=== PATIENT | male | born 1955 | race Caucasian/White ===

== ENCOUNTER → 2018-04-08 13:22 | Outpatient (CLI) | payer SELFPAY ==
[2018-04-08 14:40] LABS: Absolute Lymphocyte Count 2.42 X10^3/ul (0.83-4.51); Absolute Neutrophil Count 6.4 X10^3/uL (2.0-7.7); Basophil# 0.03 X10^3/uL; Basophil% 0.3 % (0-1); Eosinophil# 0.36 X10^3/uL; Eosinophils% 3.4 % (0-5); Hematocrit 30.6 % (40-54); Hemoglobin 9.4 g/dl (13.0-16.5); Lymphocyte # 2.42 X10^3/ul (4.0); Lymphocyte % 23.2 % (19-41); Mean Corp Hgb Conc 30.7 g/gl (32-36); Mean Corpuscular Hgb 24.7 pg (27.0-32.0); Mean Corpuscular Volume 80.3 fL (80-94); Mean Platelet Vol. 9.9 fl (6.2-12.0); Monocyte# 1.25 X10^3/uL; Neutrophil # 6.35 X10^3/uL (2.7-7.7); Neutrophil % 60.8 % (47-70); POSITIVE COUNT NO; POSITIVE DIFFERENTIAL NO; POSITIVE MORPHOLOGY NO; Platelet Count 326 K/mm3 (150-450); RBC Distribution Width CV 16.5 % (11.6-14.6); RBC Distribution Width SD 46.5 fl (35.1-43.9); Red Blood Count 3.81 M/mm3 (4.6-6.2); White Blood Count 10.4 K/mm3 (4.4-11.0)
[2018-04-08 15:03] LABS: ALB/GLOB Ratio 0.6 RATIO (0.9-2.4); AST(SGOT) 34 U/L (15-37); Alanine Aminotransfer ALT/SGPT 29 U/L (16-61); Alkaline Phosphatase 79 U/L (45-117); Anion Gap 8 (5-15); BUN 20 mg/dL (7-18); BUN/Creat Ratio 19.2 RATIO (10-20); Chloride 100 mmol/L (98-107); Creatinine, Serum 1.04 mg/dL (0.70-1.30); EST Glomerular Filtration Rate 77 mL/min (>60); Est Glom Filt Rate - Afr Amer 94 mL/min (>60); Globulin 4.9 g/dL (2.2-4.2); Glucose 134 mg/dL (74-106); Potassium 4.1 mmol/L (3.5-5.1); Protein, Total 7.9 g/dL (6.4-8.2); Sodium Level 138 mmol/L (136-145)
== END ==
PROVIDERS: Family Provider Family Medicine; PCP Family Medicine; Referring Provider Internal Medicine Rheumatology; Visit Provider Internal Medicine Rheumatology
DX: M06.00 Rheumatoid arthritis without rheumatoid factor, unspecified site (principal); M17.0 Bilateral primary osteoarthritis of knee; Z79.899 Other long term (current) drug therapy
CPT/HCPCS: 36415; 80053; 85025

== ENCOUNTER 2018-05-27 10:54 | Day surgery (SDC) | payer SELFPAY ==
[2018-05-27] VITALS (7 sets, daily range): BP systolic 99–132; BP diastolic 48–87; PULSE 60–109; RESP 15–18; TEMP 36.3–36.8; O2SAT 98–100; BMI 29.8
--- NOTE | 2018-05-27 | IMM_PTH ---
PATIENT: CARMEN MENDEZ LOC: EN U#:[id number] AGE/SX: 62/M ROOM: RE05/27/[address]: Dr. Jas Dykes MD : 1955 BED: DIS: 05/27/2018 SPEC #: [id number] RECD: 05/28/18 14:34 STATUS: DIANA REQ #: [id number] BRISEIDA: 05/27/18 00:[address]: Jas Dykes DEPT: IMMUNOHISTOCHEMISTRY RECD BY: Lisette Coley ENTERED: 05/28/18 14:39 SP TYPE: IMMUNO OTHR DR: Dr. Gumaro Menjivar DO Tissues: B - Stomach, NOS E - Transverse colon Procedures: H Pylori (initial) MSH2 (add) MLH-1 (add) MSH6 (add) Anti-PMS2 (add) DILLON-2 (add) P53 (add) KI-67 (initial) PHYSICIAN & INSTITUTION [place] [id number] SPECIMEN INFORMATION: Tissue Source: B - Antral biopsy, E - Distal transverse colon mass biopsy Clinical Info: Weight loss, anemia Specimen Number: [id number] B & E CPT code: 50224 x2, 11538 x6 METHODOLOGY: Deparaffinized sections of prefer/formalin-fixed tissue or PAP/DQ stained slides are incubated with monoclonal/polyclonal antibodies/oligonucleotide probes. Localization is made via biotin free immunoperoxidase method. Appropriate controls are performed and reacted as expected. Results on target cell population are indicated in the following table: RESULTS: ANTIBODY / CLONE RESULT Block B H Pylori (polyclonal) negative Block E Ki-67 (30-9) positive, high P53 (DO-7) positive, focal and weak DILLON-2 (SP21) positive MLH-1 (M1) negative MSH2 (25D12) positive MSH6 (44) positive PMS2 (EQK0629) negative These tests were developed and their performance characteristics determined by [facility]. They may not have been cleared or approved by the U.S. Food and Drug Administration. The FDA has determined that such clearance or approval is not necessary. INTERPRETATION: B. Antral biopsy: Negative for Helicobacter pylori organisms. E. Distal transverse colon mass, biopsy: Invasive adenocarcinoma. Result of Microsatellite Instability Study: Positive (loss of mismatch protein; microsatellite instability detected). Complete loss of MLH1 and PMS2. SJ:sena 05/29/18
[2018-05-27 11:35] LABS: Bedside Glucose 116 mg/dL (70-110)
--- NOTE | 2018-05-27 12:00 | EGD_PTH ---
PATIENT: CARMEN MENDEZ LOC: EN U#:[id number] AGE/SX: 62/M ROOM: RE05/27/[address]: Dr. Jas Dykes MD : 1955 BED: DIS: 05/27/2018 SPEC #: [id number] RECD: 05/27/18 13:53 STATUS: DIANA RERonny #: [id number] BRISEIDA: 05/27/18 12:[address]: Jas Dykes DEPT: SURGICAL PATHOLOGY RECD BY: Jas Rubio ENTERED: 05/27/18 13:59 SP TYPE: EGD BIOPSY OTHR DR: Dr. Gumaro Menjivar DO Tissues: A - Jejunum, NOS B - Gastric mucous membrane C - Gastric mucous membrane D - Esophagus, NOS E - Transverse colon Procedures: Special Stain Group II PAS Stain (control) Surgery Specimen Level IV HEADER OPERATION: [place] [place] DIAGNOSIS: Weight loss, anemia TISSUE SUBMITTED: A - Jejunal biopsy, B - Antral biopsy for pathology, C - GE junction biopsy, D - Mid esophageal biopsy, E - Distal transverse colon mass biopsy MICROSCOPIC DIAGNOSIS A. Jejunum, biopsy: Minimal nonspecific chronic inflammation. See comment. B. Gastric antrum, biopsy: Mild chronic inflammation. See comment. C. Gastroesophageal junction, biopsy: Mild acute and chronic inflammation. See comment. D. Mid esophagus, biopsy: Fragments of benign squamous mucosa. E. 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 See comment. AM:sena 05/28/18 COMMENT A. There is no flattening of the villi. No transmural lymphoid aggregates are seen. Clinical correlation is suggested. B. The results of immunohistochemistry for Helicobacter pylori will be reported separately ([id number]). C. PAS stain with matched control is negative for fungal organisms. E. Microsatellite instability study will be reported separately ([id number]). Case has been reviewed in consultation with Dr. Irene who concurs with the above diagnosis. IDC:SJ MICROSCOPIC DESCRIPTION Slides are reviewed. GROSS DESCRIPTION A - Received in fixative is one container labeled with the patient's name and designated jejunal biopsy. The specimen consists of two irregular fragments of light mix soft tissue that in aggregate measure 0.5 x 0.5 x 0.1 cm. The specimen is totally submitted in one cassette. B - Received in fixative is one container labeled with the patient's name and designated antral biopsy. The specimen consists of one irregular fragment of light mix soft tissue that measures 0.5 x 0.3 x 0.1 cm. The specimen is totally submitted in one cassette. C - Received in fixative is one container labeled with the patient's name and designated GE junction biopsy. The specimen consists of two irregular fragments of light mix soft tissue that in aggregate measure 0.5 x 0.5 x 0.1 cm. The specimen is totally submitted in one cassette. D - Received in fixative is one container labeled with the patient's name and designated mid esophageal biopsy. The specimen consists of one irregular fragment of light mix soft tissue that measures 0.6 x 0.2 x 0.1 cm. The specimen is totally submitted in one cassette. E - Received in fixative is one container labeled with the patient's name and designated distal transverse colon mass biopsy. The specimen consists of multiple irregular fragments of light mix soft tissue that in aggregate measure 1 x 0.5 x 0.1 cm. The specimen is totally submitted in one cassette. / AM:sena 05/27/18 TC:0 CPT: 47636 x5, 72852
--- NOTE | 2018-05-27 12:59 | HP.PCM_ITS ---
History and Physical Date of Admission: 05/27/18 HISTORY AND PHYSICAL ? Mainor Rios 1955 ? REFERRING PHYSICIAN: ??Self ? CHIEF COMPLAINT: ??Consult (Consult Colonoscopy) ? HPI: The patient is a 62 year old male referred for endoscopy. ?The patient is a poor historian. ?He notes that around a year ago he was having a large amount of lower abdominal cramping and discomfort. ?He states that he underwent laboratory workup at that time which was unremarkable, did not have endoscopy and does not think he had any imaging studies at that time. ?States the pain was felt to possibly be related to one of his arthritis medications which has since been discontinued. ?He states the abdominal pain has since resolved. ? ? Patient does note that he has had weight fluctuations and weight loss of around 30 lbs total in the last year. ?He notes a history of constipation and hard stools, takes metamucil regularly. ?He denies any visible blood in stools or dark stools. ?The patient ?notes no history of upper GI complaints. ?He was noted to have decreasing hemoglobin on recent routine laboratory studies and is referred for endoscopic evaluation for possible GI source of blood loss. ? Mainor has not?undergone prior endoscopy. ?He denies a family history of colon cancer. ?Patient states around 20 years ago he had an attempted fistulotomy surgery with seton placement. ?He states he had complications related to that surgery. ?He states he then went to another surgeon for a redo surgery, but that that surgery could not be completed as they had trouble getting the tube down my throat. ?He states that the site healed on its own and he denies any flare- ups of anal abscesses or other issues since that time. ?He notes that he is very apprehensive about having anything done in that area since his issues with the fistulotomy surgery, and states this is why he has put off having a colonoscopy in the past. ? Patient's past medical history is significant for diabetes mellitus, gout, hypertension, hyperlipidemia, rheumatoid arthritis. ? ? PAST MEDICAL HISTORY PAST MEDICAL HISTORY Diagnosis Date ? DM (diabetes mellitus) (HCC) ? ? Gout ? ? HTN (hypertension) ? ? Hypercholesteremia ? ? RA (rheumatoid arthritis) (HCC) ? ? ? PAST SURGICAL HISTORY PAST SURGICAL HISTORY Procedure Laterality Date ? FISTULOTOMY SUBCUT ? 1997 ? ? CURRENT MEDICATIONS ? Current Outpatient Prescriptions: omeprazole/sodium bicarbonate (OMEPPI ORAL) Take by mouth. pravastatin (PRAVACHOL) 40 mg tablet Take 40 mg by mouth once daily. glipiZIDE (GLUCOTROL) 5 mg tablet Take 5 mg by mouth three times daily. metFORMIN (GLUCOPHAGE) 1,000 mg tablet Take 1,000 mg by mouth twice daily with meals. atenolol (TENORMIN) 25 mg tablet Take 25 mg by mouth once daily. ferrous sulfate (IRON) 325 mg (65 mg iron) tablet Take 325 mg by mouth daily with breakfast. aspirin 81 mg chewable tablet Take 81 mg by mouth once daily. adalimumab (HUMIRA PEN SUBCUTANEOUS) Inject subcutaneously every 2 weeks. ALLOPURINOL ORAL Take 300 mg by mouth once daily. ? No current facility-administered medications for this visit. ? ALLERGIES: Patient has no known allergies. ? PERSONAL HISTORY: SOCIAL HISTORY Social History ??Marital status: ?Spouse name: ?Years of education: ?Number of children: ? Social History Main Topics ??Smoking status: Former Smoker ?Packs/day: 0.00 ?Years: 0.00 ?Start date: 05/07/1973 ?Quit date: 05/07/1993 ??Smokeless tobacco: Never Used ?Alcohol use: No ? FAMILY HISTORY: FAMILY HISTORY No family history on file. ? REVIEW OF SYSTEMS GENERAL: No weight loss, malaise or fevers HEENT: Negative for frequent or significant headaches, No changes in hearing or vision, no nose bleeds or other nasal problems NECK: Negative for lumps, goiter, pain and significant neck swelling RESPIRATORY: Negative for cough, hemoptysis, wheezing, COPD, dyspnea or shortness of breath CARDIOVASCULAR: Negative for chest pain, leg swelling, hypertension, CHF or palpitations GI: See HPI MUSCULOSKELETAL: +Rheumatoid arthritis SKIN: Negative for lesions, rash, and itching PSYCH: Negative for sleep disturbance, mood disorder and recent psychosocial stressors HEMATOLOGY/LYMPHOLOGY: See HPI, +anemia ENDOCRINE: Positive for diabetes mellitus on oral agent NEURO: No history of headaches, syncope, paralysis, seizures or tremors ? ? PHYSICAL EXAMINATION: ? General: ?The patient is 62 year old male, well nourished, well hydrated in no acute distress. ?The patient is oriented to time, place, and person. ? VITALS: Blood pressure 142/68, pulse 80, height 180.3 cm (5' 11), weight 99.8 kg (220 lb), SpO2 95 %.?Body mass index is 30.68 kg/m?.? ? HEENT: ?Normal cephalic, ataumatic, pupils are equally round, sclera are anicteric, mucous membranes are moist, oropharynx is clear. ?Neck has no masses, asymmetry or lymphadenopathy. ? ? Respiratory: ?Clear to auscultation and percussion. ?Normal respiratory excursion and pattern. ? Cardiac: ?Examination is regular rate and rhythm. ? Abdominal exam: ?Soft, nontender, ?with no palpable masses. ?No hepatosplenomegaly. ?No palpable hernias. ? Rectal exam: exam deferred ? Extremities: ?no clubbing, cyanosis or edema. ?No adenopathy. ? Other: ? LABORATORY VALUES: As Noted ? RADIOLOGIC STUDIES: ?As Noted ? Assessment ? IMPRESSION: anemia, history of lower abdominal discomfort, recommend upper and lower endoscopy ? PLAN: ?I have reviewed my findings with Dr. Dykes, who also evaluated the patient and participated in development of the following plan. ?We will plan for upper and lower endoscopy under Monitored Anesthetic Care. ?We discussed the risks and benefits of the planned endoscopy. ?I have informed the patient that complications can occur including failure to complete the endoscopy and perforation. ?The patient had the opportunity to ask questions concerning the planned endoscopy. ?My staff has also explained the procedure to the patient in understandable terms and has given the patient printed material concerning the procedure. ?The patient freely consents to surgery. ? I plan to use golytely bowel preparation for endoscopy ? I plan for monitored anesthetic care.? ? Patient has been instructed to contact his PCP regarding his diabetic medications, which may need adjusted during bowel preparation and/or day of procedure. ? Patient verbalized understanding of all above and agreed with the ?plan ? Diagnoses: (D64.9) Anemia, unspecified type ?(primary encounter diagnosis) (R10.9) Abdominal cramping ? My findings have been communicated to Dr. Gumaro Fuentes Otto. ?? Return to Clinic: The patient is instructed to follow-up with me 1 week post operatively. ? Maribel Richards PA-C
--- NOTE | 2018-05-27 13:31 | OP.ENDO_ITS ---
Patient Name: Mainor Rios Procedure Date: 05/27/2018 12:07 PM Date of : 1955 Age: 62 Procedure: Upper GI endoscopy Indications: Iron deficiency anemia Providers: Jas Dykes MD Referring MD: Gumaro Menjivar Medicines: Monitored Anesthesia Care Patient Profile: This is a 62 year old male. Refer to note in patient chart for documentation of history and physical. Complications: No immediate complications. Procedure: Pre-Anesthesia Assessment: - Prior to the procedure, a History and Physical was performed, and patient medications and allergies were reviewed. The patient is competent. The risks and benefits of the procedure and the sedation options and risks were discussed with the patient. All questions were answered and informed consent was obtained. Patient identification and proposed procedure were verified by the physician, the nurse and the relay man in the procedure room. Mental Status Examination: alert and oriented. Airway Examination: normal oropharyngeal airway and neck mobility. Respiratory Examination: clear to auscultation. CV Examination: normal. Prophylactic Antibiotics: The patient does not require prophylactic antibiotics. Prior Anticoagulants: The patient has taken no previous anticoagulant or antiplatelet agents. ASA Grade Assessment: III - A patient with severe systemic disease. After reviewing the risks and benefits, the patient was deemed in satisfactory condition to undergo the procedure. The anesthesia plan was to use moderate sedation / analgesia (conscious sedation). Immediately prior to administration of medications, the patient was re-assessed for adequacy to receive sedatives. The heart rate, respiratory rate, oxygen saturations, blood pressure, adequacy of pulmonary ventilation, and response to care were monitored throughout the procedure. The physical status of the patient was re-assessed after the procedure. After obtaining informed consent, the endoscope was passed under direct vision. Throughout the procedure, the patient's blood pressure, pulse, and oxygen saturations were monitored continuously. The gastroscope was introduced through the mouth, and advanced to the jejunum. The upper GI endoscopy was accomplished without difficulty. The patient tolerated the procedure well. Scope In: 1:05:07 PM Scope Out: 1:10:01 PM Total Procedure Duration Time 0 hours 4 minutes 54 seconds Findings: The examined jejunum was normal. Biopsies for histology were taken with a cold forceps for evaluation of celiac disease. The examined duodenum was normal. Scattered moderate inflammation characterized by adherent blood, erosions, erythema, granularity and linear erosions was found in the entire examined stomach. Biopsies were taken with a cold forceps for Helicobacter pylori testing using PyloriTek test. Biopsies were taken with a cold forceps for histology. Non-severe esophagitis with no bleeding was found. Biopsies were taken with a cold forceps for histology. The middle third of the esophagus was normal. Biopsies were taken with a cold forceps for histology. Impression: - Normal examined jejunum. Biopsied. - Normal examined duodenum. - Gastritis. Biopsied. - Non-severe reflux esophagitis. Biopsied. - Normal middle third of esophagus. Biopsied. Recommendation: - Continue present medications. Procedure Code(s): --- Professional --- 83961, Esophagogastroduodenoscopy, flexible, transoral; with biopsy, single or multiple CPT copyright 2017 [employer]. All rights reserved. The codes documented in this report are preliminary and upon digital advertising analyst review may be revised to meet current compliance requirements. Jas Dykes MD 05/27/2018 1:31:07 PM This report has been signed electronically. Number of Addenda: 0 Note Initiated On: 05/27/2018 12:07 PM
--- NOTE | 2018-05-27 13:34 | OP.ENDO_ITS ---
Patient Name: Mainor Rios Procedure Date: 05/27/2018 1:10 PM Date of : 1955 Age: 62 Procedure: Colonoscopy Indications: Iron deficiency anemia Providers: Jas Dykes MD Referring MD: Gumaro Menjivar Medicines: Monitored Anesthesia Care Patient Profile: This is a 62 year old male. Refer to note in patient chart for documentation of history and physical. Last Colonoscopy: 3 years ago. Complications: No immediate complications. Procedure: Pre-Anesthesia Assessment: - Prior to the procedure, a History and Physical was performed, and patient medications and allergies were reviewed. The patient is competent. The risks and benefits of the procedure and the sedation options and risks were discussed with the patient. All questions were answered and informed consent was obtained. Patient identification and proposed procedure were verified by the physician, the nurse and the communications controller in the procedure room. Mental Status Examination: alert and oriented. Airway Examination: normal oropharyngeal airway and neck mobility. Respiratory Examination: clear to auscultation. CV Examination: normal. Prophylactic Antibiotics: The patient does not require prophylactic antibiotics. Prior Anticoagulants: The patient has taken no previous anticoagulant or antiplatelet agents. ASA Grade Assessment: III - A patient with severe systemic disease. After reviewing the risks and benefits, the patient was deemed in satisfactory condition to undergo the procedure. The anesthesia plan was to use moderate sedation / analgesia (conscious sedation). Immediately prior to administration of medications, the patient was re-assessed for adequacy to receive sedatives. The heart rate, respiratory rate, oxygen saturations, blood pressure, adequacy of pulmonary ventilation, and response to care were monitored throughout the procedure. The physical status of the patient was re-assessed after the procedure. After I obtained informed consent, the scope was passed under direct vision. Throughout the procedure, the patient's blood pressure, pulse, and oxygen saturations were monitored continuously. The pediatric colonoscope was introduced through the anus and advanced to the cecum, identified by the appendiceal orifice, ileocecal valve and palpation. The colonoscopy was performed without difficulty. The patient tolerated the procedure well. The quality of the bowel preparation was good. Scope In: 1:12:41 PM Scope Withdrawal Time 0 hours 6 minutes 59 seconds Scope Out: 1:23:22 PM Total Procedure Duration Time 0 hours 10 minutes 41 seconds Findings: The digital rectal exam findings include prostate nodule. A fungating partially obstructing large mass was found in the distal transverse colon. The mass was circumferential. The mass measured five cm in length. In addition, its diameter measured five mm. Oozing was present. Biopsies were taken with a cold forceps for histology. Area was tattooed with an injection of Rosita ink. For location marking, one hemostatic clip was successfully placed (MR conditional). There was no bleeding at the end of the procedure. A few small-mouthed diverticula were found in the sigmoid colon. The retroflexed view of the distal rectum and anal verge was normal and showed no anal or rectal abnormalities. Impression: - A prostate nodule found on digital rectal exam. - Malignant partially obstructing tumor in the distal transverse colon. Biopsied. Tattooed. Clip (MR conditional) was placed. - Diverticulosis in the sigmoid colon. - The distal rectum and anal verge are normal on retroflexion view. Recommendation: - Discharge patient to home. - Resume previous diet. - Continue present medications. - Return to my office tomorrow. - Repeat colonoscopy in 1 year for surveillance. Procedure Code(s): --- Professional --- 33927, Colonoscopy, flexible; with directed submucosal injection(s), any substance 72505, Colonoscopy, flexible; with biopsy, single or multiple 08556, Unlisted procedure, colon CPT copyright 2017 [employer] [place] [employer]. All rights reserved. The codes documented in this report are preliminary and upon death surveys coder review may be revised to meet current compliance requirements. Jas Dykes MD 05/27/2018 1:34:27 PM This report has been signed electronically. Number of Addenda: 0 Note Initiated On: 05/27/2018 1:10 PM
--- NOTE | 2018-05-27 13:36 | RAD_ITS ---
STUDY: X-RAY - ABDOMEN/PELVIS REASON FOR EXAM: Male, 62 years old. Abdominal distention. Post colonoscopy with clip placement. TECHNIQUE: COMPARISON: None. FINDINGS: There is an unremarkable bowel gas pattern. A metallic clip is seen in the region of the splenic flexure. The visualized liver, spleen and kidneys are grossly normal in size and morphology. Normal soft tissue structures. There are diffuse degenerative changes of the visualized lumbar spine. RAD/Abdomen Single View (Portable) IMPRESSION: A metallic clip is seen in the region of the splenic flexure. Electronically Signed: Tereso Reynoso MD at 14:57 EST Tel [phone], Service support ,
[2018-05-27 14:02] LABS: Absolute Lymphocyte Count 2.04 X10^3/ul (0.83-4.51); Absolute Neutrophil Count 6.5 X10^3/uL (2.0-7.7); Basophil# 0.03 X10^3/uL; Basophil% 0.3 % (0-1); Eosinophil# 0.23 X10^3/uL; Eosinophils% 2.3 % (0-5); Hemoglobin 9.5 g/dl (13.0-16.5); Lymphocyte # 2.04 X10^3/ul (4.0); Lymphocyte % 20.8 % (19-41); Mean Corp Hgb Conc 30.6 g/gl (32-36); Mean Corpuscular Hgb 23.9 pg (27.0-32.0); Mean Corpuscular Volume 77.9 fL (80-94); Mean Platelet Vol. 8.9 fl (6.2-12.0); Monocyte# 1.03 X10^3/uL; Monocyte% 10.5 % (0-10); Neutrophil # 6.46 X10^3/uL (2.7-7.7); Neutrophil % 65.9 % (47-70); Platelet Count 302 K/mm3 (150-450); RBC Distribution Width CV 16.4 % (11.6-14.6); RBC Distribution Width SD 46.9 fl (35.1-43.9); Red Blood Count 3.98 M/mm3 (4.6-6.2); White Blood Count 9.8 K/mm3 (4.4-11.0)
[2018-05-27 14:03] LABS: POSITIVE COUNT NO; POSITIVE DIFFERENTIAL NO; POSITIVE MORPHOLOGY NO
[2018-05-27 14:44] LABS: ALB/GLOB Ratio 0.5 RATIO (0.9-2.4); AST(SGOT) 29 U/L (15-37); Alanine Aminotransfer ALT/SGPT 24 U/L (16-61); Albumin, Serum 2.8 g/dL (3.2-5.0); Alkaline Phosphatase 76 U/L (45-117); Anion Gap 8 (5-15); BUN 12 mg/dL (7-18); BUN/Creat Ratio 12.9 RATIO (10-20); Calcium,Total 8.7 mg/dL (8.5-10.1); Chloride 101 mmol/L (98-107); Creatinine, Serum 0.93 mg/dL (0.70-1.30); EST Glomerular Filtration Rate 88 mL/min (>60); Est Glom Filt Rate - Afr Amer 106 mL/min (>60); Estimated Creatinine Clearance 89.96 ml/min; Globulin 5.3 g/dL (2.2-4.2); Glucose 113 mg/dL (74-106); PSA,Total- Diagnostic 0.39 ng/mL (0.0-4.0); Potassium 4.1 mmol/L (3.5-5.1); Protein, Total 8.1 g/dL (6.4-8.2); Sodium Level 136 mmol/L (136-145)
[2018-05-28 15:16] LABS: Carcinoembryonic Antigen 3.9 ng/mL (0.0-4.7)
--- OUTSIDE RECORDS SUMMARY | 2018-08-28 14:54 | XMS RPT_ITS ---
:1955 Author Organization OHIP Care Team Providers Name Role Phone Jas Montilla Admitting Unavailable Jas Montilla Attending Unavailable Jas Montilla Referring Unavailable Gumaro Sepulveda Primary Care Unavailable Jas Montilla Attending Unavailable Jas Montilla Referring Unavailable Gumaro Sepulveda Primary Care Unavailable Orlando Hurley Attending Unavailable Jas Montilla Referring Unavailable Lisa, Mally Attending Unavailable Lisa, Mally Referring Unavailable Gumaro Sepulveda Primary Care Unavailable Jas Montilla Attending Unavailable Jas Montilla Referring Unavailable Otto Gumaro Primary Care Unavailable AMEENA RICHARDS (PA) Attending Unavailable JAS MONTILLA Attending Unavailable GUMARO SEPULVEDA Referring Unavailable JAS MONTILLA Referring Unavailable AMEENA RICHARDS (PA) Attending Unavailable JAS MONTILLA Referring Unavailable IMCA Referring Unavailable IMCA Primary Care Unavailable IMCA Referring Unavailable IMCA Primary Care Unavailable PROBLEMS PROBLEMS DATE TYPE CONDITION / CODE ATTENDING STATUS SOURCE 06/17/2018 Unknown I10 - Essential Orlando Hurley Active [facility] (primary) Community hypertension / Hospital I10(ICD-10) Repository 05/28/2018 Active Malignant neoplasm NA Active [facility] splenic flexure / Clinic Main C18.5(ICD-10) [place] Repository 04/08/2018 Unknown M06.00 - Rheumatoid Mally Gonzalez Active [facility] arthritis without Community rheumatoid factor, Hospital unspecified site / Repository M06.00(ICD-10) 04/08/2018 Unknown Z79.899 - Other long Mally Gonzalez Active [place] term (current) drug Community therapy / Hospital Z79.899(ICD-10) Repository 04/08/2018 Unknown M17.0 - Bilateral Mally Gonzalez Active [facility] primary Community osteoarthritis of Hospital knee / M17.0(ICD-10) Repository PROCEDURES PROCEDURES No Procedure Records FoundRESULTS RESULTS PROGRESS Observed: 06/19/2018 Status: COMPLETED Source: [place] 2:45 PM [facility] REPOSITORY HNO ID: [id number] Author: Ameena Richards (Pa) Service: (none) Author Type: Physician [employer] Designer Type: Progress Notes Filed: 06/22/2018 6:45 PM Note Text: FOLLOW UP VISIT - POST OP COLON CANCER NAME: Carmen Ramirez [facility] NO.: [id number] DATE OF SERVICE: 06/19/2018 : 1955 REFERRING PHYSICIAN: Gumaro Fuentes Otto Hayward is a patient I am following with Dr. Montilla for a splenic flexure colon cancer. Dr. Montilla performed a laparoscopic assisted segmental colon cancer resection/splenic flexure mobilization with stapled functional end to end anastomosis on 06/10/18. The pathology demonstrated: MICROSCOPIC DIAGNOSIS Left colon, segmental colectomy: Invasive adenocarcinoma. See cancer checklist below. AM:sena 06/12/18 COMMENT COLON CANCER SUMMARY: Specimen ? left colon Procedure ? left hemicolectomy Tumor site ? splenic flexure Tumor size ? 7.5 x 7 x 1.5 cm Macroscopic tumor perforation ? not present Histologic type ? adenocarcinoma with mucinous features. Histologic grade ? high grade Microscopic tumor extension ? tumor invades through muscularis propria into subserosal adipose tissue. Margins: Proximal margin ? uninvolved by invasive carcinoma. Distal margin - uninvolved by invasive carcinoma. Circumferential margin - uninvolved by invasive carcinoma. Treatment effect - unknown Lymph-Vascular invasion ? not identified Perineural invasion - not identified Tumor deposits - not identified Lymph nodes: Number of lymph nodes examined - 36 Number of lymph nodes involved - 0 Ancillary studies: Microsatellite study performed on same tumor ([id number] / [id number]): Positive (loss of mismatch protein; microsatellite instability detected). There is complete loss of MLH1 and PMS2 and no loss of MSH2 and MSH6 markers. PATHOLOGIC STAGE: pT3 N0 Mx Carmen notes no major complaints. Post operative pain has been well controlled. The patient denies nausea. The patient`s appetite has been good. VITALS: Blood pressure 142/64, pulse 70, temperature 36.2 ?C (97.1 ?F), temperature source Temporal Artery, resp. rate 18, weight 95.3 kg (210 lb). On examination, the abdominal skin incisions were clean, dry, and intact. The bowel sounds were normal, the abdomen was soft. Assessment IMPRESSION: Status Post laparoscopic-assisted segmental colon resection for colon cancer. PLAN: Dr. Montilla also evaluated the patient and participated in development of the following plan. The pathology report was discussed with the patient, and the patient had the opportunity to ask questions and have questions answered. Carmen may return to regular activities as tolerated with the exception of no heavy lifting. .he may shower and bathe. The patient may now drive as long as he is no longer taking narcotic pain medication. If he notes any difficulties, he should contact me immediately. I plan to refer him for evaluation by oncology. 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 Patient verbalized understanding of all above KAMALJIT Lemon Observed: 06/19/2018 Status: COMPLETED Source: [place] 2:00 PM [facility] REPOSITORY Office Visit (GENSWS) CARMEN RIOS ([id number]) 1955 M Date Time Provider Department 06/19/18 2:00 PM AMEENA RICHARDS (PA) During your visit today, we recorded the following information about you: Temperature Pulse Respiration Blood pressure 97.1 degrees 70/minute 18/minute 142/64 Weight 95.3 kg Ameena Richards PA-C 06/19/2018 2:53 PM Addendum -Referral to Dr. Iniguez -Follow up in 3 weeks for recheck The following instructions are important for you related to your office visit today with the [facility] General Surgeons. INSTRUCTIONS FOLLOWING YOUR RECENT SURGERY You should be returning to your regular diet, If you have having persistent issues with tolerating your diet, please contact our office It is not unusual to have incisional pain for the first 1- 2 weeks following surgery. If this persists beyond 2 weeks, contact the office You should leave the Steri-Strips in place until they fall off. You may return to your regular activities. You may drive if you are no longer taking narcotic pain medication. You should perform no lifting greater than 20lbs for the next 5 weeks. It is not unusual to have loose stools following surgery. This is usually self limited and related to the antibiotics that were given during your surgical procedure. Fiber supplementation and yogurt with active cultures may help you return to regular bowel activity. If you note loose stools persisting for over 2 weeks, or significant cramping or loose bloody stools, contact the office immediately. Contact the office immediately if any of your incisions become increasingly tender, red or have drainage. Again, if you have any difficulties or concerns, contact our office immediately. If you note any additional difficulties, questions, or concerns, you should contact our office immediately @ [phone] and ask to be transferred to the General Surgery department. Ameena Richards PA-C 06/22/2018 6:45 PM Signed FOLLOW UP VISIT - POST OP COLON CANCER NAME: Carmen Ramirez Rios [facility] NO.: [id number] DATE OF SERVICE: 06/19/2018 : 1955 REFERRING PHYSICIAN: Gumaro Fuentes Otto Carmen is a patient I am following with Dr. Montilla for a splenic flexure colon cancer. Dr. Montilla performed a laparoscopic assisted segmental colon cancer resection/splenic flexure mobilization with stapled functional end to end anastomosis on 06/10/18. The pathology demonstrated: MICROSCOPIC DIAGNOSIS Left colon, segmental colectomy: Invasive adenocarcinoma. See cancer checklist below. AM:sena 06/12/18 COMMENT COLON CANCER SUMMARY: Specimen ? left colon Procedure ? left hemicolectomy Tumor site ? splenic flexure Tumor size ? 7.5 x 7 x 1.5 cm Macroscopic tumor perforation ? not present Histologic type ? adenocarcinoma with mucinous features. Histologic grade ? high grade Microscopic tumor extension ? tumor invades through muscularis propria into subserosal adipose tissue. Margins: Proximal margin ? uninvolved by invasive carcinoma. Distal margin - uninvolved by invasive carcinoma. Circumferential margin - uninvolved by invasive carcinoma. Treatment effect - unknown Lymph-Vascular invasion ? not identified Perineural invasion - not identified Tumor deposits - not identified Lymph nodes: Number of lymph nodes examined - 36 Number of lymph nodes involved - 0 Ancillary studies: Microsatellite study performed on same tumor ([id number] / [id number]): Positive (loss of mismatch protein; microsatellite instability detected). There is complete loss of MLH1 and PMS2 and no loss of MSH2 and MSH6 markers. PATHOLOGIC STAGE: pT3 N0 Mx Carmen notes no major complaints. Post operative pain has been well controlled. The patient denies nausea. The patient`s appetite has been good. VITALS: Blood pressure 142/64, pulse 70, temperature 36.2 ?C (97.1 ?F), temperature source Temporal Artery, resp. rate 18, weight 95.3 kg (210 lb). On examination, the abdominal skin incisions were clean, dry, and intact. The bowel sounds were normal, the abdomen was soft. Assessment IMPRESSION: Status Post laparoscopic-assisted segmental colon resection for colon cancer. PLAN: Dr. Montilla also evaluated the patient and participated in development of the following plan. The pathology report was discussed with the patient, and the patient had the opportunity to ask questions and have questions answered. Carmen may return to regular activities as tolerated with the exception of no heavy lifting. .he may shower and bathe. The patient may now drive as long as he is no longer taking narcotic pain medication. If he notes any difficulties, he should contact me immediately. I plan to refer him for evaluation by oncology. 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 Patient verbalized understanding of all above Ameena Richards PA-C Referring Provider: JAS MONTILLA [[id number]] Allergies As of Date: 06/19/2018 (No Known Allergies) Date Reviewed: 06/19/2018 Reviewed by: Ameena Richards (Pa) - Fully Assessed Reason for Visit: Post Op [174] Primary Visit Diagnosis:Malignant neoplasm of splenic flexure (HCC) [C18.5] Prescriptions as of 06/19/2018 Sig: NEOMYCIN 500 MG TABLET Take 2 tablets by mouth four * METRONIDAZOLE 500 MG TABLET 2 TABLETS AT 6, 8, AND 10 PM OMEPPI ORAL Take by mouth. PRAVASTATIN 40 MG TABLET Take 40 mg by mouth once doyle* GLIPIZIDE 5 MG TABLET Take 5 mg by mouth three time* METFORMIN 1,000 MG TABLET Take 1,000 mg by mouth twice * ATENOLOL 25 MG TABLET Take 25 mg by mouth once doyle* FERROUS SULFATE 325 MG (65 MG* Take 325 mg by mouth daily wi* ASPIRIN 81 MG CHEWABLE TABLET Take 81 mg by mouth once doyle* HUMIRA PEN SUBCUTANEOUS Inject subcutaneously every 2* ALLOPURINOL ORAL Take 300 mg by mouth once tamara* Problem List As Of Date: 06/19/2018 (None) Other instructions from your clinician: -Referral to Dr. Iniguez -Follow up in 3 weeks for recheck The following instructions are important for you related to your office visit today with the [facility] General Surgeons. INSTRUCTIONS FOLLOWING YOUR RECENT SURGERY You should be returning to your regular diet, If you have having persistent issues with tolerating your diet, please contact our office It is not unusual to have incisional pain for the first 1-2 weeks following surgery. If this persists beyond 2 weeks, contact the office You should leave the Steri-Strips in place until they fall off. You may return to your regular activities. You may drive if you are no longer taking narcotic pain medication. You should perform no lifting greater than 20lbs for the next 5 weeks. It is not unusual to have loose stools following surgery. This is usually self limited and related to the antibiotics that were given during your surgical procedure. Fiber supplementation and yogurt with active cultures may help you return to regular bowel activity. If you note loose stools persisting for over 2 weeks, or significant cramping or loose bloody stools, contact the office immediately. Contact the office immediately if any of your incisions become increasingly tender, red or have drainage. Again, if you have any difficulties or concerns, contact our office immediately. If you note any additional difficulties, questions, or concerns, you should contact our office immediately @ [phone] and ask to be transferred to the General Surgery department. Follow-up and Disposition History Recorded Encounter Status:Closed by AMEENA RICHARDS PA-C on 06/22/18 PROGRESS Observed: 06/14/2018 Status: COMPLETED Source: [place] 12:34 PM [facility] REPOSITORY HNO ID: [id number] Author: Jas Montilla Service: (none) Author Type: Physician Type: Progress Notes Filed: 06/14/2018 12:39 PM Note Text: OPERATIVE NOTATION FOR [facility] SURGICAL PROCEDURE. June 10, 2018 Carmen Rios 1955 [id number] male PROCEDURE: Laparoscopic colectomy partial - 45321-718 and Lap Mobilization of the Splenic Flexure - +[phone] SURGEON: Kole Montilla M.D. 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 Jas Montilla MD BEDSIDE GLUCOSE Collected: 06/13/2018 Status: F Source: [place] 11:43 AM [facility] REPOSITORY TYPE CODE TESTS RESULT OUT OF REFERENCE UNITS RANGE LAB L501.080 70-110 mg/dL High BEDSIDE GLU 258 Result Comment: MANAGEMENT OF PATIENT CARE PER NURSING PROTOCOL Performed By: #### L501.080 #### [facility] Point [place] [address] DISCHARGE SUMMARY Observed: 06/13/2018 Status: F Source: [place] 9:15 AM [facility] REPOSITORY [facility] Medical Records Department [address] [place] [address] Discharge Summary 06/13/18913 MR#: [id number] Acct: [id number] Name: CARMEN RIOS Rep #: [id number] : 1955 62 From: Jas Montilla MD PCP: Gumaro Sepulveda MD Status: ADM IN Y Location: [facility] [place] [id number] Discharge Date and Diagnosis Date of Admission: 06/10/18 Date of Discharge: 06/13/18 - Primary Discharge Diagnosis splenic flexure colon cancer Hospital Course and Treatment Operations: colectomy Summary of Care Provided: The patient is a 62 year old M with a near obstructing splenic flexure colon cancer who underwent laparoscopic-assisted segmental colon resection. The patient was doing well was advanced to low residue diet and able to be discharged home on postoperative day 3. - Physical Exam General: Alert, Oriented x3, Cooperative Lungs: Clear to auscultation, Normal air movement Cardiovascular: Regular rate, No murmurs Abdomen: Bowel Sounds Present, Soft, Non Tender Vital Signs Temp Pulse Resp BP Pulse Ox 97.7 F L 85 18 145/90 H 100 06/13/18 09:09 06/13/18 09:09 06/13/18 09:09 06/13/18 09:09 06/13/18 09:09 Oxygen Flow Rate (L/min) 3 Oxygen Delivery Method Room Air Weight: 99.9 kg Body Mass Index (BMI) 31.6 Finger Stick Blood Glucose 182 Intake and Output for Last 24 Hours Intake Total 2309 / 2309 1980 / 1980 620 / 620 Output Total 1325 / 1325 1650 / 1650 1075 / 1075 Balance 984 / 984 331 / 331 -455 / -455 POC Glucose POC Glucose 112 H 150 H 121 H POC Glucose 188 H Discharge Diet: Light diet - advance as tolerated Discharge Activity: Return to Normal Activity, May Drive May shower in (days): 0 - today Call your doctor if your incision/area has: Increased Pain/ Swelling, Increased Redness, Foul Smelling Discharge, Swelling at the incision site Call your doctor if you observe: Fever of 101 or Higher Home Medications: Medications to take at Discharge Adalimumab [Humira] 40 mg SQ Q14D 05/26/18 Allopurinol 300 mg PO DAILY 05/26/18 Aspirin E.C. [Ecotrin] 81 mg PO DAILY@0800 05/26/18 Atenolol [Tenormin (beta refugio)] 25 mg PO QHS 05/26/18 Calcium (Elemental) [Os-Jacob 500] 500 mg PO DAILY@0800 05/26/18 Iron Polysaccharide Complex [Ferrex 150] 150 mg PO DAILYCM 05/26/18 Metformin HCl [Glucophage] 1,000 mg PO BIDCM 05/26/18 Natural Pain Med 1 tab PO DAILY 05/26/18 Pravastatin [Pravachol] 40 mg PO QHS 05/26/18 glipiZIDE [Glucotrol] 5 mg PO TID 05/26/18 Acetaminophen [Tylenol] 1,000 mg PO Q6 tablet 06/13/18 Primary Care Physician: Gumaro Sepulveda DO [Primary Care Provider] - Please Follow Up With: Jas Montilla MD - [phone] When: Friday Medical Necessity - Tobacco Use Smoking Status: Never smoker Meaningful Use Info Meaningful Use Diagnoses (Choose all that apply): None applicable 06/13/18914 <Electronically signed by Jas Montilla MD> Date Jas Montilla MD Cosigner Signature (if applicable): Date CC: Gumaro Sepulveda MD; Jas Montilla MD Signed DISCHARGE INSTRUCTION Observed: 06/13/2018 Status: F Source: [place] 8:47 AM [facility] REPOSITORY [facility] Medical Records Department [address] [place] [address] Instructions for Home/Discharge Instructions 06/13/1846 MR#: [id number] Acct: [id number] Name: RIOSCARMEN D Rep #: [id number] : 1955 62 From: Jas Montilla MD PCP: Gumaro Sepulveda MD Status: ADM IN Discharge Diet: Light diet - advance as tolerated Discharge Activity: Return to Normal Activity, May Drive May shower in (days): 0 - today Call your doctor if your incision/area has: Increased Pain/ Swelling, Increased Redness, Foul Smelling Discharge, Swelling at the incision site Call your doctor if you observe: Fever of 101 or Higher Allergies/Adverse Reactions: Allergies No Known Allergies Allergy (Verified 06/08/18 13:32) Medications to take at Discharge Adalimumab [Humira] 40 mg SQ Q14D 05/26/18 Allopurinol 300 mg PO DAILY 05/26/18 Aspirin E.C. [Ecotrin] 81 mg PO DAILY@0800 05/26/18 Atenolol [Tenormin (beta refugio)] 25 mg PO QHS 05/26/18 Calcium (Elemental) [Os-Jacob 500] 500 mg PO DAILY@0800 05/26/18 Iron Polysaccharide Complex [Ferrex 150] 150 mg PO DAILYCM 05/26/18 Metformin HCl [Glucophage] 1,000 mg PO BIDCM 05/26/18 Natural Pain Med 1 tab PO DAILY 05/26/18 Pravastatin [Pravachol] 40 mg PO QHS 05/26/18 glipiZIDE [Glucotrol] 5 mg PO TID 05/26/18 Acetaminophen [Tylenol] 1,000 mg PO Q6 tablet 06/13/18 Primary Care Physician: Gumaro Sepulveda DO [Primary Care Provider] - Test Results: Test results from this visit will be discussed in further detail at your follow-up appointment, if applicable. Please Follow Up With: Jas Montilla MD - [phone] When: Friday06/13/18 0847 <Electronically signed by Jas Montilla MD> Date Jas Montilla MD CC: Gumaro Sepulveda MD Signed BEDSIDE GLUCOSE Collected: 06/13/2018 Status: F Source: [place] 6:04 AM [facility] REPOSITORY TYPE CODE TESTS RESULT OUT OF REFERENCE UNITS RANGE LAB L501.080 70-110 mg/dL High BEDSIDE GLU 112 Result Comment: MANAGEMENT OF PATIENT CARE PER NURSING PROTOCOL Performed By: #### L501.080 #### [facility] Point of Care [address] [place] [address] BEDSIDE GLUCOSE Collected: 06/12/2018 Status: F Source: [place] 11:29 PM [facility] REPOSITORY TYPE CODE TESTS RESULT OUT OF REFERENCE UNITS RANGE LAB L501.080 70-110 mg/dL High BEDSIDE GLU 150 Result Comment: MANAGEMENT OF PATIENT CARE PER NURSING PROTOCOL Performed By: #### L501.080 #### [facility] Point of Care [address] [place] [address] BEDSIDE GLUCOSE Collected: 06/12/2018 Status: F Source: [place] 5:44 PM [facility] REPOSITORY TYPE CODE TESTS RESULT OUT OF REFERENCE UNITS RANGE LAB L501.080 70-110 mg/dL High BEDSIDE GLU 121 Result Comment: MANAGEMENT OF PATIENT CARE PER NURSING PROTOCOL Performed By: #### L501.080 #### [facility] Point of Care [address] [place] [address] BEDSIDE GLUCOSE Collected: 06/12/2018 Status: F Source: [place] 11:30 AM [facility] REPOSITORY TYPE CODE TESTS RESULT OUT OF REFERENCE UNITS RANGE LAB L501.080 70-110 mg/dL High BEDSIDE GLU 188 Result Comment: MANAGEMENT OF PATIENT CARE PER NURSING PROTOCOL Performed By: #### L501.080 #### [facility] Point of Care [address] [place] [address] BEDSIDE GLUCOSE Collected: 06/12/2018 Status: F Source: [place] 6:06 AM [facility] REPOSITORY TYPE CODE TESTS RESULT OUT OF RANGE REFERENCE UNITS LAB L501.080 70-110 mg/dL Normal BEDSIDE GLU 102 Result Comment: MANAGEMENT OF PATIENT CARE PER NURSING PROTOCOL Performed By: #### L501.080 #### [facility] Point of Care [address] [place] [address] BEDSIDE GLUCOSE Collected: 06/12/2018 Status: F Source: [place] 12:04 AM [facility] REPOSITORY TYPE CODE TESTS RESULT OUT OF REFERENCE UNITS RANGE LAB L501.080 70-110 mg/dL High BEDSIDE GLU 169 Result Comment: MANAGEMENT OF PATIENT CARE PER NURSING PROTOCOL Performed By: #### L501.080 #### [facility] Point of Care [address] [place] [address] BEDSIDE GLUCOSE Collected: 06/11/2018 Status: F Source: [place] 9:42 PM [facility] REPOSITORY TYPE CODE TESTS RESULT OUT OF REFERENCE UNITS RANGE LAB L501.080 70-110 mg/dL High BEDSIDE GLU 149 Result Comment: MANAGEMENT OF PATIENT CARE PER NURSING PROTOCOL Performed By: #### L501.080 #### [facility] Point of Care [address] [place] [address] BEDSIDE GLUCOSE Collected: 06/11/2018 Status: F Source: [place] 6:19 PM [facility] REPOSITORY TYPE CODE TESTS RESULT OUT OF RANGE REFERENCE UNITS LAB L501.080 70-110 mg/dL Normal BEDSIDE GLU 100 Result Comment: MANAGEMENT OF PATIENT CARE PER NURSING PROTOCOL Performed By: #### L501.080 #### [facility] Point of Care [address] [place] [address] BEDSIDE GLUCOSE Collected: 06/11/2018 Status: F Source: [place] 11:51 AM [facility] REPOSITORY TYPE CODE TESTS RESULT OUT OF REFERENCE UNITS RANGE LAB L501.080 70-110 mg/dL High BEDSIDE GLU 182 Result Comment: MANAGEMENT OF PATIENT CARE PER NURSING PROTOCOL Performed By: #### L501.080 #### [facility] Point of Care [address] [place] [address] BEDSIDE GLUCOSE Collected: 06/11/2018 Status: F Source: [place] 6:48 AM [facility] REPOSITORY TYPE CODE TESTS RESULT OUT OF REFERENCE UNITS RANGE LAB L501.080 70-110 mg/dL High BEDSIDE GLU 131 Result Comment: MANAGEMENT OF PATIENT CARE PER NURSING PROTOCOL Performed By: #### L501.080 #### [facility] Point of Care [address] [place] [address] OPERATIVE REPORT Observed: 06/11/2018 Status: F Source: [place] 6:45 AM [facility] REPOSITORY [facility] Medical Records Department [address] [place] [address] Operative Report 06/10/18 1024 MR#: [id number] Acct: [id number] Name: CARMEN RIOS Rep #: [id number] : 1955 62 From: Jas Montilla MD PCP: Gumaro Sepulveda MD Status: ADM IN Y Location: [facility] [place] [id number] Report of Operation Date of Procedure: 06/10/18 Pre-Operative Diagnosis: splenic flexure colon cancer Post-Operative Diagnosis: splenic flexure colon cancer Surgery/Procedure Performed:: laparoscopic assisted segmental colon cancer resection /splenic flexure mobilization with stapled functional end to end anastomosis enrober tender: Omayra Dasilva Type of Anesthesia:: General Anesthesiologist: Suhail Huddleston - ASA2 Specimen's removed: splenic flexure colon Drains: conde - 100cc Estimated Blood Loss (mL): 100 Fluids Replaced: 1600 Description of Procedure: The patient was brought to the operating suite. Sign in was performed verifying patient, site, procedure, position, and DVT prophylaxis with SCDs. Patient 2 g of cefotetan. Preoperative bowel prep of mechanical and antibiotic comprised of GoLYTELY and then neomycin and Flagyl 1 g 3 doses evening before was given Following induction of general anesthetic. The patient s abdomen was prepped and draped in the usual fashion. Timeout was performed verifying patient, site, position. Local anesthetic was injected above the umbilicus. Incision made and dissection carried down to the umbilical root fascia. 2 stay sutures were placed. Incision made in the fascia, the peritoneum entered under direct visualization. A 10 mm Younger trocar was inserted and secured with the stay sutures. Pneumoperitoneum to 15 mmHg was insufflated. Visual inspection revealed a normal-appearing liver and the tattooed colon noted to be right at the splenic flexure . 2 5mm ports were placed in the standard midline position an additional 5 port in the left lateral upper quadrant. Mobilization the avascular plane was undertaken from the descending colon sigmoid junction up to and around the splenic flexure. Division of the lesser sac frombefore the midline to the splenic flexure was undertaken. When this was fully mobilized, the spleen and pancreas were well visualized. Next, the descending colon sigmoid region of the mesentery was brought up and a cleavage point noted in the mesentery. Harmonic Scalpel was used to create a window in the mesentery and division was taken down near the proximal jejunum emanating from the ligament of Treitz. Next the transverse colon was grasped and the vasculature coming from the middle colic vessel was identified. attempts to lift up and created visualized window in this area were challenged due to the size of the tumor and what were felt to be some adhesions. At this point, an upper midline incision was made to continue the procedure Complete division of the mesenteryjust distal to the proximal branch of the middle colic vessel going to the proximal transverse colon with a second branch going directly to the area of the tumor which was noted on preoperative abdominal imaging. This was ligated right near the root of the vessel with right angles and doubly tied with 0 Vicryl ties. With full mobilization of the mesentery to the tumor, the bowel was transected with an intestinal load echelon stapler. A functional stapled end-to-end anastomosis was performed between the proximal transverse colon and the proximal sigmoid colon with an echelon stapler. The staple line was checked for hemostasis and following this the anastomosis closed with a TA stapler creating a wide triangle opening that was easily palpable. A 3-0 silk suture was used to take tension off the apex of the staple line. At this point, the specimen was opened on the back table. There was noted to be tumor in the expected location. Gown and gloves were changed. There was good anatomic positioning of the small bowel. It was good hemostasis along the incisions. The upper midline fascial defect was closed with a running 0 PDS suture. Skin was closed with interrupted and running 4-0 Monocryl subcuticular sutures. Steri-Strips and dressings were applied. The patient was brought to recovery room in stable condition. - Admit VTE Documentation VTE Present on Admission: No VTE Mechan Device Prophylaxis: SCD's VTE Pharm Prophylaxis ordered?: Yes 06/11/18 0645 <Electronically signed by Jas Montilla MD> Date Jas Montilla MD CC: Gumaro Sepulveda MD; Jas Montilla MD Signed CBC-COMPLETE BLOOD CNT Collected: 06/11/2018 Status: F Source: [place] NO DIFF 6:14 AM [facility] REPOSITORY TYPE CODE TESTS RESULT OUT OF RANGE REFERENCE UNITS LAB L100.1000 4.4-11.0 K/mm3 Normal WBC 10.1 LAB L100.1200 4.6-6.2 M/mm3 Low RBC 3.95 LAB L100.1300 13.0-16.5 g/dl Low HGB 9.4 LAB L100.1400 40-54 % Low HCT 31.6 LAB L100.1500 80-94 fL Normal MCV 80.0 LAB L100.1600 27.0-32.0 pg Low MCH 23.8 LAB L100.1700 32-36 g/gl Low MCHC 29.7 LAB L100.1810 11.6-14.6 % High RDW CV 17.1 LAB L100.1820 35.1-43.9 fl High RDW SD 50.0 LAB L100.1900 150-450 K/mm3 Normal PLT 278 LAB L100.2000 6.2-12.0 fl Normal MPV 8.8 Performed By: #### L100.0500, L100.4500 #### [facility] [address] [place], [place], [id number] DIFFERENTIAL COMMENT Collected: 06/11/2018 Status: F Source: [place] 6:14 AM [facility] REPOSITORY TYPE CODE TESTS RESULT OUT OF RANGE REFERENCE UNITS LAB L100.4500 Normal SMEAR COMMENT SCAN Result Comment: WBC OK Performed By: #### L100.0500, L100.4500 #### [facility] [address] [place], [address] BASIC METABOLIC Collected: 06/11/2018 Status: F Source: [place] PROFILE (BMP) 6:14 AM [facility] REPOSITORY TYPE CODE TESTS RESULT OUT OF RANGE REFERENCE UNITS LAB L501.0100 74-106 mg/dL High GLU 128 Result Comment: Fasting Glucose result greater than or equal to 126 mg/dL suggests DIABETES MELLITUS per A.D.A. criteria. Please note revised GLUCOSE reference range effective 2017. LAB L501.1000 7-18 mg/dL Normal BUN 13 LAB L501.1100 0.70-1.30 mg/dL Normal CREAT,SERUM 0.85 Result Comment: The validity of the calculated GFR AND GFRAA in patients over 70 years has not been determined. Clinical correlation is essential. LAB L501.1110 >60 mL/min Normal EST GFR 98 Result Comment: Non- GFR Calc LAB L501.1115 >60 mL/min Normal EST GFR - AA 118 Result Comment: GFR Calc LAB L501.1255 ml/min Normal Estimated CRCL 95.42 LAB L501.1300 10-20 RATIO Normal BUN/CRE 15.3 LAB L501.2200 8.5-10 mg/dL Low .1 CA 7.7 LAB L501.5300 136-14 mmol/L Low 5 NA 129 LAB L501.5600 3.5-5. mmol/L Normal 1 K 4.6 LAB L501.5900 98-107 mmol/L Normal CL 103 LAB L501.6100 21.0-3 mmol/L Low 2.0 CO2 18.0 LAB L501.6200 5-15 Normal GAP 8 Performed By: #### L500.2500 #### [facility] [address] [facility] [facility] [address] BEDSIDE GLUCOSE Collected: 06/11/2018 Status: F Source: [place] 12:06 AM [facility] REPOSITORY TYPE CODE TESTS RESULT OUT OF REFERENCE UNITS RANGE LAB L501.080 70-110 mg/dL High BEDSIDE GLU 146 Result Comment: MANAGEMENT OF PATIENT CARE PER NURSING PROTOCOL Performed By: #### L501.080 #### [facility] Point of Care [address] [address] BEDSIDE GLUCOSE Collected: 06/10/2018 Status: F Source: [place] 4:30 PM [facility] REPOSITORY TYPE CODE TESTS RESULT OUT OF REFERENCE UNITS RANGE LAB L501.080 70-110 mg/dL High BEDSIDE GLU 172 Result Comment: MANAGEMENT OF PATIENT CARE PER NURSING PROTOCOL Performed By: #### L501.080 #### [facility] Point of Care [address] [place] [address] BEDSIDE GLUCOSE Collected: 06/10/2018 Status: F Source: [place] 11:02 AM [facility] REPOSITORY TYPE CODE TESTS RESULT OUT OF REFERENCE UNITS RANGE LAB L501.080 70-110 mg/dL High BEDSIDE GLU 182 Result Comment: MANAGEMENT OF PATIENT CARE PER NURSING PROTOCOL Performed By: #### L501.080 #### [facility] Point of Care [address] [place] [address] BEDSIDE GLUCOSE Collected: 06/10/2018 Status: F Source: [place] 6:54 AM [facility] REPOSITORY TYPE CODE TESTS RESULT OUT OF REFERENCE UNITS RANGE LAB L501.080 70-110 mg/dL High BEDSIDE GLU 197 Result Comment: MANAGEMENT OF PATIENT CARE PER NURSING PROTOCOL Performed By: #### L501.080 #### [facility] Point of Care [address] [place] [address] COLON (NEOPLASM) Observed: 06/10/2018 Status: F Source: [place] 12:00 AM [facility] REPOSITORY Patient: CARMEN RIOS : 1955 (62/M) Acct Num: [id number] Phys: Jas Montilla MD Unit Num: [id number] Loc: MS2 RU750-9 Specimen: [id number] Received: 06/10/181419 Spec Type: COLON TISSUES 1 TISSUES: Colon, NOS COMMENT COLON CANCER SUMMARY: Specimen - left colon Procedure - left hemicolectomy Tumor site - splenic flexure Tumor size - 7.5 x 7 x 1.5 cm Macroscopic tumor perforation - not present Histologic type - adenocarcinoma with mucinous features. Histologic grade - high grade Microscopic tumor extension - tumor invades through muscularis propria into subserosal adipose tissue. Margins: Proximal margin - uninvolved by invasive carcinoma. Distal margin - uninvolved by invasive carcinoma. Circumferential margin - uninvolved by invasive carcinoma. Treatment effect - unknown Lymph-Vascular invasion - not identified Perineural invasion - not identified Tumor deposits - not identified Lymph nodes: Number of lymph nodes examined - 36 Number of lymph nodes involved - 0 Ancillary studies: Microsatellite study performed on same tumor ([id number] / [id number]): Positive (loss of mismatch protein; microsatellite instability detected). There is complete loss of MLH1 and PMS2 and no loss of MSH2 and MSH6 markers. PATHOLOGIC STAGE: pT3 N0 Mx The above summary is in compliance with [employer] [place] [employer] (CAP) Cancer Protocols Checklist and [place] [employer] Committee on Cancer (AJCC), Staging Manual, 8th Ed. Case has been reviewed in consultation with Dr. Irene who concurs with the above diagnosis. IDC:SJ GROSS DESCRIPTION Received in fixative is one container labeled with the patient's name and designated splenic flexure, colon. The specimen consists of a 23 cm segment of bowel with attached fibrofatty tissue. One mucosal margin is open. The other mucosal margin is closed. Located approximately 8 cm from one margin of resection and 8.5 cm from the opposite (stapled) margin of resection is a fungating, ulcerated, mix-pink apple core-like mass measuring 7.5 x 7 x 1.5 cm. Also present is a fragment of omentum measuring 42 x 16 x 2 cm. The pericolic fat in the area of the mass is somewhat indurated. The remainder of the bowel mucosa is pink-mix and thrown into normal folds. The serosal surface in the area of the mass is inked in black ink. The specimen is left for additional overnight fixation. / AM:sena 06/10/18 After fixation, the mass is serially sectioned to reveal possible involvement of underlying muscularis propria and subserosa. Serial sections of the omentum do not reveal mass lesions. Dissection of the attached fibrofatty tissue reveals a number of grossly unremarkable lymph nodes. [employer] sections are submitted in 17 cassettes as follows: 1 - open mucosal margin, 2 - stapled mucosal margin, 37 - tumor, 8 - multiple lymph nodes closest to tumor, 9 - omentum, 10-15 - multiple lymph nodes in each cassette, 16 - multiple lymph nodes in one cassette, 17 - one lymph node, serially sectioned. / AM:sena 06/11/18 TC:0 CPT: 46983 HEADER OPERATION: ERAS - Laparoscopic converted to open partial colectomy PRE-OP DIAGNOSIS: Splenic flexure colon cancer TISSUE SUBMITTED: Splenic flexure, colon MICROSCOPIC DESCRIPTION Slides are reviewed. MICROSCOPIC DIAGNOSIS Left colon, segmental colectomy: Invasive adenocarcinoma. See cancer checklist below. AM:sena 06/12/18 Signed Rodolfo Schilling DO 06/12/18 <signature on file> Performed By: #### PCOL. #### [facility] [address] [place], [address] CNOP Observed: 06/10/2018 Status: COMPLETED Source: [place] 12:00 AM [facility] REPOSITORY Operative Note (Enc) (GENSWS) Progress Notes: Jas Montilla MD 06/14/2018 12:39 PM Signed OPERATIVE NOTATION FOR [facility] SURGICAL PROCEDURE. June 10, 2018 Carmen Rios 1955 [id number] male PROCEDURE: Laparoscopic colectomy partial - 99120-532 and Lap Mobilization of the Splenic Flexure - +24257-118 SURGEON: Kole Montilla M.D. 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 Jas Montilla MD Encounter Status:Closed by JAS MONTILLA MD on 06/14/18 CBC-COMPLETE BLOOD CNT Collected: 06/08/2018 Status: F Source: [place] NO DIFF 2:15 PM [facility] REPOSITORY TYPE CODE TESTS RESULT OUT OF RANGE REFERENCE UNITS LAB L100.1000 4.4-11.0 K/mm3 High WBC 11.7 LAB L100.1200 4.6-6.2 M/mm3 Low RBC 4.02 LAB L100.1300 13.0-16.5 g/dl Low HGB 9.4 LAB L100.1400 40-54 % Low HCT 31.2 LAB L100.1500 80-94 fL Low MCV 77.6 LAB L100.1600 27.0-32.0 pg Low MCH 23.4 LAB L100.1700 32-36 g/gl Low MCHC 30.1 LAB L100.1810 11.6-14.6 % High RDW CV 16.4 LAB L100.1820 35.1-43.9 fl High RDW SD 46.5 LAB L100.1900 150-450 K/mm3 Normal PLT 365 LAB L100.2000 6.2-12.0 fl Normal MPV 9.0 Performed By: #### L100.0500 #### [facility] [address] [place], [address] PROTHROMBIN TIME W/INR Collected: 06/08/2018 Status: F Source: [place] 2:15 PM [facility] REPOSITORY TYPE CODE TESTS RESULT OUT OF RANGE REFERENCE UNITS LAB L300.4150 11.7-14.9 SECONDS Normal PROTIME 13.6 LAB L300.4200 Normal INR 1.0 Performed By: #### L300.3900, L300.4310 #### [facility] [address] [place], [place], [id number] PARTIAL THROMBOPLAST Collected: 06/08/2018 Status: F Source: [place] TIME 2:15 PM [facility] REPOSITORY TYPE CODE TESTS RESULT OUT OF RANGE REFERENCE UNITS LAB L300.4310 24.1-36.2 Seconds Normal PTT 28.7 Performed By: #### L300.3900, L300.4310 #### [facility] [address] [place], [address] HEMOGLOBIN A1C Collected: 06/08/2018 Status: F Source: [place] 2:15 PM [facility] REPOSITORY TYPE CODE TESTS RESULT OUT OF RANGE REFERENCE UNITS LAB L501.9985 4.2-6.3 % High HGB A1C 7.9 Performed By: #### L501.9985 #### [facility] [address] [place], [place], [id number] PROGRESS Observed: 05/31/2018 Status: COMPLETED Source: [place] 7:09 AM [facility] REPOSITORY HNO ID: [id number] Author: Jas Montilla Service: (none) Author Type: Physician Type: Progress Notes Filed: 05/31/2018 7:12 AM Note Text: OPERATIVE NOTATION FOR [facility] SURGICAL PROCEDURE. May 26, 2018 Carmen Rios 1955 [id number] male PROCEDURE: EGD WITH BIOPSY - 97284-918, COLONOSCOPY WITH BIOPSY - 28861-698 and COLONOSCOPY WITH INJECTION/MARKING - 29599-37? SURGEON: Kole Montilla M.D. 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 Jas Montilla MD PROGRESS Observed: 05/28/2018 Status: COMPLETED Source: [place] 6:19 PM [facility] REPOSITORY HNO ID: [id number] Author: Jas Montilla Service: (none) Author Type: Physician Type: Progress Notes Filed: 05/28/2018 6:26 PM Note Text: HISTORY AND PHYSICAL - COLON RESECTION FOR SPLENIC FLEXURE COLON CANCER Carmen Rios 1955 May 28, 2018 REFERRING PHYSICIAN: Gumaro Sepulveda DO CHIEF COMPLAINT: anemia HPI: The patient is a 62 year old male with a complaint of anemia. Patient was initially seen by Ameena Richards who noted: The patient is a 62 year old male referred for endoscopy. The patient is a poor historian. He notes that around a year ago he was having a large amount of lower abdominal cramping and discomfort. He states that he underwent laboratory workup at that time which was unremarkable, did not have endoscopy and does not think he had any imaging studies at that time. States the pain was felt to possibly be related to one of his arthritis medications which has since been discontinued. He states the abdominal pain has since resolved. ? Patient does note that he has had weight fluctuations and weight loss of around 30 lbs total in the last year. He notes a history of constipation and hard stools, takes metamucil regularly. He denies any visible blood in stools or dark stools. The patient notes no history of upper GI complaints. He was noted to have decreasing hemoglobin on recent routine laboratory studies and is referred for endoscopic evaluation for possible GI source of blood loss. ? Carmen has not undergone prior endoscopy. He denies a family history of colon cancer. Patient states around 20 years ago he had an attempted fistulotomy surgery with seton placement. He states he had complications related to that surgery. He states he then went to another surgeon for a redo surgery, but that that surgery could not be completed as they had trouble getting the tube down my throat. He states that the site healed on its own and he denies any flare-ups of anal abscesses or other issues since that time. He notes that he is very apprehensive about having anything done in that area since his issues with the fistulotomy surgery, and states this is why he has put off having a colonoscopy in the past. ? Patient's past medical history is significant for diabetes mellitus, gout, hypertension, hyperlipidemia, rheumatoid arthritis. The patient underwent upper endoscopy and colonoscopy on May 27, 2018 which demonstrated mild to moderate duodenitis, gastritis and distal esophagitis. Digital rectal exam revealed an asymmetric prostate without truly worrisome nodules. The patient was found to have approximately a 4 cm long circumferential tight colon cancer at the splenic flexure. The remainder of the colon was unremarkable. I performed injection with Rosita ink and then placed a clip just distal to the tumor. A KUB was obtained which demonstrated the clip right at the splenic flexure. Laboratory studies were obtained which demonstrated a PSA level of 0.4. A CEA level returned as 3.9. The patient's remaining chemistry panel and CBC were unremarkable save for mild anemia. CT scan of the chest abdomen and pelvis was obtained. This demonstrated no lung or true liver abnormalities. The tumor was seen with questionable peritumoral lymph nodes. No other signs of metastatic disease were noted. The patient does note a history of right lower quadrant discomfort. He asked about those findings on CT scan and I again reiterated that his colonoscopy was unremarkable and the CT scan looked normal at that location. The patient's daughter notes that she and her sister both our caries of factor V Leiden deficiency. Her father has not undergone evaluation for this deficiency. Neither his nor the patient noting the history of bleeding difficulties. PAST MEDICAL HISTORY Diagnosis Date - DM (diabetes mellitus) (HCC) - Gout - HTN (hypertension) - Hypercholesteremia - RA (rheumatoid arthritis) (HCC) PAST SURGICAL HISTORY Procedure Laterality Date - COLONOSCOP W/ OR W/O BRSH SPEC 05/27/2018 Colonoscopy - EGD W/O OR W/BRUSH/WASH 05/27/2018 EGD - FISTULOTOMY SUBCUT 1997 Current Outpatient Prescriptions: adalimumab (HUMIRA PEN SUBCUTANEOUS) Inject subcutaneously every 2 weeks. Disp: Rfl: ALLOPURINOL ORAL Take 300 mg by mouth once daily. Disp: Rfl: aspirin 81 mg chewable tablet Take 81 mg by mouth once daily. Disp: Rfl: atenolol (TENORMIN) 25 mg tablet Take 25 mg by mouth once daily. Disp: Rfl: enteric contrast (will be provided with radiology test) For CT CHESTABD/PEL W IVCON Routine order Administer, As Directed One Time Only, via Oral, Rectal, both Oral and Rectal, Enteric Tube, Stoma or Indwelling Catheter, Enteric Contrast as designated per enteric contrast guidelines Disp: 1 Each Rfl: 0 ferrous sulfate (IRON) 325 mg (65 mg iron) tablet Take 325 mg by mouth daily with breakfast. Disp: Rfl: glipiZIDE (GLUCOTROL) 5 mg tablet Take 5 mg by mouth three times daily. Disp: Rfl: iv contrast (will be provided with radiology test) CT Chest ABD/PEL-Inject, intravenously, once for 1 dose.No IV access, insert saline lock prior to the beginning of sedation, infusion, injection of imaging exam. Discontinue saline lock post exam. If Pt. has a central line or IVAD, may access for administration according to line specific nursing protocol. Once exam is complete flush line and de-access according to line specific nursing protocol in the CT contrast administration guidelines link. Disp: 1 Each Rfl: 0 metFORMIN (GLUCOPHAGE) 1,000 mg tablet Take 1,000 mg by mouth twice daily with meals. Disp: Rfl: metroNIDAZOLE (FLAGYL) 500 mg tablet 2 TABLETS AT 6, 8, AND 10 PM Disp: 6 tablet Rfl: 0 neomycin 500 mg tablet Take 2 tablets by mouth four times daily. 2 TABLETS AT 6, 8 ,AND 10 PM Disp: 6 tablet Rfl: 0 omeprazole/sodium bicarbonate (OMEPPI ORAL) Take by mouth. Disp: Rfl: peg 3350-Electrolytes (GOLYTELY) 236-22.74-6.74 -5.86 gram suspension Take 4,000 mL by mouth one time only for 1 dose. Disp: 1 Bottle Rfl: 0 pravastatin (PRAVACHOL) 40 mg tablet Take 40 mg by mouth once daily. Disp: Rfl: No current facility-administered medications for this visit. ALLERGIES: Patient has no known allergies. PERSONAL HISTORY: Social History Marital status: Spouse name: Years of education: Number of children: Social History Main Topics Smoking status: Former Smoker Packs/day: 0.00 Years: 0.00 Start date: 05/07/1973 Quit date: 05/07/1993 Smokeless tobacco: Never Used Alcohol use: No FAMILY HISTORY: No family history on file. REVIEW OF SYMPTOMS: The review of systems data was entered by the nurse and reviewed by me ? REVIEW OF SYSTEMS GENERAL: No weight loss, malaise or fevers HEENT: Negative for frequent or significant headaches, No changes in hearing or vision, no nose bleeds or other nasal problems NECK: Negative for lumps, goiter, pain and significant neck swelling RESPIRATORY: Negative for cough, hemoptysis, wheezing, COPD, dyspnea or shortness of breath CARDIOVASCULAR: Negative for chest pain, leg swelling, hypertension, CHF or palpitations GI: See HPI MUSCULOSKELETAL: +Rheumatoid arthritis SKIN: Negative for lesions, rash, and itching PSYCH: Negative for sleep disturbance, mood disorder and recent psychosocial stressors HEMATOLOGY/LYMPHOLOGY: See HPI, +anemia ENDOCRINE: Positive for diabetes mellitus on oral agent NEURO: No history of headaches, syncope, paralysis, seizures or tremors ? PHYSICAL EXAMINATION: General: The patient is 62 year old male, well nourished, well hydrated in no acute distress. The patient is oriented to time, place, and person. VITALS: BP 142/68 Pulse 68 Temp 36.3 ?C (97.3 ?F) (Temporal Artery) Resp 18 Ht 180.3 cm (5' 11) Wt 101.2 kg (223 lb) BMI 31.10 kg/m? Body mass index is 31.1 kg/m?. HEENT: Normal cephalic, ataumatic, pupils are equally round, sclera are anicteric, mucous membranes are moist, oropharynx is clear. Neck has no masses, asymmetry or lymphadenopathy. Thyroid is unremarkable. Respiratory: Clear to auscultation and percussion. Normal respiratory excursion and pattern. Cardiac: Examination is regular rate and rhythm. Abdominal exam: Soft, nontender, with no palpable masses. No hepatosplenomegaly. No palpable hernias. Rectal exam: exam deferred Extremities: no clubbing, cyanosis or edema. No adenopathy. LABORATORY VALUES: As Noted RADIOLOGIC STUDIES: As Noted Assessment IMPRESSION: Splenic flexure colon cancer PLAN: We extensively discussed the diagnosis and discussed the surgical options. The patient has elected to undergo colon resection I plan to perform a Laparoscopic colectomy partial - 06527- 611. The planned surgical procedure was discussed extensively with the patient. The risks, benefits, anticipated outcomes and possible complications and alternatives were discussed. My staff has also explained the procedure in understandable terms and the patient was given the option to take printed material concerning the planned procedure. The patient had the opportunity to ask questions concerning the planned procedure. The patient freely consents to the planned procedure. I will plan for outpatient bowel preparation including mechanical and antibiotic preparation including Neomycin and Flagyl 1gm each at 6,8, and 10pm the night before surgery. We'll also obtain a factor V Leiden panel prior to surgery. 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 Gumaro Sepulveda indicating the above finding for this patient. Return to Clinic: The patient is instructed to follow-up with me 1 week post operatively. Jas Montilla MD FACTOR V LEIDEN PCR Collected: 05/28/2018 Status: F Source: [place] 4:03 PM [facility] REPOSITORY TYPE CODE TESTS RESULT OUT OF REFERENCE UNITS RANGE LAB LEIINT FV Leiden (NOTE) Report Result Comment: Performing Pathologist: Onelia Vigil MD Interpretation: Factor V Leiden Mutation Result: NORMAL Interpretation: The patient is negative for the Factor V Leiden, the Arginine 506/Glutamine 506 genetic polymorphism. The Factor V Leiden assay may fail to detect less than 5% of individuals with activated protein C resistance who do not have the Arginine 506/Glutamine 506 point mutation.This may be detected by ordering the functional assay for Activated Protein C Resistance. Other causes of thromboembolic disease are not ruled out by a normal Factor V Leiden result. Method: This assay was performed by polymerase chain reaction and fluorescence monitoring using hybridization probes. Performed By: #### FVLEI #### [facility] [address] [place], [place] [address] CNOV Observed: 05/28/2018 Status: COMPLETED Source: [place] 2:00 PM [facility] REPOSITORY Office Visit (GENSWS) CARMEN RIOS ([id number]) 1955 Date Time Provider Department 05/28/18 2:00 PM JAS MONTILLA During your visit today, we recorded the following information about you: Temperature Pulse Respiration Blood pressure 97.3 degrees 68/minute 18/minute 142/68 Weight Height 101.2 kg 1.803 m Jas Montilla MD 05/28/2018 3:10 PM Signed The following instructions are important for you related to your office visit today with the [facility]. INSTRUCTIONS FOR YOUR SURGICAL PROCEDURE - COLON RESECTION We discussed the risks and benefits of your planned procedure. If you have any additional questions, please contact our office immediately. Preadmission testing is an important part of preparation for your procedure. All laboratory studies, x-rays, and additional testing must be available for the preadmission testing staff to help ready you for surgery. You should not take aspirin or other blood thinners for one week prior to surgery unless instructed differently. You were given handouts with instructions for your bowel preparation. It is important that should follow these instructions closely. If you do not feel you are becoming adequately clean after your bowel preparation, contact our office. Make sure to drink plenty of clear liquids with your bowel cleansing. This well help to better clean your colon and prevent dehydration. Do not eat or drink liquids after midnight. After completing the bowel cleansing, You may be given antibiotic tablets to further prepare your colon. Typically neomycin and flagyl - 1gram orally at: 4pm, 6pm and 10pm are given. The times may be different if surgery is not scheduled for the first case of the day. You should not have anything to eat or drink after midnight the night prior to your surgery. You should wear comfortable clothes for your procedure. Please understand that the operating room schedule is an estimated time for your surgical procedure. Your procedure may be somewhat earlier or somewhat later than the estimated time. You will typically be kept NPO in the hospital until you have return of bowel activity. Once you have return of bowel activity, you will be started on clear liquids and typically will go home the following day. You'll be discharged home with postoperative instructions and typically pain medications. Please be aware that many pain medications may cause nausea. You should typically eat light foods as you take your pain medications. Your dressing will usually be able to be removed two to three days following surgery. You may typically shower three days after surgery. If you have Steri-Strips on your incision (little white tapes) you should leave these in place until they fall off. You will typically have a followup office visit 1 to 2 weeks after surgery. Again, if you have any difficulties or concerns, contact our office immediately. If you note any additional difficulties, questions, or concerns, you should contact our office immediately @ [phone] and ask to be transferred to the General Surgery department. Jas Montilla MD 05/28/2018 6:26 PM Signed HISTORY AND PHYSICAL - COLON RESECTION FOR SPLENIC FLEXURE COLON CANCER Carmen Rios 1955 May 28, 2018 REFERRING PHYSICIAN: Gumaro Sepulveda DO CHIEF COMPLAINT: anemia HPI: The patient is a 62 year old male with a complaint of anemia. Patient was initially seen by Ameena Richards who noted: The patient is a 62 year old male referred for endoscopy. The patient is a poor historian. He notes that around a year ago he was having a large amount of lower abdominal cramping and discomfort. He states that he underwent laboratory workup at that time which was unremarkable, did not have endoscopy and does not think he had any imaging studies at that time. States the pain was felt to possibly be related to one of his arthritis medications which has since been discontinued. He states the abdominal pain has since resolved. ? Patient does note that he has had weight fluctuations and weight loss of around 30 lbs total in the last year. He notes a history of constipation and hard stools, takes metamucil regularly. He denies any visible blood in stools or dark stools. The patient notes no history of upper GI complaints. He was noted to have decreasing hemoglobin on recent routine laboratory studies and is referred for endoscopic evaluation for possible GI source of blood loss. ? Carmen has not undergone prior endoscopy. He denies a family history of colon cancer. Patient states around 20 years ago he had an attempted fistulotomy surgery with seton placement. He states he had complications related to that surgery. He states he then went to another surgeon for a redo surgery, but that that surgery could not be completed as they had trouble getting the tube down my throat. He states that the site healed on its own and he denies any flare-ups of anal abscesses or other issues since that time. He notes that he is very apprehensive about having anything done in that area since his issues with the fistulotomy surgery, and states this is why he has put off having a colonoscopy in the past. ? Patient's past medical history is significant for diabetes mellitus, gout, hypertension, hyperlipidemia, rheumatoid arthritis. The patient underwent upper endoscopy and colonoscopy on May 27, 2018 which demonstrated mild to moderate duodenitis, gastritis and distal esophagitis. Digital rectal exam revealed an asymmetric prostate without truly worrisome nodules. The patient was found to have approximately a 4 cm long circumferential tight colon cancer at the splenic flexure. The remainder of the colon was unremarkable. I performed injection with Rosita ink and then placed a clip just distal to the tumor. A KUB was obtained which demonstrated the clip right at the splenic flexure. Laboratory studies were obtained which demonstrated a PSA level of 0.4. A CEA level returned as 3.9. The patient's remaining chemistry panel and CBC were unremarkable save for mild anemia. CT scan of the chest abdomen and pelvis was obtained. This demonstrated no lung or true liver abnormalities. The tumor was seen with questionable peritumoral lymph nodes. No other signs of metastatic disease were noted. The patient does note a history of right lower quadrant discomfort. He asked about those findings on CT scan and I again reiterated that his colonoscopy was unremarkable and the CT scan looked normal at that location. The patient's daughter notes that she and her sister both our caries of factor V Leiden deficiency. Her father has not undergone evaluation for this deficiency. Neither his nor the patient noting the history of bleeding difficulties. PAST MEDICAL HISTORY Diagnosis Date - DM (diabetes mellitus) (HCC) - Gout - HTN (hypertension) - Hypercholesteremia - RA (rheumatoid arthritis) (HCC) PAST SURGICAL HISTORY Procedure Laterality Date [facility] Colonoscopy - EGD W/O OR W/BRUSH/WASH 05/27/2018 EGD - FISTULOTOMY SUBCUT 1997 Current Outpatient Prescriptions: adalimumab (HUMIRA PEN SUBCUTANEOUS) Inject subcutaneously every 2 weeks. Disp: Rfl: ALLOPURINOL ORAL Take 300 mg by mouth once daily. Disp: Rfl: aspirin 81 mg chewable tablet Take 81 mg by mouth once daily. Disp: Rfl: atenolol (TENORMIN) 25 mg tablet Take 25 mg by mouth once daily. Disp: Rfl: enteric contrast (will be provided with radiology test) For CT CHESTABD/PEL W IVCON Routine order Administer, As Directed One Time Only, via Oral, Rectal, both Oral and Rectal, Enteric Tube, Stoma or Indwelling Catheter, Enteric Contrast as designated per enteric contrast guidelines Disp: 1 Each Rfl: 0 ferrous sulfate (IRON) 325 mg (65 mg iron) tablet Take 325 mg by mouth daily with breakfast. Disp: Rfl: glipiZIDE (GLUCOTROL) 5 mg tablet Take 5 mg by mouth three times daily. Disp: Rfl: iv contrast (will be provided with radiology test) CT Chest ABD/PEL-Inject, intravenously, once for 1 dose.No IV access, insert saline lock prior to the beginning of sedation, infusion, injection of imaging exam. Discontinue saline lock post exam. If Pt. has a central line or IVAD, may access for administration according to line specific nursing protocol. Once exam is complete flush line and de-access according to line specific nursing protocol in the CT contrast administration guidelines link. Disp: 1 Each Rfl: 0 metFORMIN (GLUCOPHAGE) 1,000 mg tablet Take 1,000 mg by mouth twice daily with meals. Disp: Rfl: metroNIDAZOLE (FLAGYL) 500 mg tablet 2 TABLETS AT 6, 8, AND 10 PM Disp: 6 tablet Rfl: 0 neomycin 500 mg tablet Take 2 tablets by mouth four times daily. 2 TABLETS AT 6, 8 ,AND 10 PM Disp: 6 tablet Rfl: 0 omeprazole/sodium bicarbonate (OMEPPI ORAL) Take by mouth. Disp: Rfl: peg 3350-Electrolytes (GOLYTELY) 236-22.74-6.74 -5.86 gram suspension Take 4,000 mL by mouth one time only for 1 dose. Disp: 1 Bottle Rfl: 0 pravastatin (PRAVACHOL) 40 mg tablet Take 40 mg by mouth once daily. Disp: Rfl: No current facility-administered medications for this visit. ALLERGIES: Patient has no known allergies. PERSONAL HISTORY: Social History Marital status: Spouse name: Years of education: Number of children: Social History Main Topics Smoking status: Former Smoker Packs/day: 0.00 Years: 0.00 Start date: 05/07/1973 Quit date: 05/07/1993 Smokeless tobacco: Never Used Alcohol use: No FAMILY HISTORY: No family history on file. REVIEW OF SYMPTOMS: The review of systems data was entered by the nurse and reviewed by me ? REVIEW OF SYSTEMS GENERAL: No weight loss, malaise or fevers HEENT: Negative for frequent or significant headaches, No changes in hearing or vision, no nose bleeds or other nasal problems NECK: Negative for lumps, goiter, pain and significant neck swelling RESPIRATORY: Negative for cough, hemoptysis, wheezing, COPD, dyspnea or shortness of breath CARDIOVASCULAR: Negative for chest pain, leg swelling, hypertension, CHF or palpitations GI: See HPI MUSCULOSKELETAL: +Rheumatoid arthritis SKIN: Negative for lesions, rash, and itching PSYCH: Negative for sleep disturbance, mood disorder and recent psychosocial stressors HEMATOLOGY/LYMPHOLOGY: See HPI, +anemia ENDOCRINE: Positive for diabetes mellitus on oral agent NEURO: No history of headaches, syncope, paralysis, seizures or tremors ? PHYSICAL EXAMINATION: General: The patient is 62 year old male, well nourished, well hydrated in no acute distress. The patient is oriented to time, place, and person. VITALS: BP 142/68 Pulse 68 Temp 36.3 ?C (97.3 ?F) (Temporal Artery) Resp 18 Ht 180.3 cm (5' 11) Wt 101.2 kg (223 lb) BMI 31.10 kg/m? Body mass index is 31.1 kg/m?. HEENT: Normal cephalic, ataumatic, pupils are equally round, sclera are anicteric, mucous membranes are moist, oropharynx is clear. Neck has no masses, asymmetry or lymphadenopathy. Thyroid is unremarkable. Respiratory: Clear to auscultation and percussion. Normal respiratory excursion and pattern. Cardiac: Examination is regular rate and rhythm. Abdominal exam: Soft, nontender, with no palpable masses. No hepatosplenomegaly. No palpable hernias. Rectal exam: exam deferred Extremities: no clubbing, cyanosis or edema. No adenopathy. LABORATORY VALUES: As Noted RADIOLOGIC STUDIES: As Noted Assessment IMPRESSION: Splenic flexure colon cancer PLAN: We extensively discussed the diagnosis and discussed the surgical options. The patient has elected to undergo colon resection I plan to perform a Laparoscopic colectomy partial - [id number]. The planned surgical procedure was discussed extensively with the patient. The risks, benefits, anticipated outcomes and possible complications and alternatives were discussed. My staff has also explained the procedure in understandable terms and the patient was given the option to take printed material concerning the planned procedure. The patient had the opportunity to ask questions concerning the planned procedure. The patient freely consents to the planned procedure. I will plan for outpatient bowel preparation including mechanical and antibiotic preparation including Neomycin and Flagyl 1gm each at 6,8, and 10pm the night before surgery. We'll also obtain a factor V Leiden panel prior to surgery. 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 Gumaro Sepulveda indicating the above finding for this patient. Return to Clinic: The patient is instructed to follow-up with me 1 week post operatively. Jas Montilla MD Referring Provider: GUMARO SEPULVEDA [[id number]] Allergies As of Date: 05/28/2018 (No Known Allergies) Date Reviewed: 05/28/2018 Reviewed by: Laura Aguirre LPN - Fully Assessed Reason for Visit: Post Op [174] Primary Visit Diagnosis:Malignant neoplasm of splenic flexure (HCC) [C18.5] Order(s):neomycin 500 mg tabletTake 2 tablets by mouth four times daily. 2 TABLETS AT 6, 8 ,AND 10 PMDisp: 6 tabletRfl: 0 metroNIDAZOLE (FLAGYL) 500 mg tablet2 TABLETS AT 6, 8, AND 10 PMDisp: 6 tabletRfl: 0 peg 3350-Electrolytes (GOLYTELY) 236-22.74-6.74 - 5.86 gram suspensionTake 4,000 mL by mouth one time only for 1 dose.Disp: 1 BottleRfl: 0 FACTOR V LEIDEN/PCR [SQFVLEID] Order #: [id number] FUTURE Prescriptions as of 05/28/2018 Sig: HUMIRA PEN SUBCUTANEOUS Inject subcutaneously every 2* ALLOPURINOL ORAL Take 300 mg by mouth once tamara* ASPIRIN 81 MG CHEWABLE TABLET Take 81 mg by mouth once doyle* ATENOLOL 25 MG TABLET Take 25 mg by mouth once doyle* ENTERIC CONTRAST (RADIOLOGY P* For CT CHESTABD/PEL W IVCON R* FERROUS SULFATE 325 MG (65 MG* Take 325 mg by mouth daily wi* GLIPIZIDE 5 MG TABLET Take 5 mg by mouth three time* IV CONTRAST (RADIOLOGY PROCED* CT Chest ABD/PEL-Inject, intr* METFORMIN 1,000 MG TABLET Take 1,000 mg by mouth twice * METRONIDAZOLE 500 MG TABLET 2 TABLETS AT 6, 8, AND 10 PM NEOMYCIN 500 MG TABLET Take 2 tablets by mouth four * OMEPPI ORAL Take by mouth. PEG 3350-ELECTROLYTES 236 GRA* Take 4,000 mL by mouth one ti* PRAVASTATIN 40 MG TABLET Take 40 mg by mouth once doyle* Problem List As Of Date: 05/28/2018 (None) Other instructions from your clinician: The following instructions are important for you related to your office visit today with the [facility]. INSTRUCTIONS FOR YOUR SURGICAL PROCEDURE - COLON RESECTION We discussed the risks and benefits of your planned procedure. If you have any additional questions, please contact our office immediately. Preadmission testing is an important part of preparation for your procedure. All laboratory studies, x-rays, and additional testing must be available for the preadmission testing staff to help ready you for surgery. You should not take aspirin or other blood thinners for one week prior to surgery unless instructed differently. You were given handouts with instructions for your bowel preparation. It is important that should follow these instructions closely. If you do not feel you are becoming adequately clean after your bowel preparation, contact our office. Make sure to drink plenty of clear liquids with your bowel cleansing. This well help to better clean your colon and prevent dehydration. Do not eat or drink liquids after midnight. After completing the bowel cleansing, You may be given antibiotic tablets to further prepare your colon. Typically neomycin and flagyl - 1gram orally at: 4pm, 6pm and 10pm are given. The times may be different if surgery is not scheduled for the first case of the day. You should not have anything to eat or drink after midnight the night prior to your surgery. You should wear comfortable clothes for your procedure. Please understand that the operating room schedule is an estimated time for your surgical procedure. Your procedure may be somewhat earlier or somewhat later than the estimated time. You will typically be kept NPO in the hospital until you have return of bowel activity. Once you have return of bowel activity, you will be started on clear liquids and typically will go home the following day. You'll be discharged home with postoperative instructions and typically pain medications. Please be aware that many pain medications may cause nausea. You should typically eat light foods as you take your pain medications. Your dressing will usually be able to be removed two to three days following surgery. You may typically shower three days after surgery. If you have Steri-Strips on your incision (little white tapes) you should leave these in place until they fall off. You will typically have a followup office visit 1 to 2 weeks after surgery. Again, if you have any difficulties or concerns, contact our office immediately. If you note any additional difficulties, questions, or concerns, you should contact our office immediately @ [phone] and ask to be transferred to the General Surgery department. Prescriptions ordered this encounter Disp Refills Start End NEOMYCIN 500 MG TABLET 6 ta* 0 05/28/2018 Route: ORAL Sig: Take 2 tablets by mouth four times daily. 2 TABLETS AT 6, 8 ,AND 10 PM METRONIDAZOLE 500 MG TABLET 6 ta* 0 05/28/2018 Si TABLETS AT 6, 8, AND 10 PM PEG 3350-ELECTROLYTES 236 GRAM-22.74* 1 Miller* 0 05/28/2018 05/28/2018 Route: ORAL Sig: Take 4,000 mL by mouth one time only for 1 dose. Letter Text Letter Text NURSE'S SIGNATURE DOCTOR'S SIGNATURE TIME TIME DATE May 28, 2018 [facility] DATE May 28, 2018 Orders verified by readback: PRE-ADMISSION TESTING PHYSICIAN'S ORDER SHEET PREOPERATIVE ORDERS: X ANTIBIOTIC: _Cefotetan 2gm IVPB power generation technician to OR__ aware of penicillin allergy ok to administer X SCD'S __ PREP LOCATION: ___abdomen - supine_ __ PAINT WITH BETADINE/CHLORAHEXIDINE PREP PRE-ADMISSION TESTING PHYSICIAN'S ORDER SHEET 05302 CR001 REV 08.20.07 ANESTHESIA: __ Surgeon has notified anesthesia. Date/Time Doctor OR __ Anesthesia not yet notified of consult by surgeon. Check area of concern. System of concern: __Cardiac __Pulmonary __Neuro __ Airway __Allergies __Other __ Anesthesia to see patient at PAT appointment. (PAT appt must be between 1-3 pm) LAB ORDERS: X Labs done at [facility] (Copies enclosed for [facility]) __ Duplicate order __ No Labs ordered ___ CBC ___ CBC/Diff ___ Basic Metabolic Profile (BUN, Lytes, Glu, Cre, Calcium) __ Glucose __ Creatinine __ BUN __ Lytes __ Protime- Dx code: __ PTT - Dx code: __ Urinalysis __ Urinalysis (complete) __ Liver Profile __ Lipid Profile __ Alk Phosphatase __ Bilirubin __ Amylase/Lipase __ Magnesium __ Phosphorous __ PSA - Dx code: __ CEA - Dx code: __ Urine __ Serum (Age 11-52 years old unless sterilization or pt refuses) X Screen for MRSA (PCR) if guidelines met Other: BLOOD BANK: __ Type AND Screen __ Type AND Cross (RC) units __ Autologous units __ Fresh Frozen Plasma units __ Platelets units ANCILLARY DEPTS: __EKG-MD to read: __PA/Lat CXR Reason for exam: __ Incentive Spirometer __ CREMATORY OPERATOR Other: Patient has: Pacemaker ICD Stippler name AND phone number: Pacer/ICD rep notified by nurse: X CHG product: [employer] or cloths Dispense CHG product+Instructions if surgical site below neck Additional Orders: PAT Comment: Anesthesia notified on about: TEDS / KNEE HIGH TEDS / THIGH HIGH Faxed to Pharmacy: __ Vancomycin 1000 mg IV X 1 dose preoperatively if history of MRSA or positive MRSA screening (Fax to Rx) Admission Status: SDC Outpatient SDC Overnight (23 hr or less) X Admit Date: PAT Surgery Allergies:. Patient has no known allergies. Patient's Name: Kirill Rios Patient's Birthdate: 1955 Diagnosis: (C18.5) Malignant neoplasm of splenic flexure (HCC) (primary encounter diagnosis) [facility] Surgery / Procedure: Surgeon / Physician: Jas Montilla MD My doctor and I talked about the recommended surgery/procedure, the reasons it is being recommended, and what it generally is expected to do. We talked about major risks or complications that could occur. We talked about options other than the recommended surgery/procedure (including no treatment) and the benefits and risks of each option. I received and understand information describing the surgery or procedure, its potential risks and complications. I know surgery/medicine is not an exact science. No doctor, nurse or anyone from [facility] promised or guaranteed the success or clinical outcome of the surgery/procedure, or that a risk or complication could not occur. I know every surgery/procedure has risks, including the risk of anesthesia, the risk of unplanned injury, the risk of infection and the risk of failure. I know that not every possible risk could be covered in the written materials or in talking with the doctor. Before signing this Consent, I had an opportunity to discuss the recommended surgery/procedure, other options, and risks. I am satisfied with the answers to all of my questions. I understand about risks and knowingly accept them. If you are (or believe you may be ), tell your doctor or nurse before you sign this Consent. Your doctor will discuss with you if there are potential risks to your unborn child. Your consent will be for yourself and for the unborn child. It is the Hospital's policy to require that a responsible adult drive you directly home when you leave the Hospital. By signing, you accept and agree with this policy. By signing, I voluntarily and knowingly give my informed consent: O To have the doctor perform the recommended surgery/procedure. O To have such anesthetics (including moderate sedation) that are necessary and advisable. O To have the doctor perform additional, medically necessary surgery/procedures to treat any unforeseen or newly-discovered condition that occurs during surgery/the procedure, which needs prompt attention. O To examine, record and dispose of any tissue or body parts that are removed. O To allow photographs that will be used strictly for documenting my medical condition and treatment, which will be made a part of my confidential medical record. Check, if applicable: - To give me blood or blood products during surgery/procedure and during my hospital stay, as medically necessary. The risks, benefits, and alternatives to transfusions have been discussed with me and all my questions have been answered. - To not give me blood or blood products. I fully understand that this may adversely affect my medical management and may result in my . Alternatives to blood/blood products have been discussed with me. I read this Form, or had it read to me. I understand what it says. Patient or Responsible Person Relationship to Patient Witness to Signature Only Reason Patient Does Not Sign -- Date and Time signed Physician's signature [id number] Rev 12/13 Informed Consent Page 1 of 2 [facility] Informed Consent Surgery / Procedure: Laparoscopic colectomy partial - [id number] and Lap Mobilization of the Splenic Flexure - [phone] Surgeon / Physician: Jas Montilla MD My doctor and I talked about the recommended surgery / procedure, the reasons it is being recommended, and what it generally is expected to do. We talked about major risks or complications that could occur. We talked about options other than the recommended surgery / procedure (including no treatment) and the benefits and risks of each option. I received and understand information describing the surgery or procedure, its potential risks, and complications. I know surgery / medicine is not an exact science. No doctor, nurse or anyone from [facility] promised or guaranteed the success or clinical outcome of the surgery / procedure, or that a risk or complication could not occur. I know every surgery / procedure has risks, including the risk of anesthesia, the risk of unplanned injury, the risk of infection and the risk of failure. I know that not every possible risk could be covered in the written materials or in talking with the doctor. Before signing this Consent, I had an opportunity to discuss the recommended surgery / procedure, other options, risks, and what may occur if I choose not to have the surgery / procedure. I am satisfied with the answers to all of my questions. I understand about risks and knowingly accept them. If you are (or believe you may be ), tell your doctor or nurse before you sign this Consent. Your doctor will discuss with you if there are potential risks to your unborn child. Your consent will be for yourself and for the unborn child. It is the Hospital?s policy to require that a responsible adult drive you directly home when you leave the Hospital. By signing, you accept and agree with this policy. By signing, I voluntarily and knowingly give my informed consent: To have the doctor perform the recommended surgery / procedure To have such anesthetics (including moderate / deep sedation) that are necessary and advisable. To have the doctor perform additional, medically necessary surgery / procedures to treat any unforeseen or newly-discovered condition that occurs during surgery / the procedure, which needs prompt attention. To examine, record and dispose of any tissue or body parts that are removed. To allow photographs that will be used strictly for documenting my medical condition and treatment, which will be made a part of my confidential medical record. To allow [facility] employees, such as an Registered Nurse Dredge Mate (SPORT PSYCHOLOGIST) to assist with my surgery To allow Healthcare Industry Representatives to be present during my surgery or procedure To allow students to participate in the care, under appropriate situations. Page 1 of 2 [facility] Informed Consent Check One: To give me blood or blood products during surgery / procedure and during my hospital stay, as medically necessary. The risks, benefits, and alternatives to transfusions have been discussed with me and all my questions have been answered. To not give me blood or blood products. I fully understand that this may adversely affect my medical management and may result in my . Alternatives to blood / blood products have been discussed with me. I read this Form, or had it read to me. I understand what it says. Patient Signature Relationship to Patient Date AND Time Signed Reason Patient Does Not Sign Witness to Signature Only Date and Time Signed I certify that I have explained the nature, purpose, anticipated risks and benefits, complications, and alternatives to the proposed procedure to the patient. I have answered all questions fully and I believe the patient fully understands what I have explained. Physician?s Signature Date and Time [facility] [address] [place], [place] [address] GUMARO SEPULVEDA [address] [facility] [address] [place] [address] 05/28/2018 Dear Gumaro Sepulveda : Thank you for allowing me to evaluate your patient, Carmen iRos. I saw Carmen on 05/28/2018. I am planning to perform a asdads. Enclosed is a copy of my office dictation for Carmen which includes my evaluation and recommendations. Again, thank you for the referral of Carmen Rios. If I can be of any assistance to you in the future, please don't hesitate to call. Sincerely yours, Jas Montilla MD, FACS HISTORY AND PHYSICAL - COLON RESECTION FOR SPLENIC FLEXURE COLON CANCER Carmen Rios 1955 May 28, 2018 REFERRING PHYSICIAN: Gumaro Sepulveda DO CHIEF COMPLAINT: anemia HPI: The patient is a 62 year old male with a complaint of anemia. Patient was initially seen by Ameena Richards who noted: The patient is a 62 year old male referred for endoscopy. The patient is a poor historian. He notes that around a year ago he was having a large amount of lower abdominal cramping and discomfort. He states that he underwent laboratory workup at that time which was unremarkable, did not have endoscopy and does not think he had any imaging studies at that time. States the pain was felt to possibly be related to one of his arthritis medications which has since been discontinued. He states the abdominal pain has since resolved. ? Patient does note that he has had weight fluctuations and weight loss of around 30 lbs total in the last year. He notes a history of constipation and hard stools, takes metamucil regularly. He denies any visible blood in stools or dark stools. The patient notes no history of upper GI complaints. He was noted to have decreasing hemoglobin on recent routine laboratory studies and is referred for endoscopic evaluation for possible GI source of blood loss. ? Carmen has not undergone prior endoscopy. He denies a family history of colon cancer. Patient states around 20 years ago he had an attempted fistulotomy surgery with seton placement. He states he had complications related to that surgery. He states he then went to another surgeon for a redo surgery, but that that surgery could not be completed as they had trouble getting the tube down my throat. He states that the site healed on its own and he denies any flare-ups of anal abscesses or other issues since that time. He notes that he is very apprehensive about having anything done in that area since his issues with the fistulotomy surgery, and states this is why he has put off having a colonoscopy in the past. ? Patient's past medical history is significant for diabetes mellitus, gout, hypertension, hyperlipidemia, rheumatoid arthritis. The patient underwent upper endoscopy and colonoscopy on May 27, 2018 which demonstrated mild to moderate duodenitis, gastritis and distal esophagitis. Digital rectal exam revealed an asymmetric prostate without truly worrisome nodules. The patient was found to have approximately a 4 cm long circumferential tight colon cancer at the splenic flexure. The remainder of the colon was unremarkable. I performed injection with Rosita ink and then placed a clip just distal to the tumor. A KUB was obtained which demonstrated the clip right at the splenic flexure. Laboratory studies were obtained which demonstrated a PSA level of 0.4. A CEA level returned as 3.9. The patient's remaining chemistry panel and CBC were unremarkable save for mild anemia. CT scan of the chest abdomen and pelvis was obtained. This demonstrated no lung or true liver abnormalities. The tumor was seen with questionable peritumoral lymph nodes. No other signs of metastatic disease were noted. The patient does note a history of right lower quadrant discomfort. He asked about those findings on CT scan and I again reiterated that his colonoscopy was unremarkable and the CT scan looked normal at that location. The patient's daughter notes that she and her sister both our caries of factor V Leiden deficiency. Her father has not undergone evaluation for this deficiency. Neither his nor the patient noting the history of bleeding difficulties. PAST MEDICAL HISTORY Diagnosis Date - DM (diabetes mellitus) (HCC) - Gout - HTN (hypertension) - Hypercholesteremia - RA (rheumatoid arthritis) (HCC) PAST SURGICAL HISTORY Procedure Laterality Date - COLONOSCOP W/ OR W/O [facility] SPEC 05/27/2018 Colonoscopy - EGD W/O OR W/BRUSH/WASH 05/27/2018 EGD - FISTULOTOMY SUBCUT 1997 Current Outpatient Prescriptions: adalimumab (HUMIRA PEN SUBCUTANEOUS) Inject subcutaneously every 2 weeks. Disp: Rfl: ALLOPURINOL ORAL Take 300 mg by mouth once daily. Disp: Rfl: aspirin 81 mg chewable tablet Take 81 mg by mouth once daily. Disp: Rfl: atenolol (TENORMIN) 25 mg tablet Take 25 mg by mouth once daily. Disp: Rfl: enteric contrast (will be provided with radiology test) For CT CHESTABD/PEL W IVCON Routine order Administer, As Directed One Time Only, via Oral, Rectal, both Oral and Rectal, Enteric Tube, Stoma or Indwelling Catheter, Enteric Contrast as designated per enteric contrast guidelines Disp: 1 Each Rfl: 0 ferrous sulfate (IRON) 325 mg (65 mg iron) tablet Take 325 mg by mouth daily with breakfast. Disp: Rfl: glipiZIDE (GLUCOTROL) 5 mg tablet Take 5 mg by mouth three times daily. Disp: Rfl: iv contrast (will be provided with radiology test) CT Chest ABD/PEL-Inject, intravenously, once for 1 dose.No IV access, insert saline lock prior to the beginning of sedation, infusion, injection of imaging exam. Discontinue saline lock post exam. If Pt. has a central line or IVAD, may access for administration according to line specific nursing protocol. Once exam is complete flush line and de-access according to line specific nursing protocol in the CT contrast administration guidelines link. Disp: 1 Each Rfl: 0 metFORMIN (GLUCOPHAGE) 1,000 mg tablet Take 1,000 mg by mouth twice daily with meals. Disp: Rfl: metroNIDAZOLE (FLAGYL) 500 mg tablet 2 TABLETS AT 6, 8, AND 10 PM Disp: 6 tablet Rfl: 0 neomycin 500 mg tablet Take 2 tablets by mouth four times daily. 2 TABLETS AT 6, 8 ,AND 10 PM Disp: 6 tablet Rfl: 0 omeprazole/sodium bicarbonate (OMEPPI ORAL) Take by mouth. Disp: Rfl: peg 3350-Electrolytes (GOLYTELY) 236-22.74-6.74 -5.86 gram suspension Take 4,000 mL by mouth one time only for 1 dose. Disp: 1 Bottle Rfl: 0 pravastatin (PRAVACHOL) 40 mg tablet Take 40 mg by mouth once daily. Disp: Rfl: No current facility-administered medications for this visit. ALLERGIES: Patient has no known allergies. PERSONAL HISTORY: Social History Marital status: Spouse name: Years of education: Number of children: Social History Main Topics Smoking status: Former Smoker Packs/day: 0.00 Years: 0.00 Start date: 05/07/1973 Quit date: 05/07/1993 Smokeless tobacco: Never Used Alcohol use: No FAMILY HISTORY: No family history on file. REVIEW OF SYMPTOMS: The review of systems data was entered by the nurse and reviewed by me ? REVIEW OF SYSTEMS GENERAL: No weight loss, malaise or fevers HEENT: Negative for frequent or significant headaches, No changes in hearing or vision, no nose bleeds or other nasal problems NECK: Negative for lumps, goiter, pain and significant neck swelling RESPIRATORY: Negative for cough, hemoptysis, wheezing, COPD, dyspnea or shortness of breath CARDIOVASCULAR: Negative for chest pain, leg swelling, hypertension, CHF or palpitations GI: See HPI MUSCULOSKELETAL: +Rheumatoid arthritis SKIN: Negative for lesions, rash, and itching PSYCH: Negative for sleep disturbance, mood disorder and recent psychosocial stressors HEMATOLOGY/LYMPHOLOGY: See HPI, +anemia ENDOCRINE: Positive for diabetes mellitus on oral agent NEURO: No history of headaches, syncope, paralysis, seizures or tremors ? PHYSICAL EXAMINATION: General: The patient is 62 year old male, well nourished, well hydrated in no acute distress. The patient is oriented to time, place, and person. VITALS: BP 142/68 Pulse 68 Temp 36.3 ?C (97.3 ?F) (Temporal Artery) Resp 18 Ht 180.3 cm (5' 11) Wt 101.2 kg (223 lb) BMI 31.10 kg/m? Body mass index is 31.1 kg/m?. HEENT: Normal cephalic, ataumatic, pupils are equally round, sclera are anicteric, mucous membranes are moist, oropharynx is clear. Neck has no masses, asymmetry or lymphadenopathy. Thyroid is unremarkable. Respiratory: Clear to auscultation and percussion. Normal respiratory excursion and pattern. Cardiac: Examination is regular rate and rhythm. Abdominal exam: Soft, nontender, with no palpable masses. No hepatosplenomegaly. No palpable hernias. Rectal exam: exam deferred Extremities: no clubbing, cyanosis or edema. No adenopathy. LABORATORY VALUES: As Noted RADIOLOGIC STUDIES: As Noted Assessment IMPRESSION: Splenic flexure colon cancer PLAN: We extensively discussed the diagnosis and discussed the surgical options. The patient has elected to undergo colon resection I plan to perform a Laparoscopic colectomy partial - 18927- [id number]. The planned surgical procedure was discussed extensively with the patient. The risks, benefits, anticipated outcomes and possible complications and alternatives were discussed. My staff has also explained the procedure in understandable terms and the patient was given the option to take printed material concerning the planned procedure. The patient had the opportunity to ask questions concerning the planned procedure. The patient freely consents to the planned procedure. I will plan for outpatient bowel preparation including mechanical and antibiotic preparation including Neomycin and Flagyl 1gm each at 6,8, and 10pm the night before surgery. We'll also obtain a factor V Leiden panel prior to surgery. 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 Gumaro Sepulveda indicating the above finding for this patient. Return to Clinic: The patient is instructed to follow-up with me 1 week post operatively. Jas Montilla MD 05/28/2018 HISTORY AND PHYSICAL - COLON RESECTION FOR SPLENIC FLEXURE COLON CANCER Carmen Rios 1955 May 28, 2018 REFERRING PHYSICIAN: Gumaro Sepulveda DO CHIEF COMPLAINT: anemia HPI: The patient is a 62 year old male with a complaint of anemia. Patient was initially seen by Ameena Richards who noted: The patient is a 62 year old male referred for endoscopy. The patient is a poor historian. He notes that around a year ago he was having a large amount of lower abdominal cramping and discomfort. He states that he underwent laboratory workup at that time which was unremarkable, did not have endoscopy and does not think he had any imaging studies at that time. States the pain was felt to possibly be related to one of his arthritis medications which has since been discontinued. He states the abdominal pain has since resolved. ? Patient does note that he has had weight fluctuations and weight loss of around 30 lbs total in the last year. He notes a history of constipation and hard stools, takes metamucil regularly. He denies any visible blood in stools or dark stools. The patient notes no history of upper GI complaints. He was noted to have decreasing hemoglobin on recent routine laboratory studies and is referred for endoscopic evaluation for possible GI source of blood loss. ? Carmen has not undergone prior endoscopy. He denies a family history of colon cancer. Patient states around 20 years ago he had an attempted fistulotomy surgery with seton placement. He states he had complications related to that surgery. He states he then went to another surgeon for a redo surgery, but that that surgery could not be completed as they had trouble getting the tube down my throat. He states that the site healed on its own and he denies any flare-ups of anal abscesses or other issues since that time. He notes that he is very apprehensive about having anything done in that area since his issues with the fistulotomy surgery, and states this is why he has put off having a colonoscopy in the past. ? Patient's past medical history is significant for diabetes mellitus, gout, hypertension, hyperlipidemia, rheumatoid arthritis. The patient underwent upper endoscopy and colonoscopy on May 27, 2018 which demonstrated mild to moderate duodenitis, gastritis and distal esophagitis. Digital rectal exam revealed an asymmetric prostate without truly worrisome nodules. The patient was found to have approximately a 4 cm long circumferential tight colon cancer at the splenic flexure. The remainder of the colon was unremarkable. I performed injection with Rosita ink and then placed a clip just distal to the tumor. A KUB was obtained which demonstrated the clip right at the splenic flexure. Laboratory studies were obtained which demonstrated a PSA level of 0.4. A CEA level returned as 3.9. The patient's remaining chemistry panel and CBC were unremarkable save for mild anemia. CT scan of the chest abdomen and pelvis was obtained. This demonstrated no lung or true liver abnormalities. The tumor was seen with questionable peritumoral lymph nodes. No other signs of metastatic disease were noted. The patient does note a history of right lower quadrant discomfort. He asked about those findings on CT scan and I again reiterated that his colonoscopy was unremarkable and the CT scan looked normal at that location. The patient's daughter notes that she and her sister both our caries of factor V Leiden deficiency. Her father has not undergone evaluation for this deficiency. Neither his nor the patient noting the history of bleeding difficulties. PAST MEDICAL HISTORY Diagnosis Date - DM (diabetes mellitus) (HCC) - Gout - HTN (hypertension) - Hypercholesteremia - RA (rheumatoid arthritis) (HCC) PAST SURGICAL HISTORY Procedure Laterality Date - [facility] 05[facility] Colonoscopy - EGD W/O OR W/BRUSH/WASH 05/27/2018 EGD - FISTULOTOMY SUBCUT 1997 Current Outpatient Prescriptions: adalimumab (HUMIRA PEN SUBCUTANEOUS) Inject subcutaneously every 2 weeks. Disp: Rfl: ALLOPURINOL ORAL Take 300 mg by mouth once daily. Disp: Rfl: aspirin 81 mg chewable tablet Take 81 mg by mouth once daily. Disp: Rfl: atenolol (TENORMIN) 25 mg tablet Take 25 mg by mouth once daily. Disp: Rfl: enteric contrast (will be provided with radiology test) For CT CHESTABD/PEL W IVCON Routine order Administer, As Directed One Time Only, via Oral, Rectal, both Oral and Rectal, Enteric Tube, Stoma or Indwelling Catheter, Enteric Contrast as designated per enteric contrast guidelines Disp: 1 Each Rfl: 0 ferrous sulfate (IRON) 325 mg (65 mg iron) tablet Take 325 mg by mouth daily with breakfast. Disp: Rfl: glipiZIDE (GLUCOTROL) 5 mg tablet Take 5 mg by mouth three times daily. Disp: Rfl: iv contrast (will be provided with radiology test) CT Chest ABD/PEL-Inject, intravenously, once for 1 dose.No IV access, insert saline lock prior to the beginning of sedation, infusion, injection of imaging exam. Discontinue saline lock post exam. If Pt. has a central line or IVAD, may access for administration according to line specific nursing protocol. Once exam is complete flush line and de-access according to line specific nursing protocol in the CT contrast administration guidelines link. Disp: 1 Each Rfl: 0 metFORMIN (GLUCOPHAGE) 1,000 mg tablet Take 1,000 mg by mouth twice daily with meals. Disp: Rfl: metroNIDAZOLE (FLAGYL) 500 mg tablet 2 TABLETS AT 6, 8, AND 10 PM Disp: 6 tablet Rfl: 0 neomycin 500 mg tablet Take 2 tablets by mouth four times daily. 2 TABLETS AT 6, 8 ,AND 10 PM Disp: 6 tablet Rfl: 0 omeprazole/sodium bicarbonate (OMEPPI ORAL) Take by mouth. Disp: Rfl: peg 3350-Electrolytes (GOLYTELY) 236-22.74-6.74 -5.86 gram suspension Take 4,000 mL by mouth one time only for 1 dose. Disp: 1 Bottle Rfl: 0 pravastatin (PRAVACHOL) 40 mg tablet Take 40 mg by mouth once daily. Disp: Rfl: No current facility-administered medications for this visit. ALLERGIES: Patient has no known allergies. PERSONAL HISTORY: Social History Marital status: Spouse name: Years of education: Number of children: Social History Main Topics Smoking status: Former Smoker Packs/day: 0.00 Years: 0.00 Start date: 05/07/1973 Quit date: 05/07/1993 Smokeless tobacco: Never Used Alcohol use: No FAMILY HISTORY: No family history on file. REVIEW OF SYMPTOMS: The review of systems data was entered by the nurse and reviewed by me ? REVIEW OF SYSTEMS GENERAL: No weight loss, malaise or fevers HEENT: Negative for frequent or significant headaches, No changes in hearing or vision, no nose bleeds or other nasal problems NECK: Negative for lumps, goiter, pain and significant neck swelling RESPIRATORY: Negative for cough, hemoptysis, wheezing, COPD, dyspnea or shortness of breath CARDIOVASCULAR: Negative for chest pain, leg swelling, hypertension, CHF or palpitations GI: See HPI MUSCULOSKELETAL: +Rheumatoid arthritis SKIN: Negative for lesions, rash, and itching PSYCH: Negative for sleep disturbance, mood disorder and recent psychosocial stressors HEMATOLOGY/LYMPHOLOGY: See HPI, +anemia ENDOCRINE: Positive for diabetes mellitus on oral agent NEURO: No history of headaches, syncope, paralysis, seizures or tremors ? PHYSICAL EXAMINATION: General: The patient is 62 year old male, well nourished, well hydrated in no acute distress. The patient is oriented to time, place, and person. VITALS: BP 142/68 Pulse 68 Temp 36.3 ?C (97.3 ?F) (Temporal Artery) Resp 18 Ht 180.3 cm (5' 11) Wt 101.2 kg (223 lb) BMI 31.10 kg/m? Body mass index is 31.1 kg/m?. HEENT: Normal cephalic, ataumatic, pupils are equally round, sclera are anicteric, mucous membranes are moist, oropharynx is clear. Neck has no masses, asymmetry or lymphadenopathy. Thyroid is unremarkable. Respiratory: Clear to auscultation and percussion. Normal respiratory excursion and pattern. Cardiac: Examination is regular rate and rhythm. Abdominal exam: Soft, nontender, with no palpable masses. No hepatosplenomegaly. No palpable hernias. Rectal exam: exam deferred Extremities: no clubbing, cyanosis or edema. No adenopathy. LABORATORY VALUES: As Noted RADIOLOGIC STUDIES: As Noted Assessment IMPRESSION: Splenic flexure colon cancer PLAN: We extensively discussed the diagnosis and discussed the surgical options. The patient has elected to undergo colon resection I plan to perform a Laparoscopic colectomy partial - 79790- [id number]. The planned surgical procedure was discussed extensively with the patient. The risks, benefits, anticipated outcomes and possible complications and alternatives were discussed. My staff has also explained the procedure in understandable terms and the patient was given the option to take printed material concerning the planned procedure. The patient had the opportunity to ask questions concerning the planned procedure. The patient freely consents to the planned procedure. I will plan for outpatient bowel preparation including mechanical and antibiotic preparation including Neomycin and Flagyl 1gm each at 6,8, and 10pm the night before surgery. We'll also obtain a factor V Leiden panel prior to surgery. 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 Gumaro Sepulveda indicating the above finding for this patient. Return to Clinic: The patient is instructed to follow-up with me 1 week post operatively. Jas Montilla MD I have reviewed the above history and physical exam. There have been no significant changes Jas Montilla MD 05/28/2018 Encounter Status:Closed by JAS MONTILLA MD on 05/28/18 ABDOMEN/PELVIS WITH Observed: 05/28/2018 Status: F Source: [place] CONTRAST 9:17 AM [facility] REPOSITORY [facility] Imaging Services [address] [place] [address] Abdomen/Pelvis WITH Contrast MR#: [id number] Acct: [id number] Name: RIOSCARMEN D Rep #: [id number] : 1955 62 From: Tereso Reynoso MD PCP: Gumaro Sepulveda MD Status: REG CLI Study: Abdomen/Pelvis WITH Contrast Date of Exam: 05/28/18 Exam# [id number] Ordering Dr: Jas Montilla MD STUDY: CT ABDOMEN AND PELVIS WITH CONTRAST REASON FOR EXAM: Male, 62 years old. Recent diagnosis of colon cancer. 30 pound weight loss and anemia. RADIATION DOSAGE (If Supplied By Facility): CTDIvol = ( 18.36 ) mGy, DLP = ( 2111.62 ) mGycm TECHNIQUE: Transaxial images were obtained from the dome of the diaphragm to the symphysis pubis with oral contrast. 100mL ml of Isovue 300 contrast was administered. Sagittal and coronal images were reconstructed. Individualized dose optimization techniques were used for this CT. COMPARISON: None. FINDINGS: Minimal degree of increased markings at the lung bases suggests above mild bibasilar atelectasis. The visualized portions of the heart are within normal limits. Normal liver. Normal gallbladder and extrahepatic biliary system. Normal spleen. Normal pancreas. Normal bilateral adrenal glands. There is a 4.5 cm x 3.4 cm cyst in the upper pole of the right kidney. There is a 3.4 cm x 5.2 cm lobulated cyst in the lower pole of the right kidney as well. Normal left kidney. There is a small hiatal hernia. Normal small intestine. There is diffuse interferential wall thickening of the distal portion of the transverse colon as well as the splenic flexure and proximal portion of the descending colon. A metallic clip is seen at that site from prior colonoscopy. There are increased markings within the surrounding mesenteric fat with small lymph nodes. The largest lymph node measures 1.1 cm and is in the mesenteric side at the level of the splenic flexure. The appendix is visualized and appears normal. There is diffuse atherosclerotic calcification of the abdominal aorta, without a demonstrated aneurysm. Normal inferior vena cava. Normal retroperitoneum. Normal urinary bladder. There are prostatic calcifications. Normal abdominal wall. Normal osseous structures. CT/Abdomen/Pelvis WITH Contrast IMPRESSION: Circumferential wall thickening involving the distal transverse colon, splenic flexure and proximal descending colon with increased markings in the surrounding fat and small lymph nodes. Right renal cysts. Electronically Signed: Tereso Reynoso MD at 12:59 EST Tel [phone], Service support , CC: Gumaro Sepulveda MD; Jas Montilla MD Customer Marketing Manager: Signed CHEST WITH CONTRAST Observed: 05/28/2018 Status: F Source: [place] 9:17 AM [facility] REPOSITORY [facility] Imaging Services [address] [place] [address] Chest WITH Contrast MR#: [id number] Acct: [id number] Name: CARMEN RIOS Rep #: [id number] : 1955 M 62 From: Tereso Reynoso MD PCP: Gumaro Sepulveda MD Status: REG CLI Study: Chest WITH Contrast Date of Exam: 05/28/18 Exam# [id number] Ordering Dr: Jas Montilla MD STUDY: CT CHEST WITH CONTRAST REASON FOR EXAM: Male, 62 years old. New diagnosis of colon cancer. RADIATION DOSAGE (If Supplied By Facility): CTDIvol = ( 18.36 ) mGy, DLP = ( 2111.62 ) mGycm TECHNIQUE: Transaxial imaging was performed following intravenous administration of 100mL ml of Isovue 300 contrast material. Multiplanar coronal and sagittal images were reformatted. Individualized dose optimization techniques were used for this CT. COMPARISON: None. FINDINGS: Mild degree of increased linear markings of the lung bases suggestive of a linear atelectasis and/or scarring. I suspect mild linear scarring along the medial aspect of the right middle lobe. There is no demonstrated pleural abnormality. There are calcifications of the coronary arteries. There are multiple small lymph nodes within the mediastinum, which are normal in size and morphology most compatible with reactive lymph hyperplasia. Normal hilar regions. Normal enhanced pulmonary arteries. There is atherosclerotic calcification of the aortic arch with tortuosity and elongation of the aortic arch and descending thoracic aorta. There are multi-level degenerative changes of the thoracic spine. There is no demonstrated abnormality of the visualized upper abdomen. CT/Chest WITH Contrast IMPRESSION: Findings just mild scarring at the lung bases as well as the right middle lobe. Electronically Signed: Tereso Reynoso MD at 13:01 EST Tel [phone], Service support , CC: Gumaro Sepulveda MD; Jas Montilla MD Customer Marketing Manager: Signed CBC W/DIFF, AUTOMATED Collected: 05/27/2018 Status: F Source: [place] 1:53 PM [facility] REPOSITORY TYPE CODE TESTS RESULT OUT OF RANGE REFERENCE UNITS LAB L100.1000 4.4-11.0 K/mm3 Normal WBC 9.8 LAB L100.1200 4.6-6.2 M/mm3 Low RBC 3.98 LAB L100.1300 13.0-16.5 g/dl Low HGB 9.5 LAB L100.1400 40-54 % Low HCT 31.0 LAB L100.1500 80-94 fL Low MCV 77.9 LAB L100.1600 27.0-32.0 pg Low MCH 23.9 LAB L100.1700 32-36 g/gl Low MCHC 30.6 LAB L100.1810 11.6-14.6 % High RDW CV 16.4 LAB L100.1820 35.1-43.9 fl High RDW SD 46.9 LAB L100.1900 150-450 K/mm3 Normal PLT 302 LAB L100.2000 6.2-12.0 fl Normal MPV 8.9 LAB L100.2100 47-70 % Normal NEUT% 65.9 LAB L100.2200 19-41 % Normal LY% 20.8 LAB L100.2300 0-10 % High MONO% 10.5 LAB L100.2400 0-5 % Normal EO% 2.3 LAB L100.2500 0-1 % Normal BASO% 0.3 LAB L100.2550 0.0-0.9 % Normal IM GRAN % 0.200 Result Comment: IG% - Immature Granulocytes (promyelocytes, myelocytes and metamyelocytes) > 1% indicates that a LEFT SHIFT is Present. LAB L100.2620 2.0-7.7 X10 3/uL Normal Absolute Neut 6.5 LAB L100.2720 0.83-4.51 X10 3/ul Normal Absolute Lymph 2.04 Performed By: #### L100.0100 #### [facility] [address] [place], [address] COMPREHENSIVE METABOLIC Collected: 05/27/2018 Status: F Source: [place] 1:53 PM [facility] REPOSITORY TYPE CODE TESTS RESULT OUT OF RANGE REFERENCE UNITS LAB L501.0100 74-106 mg/dL High GLU 113 Result Comment: Fasting Glucose result from 100 to 125 mg/dL suggests IMPAIRED HOMEOSTASIS per A.D.A. criteria. Please note revised GLUCOSE reference range effective 2017. LAB L501.1000 7-18 mg/dL Normal BUN 12 LAB L501.1100 0.70-1.30 mg/dL Normal CREAT,SERUM 0.93 Result Comment: The validity of the calculated GFR AND GFRAA in patients over 70 years has not been determined. Clinical correlation is essential. LAB L501.1110 >60 mL/min Normal EST GFR 88 Result Comment: Non- GFR Calc LAB L501.1115 >60 mL/min Normal EST GFR - AA 106 Result Comment: GFR Calc LAB L501.1255 ml/min Normal Estimated CRCL 89.96 LAB L501.1300 10-20 RATIO Normal BUN/CRE 12.9 LAB L501.1500 6.4-8. g/dL Normal 2 T PROT 8.1 LAB L501.1800 3.2-5. g/dL Low 0 ALB 2.8 LAB L501.1950 2.2-4. g/dL High 2 GLOB 5.3 LAB L501.2000 0.9-2. RATIO Low 4 A/G 0.5 LAB L501.2200 8.5-10 mg/dL Normal .1 CA 8.7 LAB L501.4100 15-37 U/L Normal AST 29 LAB L501.4305 45-117 U/L Normal ALK P 76 LAB L501.4405 16-61 U/L Normal ALT 24 LAB L501.4600 0.20-1 mg/dL Normal .00 T BILI 0.40 LAB L501.5300 136-14 mmol/L Normal 5 NA 136 LAB L501.5600 3.5-5. mmol/L Normal 1 K 4.1 LAB L501.5900 98-107 mmol/L Normal CL 101 LAB L501.6100 21.0-3 mmol/L Normal 2.0 CO2 27.0 LAB L501.6200 5-15 Normal GAP 8 Performed By: #### L500.4050, L501.9940 #### [facility] [address] [place], [place], [address] PSA,TOTAL- DIAGNOSTIC Collected: 05/27/2018 Status: F Source: [place] 1:53 PM [facility] REPOSITORY TYPE CODE TESTS RESULT OUT OF RANGE REFERENCE UNITS LAB L501.9940 0.0-4.0 ng/mL PSA, Normal DIAGNOSTIC 0.39 Result Comment: This test was performed using the TPSA assay method for the Cypro[employer] chemistry system. Values obtained with different assay methods cannot be used interchangably. When changing PSA assays in the course of monitoring a patient, additional sequential testing should be carried out to confirm baseline values. Performed By: #### L500.4050, L501.9940 #### [facility] [address] [place], [place], [address] CARCINOEMBRYONIC ANTIGEN Collected: 05/27/2018 Status: F Source: [place] 1:53 PM [facility] REPOSITORY TYPE CODE TESTS RESULT OUT OF RANGE REFERENCE UNITS LAB L3100.2300 0.0-4.7 ng/mL Normal CEA 3.9 Result Comment: Marlys ECLIA methodology Nonsmokers <3.9 Smokers <5.6 Performed at: - [facility] [id number] Sales Audit Clerk: Zenon Velazquez PhD, Phone: [phone] Performed By: #### L3100.2300 #### [facility] (refer to report for specific site) refer to report for address and phone number ABDOMEN SINGLE VIEW Observed: 05/27/2018 Status: F Source: [place] (PORTABLE) 1:36 PM [facility] REPOSITORY [facility] Imaging Services [address] [place] [address] Abdomen Single View (Portable) MR#: [id number] Acct: [id number] Name: RIOSCARMEN CALDERON Ashley Rep #: [id number] : 1955 M 62 From: Tereso Reynoso MD PCP: Gumaro Sepulveda MD Status: [facility] Study: Abdomen Single View (Portable) Date of Exam: 05/27/18 Exam# [id number] Ordering Dr: Jas Montilla MD STUDY: X-RAY - ABDOMEN/PELVIS REASON FOR EXAM: Male, 62 years old. Abdominal distention. Post colonoscopy with clip placement. TECHNIQUE: COMPARISON: None. FINDINGS: There is an unremarkable bowel gas pattern. A metallic clip is seen in the region of the splenic flexure. The visualized liver, spleen and kidneys are grossly normal in size and morphology. Normal soft tissue structures. There are diffuse degenerative changes of the visualized lumbar spine. RAD/Abdomen Single View (Portable) IMPRESSION: A metallic clip is seen in the region of the splenic flexure. Electronically Signed: Tereso Reynoso MD at 14:57 EST Tel [phone], Service support , CC: Gumaro Sepulveda MD; Jas Montilla MD Customer Marketing Manager: Signed OPERATIVE REPORT - Observed: 05/27/2018 Status: F Source: [place] [facility] 1:34 PM [facility] REPOSITORY [facility] Medical Records Department [address] [place] [address] Operative Report - Endoscopy MR#: [id number] Acct: [id number] Name: CARMEN RIOS Rep #: [id number] : 1955 62 From: Jas Montilla MD PCP: Gumaro Sepulveda MD Status: REG [facility] Patient Name: Carmen Rios Procedure Date: 05/27/2018 1:10 PM Date of : 1955 Age: 62 Procedure: Colonoscopy Indications: Iron deficiency anemia Providers: Jas Montilla MD Referring MD: Gumaro Sepulveda Medicines: Monitored Anesthesia Care Patient Profile: This is a 62 year old male. Refer to note in patient chart for documentation of history and physical. Last Colonoscopy: 3 years ago. Complications: No immediate complications. Procedure: Pre-Anesthesia Assessment: - Prior to the procedure, a History and Physical was performed, and patient medications and allergies were reviewed. The patient is competent. The risks and benefits of the procedure and the sedation options and risks were discussed with the patient. All questions were answered and informed consent was obtained. Patient identification and proposed procedure were verified by the physician, the nurse and the silicator in the procedure room. Mental Status Examination: alert and oriented. Airway Examination: normal oropharyngeal airway and neck mobility. Respiratory Examination: clear to auscultation. CV Examination: normal. Prophylactic Antibiotics: The patient does not require prophylactic antibiotics. Prior Anticoagulants: The patient has taken no previous anticoagulant or antiplatelet agents. ASA Grade Assessment: III - A patient with severe systemic disease. After reviewing the risks and benefits, the patient was deemed in satisfactory condition to undergo the procedure. The anesthesia plan was to use moderate sedation / analgesia (conscious sedation). Immediately prior to administration of medications, the patient was re-assessed for adequacy to receive sedatives. The heart rate, respiratory rate, oxygen saturations, blood pressure, adequacy of pulmonary ventilation, and response to care were monitored throughout the procedure. The physical status of the patient was re-assessed after the procedure. After I obtained informed consent, the scope was passed under direct vision. Throughout the procedure, the patient's blood pressure, pulse, and oxygen saturations were monitored continuously. The pediatric colonoscope was introduced through the anus and advanced to the cecum, identified by the appendiceal orifice, ileocecal valve and palpation. The colonoscopy was performed without difficulty. The patient tolerated the procedure well. The quality of the bowel preparation was good. Scope In: 1:12:41 PM Scope Withdrawal Time 0 hours 6 minutes 59 seconds Scope Out: 1:23:22 PM Total Procedure Duration Time 0 hours 10 minutes 41 seconds Findings: The digital rectal exam findings include prostate nodule. A fungating partially obstructing large mass was found in the distal transverse colon. The mass was circumferential. The mass measured five cm in length. In addition, its diameter measured five mm. Oozing was present. Biopsies were taken with a cold forceps for histology. Area was tattooed with an injection of Rosita ink. For location marking, one hemostatic clip was successfully placed (MR conditional). There was no bleeding at the end of the procedure. A few small-mouthed diverticula were found in the sigmoid colon. The retroflexed view of the distal rectum and anal verge was normal and showed no anal or rectal abnormalities. Impression: - A prostate nodule found on digital rectal exam. - Malignant partially obstructing tumor in the distal transverse colon. Biopsied. Tattooed. Clip (MR conditional) was placed. - Diverticulosis in the sigmoid colon. - The distal rectum and anal verge are normal on retroflexion view. Recommendation: - Discharge patient to home. - Resume previous diet. - Continue present medications. - Return to my office tomorrow. - Repeat colonoscopy in 1 year for surveillance. Procedure Code(s): --- Professional --- 20036, Colonoscopy, flexible; with directed submucosal injection(s), any substance 77370, Colonoscopy, flexible; with biopsy, single or multiple 64968, Unlisted procedure, colon CPT copyright 2017 [employer]. All rights reserved. The codes documented in this report are preliminary and upon art specialist review may be revised to meet current compliance requirements. Jas Montilla MD 05/27/2018 1:34:27 PM This report has been signed electronically. Number of Addenda: 0 Note Initiated On: 05/27/2018 1:10 PM 05/27/18 1334 Date Jas Montilla MD Cosigner Signature: Date (if indicated) CC: Gumaro Sepulveda MD; Jas Montilla MD Date Dictated: 05/27/18 1310 Date Transcribed: Customer Marketing Manager: SENA Signed OPERATIVE REPORT - Observed: 05/27/2018 Status: F Source: [place] [facility] 1:31 PM [facility] REPOSITORY [facility] Medical Records Department [address] [place] [address] Operative Report - Endoscopy MR#: [id number] Acct: [id number] Name: CARMEN RIOS Rep #: [id number] : 1955 62 From: Jas Montilla MD PCP: Gumaro Sepulveda MD Status: REG [facility] Patient Name: Carmen Rios Procedure Date: 05/27/2018 12:07 PM Date of : 1955 Age: 62 Procedure: Upper GI endoscopy Indications: Iron deficiency anemia Providers: Jas Montilla MD Referring MD: Gumaro Sepulveda Medicines: Monitored Anesthesia Care Patient Profile: This is a 62 year old male. Refer to note in patient chart for documentation of history and physical. Complications: No immediate complications. Procedure: Pre-Anesthesia Assessment: - Prior to the procedure, a History and Physical was performed, and patient medications and allergies were reviewed. The patient is competent. The risks and benefits of the procedure and the sedation options and risks were discussed with the patient. All questions were answered and informed consent was obtained. Patient identification and proposed procedure were verified by the physician, the nurse and the silicator in the procedure room. Mental Status Examination: alert and oriented. Airway Examination: normal oropharyngeal airway and neck mobility. Respiratory Examination: clear to auscultation. CV Examination: normal. Prophylactic Antibiotics: The patient does not require prophylactic antibiotics. Prior Anticoagulants: The patient has taken no previous anticoagulant or antiplatelet agents. ASA Grade Assessment: III - A patient with severe systemic disease. After reviewing the risks and benefits, the patient was deemed in satisfactory condition to undergo the procedure. The anesthesia plan was to use moderate sedation / analgesia (conscious sedation). Immediately prior to administration of medications, the patient was re-assessed for adequacy to receive sedatives. The heart rate, respiratory rate, oxygen saturations, blood pressure, adequacy of pulmonary ventilation, and response to care were monitored throughout the procedure. The physical status of the patient was re-assessed after the procedure. After obtaining informed consent, the endoscope was passed under direct vision. Throughout the procedure, the patient's blood pressure, pulse, and oxygen saturations were monitored continuously. The gastroscope was introduced through the mouth, and advanced to the jejunum. The upper GI endoscopy was accomplished without difficulty. The patient tolerated the procedure well. Scope In: 1:05:07 PM Scope Out: 1:10:01 PM Total Procedure Duration Time 0 hours 4 minutes 54 seconds Findings: The examined jejunum was normal. Biopsies for histology were taken with a cold forceps for evaluation of celiac disease. The examined duodenum was normal. Scattered moderate inflammation characterized by adherent blood, erosions, erythema, granularity and linear erosions was found in the entire examined stomach. Biopsies were taken with a cold forceps for Helicobacter pylori testing using PyloriTek test. Biopsies were taken with a cold forceps for histology. Non-severe esophagitis with no bleeding was found. Biopsies were taken with a cold forceps for histology. The middle third of the esophagus was normal. Biopsies were taken with a cold forceps for histology. Impression: - Normal examined jejunum. Biopsied. - Normal examined duodenum. - Gastritis. Biopsied. - Non-severe reflux esophagitis. Biopsied. - Normal middle third of esophagus. Biopsied. Recommendation: - Continue present medications. Procedure Code(s): --- Professional --- 47177, Esophagogastroduodenoscopy, flexible, transoral; with biopsy, single or multiple CPT copyright 2017 [employer]. All rights reserved. The codes documented in this report are preliminary and upon art specialist review may be revised to meet current compliance requirements. Jas Montilla MD 05/27/2018 1:31:07 PM This report has been signed electronically. Number of Addenda: 0 Note Initiated On: 05/27/2018 12:07 PM 05/27/18 1331 Date Jas Montilla MD Cosigner Signature: Date (if indicated) CC: Gumaro Sepulveda MD; Jas Montilla MD Date Dictated: 05/27/18 1207 Date Transcribed: Customer Marketing Manager: SENA Signed HISTORY AND PHYSICAL Observed: 05/27/2018 Status: F Source: [place] EXAM 12:59 PM [facility] REPOSITORY [facility] Medical Records Department [address] [place] [address] History and Physical 05/27/18 1257 MR#: [id number] Acct: [id number] Name: CARMEN RIOS Rep #: [id number] : 1955 62 From: Jas Montilla MD PCP: Gumaro Sepulveda MD Status: REG [facility] Location: [place] [address] History and Physical Date of Admission: 05/27/18 HISTORY AND PHYSICAL Carmen Rios 1955 REFERRING PHYSICIAN: Self CHIEF COMPLAINT: Consult (Consult Colonoscopy) HPI: The patient is a 62 year old male referred for endoscopy. The patient is a poor historian. He notes that around a year ago he was having a large amount of lower abdominal cramping and discomfort. He states that he underwent laboratory workup at that time which was unremarkable, did not have endoscopy and does not think he had any imaging studies at that time. States the pain was felt to possibly be related to one of his arthritis medications which has since been discontinued. He states the abdominal pain has since resolved. Patient does note that he has had weight fluctuations and weight loss of around 30 lbs total in the last year. He notes a history of constipation and hard stools, takes metamucil regularly. He denies any visible blood in stools or dark stools. The patient notes no history of upper GI complaints. He was noted to have decreasing hemoglobin on recent routine laboratory studies and is referred for endoscopic evaluation for possible GI source of blood loss. Carmen has not undergone prior endoscopy. He denies a family history of colon cancer. Patient states around 20 years ago he had an attempted fistulotomy surgery with seton placement. He states he had complications related to that surgery. He states he then went to another surgeon for a redo surgery, but that that surgery could not be completed as they had trouble getting the tube down my throat. He states that the site healed on its own and he denies any flare-ups of anal abscesses or other issues since that time. He notes that he is very apprehensive about having anything done in that area since his issues with the fistulotomy surgery, and states this is why he has put off having a colonoscopy in the past. Patient's past medical history is significant for diabetes mellitus, gout, hypertension, hyperlipidemia, rheumatoid arthritis. c PAST MEDICAL HISTORY c PAST MEDICAL HISTORY Diagnosis Date DM (diabetes mellitus) (HCC) Gout HTN (hype rtension) Hypercholesteremia RA (rheumatoid arthritis) (HCC) c PAST SURGICAL HISTORY c PAST SURGICAL HISTORY Procedure Laterality Date FISTULOTOMY SUBCUT 1997 c CURRENT MEDICATIONS c Current Outpatient Prescriptions: omeprazole/sodium bicarbonate (OMEPPI ORAL) Take by mouth . pravastatin (PRAVACHOL) 40 mg tablet Take 40 mg by mouth once daily. glipiZIDE (GLUCOTROL) 5 mg tablet Take 5 mg by mouth three times daily. metFORMIN (GLUCOPHAGE) 1,000 mg tablet Take 1,000 mg by mouth twice daily with meals. atenolol (TENORMIN) 25 mg tablet Take 25 mg by mouth once daily. ferrous sulfate (IRON) 325 mg (65 mg iron) tablet Take 325 mg by mouth daily with breakfast. aspirin 81 mg chewable tablet Take 81 mg by mouth once daily. adalimumab (HUMIRA PEN SUBCUTANEOUS) Inject subcutaneously every 2 weeks. ALLOPURINOL ORAL Take 300 mg by mouth once daily. No current facility-administered medications for this visit. ALLERGIES: Patient has no known allergies. PERSONAL HISTORY: c SOCIAL HISTORY c Social History Marital status: Spouse name: Years of education: Number of children: Social History Main Topics Smo ford status: Former Smoker Packs/ day: 0.00 Years: 0.00 Start date: 05/07/1973 Quit date: 05/07/1993 Smokele ss tobacco: Never Used Alcohol use: No FAMILY HISTORY: c FAMILY HISTORY c No family history on file. REVIEW OF SYSTEMS GENERAL: No weight loss, malaise or fevers HEENT: Negative for frequent or significant headaches, No changes in hearing or vision, no nose bleeds or other nasal problems NECK: Negative for lumps, goiter, pain and significant neck swelling RESPIRATORY: Negative for cough, hemoptysis, wheezing, COPD, dyspnea or shortness of breath CARDIOVASCULAR: Negative for chest pain, leg swelling, hypertension, CHF or palpitations GI: See HPI MUSCULOSKELETAL: +Rheumatoid arthritis SKIN: Negative for lesions, rash, and itching PSYCH: Negative for sleep disturbance, mood disorder and recent psychosocial stressors HEMATOLOGY/LYMPHOLOGY: See HPI, +anemia ENDOCRINE: Positive for diabetes mellitus on oral agent NEURO: No history of headaches, syncope, paralysis, seizures or tremors PHYSICAL EXAMINATION: General: The patient is 62 year old male, well nourished, well hydrated in no acute distress. The patient is oriented to time, place, and person. VITALS: Blood pressure 142/68, pulse 80, height 180.3 cm (5' 11), weight 99.8 kg (220 lb), SpO2 95 %. Body mass index is 30.68 kg/m . HEENT: Normal cephalic, ataumatic, pupils are equally round, sclera are anicteric, mucous membranes are moist, oropharynx is clear. Neck has no masses, asymmetry or lymphadenopathy. Respiratory: Clear to auscultation and percussion. Normal respiratory excursion and pattern. Cardiac: Examination is regular rate and rhythm. Abdominal exam: Soft, nontender, with no palpable masses. No hepatosplenomegaly. No palpable hernias. Rectal exam: exam deferred Extremities: no clubbing, cyanosis or edema. No adenopathy. Other: LABORATORY VALUES: As Noted RADIOLOGIC STUDIES: As Noted Assessment IMPRESSION: anemia, history of lower abdominal discomfort, recommend upper and lower endoscopy PLAN: I have reviewed my findings with Dr. Montilla, who also evaluated the patient and participated in development of the following plan. We will plan for upper and lower endoscopy under Monitored Anesthetic Care. We discussed the risks and benefits of the planned endoscopy. I have informed the patient that complications can occur including failure to complete the endoscopy and perforation. The patient had the opportunity to ask questions concerning the planned endoscopy. My staff has also explained the procedure to the patient in understandable terms and has given the patient printed material concerning the procedure. The patient freely consents to surgery. I plan to use golytely bowel preparation for endoscopy I plan for monitored anesthetic care. Patient has been instructed to contact his PCP regarding his diabetic medications, which may need adjusted during bowel preparation and/or day of procedure. Patient verbalized understanding of all above and agreed with the plan Diagnoses: (D64.9) Anemia, unspecified type (primary encounter diagnosis) (R10.9) Abdominal cramping My findings have been communicated to Dr. Gumaro Hughesler. Return to Clinic: The patient is instructed to follow-up with me 1 week post operatively. Ameena Richards PA-C 05/27/18 1102 <Electronically signed by Jas Montilla MD> Date Jas Montilla MD Cosigner Signature: Date (if applicable) CC: Gumaro Sepulveda MD; Jas Montilla MD Signed EGD ([facility]) Observed: 05/27/2018 Status: F Source: [place] 12:00 PM [facility] REPOSITORY Patient: CARMEN RIOS : 1955 (62/M) Acct Num: [id number] Phys: Donis LEWIS,Jas Unit Num: [id number] Loc: EN Specimen: [id number] Received: 05/27/18 - 9102 Spec Type: EGD BIOPSY TISSUES 1 TISSUES: A. Jejunum, NOS B. Gastric mucous membrane C. Gastric mucous membrane D. Esophagus, NOS E. Transverse colon COMMENT A. There is no flattening of the villi. No transmural lymphoid aggregates are seen. Clinical correlation is suggested. B. The results of immunohistochemistry for Helicobacter pylori will be reported separately ([id number]). C. PAS stain with matched control is negative for fungal organisms. E. Microsatellite instability study will be reported separately ([id number]). Case has been reviewed in consultation with Dr. Irene who concurs with the above diagnosis. IDC:SJ GROSS DESCRIPTION A - Received in fixative is one container labeled with the patient's name and designated jejunal biopsy. The specimen consists of two irregular fragments of light mix soft tissue that in aggregate measure 0.5 x 0.5 x 0.1 cm. The specimen is totally submitted in one cassette. B - Received in fixative is one container labeled with the patient's name and designated antral biopsy. The specimen consists of one irregular fragment of light mix soft tissue that measures 0.5 x 0.3 x 0.1 cm. The specimen is totally submitted in one cassette. C - Received in fixative is one container labeled with the patient's name and designated GE junction biopsy. The specimen consists of two irregular fragments of light mix soft tissue that in aggregate measure 0.5 x 0.5 x 0.1 cm. The specimen is totally submitted in one cassette. D - Received in fixative is one container labeled with the patient's name and designated mid esophageal biopsy. The specimen consists of one irregular fragment of light mix soft tissue that measures 0.6 x 0.2 x 0.1 cm. The specimen is totally submitted in one cassette. E - Received in fixative is one container labeled with the patient's name and designated distal transverse colon mass biopsy. The specimen consists of multiple irregular fragments of light mix soft tissue that in aggregate measure 1 x 0.5 x 0.1 cm. The specimen is totally submitted in one cassette. / AM:sena 05/27/18 TC:0 CPT: 62170 x5, 17215 HEADER OPERATION: Colonoscopy, EGD ([facility] – [place] PRE-OP DIAGNOSIS: Weight loss, anemia TISSUE SUBMITTED: A - Jejunal biopsy, B - Antral biopsy for pathology, C - GE junction biopsy, D - Mid esophageal biopsy, E - Distal transverse colon mass biopsy MICROSCOPIC DESCRIPTION Slides are reviewed. MICROSCOPIC DIAGNOSIS A. Jejunum, biopsy: Minimal nonspecific chronic inflammation. See comment. B. Gastric antrum, biopsy: Mild chronic inflammation. See comment. C. Gastroesophageal junction, biopsy: Mild acute and chronic inflammation. See comment. D. Mid esophagus, biopsy: Fragments of benign squamous mucosa. E. 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 See comment. AM: 05/28/18 Signed Corky Irene MD 05/29/18 <signature on file> Performed By: #### PEGD #### [facility] [address] [place], [place], [address] BEDSIDE GLUCOSE Collected: 05/27/2018 Status: F Source: [place] 11:23 AM [facility] REPOSITORY TYPE CODE TESTS RESULT OUT OF REFERENCE UNITS RANGE LAB L501.080 70-110 mg/dL High BEDSIDE GLU 116 Result Comment: MANAGEMENT OF PATIENT CARE PER NURSING PROTOCOL Performed By: #### L501.080 #### [facility] Point of Care [address] [place] [address] IMMUNOHISTOCHEMISTRY Observed: 05/27/2018 Status: F Source: [place] 12:00 AM [facility] REPOSITORY Patient: CARMEN RIOS : 1955 (62/M) Acct Num: [id number] Phys: Jas Montilla MD Unit Num: [id number] Loc: EN Specimen: [id number] Received: 05/28/188 Spec Type: IMMUNO TISSUES 1 TISSUES: B. Stomach, NOS E. Transverse colon SPECIMEN INFORMATION: Tissue Source: B - Antral biopsy, E - Distal transverse colon mass biopsy Clinical Info: Weight loss, anemia Specimen Number: [id number] B AND E CPT code: 00758 x2, 83215 x6 METHODOLOGY: Deparaffinized sections of prefer/formalin-fixed tissue or PAP/DQ stained slides are incubated with monoclonal/polyclonal antibodies/oligonucleotide probes. Localization is made via biotin free immunoperoxidase method. Appropriate controls are performed and reacted as expected. Results on target cell population are indicated in the following table: RESULTS: ANTIBODY / CLONE RESULT Block B H Pylori (polyclonal) negative Block E Ki-67 (30-9) positive, high P53 (DO-7) positive, focal and weak DILLON-2 (SP21) positive MLH-1 (M1) negative MSH2 (25D12) positive MSH6 (44) positive PMS2 (AYO6789) negative These tests were developed and their performance characteristics determined by [facility]. They may not have been cleared or approved by the U.S. Food and Drug Administration. The FDA has determined that such clearance or approval is not necessary. INTERPRETATION: B. Antral biopsy: Negative for Helicobacter pylori organisms. E. Distal transverse colon mass, biopsy: Invasive adenocarcinoma. Result of Microsatellite Instability Study: Positive (loss of mismatch protein; microsatellite instability detected). Complete loss of MLH1 and PMS2. SJ:sena 05/29/18 PHYSICIAN AND INSTITUTION [address] [address] Signed Corky Irene MD 05/29/18 <signature on file> Performed By: #### PIMM #### [facility] [address] [place] [address]. [place], [address] CNOP Observed: 05/27/2018 Status: COMPLETED Source: [place] 12:00 AM [facility] REPOSITORY Operative Note (Enc) (GENSWS) Progress Notes: Jas Montilla MD 05/31/2018 7:12 AM Signed OPERATIVE NOTATION FOR [facility] SURGICAL PROCEDURE. May 26, 2018 Carmen Ramirez Blanca 1955 [id number] male PROCEDURE: EGD WITH BIOPSY - 77080-183, COLONOSCOPY WITH BIOPSY - 99162-709 and COLONOSCOPY WITH INJECTION/MARKING - 01518-83? SURGEON: Kole Montilla M.D. 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 Jas Montilla MD Encounter Status:Closed by JAS MONTILLA MD on 05/31/18 PROGRESS Observed: 05/12/2018 Status: COMPLETED Source: [place] 2:19 PM [facility] REPOSITORY [facility] ID: [id number] Author: Ameena Richards (Pa) Service: (none) Author Type: Physician [employer] Designer Type: Progress Notes Filed: 05/13/2018 5:20 PM Note Text: HISTORY AND PHYSICAL Carmen D Blanca 1955 REFERRING PHYSICIAN: Self CHIEF COMPLAINT: Consult (Consult Colonoscopy) HPI: The patient is a 62 year old male referred for endoscopy. The patient is a poor historian. He notes that around a year ago he was having a large amount of lower abdominal cramping and discomfort. He states that he underwent laboratory workup at that time which was unremarkable, did not have endoscopy and does not think he had any imaging studies at that time. States the pain was felt to possibly be related to one of his arthritis medications which has since been discontinued. He states the abdominal pain has since resolved. Patient does note that he has had weight fluctuations and weight loss of around 30 lbs total in the last year. He notes a history of constipation and hard stools, takes metamucil regularly. He denies any visible blood in stools or dark stools. The patient notes no history of upper GI complaints. He was noted to have decreasing hemoglobin on recent routine laboratory studies and is referred for endoscopic evaluation for possible GI source of blood loss. Carmen has not undergone prior endoscopy. He denies a family history of colon cancer. Patient states around 20 years ago he had an attempted fistulotomy surgery with seton placement. He states he had complications related to that surgery. He states he then went to another surgeon for a redo surgery, but that that surgery could not be completed as they had trouble getting the tube down my throat. He states that the site healed on its own and he denies any flare-ups of anal abscesses or other issues since that time. He notes that he is very apprehensive about having anything done in that area since his issues with the fistulotomy surgery, and states this is why he has put off having a colonoscopy in the past. Patient's past medical history is significant for diabetes mellitus, gout, hypertension, hyperlipidemia, rheumatoid arthritis. PAST MEDICAL HISTORY Diagnosis Date - DM (diabetes mellitus) (HCC) - Gout - HTN (hypertension) - Hypercholesteremia - RA (rheumatoid arthritis) (HCC) PAST SURGICAL HISTORY Procedure Laterality Date [facility] Current Outpatient Prescriptions: omeprazole/sodium bicarbonate (OMEPPI ORAL) Take by mouth. pravastatin (PRAVACHOL) 40 mg tablet Take 40 mg by mouth once daily. glipiZIDE (GLUCOTROL) 5 mg tablet Take 5 mg by mouth three times daily. metFORMIN (GLUCOPHAGE) 1,000 mg tablet Take 1,000 mg by mouth twice daily with meals. atenolol (TENORMIN) 25 mg tablet Take 25 mg by mouth once daily. ferrous sulfate (IRON) 325 mg (65 mg iron) tablet Take 325 mg by mouth daily with breakfast. aspirin 81 mg chewable tablet Take 81 mg by mouth once daily. adalimumab (HUMIRA PEN SUBCUTANEOUS) Inject subcutaneously every 2 weeks. ALLOPURINOL ORAL Take 300 mg by mouth once daily. No current facility-administered medications for this visit. ALLERGIES: Patient has no known allergies. PERSONAL HISTORY: Social History Marital status: Spouse name: Years of education: Number of children: Social History Main Topics Smoking status: Former Smoker Packs/day: 0.00 Years: 0.00 Start date: 05/07/1973 Quit date: 05/07/1993 Smokeless tobacco: Never Used Alcohol use: No FAMILY HISTORY: No family history on file. REVIEW OF SYSTEMS GENERAL: No weight loss, malaise or fevers HEENT: Negative for frequent or significant headaches, No changes in hearing or vision, no nose bleeds or other nasal problems NECK: Negative for lumps, goiter, pain and significant neck swelling RESPIRATORY: Negative for cough, hemoptysis, wheezing, COPD, dyspnea or shortness of breath CARDIOVASCULAR: Negative for chest pain, leg swelling, hypertension, CHF or palpitations GI: See HPI MUSCULOSKELETAL: +Rheumatoid arthritis SKIN: Negative for lesions, rash, and itching PSYCH: Negative for sleep disturbance, mood disorder and recent psychosocial stressors HEMATOLOGY/LYMPHOLOGY: See HPI, +anemia ENDOCRINE: Positive for diabetes mellitus on oral agent NEURO: No history of headaches, syncope, paralysis, seizures or tremors PHYSICAL EXAMINATION: General: The patient is 62 year old male, well nourished, well hydrated in no acute distress. The patient is oriented to time, place, and person. VITALS: Blood pressure 142/68, pulse 80, height 180.3 cm (5' 11), weight 99.8 kg (220 lb), SpO2 95 %. Body mass index is 30.68 kg/m?. HEENT: Normal cephalic, ataumatic, pupils are equally round, sclera are anicteric, mucous membranes are moist, oropharynx is clear. Neck has no masses, asymmetry or lymphadenopathy. Respiratory: Clear to auscultation and percussion. Normal respiratory excursion and pattern. Cardiac: Examination is regular rate and rhythm. Abdominal exam: Soft, nontender, with no palpable masses. No hepatosplenomegaly. No palpable hernias. Rectal exam: exam deferred Extremities: no clubbing, cyanosis or edema. No adenopathy. Other: LABORATORY VALUES: As Noted RADIOLOGIC STUDIES: As Noted Assessment IMPRESSION: anemia, history of lower abdominal discomfort, recommend upper and lower endoscopy PLAN: I have reviewed my findings with Dr. Montilla, who also evaluated the patient and participated in development of the following plan. We will plan for upper and lower endoscopy under Monitored Anesthetic Care. We discussed the risks and benefits of the planned endoscopy. I have informed the patient that complications can occur including failure to complete the endoscopy and perforation. The patient had the opportunity to ask questions concerning the planned endoscopy. My staff has also explained the procedure to the patient in understandable terms and has given the patient printed material concerning the procedure. The patient freely consents to surgery. I plan to use golytely bowel preparation for endoscopy I plan for monitored anesthetic care. Patient has been instructed to contact his PCP regarding his diabetic medications, which may need adjusted during bowel preparation and/or day of procedure. Patient verbalized understanding of all above and agreed with the plan Diagnoses: (D64.9) Anemia, unspecified type (primary encounter diagnosis) (R10.9) Abdominal cramping My findings have been communicated to Dr. Gumaro Fuentes Otto. Return to Clinic: The patient is instructed to follow-up with me 1 week post operatively. Ameena Richards PA-C CNOV Observed: 05/07/2018 Status: COMPLETED Source: [place] 3:30 PM [facility] REPOSITORY Office Visit (GENSWS) CARMEN RIOS ([id number]) 1955 M Date Time Provider Department 05/07/18 3:30 PM AMEENA RICHARDS) JAIME During your visit today, we recorded the following information about you: Pulse Blood pressure Weight Height 80/minute 142/68 99.8 kg 1.803 m Ameena Richards PA-C 05/13/2018 5:20 PM Signed HISTORY AND PHYSICAL Carmen Rios 1955 REFERRING PHYSICIAN: Self CHIEF COMPLAINT: Consult (Consult Colonoscopy) HPI: The patient is a 62 year old male referred for endoscopy. The patient is a poor historian. He notes that around a year ago he was having a large amount of lower abdominal cramping and discomfort. He states that he underwent laboratory workup at that time which was unremarkable, did not have endoscopy and does not think he had any imaging studies at that time. States the pain was felt to possibly be related to one of his arthritis medications which has since been discontinued. He states the abdominal pain has since resolved. Patient does note that he has had weight fluctuations and weight loss of around 30 lbs total in the last year. He notes a history of constipation and hard stools, takes metamucil regularly. He denies any visible blood in stools or dark stools. The patient notes no history of upper GI complaints. He was noted to have decreasing hemoglobin on recent routine laboratory studies and is referred for endoscopic evaluation for possible GI source of blood loss. Carmen has not undergone prior endoscopy. He denies a family history of colon cancer. Patient states around 20 years ago he had an attempted fistulotomy surgery with seton placement. He states he had complications related to that surgery. He states he then went to another surgeon for a redo surgery, but that that surgery could not be completed as they had trouble getting the tube down my throat. He states that the site healed on its own and he denies any flare-ups of anal abscesses or other issues since that time. He notes that he is very apprehensive about having anything done in that area since his issues with the fistulotomy surgery, and states this is why he has put off having a colonoscopy in the past. Patient's past medical history is significant for diabetes mellitus, gout, hypertension, hyperlipidemia, rheumatoid arthritis. PAST MEDICAL HISTORY Diagnosis Date - DM (diabetes mellitus) (HCC) - Gout - HTN (hypertension) - Hypercholesteremia - RA (rheumatoid arthritis) (HCC) PAST SURGICAL HISTORY Procedure Laterality Date - FISTULOTOMY SU[facility] 1997 Current Outpatient Prescriptions: omeprazole/sodium bicarbonate (OMEPPI ORAL) Take by mouth. pravastatin (PRAVACHOL) 40 mg tablet Take 40 mg by mouth once daily. glipiZIDE (GLUCOTROL) 5 mg tablet Take 5 mg by mouth three times daily. metFORMIN (GLUCOPHAGE) 1,000 mg tablet Take 1,000 mg by mouth twice daily with meals. atenolol (TENORMIN) 25 mg tablet Take 25 mg by mouth once daily. ferrous sulfate (IRON) 325 mg (65 mg iron) tablet Take 325 mg by mouth daily with breakfast. aspirin 81 mg chewable tablet Take 81 mg by mouth once daily. adalimumab (HUMIRA PEN SUBCUTANEOUS) Inject subcutaneously every 2 weeks. ALLOPURINOL ORAL Take 300 mg by mouth once daily. No current facility-administered medications for this visit. ALLERGIES: Patient has no known allergies. PERSONAL HISTORY: Social History Marital status: Spouse name: Years of education: Number of children: Social History Main Topics Smoking status: Former Smoker Packs/day: 0.00 Years: 0.00 Start date: 05/07/1973 Quit date: 05/07/1993 Smokeless tobacco: Never Used Alcohol use: No FAMILY HISTORY: No family history on file. REVIEW OF SYSTEMS GENERAL: No weight loss, malaise or fevers HEENT: Negative for frequent or significant headaches, No changes in hearing or vision, no nose bleeds or other nasal problems NECK: Negative for lumps, goiter, pain and significant neck swelling RESPIRATORY: Negative for cough, hemoptysis, wheezing, COPD, dyspnea or shortness of breath CARDIOVASCULAR: Negative for chest pain, leg swelling, hypertension, CHF or palpitations GI: See HPI MUSCULOSKELETAL: +Rheumatoid arthritis SKIN: Negative for lesions, rash, and itching PSYCH: Negative for sleep disturbance, mood disorder and recent psychosocial stressors HEMATOLOGY/LYMPHOLOGY: See HPI, +anemia ENDOCRINE: Positive for diabetes mellitus on oral agent NEURO: No history of headaches, syncope, paralysis, seizures or tremors PHYSICAL EXAMINATION: General: The patient is 62 year old male, well nourished, well hydrated in no acute distress. The patient is oriented to time, place, and person. VITALS: Blood pressure 142/68, pulse 80, height 180.3 cm (5' 11), weight 99.8 kg (220 lb), SpO2 95 %. Body mass index is 30.68 kg/m?. HEENT: Normal cephalic, ataumatic, pupils are equally round, sclera are anicteric, mucous membranes are moist, oropharynx is clear. Neck has no masses, asymmetry or lymphadenopathy. Respiratory: Clear to auscultation and percussion. Normal respiratory excursion and pattern. Cardiac: Examination is regular rate and rhythm. Abdominal exam: Soft, nontender, with no palpable masses. No hepatosplenomegaly. No palpable hernias. Rectal exam: exam deferred Extremities: no clubbing, cyanosis or edema. No adenopathy. Other: LABORATORY VALUES: As Noted RADIOLOGIC STUDIES: As Noted Assessment IMPRESSION: anemia, history of lower abdominal discomfort, recommend upper and lower endoscopy PLAN: I have reviewed my findings with Dr. Montilla, who also evaluated the patient and participated in development of the following plan. We will plan for upper and lower endoscopy under Monitored Anesthetic Care. We discussed the risks and benefits of the planned endoscopy. I have informed the patient that complications can occur including failure to complete the endoscopy and perforation. The patient had the opportunity to ask questions concerning the planned endoscopy. My staff has also explained the procedure to the patient in understandable terms and has given the patient printed material concerning the procedure. The patient freely consents to surgery. I plan to use golytely bowel preparation for endoscopy I plan for monitored anesthetic care. Patient has been instructed to contact his PCP regarding his diabetic medications, which may need adjusted during bowel preparation and/or day of procedure. Patient verbalized understanding of all above and agreed with the plan Diagnoses: (D64.9) Anemia, unspecified type (primary encounter diagnosis) (R10.9) Abdominal cramping My findings have been communicated to Dr. Gumaro Sepulveda. Return to Clinic: The patient is instructed to follow-up with me 1 week post operatively. Ameena Richards PA-C Referring Provider: SELF [200] Allergies As of Date: 05/07/2018 (No Known Allergies) Date Reviewed: 05/07/2018 Reviewed by: Ameena Richards (Pa) - Fully Assessed Reason for Visit: Consult [173] Cmt: Consult Colonoscopy Primary Visit Diagnosis:Anemia, unspecified type [D64.9] Other Visit Diagnosis:Abdominal cramping [R10.9] Order(s):[] peg 3350-Electrolytes (GOLYTELY) 236-22.74-6.74 -5.86 gram suspensionTake 4,000 mL by mouth one time only for 1 dose.Disp: 1 BottleRfl: 0 EGD [[id number]] Order #: [id number] FUTURE COLONOSCOPY - DIAGNOSTIC [[id number]] Order #: [id number] FUTURE Prescriptions as of 05/07/2018 Sig: OMEPPI ORAL Take by mouth. PRAVASTATIN 40 MG TABLET Take 40 mg by mouth once doyle* GLIPIZIDE 5 MG TABLET Take 5 mg by mouth three time* METFORMIN 1,000 MG TABLET Take 1,000 mg by mouth twice * ATENOLOL 25 MG TABLET Take 25 mg by mouth once doyle* FERROUS SULFATE 325 MG (65 MG* Take 325 mg by mouth daily wi* ASPIRIN 81 MG CHEWABLE TABLET Take 81 mg by mouth once doyle* HUMIRA PEN SUBCUTANEOUS Inject subcutaneously every 2* ALLOPURINOL ORAL Take 300 mg by mouth once tamara* PEG 3350-ELECTROLYTES 236 GRA* Take 4,000 mL by mouth one ti* Problem List As Of Date: 05/07/2018 (None) Prescriptions ordered this encounter Disp Refills Start End PEG 3350-ELECTROLYTES 236 GRAM-22.74* 1 Miller* 0 05/07/2018 05/07/2018 Route: ORAL Sig: Take 4,000 mL by mouth one time only for 1 dose. Encounter Status:Closed by AMEENA RICHARDS PA-C on 05/13/18 CBC W/DIFF, AUTOMATED Collected: 04/08/2018 Status: F Source: [place] 1:34 PM [facility] REPOSITORY TYPE CODE TESTS RESULT OUT OF RANGE REFERENCE UNITS LAB L100.1000 4.4-11.0 K/mm3 Normal WBC 10.4 LAB L100.1200 4.6-6.2 M/mm3 Low RBC 3.81 LAB L100.1300 13.0-16.5 g/dl Low HGB 9.4 LAB L100.1400 40-54 % Low HCT 30.6 LAB L100.1500 80-94 fL Normal MCV 80.3 LAB L100.1600 27.0-32.0 pg Low MCH 24.7 LAB L100.1700 32-36 g/gl Low MCHC 30.7 LAB L100.1810 11.6-14.6 % High RDW CV 16.5 LAB L100.1820 35.1-43.9 fl High RDW SD 46.5 LAB L100.1900 150-450 K/mm3 Normal PLT 326 LAB L100.2000 6.2-12.0 fl Normal MPV 9.9 LAB L100.2100 47-70 % Normal NEUT% 60.8 LAB L100.2200 19-41 % Normal LY% 23.2 LAB L100.2300 0-10 % High MONO% 12.0 LAB L100.2400 0-5 % Normal EO% 3.4 LAB L100.2500 0-1 % Normal BASO% 0.3 LAB L100.2550 0.0-0.9 % Normal IM GRAN % 0.300 Result Comment: IG% - Immature Granulocytes (promyelocytes, myelocytes and metamyelocytes) > 1% indicates that a LEFT SHIFT is Present. LAB L100.2620 2.0-7.7 X10 3/uL Normal Absolute Neut 6.4 LAB L100.2720 0.83-4.51 X10 3/ul Normal Absolute Lymph 2.42 Performed By: #### L100.0100 #### [facility] [address] [place], [address] COMPREHENSIVE METABOLIC Collected: 04/08/2018 Status: F Source: [facility] 1:34 PM [facility] REPOSITORY TYPE CODE TESTS RESULT OUT OF RANGE REFERENCE UNITS LAB L501.0100 74-106 mg/dL High GLU 134 Result Comment: Fasting Glucose result greater than or equal to 126 mg/dL suggests DIABETES MELLITUS per A.D.A. criteria. Please note revised GLUCOSE reference range effective 2017. LAB L501.1000 7-18 mg/dL High BUN 20 LAB L501.1100 0.70-1.30 mg/dL Normal CREAT,SERUM 1.04 Result Comment: The validity of the calculated GFR AND GFRAA in patients over 70 years has not been determined. Clinical correlation is essential. LAB L501.1110 >60 mL/min Normal EST GFR 77 Result Comment: Non- GFR Calc LAB L501.1115 >60 mL/min Normal EST GFR - AA 94 Result Comment: GFR Calc LAB L501.1300 10-20 RATIO Normal BUN/CRE 19.2 LAB L501.1500 6.4-8.2 g/dL T Normal PROT 7.9 LAB L501.1800 3.2-5.0 g/dL Low ALB 3.0 LAB L501.1950 2.2-4.2 g/dL High GLOB 4.9 LAB L501.2000 0.9-2.4 RATIO Low A/G 0.6 LAB L501.2200 8.5-10.1 mg/dL CA Normal 9.0 LAB L501.4100 15-37 U/L Normal AST 34 LAB L501.4305 45-117 U/L Normal ALK P 79 LAB L501.4405 16-61 U/L Normal ALT 29 LAB L501.4600 0.20-1.00 mg/dL T Normal BILI 0.30 LAB L501.5300 136-145 mmol/L NA Normal 138 LAB L501.5600 3.5-5.1 mmol/L K Normal 4.1 LAB L501.5900 98-107 mmol/L CL Normal 100 LAB L501.6100 21.0-32.0 mmol/L Normal CO2 30.0 LAB L501.6200 5-15 Normal GAP 8 Performed By: #### L500.4050 #### [facility] [address] [place], [address] ALLERGIES ALLERGIES DATE TYPE / CODE NAME / CODE REACTION SEVERITY SOURCE 06/08/2018 Drug No Known Unknown [facility] Allergy/416 Allergies/G30436 [facility] [id number](SNOM 0388(RXNORM) Repository ED CT) Drug NO KNOWN [facility] Class/43412 ALLERGIES [address] [place] [address]3(SNOMED Repository CT) NG/[id number] NO KNOWN [facility] 6(SNOMED ALLERGIES [facility] CT) Repository ENCOUNTERS ENCOUNTERS ADMIT/DISCHARGE ACCOUNT NUMBER ADMITTING ENCOUNTER LOCATION SOURCE CLASS 06/19/2018/06/23/19 [id number] Ambulatory [address] Repository 06/10/2018/06/13/19 [id number] [place], Inpatient [address] ding:[id number] Repository : [id number]: 1 06/08/2018 [id number] Ambulatory BMSBuilding: [facility] Repository 05/28/2018/05/28/20 [id number] Ambulatory [address] Repository 05/28/2018/05/29/20 [id number] Ambulatory [address] Repository 05/28/2018 [id number] Ambulatory [facility] ding:CT Repository 05/28/2018 [id number] Ambulatory [facility] MEDICAL Repository CENTERBuildi ng:AKCTS 05/28/2018 [id number] Ambulatory [facility] MEDICAL Repository CENTERBuildi ng:AKCTS 05/27/2018/05/27/20 [id number] Ambulatory [place] ding:ENRoom: Repository AC11 05/07/2018/05/14/20 [id number] Ambulatory [address] Repository 04/08/2018 [id number] [facility] Rep[facility] PAYERS PAYERS ENCOUNTER GUARANTOR PAYER SUBSCRIBER SOURCE 06/10/2018 CARMEN D Primary NOT GIVENUNK [place] [id number] [place] Insurance:SELF PAY [facility] [id number]: [phone]) Number: Effective Repository [phone] () Date:2018-05-27 06/08/2018 CARMEN D Primary NOT GIVENUNK [place] [id number] [place] Insurance:SELF PAY [facility] [id number]: [phone] Number: Effective Repository [phone] (HP) Date:2018-06-08 05/28/2018 CARMEN D Primary Insurance:[facility] CARMEN D [place] [id number] [place] PACKAGE PLANPoly YODERDOB: [place], [place] Number: [id number] [id number]: [phone] Repository [phone] (HP) Date:2018-05-28 05/28/2018 Secondary NOT GIVENUNK [place] Insurance:SELF PAY [facility] Number: Effective Repository Date:2018-05-28 05/27/2018 CARMEN D Primary NOT GIVENUNK [place] [id number] [place] Insurance:SELF PAY [facility] 715[address]Tpr: [phone] Number: Effective Repository [phone] (HP) Date:2018-05-08 04/08/2018 Carmen D Primary NOT GIVENUNK [place] [id number] [place] Insurance:SELF PAY [facility] [id number]: [phone] Number: Effective Repository [phone] (HP) Date:2018-04-08
== END 2018-05-27 14:34 | disposition home or self-care (01) ==
LOC: EN 10:57 → AC 10:58
PROVIDERS: Family Provider Family Medicine; PCP Family Medicine; Referring Provider Surgery; Visit Provider Surgery
PROC: 0DJD8ZZ Inspection of Lower Intestinal Tract, Via Natural or Artificial Opening Endoscopic (ICD-10-PCS; CPT 45378; principal; 2018-05-27 11:55)
DX: C18.4 Malignant neoplasm of transverse colon (principal); D50.9 Iron deficiency anemia, unspecified; K57.30 Diverticulosis of large intestine without perforation or abscess without bleeding; N40.2 Nodular prostate without lower urinary tract symptoms; K29.50 Unspecified chronic gastritis without bleeding; K21.0 Gastro-esophageal reflux disease with esophagitis; E11.9 Type 2 diabetes mellitus without complications; M10.9 Gout, unspecified; I10 Essential (primary) hypertension; E78.00 Pure hypercholesterolemia, unspecified; M06.9 Rheumatoid arthritis, unspecified; K59.00 Constipation, unspecified; Z79.84 Long term (current) use of oral hypoglycemic drugs; Z79.82 Long term (current) use of aspirin; Z79.899 Other long term (current) drug therapy; Z87.891 Personal history of nicotine dependence
CPT/HCPCS: 45380; 45381; 43239; 74018; 80053; 82378; 82962; 84153; 85025; 88305; 88313; 88341; 88342; J7120; A4648

== ENCOUNTER → 2018-05-28 09:01 | Outpatient (CLI) | payer SELFPAY ==
[2018-05-27 11:14] VITALS: BMI 29.8
--- NOTE | 2018-05-28 09:17 | CT_ITS ---
STUDY: CT CHEST WITH CONTRAST REASON FOR EXAM: Male, 62 years old. New diagnosis of colon cancer. RADIATION DOSAGE (If Supplied By Facility): CTDIvol = ( 18.36 ) mGy, DLP = ( 2111.62 ) mGycm TECHNIQUE: Transaxial imaging was performed following intravenous administration of 100mL ml of Isovue 300 contrast material. Multiplanar coronal and sagittal images were reformatted. Individualized dose optimization techniques were used for this CT. COMPARISON: None. FINDINGS: Mild degree of increased linear markings of the lung bases suggestive of a linear atelectasis and/or scarring. I suspect mild linear scarring along the medial aspect of the right middle lobe. There is no demonstrated pleural abnormality. There are calcifications of the coronary arteries. There are multiple small lymph nodes within the mediastinum, which are normal in size and morphology most compatible with reactive lymph hyperplasia. Normal hilar regions. Normal enhanced pulmonary arteries. There is atherosclerotic calcification of the aortic arch with tortuosity and elongation of the aortic arch and descending thoracic aorta. There are multi-level degenerative changes of the thoracic spine. There is no demonstrated abnormality of the visualized upper abdomen. CT/Chest WITH Contrast IMPRESSION: Findings just mild scarring at the lung bases as well as the right middle lobe. Electronically Signed: Tereso Reynoso MD at 13:01 EST Tel [phone], Service support ,
--- NOTE | 2018-05-28 09:17 | CT_ITS ---
STUDY: CT ABDOMEN AND PELVIS WITH CONTRAST REASON FOR EXAM: Male, 62 years old. Recent diagnosis of colon cancer. 30 pound weight loss and anemia. RADIATION DOSAGE (If Supplied By Facility): CTDIvol = ( 18.36 ) mGy, DLP = ( 2111.62 ) mGycm TECHNIQUE: Transaxial images were obtained from the dome of the diaphragm to the symphysis pubis with oral contrast. 100mL ml of Isovue 300 contrast was administered. Sagittal and coronal images were reconstructed. Individualized dose optimization techniques were used for this CT. COMPARISON: None. FINDINGS: Minimal degree of increased markings at the lung bases suggests above mild bibasilar atelectasis. The visualized portions of the heart are within normal limits. Normal liver. Normal gallbladder and extrahepatic biliary system. Normal spleen. Normal pancreas. Normal bilateral adrenal glands. There is a 4.5 cm x 3.4 cm cyst in the upper pole of the right kidney. There is a 3.4 cm x 5.2 cm lobulated cyst in the lower pole of the right kidney as well. Normal left kidney. There is a small hiatal hernia. Normal small intestine. There is diffuse interferential wall thickening of the distal portion of the transverse colon as well as the splenic flexure and proximal portion of the descending colon. A metallic clip is seen at that site from prior colonoscopy. There are increased markings within the surrounding mesenteric fat with small lymph nodes. The largest lymph node measures 1.1 cm and is in the mesenteric side at the level of the splenic flexure. The appendix is visualized and appears normal. There is diffuse atherosclerotic calcification of the abdominal aorta, without a demonstrated aneurysm. Normal inferior vena cava. Normal retroperitoneum. Normal urinary bladder. There are prostatic calcifications. Normal abdominal wall. Normal osseous structures. CT/Abdomen/Pelvis WITH Contrast IMPRESSION: Circumferential wall thickening involving the distal transverse colon, splenic flexure and proximal descending colon with increased markings in the surrounding fat and small lymph nodes. Right renal cysts. Electronically Signed: Tereso Reynoso MD at 12:59 EST Tel [phone], Service support ,
== END ==
PROVIDERS: Family Provider Family Medicine; PCP Family Medicine; Referring Provider Surgery; Visit Provider Surgery
DX: C18.9 Malignant neoplasm of colon, unspecified (principal)
CPT/HCPCS: 71260; 74177; Q9967

== ENCOUNTER 2018-06-10 06:00 | Inpatient (IN) | payer SELFPAY ==
[2018-05-27 11:14] VITALS: BMI 29.8
[2018-06-08 13:49] VITALS: BP 137/62; PULSE 72; RESP 16; TEMP 37.1; O2SAT 97; BMI 31.6
[2018-06-08 14:38] LABS: Hematocrit 31.2 % (40-54); Hemoglobin 9.4 g/dl (13.0-16.5); Mean Corp Hgb Conc 30.1 g/gl (32-36); Mean Corpuscular Hgb 23.4 pg (27.0-32.0); Mean Corpuscular Volume 77.6 fL (80-94); Platelet Count 365 K/mm3 (150-450); RBC Distribution Width CV 16.4 % (11.6-14.6); RBC Distribution Width SD 46.5 fl (35.1-43.9); Red Blood Count 4.02 M/mm3 (4.6-6.2); White Blood Count 11.7 K/mm3 (4.4-11.0)
[2018-06-08 14:40] LABS: Scan Indicated on CBC? Y/N NO
[2018-06-08 14:43] LABS: Prothrombin Time (Protime)PT. 13.6 SECONDS (11.7-14.9)
[2018-06-08 14:44] LABS: Partial Thromboplast Time 28.7 Seconds (24.1-36.2)
[2018-06-08 15:01] LABS: Hemoglobin A1c 7.9 % (4.2-6.3)
[2018-06-10] VITALS (11 sets, daily range): BP systolic 114–132; BP diastolic 58–73; PULSE 60–72; RESP 14–20; TEMP 36.3–37.1; O2SAT 98–100; BMI 31.6
--- NOTE | 2018-06-10 | COL._PTH ---
PATIENT: CARMEN MENDEZ LOC: MS2 U#:[id number] AGE/SX: 62/M ROOM: MS218 RE06/10/[address]: Dr. Jas Dykes MD : 1955 BED: 1 DIS: 06/13/2018 SPEC #: [id number] RECD: 06/10/18 14:20 STATUS: DIANA RERonny #: [id number] BRISEIDA: 06/10/18 00:[address]: Jas Dykes DEPT: SURGICAL PATHOLOGY RECD BY: Duc Busch ENTERED: 06/10/18 14:20 SP TYPE: COLON OTHR DR: Dr. Gumaro Menjivar DO Tissues: Colon, NOS Procedures: Surgery Specimen Level HEADER OPERATION: ERAS - Laparoscopic converted to open partial colectomy PRE-OP DIAGNOSIS: Splenic flexure colon cancer TISSUE SUBMITTED: Splenic flexure, colon MICROSCOPIC DIAGNOSIS Left colon, segmental colectomy: Invasive adenocarcinoma. See cancer checklist below. AM:sena 06/12/18 COMMENT COLON CANCER SUMMARY: Specimen - left colon Procedure - left hemicolectomy Tumor site - splenic flexure Tumor size - 7.5 x 7 x 1.5 cm Macroscopic tumor perforation - not present Histologic type - adenocarcinoma with mucinous features. Histologic grade - high grade Microscopic tumor extension - tumor invades through muscularis propria into subserosal adipose tissue. Margins: Proximal margin - uninvolved by invasive carcinoma. Distal margin - uninvolved by invasive carcinoma. Circumferential margin - uninvolved by invasive carcinoma. Treatment effect - unknown Lymph-Vascular invasion - not identified Perineural invasion - not identified Tumor deposits - not identified Lymph nodes: Number of lymph nodes examined - 36 Number of lymph nodes involved - 0 Ancillary studies: Microsatellite study performed on same tumor ([id number] / [id number]): Positive (loss of mismatch protein; microsatellite instability detected). There is complete loss of MLH1 and PMS2 and no loss of MSH2 and MSH6 markers. PATHOLOGIC STAGE: pT3 N0 Mx The above summary is in compliance with [employer] ([employer]) Cancer Protocols Checklist and [place] [employer] on Cancer (AJCC), Staging Manual, 8th Ed. Case has been reviewed in consultation with Dr. Irene who concurs with the above diagnosis. IDC:[id number] MICROSCOPIC DESCRIPTION Slides are reviewed. GROSS DESCRIPTION Received in fixative is one container labeled with the patient's name and designated splenic flexure, colon. The specimen consists of a 23 cm segment of bowel with attached fibrofatty tissue. One mucosal margin is open. The other mucosal margin is closed. Located approximately 8 cm from one margin of resection and 8.5 cm from the opposite (stapled) margin of resection is a fungating, ulcerated, mix-pink apple core-like mass measuring 7.5 x 7 x 1.5 cm. Also present is a fragment of omentum measuring 42 x 16 x 2 cm. The pericolic fat in the area of the mass is somewhat indurated. The remainder of the bowel mucosa is pink-mix and thrown into normal folds. The serosal surface in the area of the mass is inked in black ink. The specimen is left for additional overnight fixation. / AM:sena 06/10/18 After fixation, the mass is serially sectioned to reveal possible involvement of underlying muscularis propria and subserosa. Serial sections of the omentum do not reveal mass lesions. Dissection of the attached fibrofatty tissue reveals a number of grossly unremarkable lymph nodes. Pattern Clerk sections are submitted in 17 cassettes as follows: 1 - open mucosal margin, 2 - stapled mucosal margin, 37 - tumor, 8 - multiple lymph nodes closest to tumor, 9 - omentum, 10-15 - multiple lymph nodes in each cassette, 16 - multiple lymph nodes in one cassette, 17 - one lymph node, serially sectioned. / AM:sena 06/11/18 TC:0 CPT: 28635 ADDENDUM ADDENDUM ADDENDUM ADDENDUM ADDENDUM ADDENDUM ADDENDUM ADDENDUM 07/28/2018 10:18 ADDENDUM 07/28/2018 10:18 ADDENDUM 07/28/2018 10:18 ADDENDUM 07/28/2018 10:18 ADDENDUM 07/28/2018 10:18 BRAF GENE MUTATION ANALYSIS REPORT FROM [facility] RESULTS: Negative No BRAF V600 mutation was detected in the provided specimen. Please see complete report in e-chart or EMR for further details
[2018-06-10] MEDS: Acetaminophen 500 MG Tablet 1000 MG PO ×2 (06:45→12:30)
[2018-06-10] MEDS: Gabapentin 600 MG Tablet PO (06:45)
[2018-06-10] MEDS: Magnesium Sulfate 4gm/100mL 4 GM/100 ML IV.SOLN. IV (07:15)
[2018-06-10] MEDS: Lactated Ringers 1,000 ML 40 ML IV ×2 (07:15→12:30)
[2018-06-10] MEDS: Insulin Lispro 100 UNIT/ML INSULN.PEN SC ×2 (07:28→11:05)
[2018-06-10 07:36] LABS: Bedside Glucose 197 mg/dL (70-110)
[2018-06-10] MEDS: Bupivacaine 0.5% PF 10 ML VIAL (10:00)
--- NOTE | 2018-06-10 10:24 | PCM.OPRPT ---
Report of Operation Date of Procedure: 06/10/18 Pre-Operative Diagnosis: splenic flexure colon cancer Post-Operative Diagnosis: splenic flexure colon cancer Surgery/Procedure Performed:: laparoscopic assisted segmental colon cancer resection /splenic flexure mobilization with stapled functional end to end anastomosis forklift driver: Omayra Dasilva Type of Anesthesia:: General Anesthesiologist: Suhail Huddleston - ASA2 Specimen's removed: splenic flexure colon Drains: conde - 100cc Estimated Blood Loss (mL): 100 Fluids Replaced: 1600 Description of Procedure: The patient was brought to the operating suite. Sign in was performed verifying patient, site, procedure, position, and DVT prophylaxis with SCDs. Patient 2 g of cefotetan. Preoperative bowel prep of mechanical and antibiotic comprised of GoLYTELY and then neomycin and Flagyl 1 g 3 doses evening before was given Following induction of general anesthetic. The patient?s abdomen was prepped and draped in the usual fashion. Timeout was performed verifying patient, site, position. Local anesthetic was injected above the umbilicus. Incision made and dissection carried down to the umbilical root fascia. 2 stay sutures were placed. Incision made in the fascia, the peritoneum entered under direct visualization. A 10 mm Younger trocar was inserted and secured with the stay sutures. Pneumoperitoneum to 15 mmHg was insufflated. Visual inspection revealed a normal-appearing liver and the tattooed colon noted to be right at the splenic flexure . 2 5mm ports were placed in the standard midline position an additional 5 port in the left lateral upper quadrant. Mobilization the avascular plane was undertaken from the descending colon sigmoid junction up to and around the splenic flexure. Division of the lesser sac frombefore the midline to the splenic flexure was undertaken. When this was fully mobilized, the spleen and pancreas were well visualized. Next, the descending colon sigmoid region of the mesentery was brought up and a cleavage point noted in the mesentery. Harmonic Scalpel was used to create a window in the mesentery and division was taken down near the proximal jejunum emanating from the ligament of Treitz. Next the transverse colon was grasped and the vasculature coming from the middle colic vessel was identified. attempts to lift up and created visualized window in this area were challenged due to the size of the tumor and what were felt to be some adhesions. At this point, an upper midline incision was made to continue the procedure Complete division of the mesenteryjust distal to the proximal branch of the middle colic vessel going to the proximal transverse colon with a second branch going directly to the area of the tumor which was noted on preoperative abdominal imaging. This was ligated right near the root of the vessel with right angles and doubly tied with 0 Vicryl ties. With full mobilization of the mesentery to the tumor, the bowel was transected with an intestinal load echelon stapler. A functional stapled end-to-end anastomosis was performed between the proximal transverse colon and the proximal sigmoid colon with an echelon stapler. The staple line was checked for hemostasis and following this the anastomosis closed with a TA stapler creating a wide triangle opening that was easily palpable. A 3-0 silk suture was used to take tension off the apex of the staple line. At this point, the specimen was opened on the back table. There was noted to be tumor in the expected location. Gown and gloves were changed. There was good anatomic positioning of the small bowel. It was good hemostasis along the incisions. The upper midline fascial defect was closed with a running 0 PDS suture. Skin was closed with interrupted and running 4-0 Monocryl subcuticular sutures. Steri-Strips and dressings were applied. The patient was brought to recovery room in stable condition. - Admit VTE Documentation VTE Present on Admission: No VTE Mechan Device Prophylaxis: SCD's VTE Pharm Prophylaxis ordered?: Yes
[2018-06-10 11:06] LABS: Bedside Glucose 182 mg/dL (70-110)
[2018-06-10] MEDS: Ketorolac 15 MG/ML Vial IV ×2 (12:30→17:43)
[2018-06-10] MEDS: Ondansetron ODT 4 MG Tablet PO (12:41)
--- NOTE | 2018-06-10 13:39 | CPS ---
started by nursing
--- NOTE | 2018-06-10 16:22 | NURSING ---
OFFERED TO GET PT UP TO CHAIR, MD DECLINED @ THIS TIME
[2018-06-10 16:35] LABS: Bedside Glucose 172 mg/dL (70-110)
--- NOTE | 2018-06-10 17:34 | NURSING ---
DR MONTILLA PAGED TO SEE IF HE WANTS TO ORDER ACCUCHECKS/SS WHILE PT HERE
[2018-06-10] MEDS: 0.9% NaCl Peripheral Flush Adult/Peds IV (17:44)
--- NOTE | 2018-06-10 18:31 | NURSING ---
RECEIVED RETURN CALL FROM DR MONTILLA. MADE AWARE OF ACCUCHECK RESULTS & THAT U.O.P. LAST 6 HRS ONLY 150ML. ALSO MADE MD AWARE OF PTS NAUSEA WITH BROTH @ [facility]. NEW ORDERS RECEIVED.
[2018-06-10] MEDS: Lactated Ringers 1,000 ML 999 ML IV (18:50)
[2018-06-10] MEDS: oxyCODONE 5 MG Tablet PO (21:41)
[2018-06-11] MEDS: Ketorolac 15 MG/ML Vial IV ×4 (00:10→18:17)
[2018-06-11] MEDS: Acetaminophen 500 MG Tablet 1000 MG PO ×4 (00:10→19:11)
[2018-06-11 00:26] LABS: Bedside Glucose 146 mg/dL (70-110)
[2018-06-11 03:07] VITALS: BP 122/71; PULSE 58; RESP 16; TEMP 36.3; O2SAT 98
[2018-06-11 06:45] LABS: Hematocrit 31.6 % (40-54); Hemoglobin 9.4 g/dl (13.0-16.5); Mean Corp Hgb Conc 29.7 g/gl (32-36); Mean Corpuscular Hgb 23.8 pg (27.0-32.0); Mean Platelet Vol. 8.8 fl (6.2-12.0); Platelet Count 278 K/mm3 (150-450); RBC Distribution Width CV 17.1 % (11.6-14.6); Red Blood Count 3.95 M/mm3 (4.6-6.2); White Blood Count 10.1 K/mm3 (4.4-11.0)
[2018-06-11 07:00] LABS: Scan Indicated on CBC? Y/N YES- FLAGS NOTED
[2018-06-11 07:11] LABS: Bedside Glucose 131 mg/dL (70-110)
[2018-06-11 07:14] LABS: Anion Gap 8 (5-15); BUN 13 mg/dL (7-18); BUN/Creat Ratio 15.3 RATIO (10-20); Calcium,Total 7.7 mg/dL (8.5-10.1); Chloride 103 mmol/L (98-107); Creatinine, Serum 0.85 mg/dL (0.70-1.30); EST Glomerular Filtration Rate 98 mL/min (>60); Est Glom Filt Rate - Afr Amer 118 mL/min (>60); Estimated Creatinine Clearance 95.42 ml/min; Glucose 128 mg/dL (74-106); Potassium 4.6 mmol/L (3.5-5.1); Sodium Level 129 mmol/L (136-145)
[2018-06-11 07:21] VITALS: O2SAT 97
[2018-06-11 07:31] LABS: Differential Comment SCAN
[2018-06-11 08:30] VITALS: BP 120/67; PULSE 66; RESP 18; TEMP 36.6; O2SAT 96
[2018-06-11] MEDS: Enoxaparin 40 MG/0.4 ML Syringe SC (09:50)
[2018-06-11] MEDS: Insulin Lispro 100 UNIT/ML INSULN.PEN SC (11:54)
--- NOTE | 2018-06-11 11:58 | CASEMGMT ---
JOANNA CM Assessment Presentation: presented for elective Lap sigmoid colectomy PCP: Dr. Menjivar Preferred Pharmacy: [facility] Insurance: Prescription Benefit: no LNOK: Living Arrangements/Transportation: lives at home independently with his . No needs identified. drives and is able to assist with any care needs at home. DME/HHC: none DC PLAN: Home w/family support
[2018-06-11 12:05] LABS: Bedside Glucose 182 mg/dL (70-110)
--- NOTE | 2018-06-11 13:16 | PCM.PN.SRG ---
Subjective: minimal incisional pain, no flatus - Physical Exam General: Alert, Oriented x3, Cooperative Lungs: Clear to auscultation, Normal air movement Cardiovascular: Regular rate, No murmurs Abdomen: Soft, Non Tender, Hypoactive Bowel Sounds - mildly tender at incision with dressings in place Vital Signs Temp Pulse Resp BP Pulse Ox 97.8 F 66 18 120/67 96 06/11/18 08:30 06/11/18 08:30 06/11/18 08:30 06/11/18 08:30 06/11/18 08:30 Oxygen Flow Rate (L/min) 3 Oxygen Delivery Method Room Air Weight: 99.9 kg Body Mass Index (BMI) 31.6 Finger Stick Blood Glucose 182 Intake and Output for Last 24 Hours 06/09/18 06/10/18 06/11/18 23:59 23:59 23:59 Intake Total 2333 / 2333 1951 / 1951 Output Total 400 / 400 900 / 900 Balance 1932 / 1932 1052 / 1052 Laboratory Tests Past 24 Hrs 06/11/18 06/11/18 06:14 06:14 WBC 10.1 RBC 3.95 L Hgb 9.4 L Hct 31.6 L MCV 80.0 MCH 23.8 L MCHC 29.7 L RDW 17.1 H RDW Differential 50.0 H Plt Count 278 MPV 8.8 Differential Comment SCAN Sodium 129 L Potassium 4.6 Chloride 103 Carbon Dioxide 18.0 L Anion Gap 8 BUN 13 Creatinine 0.85 Estim Creat Clear Calc 95.42 Est GFR (MDRD) Af Amer 118 Est GFR (MDRD) Non-Af 98 BUN/Creatinine Ratio 15.3 Glucose 128 H Calcium 7.7 L POC Glucose 06/11/18 06/11/18 06/11/18 11:51 06:48 00:06 POC Glucose 182 H 131 H 146 H 06/10/18 16:30 POC Glucose 172 H Medical Necessity - Tobacco Use Smoking Status: Never smoker Assessment/Plan POD # 1 status post lap-assisted segmental colon resection for large bulky splenic flexure tumor. Patient currently on EUS protocol with some modification due to having to make a larger incision to remove the bulky tumor and given the patient's somewhat decreased bowel sounds. We'll still encourage sugary liquids but not push as heavily is normally. Coombs catheter will be DC'd. We'll follow urine output. Encourage ambulation and incentive spirometry. Patient with a history of diabetes. We'll follow Accu-Cheks. Low moderate insulin sliding scale.
[2018-06-11 14:30] VITALS: BP 120/53; PULSE 69; RESP 16; TEMP 36.5; O2SAT 98
[2018-06-11 18:26] LABS: Bedside Glucose 100 mg/dL (70-110)
[2018-06-11 20:30] VITALS: BP 148/72; PULSE 75; RESP 16; TEMP 36.8; O2SAT 96
[2018-06-11] MEDS: oxyCODONE 5 MG Tablet PO (21:42)
[2018-06-11 22:06] LABS: Bedside Glucose 149 mg/dL (70-110)
[2018-06-12] MEDS: Insulin Lispro 100 UNIT/ML INSULN.PEN SC ×3 (00:06→23:32)
[2018-06-12] MEDS: 0.9% NaCl Peripheral Flush Adult/Peds IV ×3 (00:14→23:36)
[2018-06-12] MEDS: Acetaminophen 500 MG Tablet 1000 MG PO ×4 (00:14→19:28)
[2018-06-12] MEDS: oxyCODONE 5 MG Tablet PO (00:21)
[2018-06-12 02:31] VITALS: BP 114/70; PULSE 62; RESP 16; TEMP 37.1; O2SAT 97
[2018-06-12 06:20] LABS: Bedside Glucose 102 mg/dL (70-110)
[2018-06-12 06:46] LABS: Bedside Glucose 169 mg/dL (70-110)
[2018-06-12] MEDS: DiphenhydrAMINE 50 MG/ML Syringe IV ×2 (06:59→23:36)
[2018-06-12 08:02] VITALS: O2SAT 93
[2018-06-12] MEDS: Enoxaparin 40 MG/0.4 ML Syringe SC (09:08)
[2018-06-12 09:14] VITALS: BP 157/80; PULSE 76; RESP 16; RESP 18; TEMP 36.6; O2SAT 97
[2018-06-12 11:41] LABS: Bedside Glucose 188 mg/dL (70-110)
[2018-06-12 15:12] VITALS: BP 148/81; PULSE 74; RESP 18; TEMP 36.3; O2SAT 98
[2018-06-12 17:51] LABS: Bedside Glucose 121 mg/dL (70-110)
--- NOTE | 2018-06-12 18:09 | PCM.PN.SRG ---
Subjective: incisional pain, + flatus - Physical Exam General: Alert, Oriented x3, Cooperative Lungs: Clear to auscultation, Normal air movement Cardiovascular: Regular rate, No murmurs Abdomen: Bowel Sounds Present, Soft, Tender - at incision Vital Signs Temp Pulse Resp BP Pulse Ox 97.3 F L 74 18 148/81 H 98 06/12/18 15:12 06/12/18 15:12 06/12/18 15:12 06/12/18 15:12 06/12/18 15:12 Oxygen Flow Rate (L/min) 3 Oxygen Delivery Method Room Air Weight: 99.9 kg Body Mass Index (BMI) 31.6 Finger Stick Blood Glucose 182 Intake and Output for Last 24 Hours 06/10/18 06/11/18 06/12/18 23:59 23:59 23:59 Intake Total 2333 / 2333 2309 / 2309 1980 Output Total 400 / 400 1325 / 1325 1650 / 1650 Balance 1933 / 1933 984 / 984 331 / 331 POC Glucose 06/12/18 06/12/18 06/12/18 17:44 11:30 06:06 POC Glucose 121 H 188 H 102 06/12/18 06/11/18 06/11/18 00:04 21:42 18:19 POC Glucose 169 H 149 H 100 Medical Necessity - Tobacco Use Smoking Status: Never smoker Assessment/Plan POD # 2 status post lap-assisted segmental colon resection for large bulky splenic flexure tumor. Patient currently on EUS protocol with some modification due to having to make a larger incision to remove the bulky tumor and given the patient's somewhat decreased bowel sounds. Patient passing flataus, but felt some distention. We'll still encourage sugary liquids but not push as heavily is normally. Coombs catheter will be DC'd. We'll follow urine output. Encourage ambulation and incentive spirometry. Patient with a history of diabetes. We'll follow Accu-Cheks. Low moderate insulin sliding scale.
[2018-06-12 21:20] VITALS: BP 149/68; PULSE 80; RESP 18; TEMP 37; O2SAT 96
[2018-06-12 21:34] VITALS: PULSE 80; RESP 18; O2SAT 96
[2018-06-12 23:46] LABS: Bedside Glucose 150 mg/dL (70-110)
[2018-06-13] MEDS: Acetaminophen 500 MG Tablet 1000 MG PO ×3 (00:20→12:49)
[2018-06-13] MEDS: LORazepam 2 MG/ML Syringe 1 MG IV (00:27)
[2018-06-13] MEDS: 0.9% NaCl Peripheral Flush Adult/Peds IV (00:27)
[2018-06-13 06:01] VITALS: BP 163/75; PULSE 66; RESP 18; TEMP 36.6; O2SAT 99
[2018-06-13 06:12] VITALS: PULSE 66
[2018-06-13 06:16] LABS: Bedside Glucose 112 mg/dL (70-110)
[2018-06-13 08:10] VITALS: O2SAT 94
--- NOTE | 2018-06-13 08:47 | DCINST_ITS ---
Discharge Diet: Light diet - advance as tolerated Discharge Activity: Return to Normal Activity, May Drive May shower in (days): 0 - today Call your doctor if your incision/area has: Increased Pain/ Swelling, Increased Redness, Foul Smelling Discharge, Swelling at the incision site Call your doctor if you observe: Fever of 101 or Higher Allergies/Adverse Reactions: Allergies No Known Allergies Allergy (Verified 06/08/18 13:32) Medications to take at Discharge Adalimumab [Humira] 40 mg SQ Q14D 05/26/18 Allopurinol 300 mg PO DAILY 05/26/18 Aspirin E.C. [Ecotrin] 81 mg PO DAILY@0800 05/26/18 Atenolol [Tenormin (beta refugio)] 25 mg PO QHS 05/26/18 Calcium (Elemental) [Os-Jacob 500] 500 mg PO DAILY@0800 05/26/18 Iron Polysaccharide Complex [Ferrex 150] 150 mg PO DAILYCM 05/26/18 Metformin HCl [Glucophage] 1,000 mg PO BIDCM 05/26/18 Natural Pain Med 1 tab PO DAILY 05/26/18 Pravastatin [Pravachol] 40 mg PO QHS 05/26/18 glipiZIDE [Glucotrol] 5 mg PO TID 05/26/18 Acetaminophen [Tylenol] 1,000 mg PO Q6 tablet 06/13/18 Primary Care Physician: Gumaro Menjivar DO [Primary Care Provider] - Test Results: Test results from this visit will be discussed in further detail at your follow- up appointment, if applicable. Please Follow Up With: Jas Dykes MD - [phone] When: Friday
[2018-06-13 09:09] VITALS: BP 145/90; PULSE 85; RESP 18; TEMP 36.5; O2SAT 100
[2018-06-13] MEDS: Enoxaparin 40 MG/0.4 ML Syringe SC (09:14)
--- NOTE | 2018-06-13 09:14 | PCM.DC.SUM ---
Discharge Date and Diagnosis Date of Admission: 06/10/18 Date of Discharge: 06/13/18 - Primary Discharge Diagnosis splenic flexure colon cancer Hospital Course and Treatment Operations: colectomy Summary of Care Provided: The patient is a 62 year old M with a near obstructing splenic flexure colon cancer who underwent laparoscopic-assisted segmental colon resection. The patient was doing well was advanced to low residue diet and able to be discharged home on postoperative day 3. - Physical Exam General: Alert, Oriented x3, Cooperative Lungs: Clear to auscultation, Normal air movement Cardiovascular: Regular rate, No murmurs Abdomen: Bowel Sounds Present, Soft, Non Tender Vital Signs Temp Pulse Resp BP Pulse Ox 97.7 F L 85 18 145/90 H 100 06/13/18 09:09 06/13/18 09:09 06/13/18 09:09 06/13/18 09:09 06/13/18 09:09 Oxygen Flow Rate (L/min) 3 Oxygen Delivery Method Room Air Weight: 99.9 kg Body Mass Index (BMI) 31.6 Finger Stick Blood Glucose 182 Intake and Output for Last 24 Hours 06/11/18 06/12/18 06/13/18 23:59 23:59 23:59 Intake Total 2309 / 2309 1980 / 1980 620 / 620 Output Total 1325 / 1325 1650 / 1650 1075 / 1075 Balance 984 / 984 331 / 331 -455 / -455 POC Glucose 06/13/18 06/12/18 06/12/18 06:04 23:29 17:44 POC Glucose 112 H 150 H 121 H 06/12/18 11:30 POC Glucose 188 H Discharge Diet: Light diet - advance as tolerated Discharge Activity: Return to Normal Activity, May Drive May shower in (days): 0 - today Call your doctor if your incision/area has: Increased Pain/ Swelling, Increased Redness, Foul Smelling Discharge, Swelling at the incision site Call your doctor if you observe: Fever of 101 or Higher Home Medications: Medications to take at Discharge Adalimumab [Humira] 40 mg SQ Q14D 05/26/18 Allopurinol 300 mg PO DAILY 05/26/18 Aspirin E.C. [Ecotrin] 81 mg PO DAILY@0800 05/26/18 Atenolol [Tenormin (beta refugio)] 25 mg PO QHS 05/26/18 Calcium (Elemental) [Os-Jacob 500] 500 mg PO DAILY@0800 05/26/18 Iron Polysaccharide Complex [Ferrex 150] 150 mg PO DAILYCM 05/26/18 Metformin HCl [Glucophage] 1,000 mg PO BIDCM 05/26/18 Natural Pain Med 1 tab PO DAILY 05/26/18 Pravastatin [Pravachol] 40 mg PO QHS 05/26/18 glipiZIDE [Glucotrol] 5 mg PO TID 05/26/18 Acetaminophen [Tylenol] 1,000 mg PO Q6 tablet 06/13/18 Primary Care Physician: Gumaro Menjivar DO [Primary Care Provider] - Please Follow Up With: Jas Dykes MD - [phone] When: Friday Medical Necessity - Tobacco Use Smoking Status: Never smoker Meaningful Use Info Meaningful Use Diagnoses (Choose all that apply): None applicable
[2018-06-13] MEDS: Insulin Lispro 100 UNIT/ML INSULN.PEN SC (11:45)
[2018-06-13 11:55] LABS: Bedside Glucose 258 mg/dL (70-110)
== END 2018-06-13 13:10 | disposition home or self-care (01) | DRG 331 ==
LOC: ACINP 06:01 → MS2 09:26
PROVIDERS: Anesthesiology; Admitting Provider Surgery; Family Provider Family Medicine; PCP Family Medicine; Referring Provider Surgery; Visit Provider Surgery
PROC: 0DTN0ZZ Resection of Sigmoid Colon, Open Approach (ICD-10-PCS; CPT 44204; principal; 2018-06-10 07:05)
DX: C18.5 Malignant neoplasm of splenic flexure (principal); I10 Essential (primary) hypertension; E11.9 Type 2 diabetes mellitus without complications; Z79.899 Other long term (current) drug therapy; Z79.4 Long term (current) use of insulin
CPT/HCPCS: 36415; 80048; 82962; 83036; 85027; 85610; 85730; 88309; 93005; J7050; J7120; A4216; J2405

== ENCOUNTER → 2019-01-27 | Outpatient (CLI) | payer SELFPAY ==
[2018-06-10 12:07] VITALS: BMI 31.6
--- NOTE | 2019-01-27 06:10 | CT_ITS ---
STUDY: CT CHEST WITH CONTRAST REASON FOR EXAM: Male, 63 years old. Colon cancer RADIATION DOSAGE (If Supplied By Facility): CTDIvol = ( 22.07 ) mGy, DLP = ( 2251.29 ) mGycm TECHNIQUE: Transaxial imaging was performed following intravenous administration of 100 IV Isovue 300. Individualized dose optimization techniques were used for this CT. COMPARISON: 05/28/2018 FINDINGS: Mild pulmonary emphysema. There is no demonstrated pleural abnormality. Normal heart and pericardium. Normal mediastinum. Normal hilar regions. Normal enhanced pulmonary arteries. Normal aorta arch and descending thoracic aorta. There are multi-level degenerative changes of the thoracic spine. There is question of periosteal reaction involving the left humerus versus scanner artifact. Consider left humerus radiographs. Fatty liver. CT/Chest WITH Contrast IMPRESSION: There is question of periosteal reaction involving the left humerus versus scanner artifact. Consider left humerus radiographs. Otherwise, no CT evidence of metastatic disease involving the chest. Electronically Signed: Jose Luis Rick MD at 17:05 EDT Tel , Service support ,
--- NOTE | 2019-01-27 06:11 | CT_ITS ---
STUDY: CT ABDOMEN AND PELVIS WITH CONTRAST REASON FOR EXAM: Male, 63 years old. Colon cancer and elevated liver enzymes RADIATION DOSAGE (If Supplied By Facility): CTDIvol = ( 22.07 ) mGy, DLP = ( 2251.29 ) mGycm TECHNIQUE: Transaxial images were obtained from the dome of the diaphragm to the symphysis pubis with oral contrast. 100 IV/Oral Isovue 300 was administered. Sagittal and coronal images were reconstructed. Individualized dose optimization techniques were used for this CT. COMPARISON: 05/28/2018 FINDINGS: The visualized lung bases are unremarkable. The visualized portions of the heart are within normal limits. There is decreased attenuation of the liver consistent with steatosis. Normal gallbladder and extrahepatic biliary system. Normal spleen. Normal pancreas. Normal bilateral adrenal glands. Multiple right renal cysts measuring up to 6 cm. Normal left kidney. Normal visualized stomach. Normal small intestine. There are multiple colonic diverticula consistent with diverticulosis. Postoperative changes in the transverse colon. The appendix is visualized and appears normal. There is diffuse atherosclerotic calcification of the abdominal aorta, without a demonstrated aneurysm. Normal inferior vena cava. Normal retroperitoneum. Normal urinary bladder. There are prostatic calcifications. Postoperative changes of the anterior abdominal wall. There are diffuse degenerative changes of the visualized lumbar spine. CT/Abdomen/Pelvis WITH Contrast IMPRESSION: No evidence of metastatic disease. Fatty liver. Electronically Signed: Jose Luis Rick MD at 17:15 EDT Tel , Service support ,
== END | disposition home or self-care (01) ==
PROVIDERS: Family Provider Family Medicine; PCP Family Medicine; Referring Provider Nurse Practitioner; Visit Provider Nurse Practitioner
DX: C18.5 Malignant neoplasm of splenic flexure (principal); R97.0 Elevated carcinoembryonic antigen [CEA]; R74.8 Abnormal levels of other serum enzymes
CPT/HCPCS: 71260; 74177; Q9967

== ENCOUNTER → 2019-05-18 17:41 | Outpatient (CLI) | payer SELFPAY ==
[2018-06-10 12:07] VITALS: BMI 31.6
--- NOTE | 2019-05-18 17:49 | CT_ITS ---
STUDY: CT ABDOMEN AND PELVIS WITH CONTRAST REASON FOR EXAM: Male, 63 years old. Carcinoma of the colon RADIATION DOSAGE (If Supplied By Facility): CTDIvol = ( 18.27 ) mGy, DLP = ( 1970.71 ) mGycm TECHNIQUE: Transaxial images were obtained from the dome of the diaphragm to the symphysis pubis without oral contrast. Oral and amp;amp;amp; IV Readi-CAT and amp;amp;amp; 100mL Isovue-370 was administered. Sagittal and coronal images were reconstructed. Individualized dose optimization techniques were used for this CT. COMPARISON: None. FINDINGS: There is minor atelectasis within the dependent portion of the lungs.. Heart is normal size although there is mild coronary artery calcification Liver is fatty infiltrated without mass or bile duct dilatation. Normal gallbladder and extrahepatic biliary system. Normal spleen. Normal pancreas. Normal bilateral adrenal glands. No evidence for renal obstruction or ureteral calculus. There are 3 simple cysts in the right kidney. Normal visualized stomach. Normal small intestine. Postsurgical changes are seen at the splenic flexure. Minor diverticular changes of the descending and sigmoid colon without evidence for acute diverticulitis. The appendix is visualized and appears normal. Atherosclerotic changes of the aorta without evidence for aneurysm Normal inferior vena cava. Normal retroperitoneum. Normal urinary bladder. Normal abdominal wall. Lumbar spine demonstrates moderate spondylosis. CT/Abdomen/Pelvis WITH Contrast IMPRESSION: Postop changes status post resection of splenic flexure of the colon. Mild fatty infiltration of the liver. No evidence for hepatic metastasis or retroperitoneal adenopathy. 3 simple renal cysts Electronically Signed: Addy Gifford MD at 18:25 EST , Service support ,
--- NOTE | 2019-05-18 17:58 | CT_ITS ---
STUDY: CT CHEST WITH CONTRAST REASON FOR EXAM: Male, 63 years old. Neoplasm of the splenic flexure of the colon RADIATION DOSAGE (If Supplied By Facility): CTDIvol = ( 18.27 ) mGy, DLP = ( 1970.71 ) mGycm TECHNIQUE: Transaxial imaging was performed following intravenous administration of Oral and amp;amp; IV Readi-CAT and amp;amp; 100mL Isovue-370. Individualized dose optimization techniques were used for this CT. COMPARISON: None. FINDINGS: There is minor atelectasis within the dependent portion of the lungs. There is no focal infiltration or pulmonary nodule. There is no demonstrated pleural abnormality. The heart is normal size. There is coronary artery calcification.. Normal mediastinum. Normal hilar regions. Normal enhanced pulmonary arteries. Mild atherosclerotic changes of the aorta without evidence for aneurysm Subareolar soft tissue densities within the breasts bilaterally likely representing gynecomastia. Dorsal spine demonstrates mild spondylosis. Liver demonstrates mild fatty infiltration. CT/Chest WITH Contrast IMPRESSION: Minor atelectasis within the dependent portion of the lungs and ASHD. No evidence for pulmonary metastasis hilar or mediastinal adenopathy Electronically Signed: Addy Gifford MD at 18:22 EST , Service support ,
[2019-05-18 18:00] LABS: CREATININE FINGERSTICK 1.2 mg/dL (0.70-1.30); EGFR FINGERSTICK > 60.0000 mL/min (>60)
== END ==
PROVIDERS: Family Provider Family Medicine; PCP Family Medicine; Referring Provider Nurse Practitioner; Visit Provider Nurse Practitioner
DX: C18.5 Malignant neoplasm of splenic flexure (principal)
CPT/HCPCS: 71260; 74177; Q9967

== ENCOUNTER → 2019-08-13 16:11 | Outpatient (CLI) | payer SELFPAY ==
[2018-06-10 12:07] VITALS: BMI 31.6
--- NOTE | 2019-08-13 16:20 | CT_ITS ---
STUDY: CT CHEST WITH CONTRAST REASON FOR EXAM: Male, 63 years old. MALIGNANT NEOPLASM SPLENIC FLEXURE REMOVED 2018. No chemo or radiation. this is f/u. HTN and diabetes-both rx controlled. RADIATION DOSAGE (If Supplied By Facility): CTDIvol = ( 17.76 ) mGy, DLP = ( 1848.95 ) mGycm TECHNIQUE: Transaxial imaging was performed following intravenous administration of 100mL Isovue-300. Multiplanar coronal and sagittal images were reformatted. Individualized dose optimization techniques were used for this CT. COMPARISON: 18 May 2019 FINDINGS: The lungs are normal. There is no demonstrated pleural abnormality. Normal heart and pericardium. There are calcifications of the coronary arteries. Normal mediastinum. Normal hilar regions. Normal enhanced pulmonary arteries. Normal aorta arch and descending thoracic aorta. There are multi-level degenerative changes of the thoracic spine. Upper abdomen described on abdomen/pelvis CT, reported separately. CT/Chest WITH Contrast IMPRESSION: 1. No pulmonary nodule or intrathoracic metastasis. Stable exam. Electronically Signed: Jordan Smith MD (Brooks) at 18:04 EST , Service support ,
--- NOTE | 2019-08-13 16:21 | CT_ITS ---
STUDY: CT ABDOMEN AND PELVIS WITH CONTRAST REASON FOR EXAM: Male, 63 years old. MALIGNANT NEOPLASM SPLENIC FLEXURE REMOVED 2018. No chemo or radiation. this is f/u. HTN and diabetes-both rx controlled. RADIATION DOSAGE (If Supplied By Facility): CTDIvol = ( 17.76 ) mGy, DLP = ( 1848.95 ) mGycm TECHNIQUE: Transaxial images were obtained from the dome of the diaphragm to the symphysis pubis without oral contrast. 100 mL Isovue-300 was administered. Sagittal and coronal images were reconstructed. Individualized dose optimization techniques were used for this CT. COMPARISON: 05/18/2019 FINDINGS: Patient chest described on chest CT report. Normal liver. Normal gallbladder and extrahepatic biliary system. Normal spleen. Normal pancreas. Normal bilateral adrenal glands. Simple right renal cyst are stable. No solid renal masses or hydronephrosis. Normal visualized stomach. Normal small intestine. There is a surgical anastomosis in the region of the splenic flexure, stable. No colon wall thickening or pericolonic stranding/mass. Diverticular changes are noted. The appendix is visualized and appears normal. There is diffuse atherosclerotic calcification of the abdominal aorta, without a demonstrated aneurysm. Normal inferior vena cava. Normal retroperitoneum. Normal urinary bladder. Normal abdominal wall. Normal osseous structures. CT/Abdomen/Pelvis WITH Contrast IMPRESSION: Since 05/18/2019, stable exam. No intra-abdominal/pelvic mass or metastasis. Electronically Signed: Jordan Smith MD (Brooks) at 18:07 EST , Service support ,
== END ==
PROVIDERS: PCP Family Medicine; Referring Provider Nurse Practitioner; Visit Provider Nurse Practitioner
DX: C18.5 Malignant neoplasm of splenic flexure (principal); C19 Malignant neoplasm of rectosigmoid junction
CPT/HCPCS: 71260; 74177; Q9967

== ENCOUNTER → 2019-10-28 10:44 | Outpatient (CLI) | payer SELFPAY ==
[2018-06-10 12:07] VITALS: BMI 31.6
[2019-10-28 12:30] LABS: Absolute Lymphocyte Count 3.67 X10^3/uL (0.83-4.51); Absolute Neutrophil Count 3.7 X10^3/uL (2.0-7.7); Basophil# 0.05 X10^3/uL; Basophil% 0.6 % (0-1); Eosinophil# 0.42 X10^3/uL; Eosinophils% 4.9 % (0-5); Hematocrit 41.3 % (40-54); Hemoglobin 13.7 g/dL (13.0-16.5); Lymphocyte # 3.67 X10^3/ul (4.0); Lymphocyte % 42.7 % (19-41); Mean Corp Hgb Conc 33.2 g/dL (32-36); Mean Corpuscular Volume 93.4 fL (80-94); Monocyte# 0.74 X10^3/uL; Monocyte% 8.6 % (0-10); NRBC Flagged by Analyzer 0 % (0-5); Neutrophil # 3.69 X10^3/uL (2.7-7.7); Neutrophil % 42.9 % (47-70); Platelet Count 200 K/mm3 (150-450); RBC Distribution Width CV 13.2 % (11.6-14.6); RBC Distribution Width SD 44.7 fl (35.1-43.9); Red Blood Count 4.42 M/mm3 (4.6-6.2); White Blood Count 8.6 K/mm3 (4.4-11.0)
[2019-10-28 12:39] LABS: ALB/GLOB Ratio 0.8 RATIO (0.9-2.4); AST(SGOT) 43 U/L (15-37); Alanine Aminotransfer ALT/SGPT 56 U/L (16-61); Albumin, Serum 3.5 g/dL (3.2-5.0); Alkaline Phosphatase 68 U/L (45-117); Anion Gap 6 (5-15); BUN 27 mg/dL (7-18); BUN/Creat Ratio 23.3 RATIO (10-20); Calcium,Total 9.5 mg/dL (8.5-10.1); Chloride 101 mmol/L (98-107); Creatinine, Serum 1.16 mg/dL (0.70-1.30); EST Glomerular Filtration Rate 68 mL/min (>60); Est Glom Filt Rate - Afr Amer 82 mL/min (>60); Globulin 4.3 g/dL (2.2-4.2); Glucose 215 mg/dL (74-106); Potassium 4.6 mmol/L (3.5-5.1); Protein, Total 7.8 g/dL (6.4-8.2); Sodium Level 135 mmol/L (136-145)
== END ==
PROVIDERS: PCP Family Medicine; Referring Provider Internal Medicine Rheumatology; Visit Provider Internal Medicine Rheumatology
DX: M06.00 Rheumatoid arthritis without rheumatoid factor, unspecified site (principal); Z79.899 Other long term (current) drug therapy; M17.0 Bilateral primary osteoarthritis of knee; M21.40 Flat foot [pes planus] (acquired), unspecified foot; K76.0 Fatty (change of) liver, not elsewhere classified; I10 Essential (primary) hypertension; E11.9 Type 2 diabetes mellitus without complications; E78.5 Hyperlipidemia, unspecified; Z85.038 Personal history of other malignant neoplasm of large intestine
CPT/HCPCS: 36415; 80053; 85025

== ENCOUNTER → 2020-01-05 12:12 | Outpatient (CLI) | payer SELFPAY ==
[2018-06-10 12:07] VITALS: BMI 31.6
--- NOTE | 2020-01-05 12:19 | CT_ITS ---
STUDY: CT CHEST WITH CONTRAST REASON FOR EXAM: Male, 64 years old. Colorectal cancer. Abnormal labs. RADIATION DOSAGE (If Supplied By Facility): CTDIvol = ( 20.65 ) mGy, DLP = ( 2174.65 ) mGycm TECHNIQUE: Transaxial imaging was performed following intravenous administration of 100 ml of ISOVUE-370 contrast material. Coronal and sagittal reformatted images were created. Individualized dose optimization techniques were used for this CT. COMPARISON: CT chest dated 08/13/19 FINDINGS: There are no pulmonary infiltrates or pleural effusions. There are no pulmonary nodules or masses. There is no pneumothorax. The heart and pericardium are within normal limits. There is no thoracic lymphadenopathy. There is no evidence of thoracic aortic aneurysm. Please see report for the CT of the abdomen and pelvis which is dictated separately. There are no destructive osseous lesions. CT/Chest WITH Contrast IMPRESSION: Unremarkable contrast-enhanced CT of the chest. No evidence of metastatic disease in the thorax. Electronically Signed: Asael Brannon, at 17:08 EDT Tel , Service support ,
[2020-01-05 12:55] LABS: Creatinine, Serum 1.84 mg/dL (0.70-1.30); EST Glomerular Filtration Rate 40 mL/min (>60); Est Glom Filt Rate - Afr Amer 48 mL/min (>60)
--- NOTE | 2020-01-05 13:22 | CT_ITS ---
STUDY: CT ABDOMEN AND PELVIS WITH CONTRAST REASON FOR EXAM: Male, 64 years old. RETROSIGMOID CANCER- REMOVAL ONLY WITH INCREASING CANCER LABS RADIATION DOSAGE (If Supplied By Facility): CTDIvol = ( 20.65 ) mGy, DLP = ( 2174.65 ) mGycm TECHNIQUE: Transaxial images were obtained from the dome of the diaphragm to the symphysis pubis with oral contrast. Oral and amp; IV Gastrografin and amp; 100mL Isovue-370 was administered. Sagittal and coronal images were reconstructed. Individualized dose optimization techniques were used for this CT. COMPARISON: Comparison is made with prior examination of 08/13/2019. FINDINGS: The visualized lung bases are unremarkable. The visualized portions of the heart are within normal limits. There is decreased attenuation of the liver consistent with steatosis. Normal gallbladder and extrahepatic biliary system. Normal spleen. Normal pancreas. Normal bilateral adrenal glands. There is a 4.5 cm cyst in the posterior upper pole of the right kidney. There is also evidence of a 4.1 cm cyst in the anterior inferior aspect of the right kidney with evidence of a focal scar. A 2 cm cyst is also seen along the medial inferior pole of the right kidney. Small cysts are seen in the left kidney. There is a small hiatal hernia. Normal small intestine. Once again, a surgical anastomosis seen in the region of the splenic flexure. Moderate amount of fecal material is seen in the colon. There are multiple colonic diverticula consistent with diverticulosis. The appendix is visualized and appears normal. There is diffuse atherosclerotic calcification of the abdominal aorta, without a demonstrated aneurysm. Normal inferior vena cava. Normal retroperitoneum. Normal urinary bladder. There are prostatic calcifications. Normal abdominal wall. There are degenerative changes of the visualized lumbar spine. CT/Abdomen/Pelvis WITH Contrast IMPRESSION: Diffuse fatty infiltration of the liver. Surgical anastomosis seen at the level of the splenic flexure. Stable bilateral renal cysts. Electronically Signed: Tereso Reynoso, at 15:01 EDT , Service support ,
== END ==
PROVIDERS: PCP Family Medicine; Referring Provider Nurse Practitioner; Visit Provider Nurse Practitioner
DX: C18.5 Malignant neoplasm of splenic flexure (principal); C19 Malignant neoplasm of rectosigmoid junction
CPT/HCPCS: 36415; 71260; 74177; 82565; Q9967

== ENCOUNTER → 2020-05-03 13:34 | Outpatient (CLI) | payer SELFPAY ==
[2018-06-10 12:07] VITALS: BMI 31.6
[2020-05-03 15:17] LABS: Absolute Lymphocyte Count 3.51 X10^3/uL (0.83-4.51); Absolute Neutrophil Count 6.8 X10^3/uL (2.0-7.7); Basophil# 0.04 X10^3/uL; Basophil% 0.4 % (0-1); Eosinophil# 0.19 X10^3/uL; Eosinophils% 1.7 % (0-5); Hematocrit 39.1 % (40-54); Hemoglobin 12.4 g/dL (13.0-16.5); Lymphocyte # 3.51 X10^3/ul (4.0); Lymphocyte % 31.1 % (19-41); Mean Corp Hgb Conc 31.7 g/dL (32-36); Mean Corpuscular Hgb 29.6 pg (27.0-32.0); Mean Corpuscular Volume 93.3 fL (80-94); Monocyte% 6.2 % (0-10); NRBC Flagged by Analyzer 0 % (0-5); Neutrophil % 60.2 % (47-70); Platelet Count 287 K/mm3 (150-450); RBC Distribution Width CV 13.6 % (11.6-14.6); RBC Distribution Width SD 46.2 fl (35.1-43.9); Red Blood Count 4.19 M/mm3 (4.6-6.2); White Blood Count 11.3 K/mm3 (4.4-11.0)
[2020-05-03 15:24] LABS: ALB/GLOB Ratio 0.7 RATIO (0.9-2.4); AST(SGOT) 57 U/L (15-37); Alanine Aminotransfer ALT/SGPT 74 U/L (16-61); Albumin, Serum 3.4 g/dL (3.2-5.0); Alkaline Phosphatase 71 U/L (45-117); Anion Gap 4 (5-15); BUN 30 mg/dL (7-18); BUN/Creat Ratio 22.4 RATIO (10-20); Calcium,Total 9.6 mg/dL (8.5-10.1); Chloride 103 mmol/L (98-107); Creatinine, Serum 1.34 mg/dL (0.70-1.30); EST Glomerular Filtration Rate 57 mL/min (>60); Est Glom Filt Rate - Afr Amer 69 mL/min (>60); Globulin 4.7 g/dL (2.2-4.2); Glucose 242 mg/dL (74-106); Potassium 4.3 mmol/L (3.5-5.1); Protein, Total 8.1 g/dL (6.4-8.2); Sodium Level 137 mmol/L (136-145)
== END ==
PROVIDERS: PCP Family Medicine; Referring Provider Internal Medicine Rheumatology; Visit Provider Internal Medicine Rheumatology
DX: M06.00 Rheumatoid arthritis without rheumatoid factor, unspecified site (principal); Z79.899 Other long term (current) drug therapy; M17.0 Bilateral primary osteoarthritis of knee; M21.40 Flat foot [pes planus] (acquired), unspecified foot; K76.0 Fatty (change of) liver, not elsewhere classified; I10 Essential (primary) hypertension; E11.9 Type 2 diabetes mellitus without complications; E78.5 Hyperlipidemia, unspecified; Z85.038 Personal history of other malignant neoplasm of large intestine
CPT/HCPCS: 36415; 80053; 85025

== ENCOUNTER → 2020-07-10 16:07 | Outpatient (CLI) | payer SELFPAY ==
[2018-06-10 12:07] VITALS: BMI 31.6
--- NOTE | 2020-07-10 16:13 | CT_ITS ---
STUDY: CT CHEST WITH CONTRAST REASON FOR EXAM: Male, 64 years old. Hypertension, diabetes, history of colon carcinoma RADIATION DOSAGE (If Supplied By Facility): CTDIvol = ( 22.54 ) mGy, DLP = ( 3477.12 ) mGycm TECHNIQUE: Transaxial imaging was performed following intravenous administration of 100 mL ISOVUE 300 contrast. Multiplanar coronal and sagittal images were reformatted. Individualized dose optimization techniques were used for this CT. COMPARISON: 01/05/2020 FINDINGS: The lung windows show the lungs to be normally expanded. There is no organized infiltrate, suspicious noncalcified mass or nodule. No pleural or pericardial effusion Soft tissue windows show a normal-appearing thyroid gland. Scattered subcentimeter axillary and mediastinal lymph nodes. There are calcified coronary vessels without pericardial effusions. There is mild thickening of the esophagus suggesting reflux esophagitis. Normal hilar regions. Normal enhanced pulmonary arteries. Normal aorta arch and descending thoracic aorta. There are multi-level degenerative changes of the thoracic spine. Limited custody upper abdomen show a stable 4.5 cm cyst in the upper pole of the right kidney and fatty infiltration of the liver CT/Chest WITH Contrast IMPRESSION: No acute pulmonary process Stable subcentimeter axillary and mediastinal lymph nodes Calcified coronary vessels Degenerative bony changes Fatty liver Stable right renal cyst, no specific follow-up needed Electronically Signed: Mario Gardiner MD at 19:20 EST , Service support ,
--- NOTE | 2020-07-10 16:13 | CT_ITS ---
STUDY: CT ABDOMEN AND PELVIS WITH CONTRAST REASON FOR EXAM: Male, 64 years old. F/u colon ca of splenic flexure. Hx of colon resection 06/10/2018. No chemo or radiation. Diabetes and HTN-both rx controlled. RADIATION DOSAGE (If Supplied By Facility): CTDIvol = ( 22.54 ) mGy, DLP = ( 3374.12 ) mGycm TECHNIQUE: Transaxial images were obtained from the dome of the diaphragm to the symphysis pubis with oral contrast. Oral and amp; IV Gastrografin and amp; 100mL Isovue-300 was administered. Sagittal and coronal images were reconstructed. Individualized dose optimization techniques were used for this CT. COMPARISON: Comparison is made with prior study dated 01/05/2020. FINDINGS: The visualized lung bases are unremarkable. The visualized portions of the heart are within normal limits. There is decreased attenuation of the liver consistent with steatosis. Normal gallbladder and extrahepatic biliary system. Normal spleen. Normal pancreas. Normal bilateral adrenal glands. There is a 4.9 cm cyst in the upper pole of the right kidney. Small cysts are seen in the left kidney. Normal visualized stomach. Normal small intestine. Surgical anastomosis is seen in the region of the splenic flexure. A large amount of fecal material is seen in the colon. This is more prominent in the right hemicolon. There are multiple colonic diverticula consistent with diverticulosis. The appendix is visualized and appears normal. There is diffuse atherosclerotic calcification of the abdominal aorta, without a demonstrated aneurysm. There is a 4.1 cm lobulated cyst in the inferior aspect of the right kidney with evidence of overlying cortical scarring. Normal inferior vena cava. Normal retroperitoneum. The urinary bladder is almost empty with evidence of diffuse bladder wall thickening. There are prostatic calcifications. Normal abdominal wall. There are diffuse degenerative changes of the visualized lumbar spine. CT/Abdomen/Pelvis WITH Contrast IMPRESSION: Stable examination. Electronically Signed: Tereso Reynoso MD at 9:04 EST , Service support ,
[2020-07-10 16:26] LABS: CREATININE FINGERSTICK 1.3 mg/dL (0.70-1.30)
== END ==
PROVIDERS: PCP Family Medicine; Referring Provider Nurse Practitioner; Visit Provider Nurse Practitioner
DX: C18.5 Malignant neoplasm of splenic flexure (principal)
CPT/HCPCS: 71260; 74177; Q9967

== ENCOUNTER 2020-08-24 08:36 | Outpatient (RCR) | payer MEDICARE, SELFPAY ==
[2018-06-10 12:07] VITALS: BMI 31.6
[2020-08-24] MEDS: COVID-19 VACC, MRNA(PFIZER)/PF 30 MCG/0.3 ML SYRINGE IM (16:26)
[2020-09-14] MEDS: COVID-19 VACC, MRNA(PFIZER)/PF 30 MCG/0.3 ML SYRINGE IM (16:12)
== END 2020-08-24 23:59 ==
LOC: IMMUN 08:36
PROVIDERS: PCP Family Medicine; Visit Provider Family Medicine
DX: Z23 Encounter for immunization (principal)
CPT/HCPCS: 0001A; 0002A; 91300

== ENCOUNTER → 2021-01-08 15:44 | Outpatient (CLI) | payer SELFPAY ==
[2018-06-10 12:07] VITALS: BMI 31.6
--- NOTE | 2021-01-08 15:49 | CT_ITS ---
EXAM DESCRIPTION: CT scan of the chest abdomen and pelvis CLINICAL HISTORY: 65 years Male, ELEVATED CARINOEMBRYONIC COMPARISON: Previous CT scan of the chest abdomen and pelvis obtained on 07/10/2020 TECHNIQUE: A CT scan of the chest abdomen and pelvis was performed with IV contrast contrast administration. Oral contrast was also administered. Coronal and sagittal reconstruction images were reviewed. This exam was performed according to our departmental dose-optimization program, which includes automated exposure control, adjustment of the mA and/or kV according to patient size and/or use of iterative reconstruction technique. FINDINGS: This CT scan of the chest shows the lung parenchyma to be normal. The heart and mediastinum appear to be normal. Bone scanning windows through the thoracic spine and ribs were reviewed in the AP and sagittal projection and appear to be normal. No extrathoracic mass or lesion is seen. The liver is normal.The spleen is normal.The adrenal glands are normal.The head, body, and tail of the pancreas are normal. The right kidney contains 3 simple cyst and left was examined and otherwise appear to be normal. Both ureters appear to be normal, and no obstructive uropathy is identified. The abdominal aortal is normal along its course and distribution. No paraortic lymphadenopathy is seen.No abdominal masses or lesions are seen. The patient''s had a partial colectomy involving the splenic flexure of colon, with colon reanastomosis and no evidence of recurrent tumor abnormality. The CT scan of the pelvis was then reviewed. The common iliac vessels, external iliac vessels, and common femoral vessels are normal along their course and distribution No pelvis masses or lesions are seen. The appendix is normal. No pericecal inflammatory reaction is seen. Bone scanning windows of the lumbar spine and pelvis were reviewed in the coronal and sagittal planes and appear to be normal. CT/CT Chest, Abd, Pel w/Contrast IMPRESSION: 1. Normal CT scan of the chest. 2. Status post partial colectomy involving the splenic flexure of the colon with reanastomosis. No evidence of recurrent tumor is identified in this otherwise normal CT scan of the abdomen and pelvis. Electronically Signed: Benitez Hernández DO at 10:52 EDT Tel , Service support ,
[2021-01-08 18:00] LABS: CREATININE FINGERSTICK 0.9 mg/dL (0.70-1.30); EGFR FINGERSTICK > 60.0000 mL/min (>60)
== END ==
PROVIDERS: PCP Family Medicine; Referring Provider Nurse Practitioner; Visit Provider Nurse Practitioner
DX: C18.5 Malignant neoplasm of splenic flexure (principal); R97.0 Elevated carcinoembryonic antigen [CEA]
CPT/HCPCS: 71260; 74177; Q9967

== ENCOUNTER 2021-07-30 16:02 | Outpatient (CLI) | payer SELFPAY ==
--- NOTE | 2021-07-30 16:09 | CT_ITS ---
EXAM: CT CHEST, ABDOMEN AND PELVIS WITH INTRAVENOUS CONTRAST CLINICAL INDICATION: ELEVATED CARCIONOEM TECHNIQUE: Helically acquired images were obtained of the chest, abdomen and pelvis with intravenous contrast. This CT exam was performed using one or more of the following dose reduction techniques: automated exposure control, adjustment of the mA and/or kV according to patient size, and/or use of iterative reconstruction technique. This report was created using [facility] report generation technology. CONTRAST: Oral and amp; IV Gastrografin and amp; 100mL Isovue-370 COMPARISON: 8.2.21 FINDINGS: CHEST: LUNGS AND PLEURAL SPACES: Unremarkable. No mass. No consolidation or edema. No pleural effusion or thickening. No pneumothorax. HEART: There are calcifications of the coronary arteries. Heart size is normal. No pericardial effusion. MEDIASTINUM: Unremarkable. No mediastinal or hilar adenopathy. Esophagus is unremarkable. No hiatal hernia. THYROID: Unremarkable. No thyroid lesions. ABDOMEN: LIVER: Unremarkable. Homogeneous. No focal mass. GALLBLADDER AND BILE DUCTS: Unremarkable. No calcified gallstones. No gallbladder distention or wall edema. No intra- or extrahepatic biliary ductal dilation. PANCREAS: Unremarkable. No focal cystic or solid mass. SPLEEN: Unremarkable. Normal size without focal cystic or solid mass. ADRENALS: Unremarkable. No nodules. KIDNEYS AND URETERS: There are hypodensities in both kidneys. These are consistent for cysts. No follow up required. Normal renal size and position. No hydronephrosis. STOMACH AND BOWEL: There is an umbilical hernia containing fat. There is no bowel involvement. There is no incarceration. There is no findings suggesting that this is causing a bowel obstruction. There are multiple diverticuli of the colon. There is diverticulosis but no radiographic signs for diverticulitis. Postsurgical changes of the colon near the splenic flexure. PELVIS: APPENDIX: No evidence of acute appendicitis. BLADDER: Unremarkable. REPRODUCTIVE: Stable prostate calcifications. CHEST, ABDOMEN and PELVIS: INTRAPERITONEAL SPACE: Unremarkable. No ascites or other fluid collection. No free air. BONES/JOINTS: There are degenerative findings of the thoracic spine. There are degenerative findings of the lumbar spine. No suspicious lytic or blastic abnormality. SOFT TISSUES: See above. VASCULATURE: There is atherosclerotic calcification of the aortic arch with tortuosity and elongation of the aortic arch and descending thoracic aorta. Aorta is non-dilated. No aortic dissection. No obvious central pulmonary embolism although this study was not performed with the pulmonary embolism protocol. LYMPH NODES: Unremarkable. No enlarged lymph nodes. CT/CT Chest, Abd, Pel w/Contrast IMPRESSION: No acute findings in the chest, abdomen or pelvis. Electronically Signed: Wilbur Yin MD at 21:22 EST Reading Location ID and State: [facility] / [place] , Service support ,
[2021-07-30 18:11] LABS: CREATININE FINGERSTICK 0.7 mg/dL (0.70-1.30); EGFR FINGERSTICK > 60.0000 mL/min (>60)
== END 2021-07-30 23:59 | disposition home or self-care (01) ==
LOC: CT 16:07
PROVIDERS: PCP Family Medicine; Visit Provider Nurse Practitioner
DX: R97.0 Elevated carcinoembryonic antigen [CEA] (principal)
CPT/HCPCS: 71260; 74177; Q9967

== ENCOUNTER → 2022-03-19 | Outpatient (CLI) | payer SELFPAY ==
--- NOTE | 2022-03-19 11:18 | EKG12_ITS ---
Test Reason : PRE OP Blood Pressure : / mmHG Vent. Rate : 078 BPM Atrial Rate : 078 BPM P-R Int : 162 ms QRS Dur : 090 ms QT Int : 362 ms P-R-T Axes : 076 069 074 degrees QTc Int : 412 ms Normal sinus rhythm Normal ECG Confirmed by DINESH LEWIS, YUDI ([id number]), editor in chief newspaper AMEENA WHITE ([id number]) on 03/21/2022 2:09:12 P M Referred By: Porter Trejo Confirmed By:KEMAL MONTIEL MD
[2022-03-19 12:01] LABS: Hematocrit 37.7 % (40-54); Hemoglobin 12.8 g/dL (13.0-16.5); Mean Corpuscular Volume 94.3 fL (80-94); Mean Platelet Vol. 10.3 fl (6.2-12.0); Platelet Count 182 K/mm3 (150-450); RBC Distribution Width CV 13.8 % (11.6-14.6); RBC Distribution Width SD 47.8 fl (35.1-43.9); White Blood Count 9.7 K/mm3 (4.4-11.0)
[2022-03-19 12:37] LABS: Anion Gap 8 (5-15); BUN 33 mg/dL (7-18); BUN/Creat Ratio 24.6 RATIO (10-20); Calcium,Total 9.9 mg/dL (8.5-10.1); Chloride 103 mmol/L (98-107); Creatinine, Serum 1.34 mg/dL (0.70-1.30); EST Glomerular Filtration Rate 57 mL/min (>60); Est Glom Filt Rate - Afr Amer 69 mL/min (>60); Glucose 244 mg/dL (74-106); Potassium 4.9 mmol/L (3.5-5.1); Sodium Level 137 mmol/L (136-145)
== END | disposition home or self-care (01) ==
PROVIDERS: PCP Family Medicine; Referring Provider Urology; Visit Provider Urology
DX: Z01.810 Encounter for preprocedural cardiovascular examination (principal)
CPT/HCPCS: 36415; 80048; 85027; 93005

== ENCOUNTER → 2022-07-17 | Outpatient (CLI) | payer SELFPAY ==
--- NOTE | 2022-07-17 15:25 | CT_ITS ---
STUDY: CT CHEST, ABDOMEN T PELVIS WITH CONTRAST REASON FOR EXAM: Male, 66 years old. COLON CANCER REOVED FROM SPLENIC FLEXURE 4 YEARS AGO RADIATION DOSAGE (If Supplied By Facility): CTDIvol = ( 20.90 ) mGy, DLP = ( 2213.46 ) mGycm TECHNIQUE: Transaxial imaging was performed following intravenous administration of Oral and amp; IV Gastrografin and amp; 100mL Isovue-370. Oral contrast administered. Individualized dose optimization techniques were used for this CT. COMPARISON: July 30, 2021. FINDINGS: CHEST Unremarkable thyroid. Mild dependent atelectasis. No consolidation, mass, effusion, or pneumothorax. Minimal bilateral peribronchial thickening. Normal heart and pericardium. Mild coronary atherosclerosis. Few precarinal subcentimeter lymph nodes nonpathologic by size criteria, not significantly changed from prior exam. No mediastinal or hilar adenopathy by size criteria.. No suspicious pulmonary filling defects to suggest embolus.. Aortic atherosclerosis without dissection or ectasia. ABDOMEN PELVIS Normal liver. Normal gallbladder and extrahepatic biliary system. Normal spleen. Normal pancreas. Normal bilateral adrenal glands. Right renal cysts up to 5.3 cm in size, slightly increased in size from prior exam, no imaging follow-up required. Left renal subcentimeter hypodensity, too small to further characterize but compatible cysts, stable from prior exam. No hydronephrosis. Visualized stomach. No small bowel distention or focal wall thickening. Normal appendix. Colonic anastomosis of the splenic flexure without evidence of stricture. Moderate to large proximal to mid colonic stool burden.. Distal colonic diverticulosis without evidence of diverticulitis. No colonic masslike wall thickening. Unremarkable bladder. Normal abdominal aorta. MUSCULOSKELETAL: Normal abdominal wall. No acute osseous finding. CT/CT Chest, Abd, Pel w/Contrast IMPRESSION: 1. No suspicious finding for malignancy. 2. Distal colonic diverticulosis without evidence of diverticulitis. 3. Moderate to large colonic stool burden. 4. Mild bilateral peribronchial thickening as can be seen with bronchitis/bronchiolitis. Electronically Signed: Blayne Sanchez MD at 6:24 EST ,
[2022-07-17 17:50] LABS: CREATININE FINGERSTICK 1.3 mg/dL (0.70-1.30); EGFR FINGERSTICK > 60.0000 mL/min (>60)
== END | disposition home or self-care (01) ==
PROVIDERS: PCP Family Medicine; Referring Provider Nurse Practitioner; Visit Provider Nurse Practitioner
DX: C18.5 Malignant neoplasm of splenic flexure (principal)
CPT/HCPCS: 71260; 74177; Q9967

== ENCOUNTER → 2023-02-19 | Outpatient (CLI) | payer SELFPAY ==
--- NOTE | 2023-02-19 19:00 | CT_ITS ---
INDICATION: Follow-up history of colon cancer at splenic flexure. Patient has had issues with emesis, history of hypertension and diabetes. EXAMINATION: CT CHEST, ABDOMEN AND PELVIS WITH CONTRAST TECHNIQUE: Helically acquired images were obtained of the chest, abdomen, and pelvis following IV contrast. 2-D reconstructions reviewed. A radiation dose optimization technique was used for this scan. IV Contrast dosage and agent: 100 cc Isovue-370 Oral contrast: Yes COMPARISON: Contrast-enhanced CT chest, abdomen and pelvis from 07/17/2022 FINDINGS: ----Chest: LUNGS, PLEURA AND LARGE AIRWAYS: Minimal centrilobular emphysematous changes within lung apices. No pulmonary edema, mass, consolidation or suspicious opacity. No significant pleural effusion or thickening. No pneumothorax. THYROID: Unremarkable as visualized. HEART AND PERICARDIUM: Heart size within normal limits. No significant pericardial effusion. VESSELS: Atherosclerosis with no thoracic aortic aneurysm or dissection. Great vessels are patent. No obvious central pulmonary embolism although this study was not performed with the pulmonary embolism protocol. MEDIASTINUM AND REE: No pathologically enlarged mediastinal or hilar lymph nodes. Esophagus is unremarkable. BONES: Intact with no suspicious osseous lesion. Stable mild skeletal degenerative changes. Healed upper sternal fracture. ----Abdomen/Pelvis: LIVER: Homogeneous. No concerning lesion. GALLBLADDER AND BILIARY TREE: No calcified gallstones. No significant biliary ductal dilation. PANCREAS: Mild fatty infiltration with no discrete mass or peripancreatic edema. SPLEEN: Normal size without focal cystic or solid mass. ADRENAL GLANDS: Unremarkable. KIDNEYS AND URETERS: Normal renal size and position. No hydronephrosis. Several bilateral renal cysts again noted, simple appearing with no additional follow-up recommended at this time. Largest cyst located at right upper pole measuring 5.4 cm diameter. PERITONEUM: No peritoneal free air or significant free fluid. No other fluid collection. BOWEL: No evidence of acute appendicitis. Previous partial colectomy with anastomosis at level of splenic flexure. No bowel obstruction or significant bowel thickening. Scattered colonic diverticula. No focal inflammatory change. LYMPH NODES: No enlarged mesenteric or retroperitoneal lymph nodes. VESSELS: Moderate atherosclerosis with no abdominal aortic aneurysm. URINARY BLADDER: Underdistended urinary bladder. REPRODUCTIVE ORGANS: Punctate dystrophic calcifications within prostate gland. ABDOMINAL WALL: No acute findings. BONES: Stable skeletal degenerative changes with no suspicious osseous lesion. CT/CT Chest, Abd, Pel w/Contrast IMPRESSION: 1. No acute findings. No evidence of metastatic disease or malignancy. 2. Colonic diverticulosis with no evidence of diverticulitis. 3. Atherosclerotic disease and minimal pulmonary emphysema. 4. Other nonurgent findings within body of report. Electronically Signed: Librado Clark MD at 8:06 EDT ,
[2023-02-19 19:10] LABS: CREATININE FINGERSTICK 1.5 mg/dL (0.70-1.30)
== END | disposition home or self-care (01) ==
LOC: CT 17:02
PROVIDERS: PCP Family Medicine; Referring Provider Nurse Practitioner; Visit Provider Nurse Practitioner
DX: C18.5 Malignant neoplasm of splenic flexure (principal)
CPT/HCPCS: 71260; 74177; Q9967

== ENCOUNTER → 2023-08-25 | Outpatient (CLI) | payer SELFPAY ==
--- NOTE | 2023-08-25 17:27 | CT_ITS ---
STUDY: CT CHEST, ABDOMEN T PELVIS WITH CONTRAST REASON FOR EXAM: Male, 67 years old. MALIGNANT NEOPLASM OF SPLENIC FLEXURE, ELEVATED CEA RADIATION DOSAGE (If Supplied By Facility): CTDIvol = ( 19.20 ) mGy, DLP = ( 2015.44 ) mGycm TECHNIQUE: Transaxial imaging was performed following intravenous administration of Oral and amp; IV Gastrografin and amp; 100mL Isovue-370. Multiplanar coronal and sagittal images were reformatted. Individualized dose optimization techniques were used for this CT. COMPARISON: Comparison is made with prior study to February 19, 2023. FINDINGS: CHEST Stable mild centrilobular emphysematous changes seen in the lung apices bilaterally. There is no demonstrated pleural abnormality. Normal heart and pericardium. There are small lymph nodes within the mediastinum, which are normal in size and morphology most compatible with reactive lymph hyperplasia. Normal hilar regions. Normal unenhanced pulmonary arteries. There is atherosclerotic calcification of the aortic arch. There are mild degenerative changes of the thoracic spine. There is no demonstrated abnormality of the visualized upper abdomen. ABDOMEN There is decreased attenuation of the liver consistent with steatosis. Normal gallbladder and extrahepatic biliary system. Normal spleen. Normal pancreas. Normal bilateral adrenal glands. Stable bilateral renal cysts. The largest cyst is in the right upper pole measuring 5.4 cm. Normal left kidney. Normal visualized stomach. Normal small intestine. There are multiple colonic diverticula consistent with diverticulosis. Prior colectomy with anastomosis in the region of the splenic flexure. The appendix is visualized and appears normal. There is scattered atherosclerotic calcification of the abdominal aorta, without a demonstrated aneurysm. Normal inferior vena cava. Normal retroperitoneum. PELVIS Normal urinary bladder. Prostatic calcification. Normal visualized small intestine. Normal visualized colon. There is no pelvic fluid. There is no pelvic lymphadenopathy or mass lesion. There is diffuse atherosclerotic calcification of the pelvic arteries. Normal abdominal wall. There are mild degenerative changes of the visualized lumbar spine. CT/CT Chest, Abd, Pel w/Contrast IMPRESSION: Stable examination. Electronically Signed: Tereso eRynoso MD at 13:23 EDT ,
[2023-08-25 19:38] LABS: EGFR FINGERSTICK > 60.0000 mL/min (>60)
== END | disposition home or self-care (01) ==
LOC: CT 17:26
PROVIDERS: PCP Family Medicine; Visit Provider Nurse Practitioner
DX: C18.5 Malignant neoplasm of splenic flexure (principal); R97.0 Elevated carcinoembryonic antigen [CEA]
CPT/HCPCS: 71260; 74177; Q9967

== ENCOUNTER → 2024-07-01 | Outpatient (CLI) | payer SELFPAY ==
--- NOTE | 2024-07-01 10:27 | RAD_ITS ---
STUDY: X-RAY - UNILATERAL RIBS ( LEFT ) REASON FOR EXAM: Male, 68 years old. Rib injury TECHNIQUE: 4 view(s) of the ribs. COMPARISON: None. FINDINGS: Normal visualized ribs without a demonstrated fracture. The visualized lung is clear and expanded. RAD/Ribs Unil 2V No CXR IMPRESSION: Normal x-ray examination of the ribs. Electronically Signed: Tereso Reynoso MD at 11:13 EST ,
== END | disposition home or self-care (01) ==
PROVIDERS: PCP Family Medicine; Referring Provider Physician Assistant Surgical; Visit Provider Physician Assistant Surgical
DX: S29.9XXA Unspecified injury of thorax, initial encounter (principal)
CPT/HCPCS: 71100

== ENCOUNTER 2024-12-02 13:51 | Inpatient (IN) | payer OTHER, SELFPAY ==
[2024-12-02] VITALS (19 sets, daily range): BP systolic 126–159; BP diastolic 49–72; PULSE 59–97; RESP 12–36; TEMP 35.9–36.8; O2SAT 97–100; BMI 32.2; BMI 32.7
[2024-12-02] MEDS: 0.9% Normal Saline (1000mL) 1,000 ML 999 ML IV (14:59)
--- NOTE | 2024-12-02 15:03 | RAD_ITS ---
PROCEDURE: CHEST PA AND LATERAL 12/02/2024 REASON FOR EXAM: CHEST PAIN TECHNIQUE: CHEST PA AND LATERAL COMPARISON: None FINDINGS: Hardware: EKG electrodes are seen. Heart: The heart is not enlarged. Mediastinum: The mediastinal contour is unremarkable. Lungs: Hyperinflation. Scattered calcified granulomas. No acute infiltrate is seen. Bones: Degenerative changes are identified within the thoracic spine. RAD/Chest PA and Lateral IMPRESSION: No acute abnormality is seen. Reading Location: [id number]
[2024-12-02 15:06] LABS: Absolute Lymphocyte Count 3.53 X10^3/uL (0.83-4.51); Absolute Neutrophil Count 7.4 X10^3/uL (2.0-7.7); Basophil# 0.07 X10^3/uL; Basophil% 0.5 % (0-1); Eosinophil# 0.93 X10^3/uL; Eosinophils% 7.1 % (0-5); Hematocrit 34.3 % (40-54); Hemoglobin 11.7 g/dL (13.0-16.5); Lymphocyte # 3.53 X10^3/ul (0.83-4.51); Lymphocyte % 26.9 % (19-41); Mean Corp Hgb Conc 34.1 g/dL (32-36); Mean Corpuscular Hgb 31.5 pg (27.0-32.0); Mean Corpuscular Volume 92.2 fL (80-94); Mean Platelet Vol. 10.9 fl (6.2-12.0); Monocyte# 1.12 X10^3/uL; Monocyte% 8.5 % (0-10); NRBC Flagged by Analyzer 0 % (0-5); Neutrophil # 7.38 X10^3/uL (2.7-7.7); Neutrophil % 56.3 % (47-70); Platelet Count 215 K/mm3 (150-450); RBC Distribution Width CV 14.2 % (11.6-14.6); RBC Distribution Width SD 48.1 fl (35.1-43.9); Red Blood Count 3.72 M/mm3 (4.6-6.2); White Blood Count 13.1 K/mm3 (4.4-11.0)
--- NOTE | 2024-12-02 15:39 | EX.ED.DYSGE1 ---
HPI History of Present Illness Chief Complaint: Abn Labs Narrative Narrative: Patient is a 69-year-old male with past medical history of hypertension, diabetes, hypercholesteremia, GERD, colon cancer who presented to the emergency department with concern of elevated potassium. Patient states that he was not feeling well yesterday his family doctor had blood work obtained and noted that potassium was 6.5 advised him to come to the emergency department to be evaluated. He states that he felt like on Friday he had acid reflux type symptoms as well. Patient states that this will happen periodically with his GERD. Patient denies any sick contacts. He just feels overall weak and fatigued. [facility] Medical History GERD (gastroesophageal reflux disease) Rheumatoid arthritis High cholesterol Hearing loss, left Hearing loss, right Former smoker Diabetes Hypertension Colon cancer Home Medications ?Medication ?Instructions ?Recorded ?Last Taken ?Type adalimumab 40 mg/0.8 mL 40 mg SQ Q14D RA 05/26/18 Unknown History subcutaneous syringe kit (Humira) allopurinol 300 mg tablet 300 mg PO DAILY GOUT 05/26/18 Unknown History aspirin 81 mg tablet,delayed 81 mg PO DAILY@0800 HEART [facility] 05/26/18 06/03/18 History release glipizide 5 mg tablet 5 mg PO TID DIABETES 05/26/18 Unknown History metformin 1,000 mg tablet 1,000 mg PO BIDCM DIABETES 05/26/18 Unknown History atorvastatin 80 mg tablet (Lipitor) 80 mg PO QHS 12/02/24 Unknown History carvedilol 12.5 mg tablet 12.5 mg PO BID 12/02/24 Unknown History naproxen sodium 220 mg capsule 220 mg PO BID PRN pain 12/02/24 Unknown History (Aleve) omega-3 fatty acids 1,000 mg 1,000 mg PO DAILY 12/02/24 Unknown History capsule pioglitazone 30 mg tablet (Actos) 30 mg PO QHS 12/02/24 Unknown History prednisone 10 mg tablet 10 mg PO QDAY 12/02/24 Unknown History sitagliptin phosphate 100 mg 100 mg PO DAILY 12/02/24 Unknown History tablet (Januvia) telmisartan 40 mg tablet (Micardis) 40 mg PO DAILY 12/02/24 Unknown History tramadol 50 mg tablet 50 mg PO TID PRN pain 12/02/24 Unknown History Allergy/AdvReac Type Severity Reaction Status Date / Time No Known Allergies Allergy Verified 12/02/24 17:16 Social History Smoking Status: Former smoker ROS ROS ED ROS Narrative Constitutional: Denies headaches, lightness, dizziness, fevers, chills Eyes: Denies change in vision double vision blurry vision Cardiovascular: Denies chest pain Respiratory: Denies shortness of breath Abdomen: Denies abdominal pain nausea vomit diarrhea : Denies any urinary symptoms Neurological: Denies numbness, wheeze, tingling Musculoskeletal: Denies back pain Skin: Denies any rashes or lesions EXAM Physical Exam Narrative Exam Narrative: General: Patient was lying in bed resting comfortably did not appear to be acute distress Head: Atraumatic, normocephalic Eyes: PERRL bilaterally, EOMI blood, no conjunctival injection noted Neck: Soft, supple, trachea midline Cardiovascular: Regular rate and rhythm no murmurs gallops rubs noted Respiratory: Clear to auscultation bilaterally Abdomen: Soft, nondistended, nontender to palpation Extremities: +5/5 strength noted in the bilateral upper and lower extremities, radial pulses +2/4 in the bilateral extremities, no pedal edema on exam Neurological: Patient following commands knew that he was at [facility] year is 2024 Skin: Warm, dry, tact no rashes or lesions noted Const Vital Signs: 12/02/24 13:52 12/02/24 14:51 12/02/24 14:52 Temperature 96.7 F L Temperature Source Temporal Pulse Rate 69 68 Respiratory Rate 16 18 Respiratory Effort Normal Respiratory Pattern Normal Blood Pressure 126/49 H 143/56 H Blood Pressure Mean 74 85 Pulse Ox 98 98 Oxygen Delivery Method Room Air Room Air 12/02/24 14:59 12/02/24 15:00 12/02/24 16:22 Temperature Temperature Source Pulse Rate 59 L 70 Respiratory Rate 12 Respiratory Effort Respiratory Pattern Blood Pressure 137/59 H 159/72 H Blood Pressure Mean 85 101 Pulse Ox 98 Oxygen Delivery Method Room Air Room Air 12/02/24 17:00 Temperature 97.9 F Temperature Source Pulse Rate 74 Respiratory Rate 16 Respiratory Effort Respiratory Pattern Blood Pressure 154/57 H Blood Pressure Mean 89 Pulse Ox 100 Oxygen Delivery Method MDM MDM MDM Narrative Medical decision making narrative: Patient is a 69-year-old male who presents to the emergency department with concern of hyperkalemia. On the differential diagnosis includes but not limited to acute kidney injury, chronic kidney disease, hyperkalemia, hemolyzed specimen, ACS. Once workup is obtained reviewed he will be reevaluated. Patient's CBC was reviewed showed a leukocytosis of 13,000, hemoglobin 11.7, plate count of 215. Patient odium was low at 127 indicating hyponatremia, potassium was elevated to 6.6 which is consistent with the outpatient blood draw. Patient's CO2 was low at 18.5 anion gap of 16. Patient BUN elevated 105 with a creatinine of 4.61. Patient's troponin was 25 EKG reviewed and showed sinus rhythm rate of 74 bpm with a QTc of 397 patient does have evidence of peaked T waves on his EKG. Patient's chest x-ray reviewed by myself by radiology showed no acute abnormalities. Patient denies any dark black stools denies any blood in stool Will add on a renal ultrasound. Ordered the hyperkalemia treatment with insulin dextrose IV fluids calcium gluconate. Patient bladder scanned for 300 cc Will discuss case with hospitalist for admission. Discussed case with hospitalist Dr. Ridley who accept the patient for admission. Patient is agreeable to plan all question concerns answered bedside. She was requesting we reach out to nephrology which we page and we have been unable to get a hold of them at this point time. Lab Data Labs: Laboratory Results - last 24 hr 12/02/24 12/02/24 12/02/24 14:50 16:13 16:48 WBC 13.1 H RBC 3.72 L Hgb 11.7 L Hct 34.3 L MCV 92.2 MCH 31.5 MCHC 34.1 RDW Std Deviation 48.1 H RDW Coeff of Deep 14.2 Plt Count 215 MPV 10.9 Immature Gran % (Auto) 0.700 Neut % (Auto) 56.3 Lymph % (Auto) 26.9 Mills % (Auto) 8.5 Eos % (Auto) 7.1 H Baso % (Auto) 0.5 Absolute Neuts (auto) 7.4 Absolute Lymphs (auto) 3.53 Nucleated RBC % 0 Sodium 127 L Potassium 6.6 H* Chloride 92 L Carbon Dioxide 18.5 L Anion Gap 16 H BUN 105 H* Creatinine 4.61 H Estim Creat Clear Calc 19.29 L Est GFR (MDRD) Non-Af 13 L BUN/Creatinine Ratio 22.8 H Glucose 154 H Calcium 9.0 Troponin T High Sens 25 H Troponin T Hi Sens 2 Hr 22 POC Glucose 100 Radiography Diagnostic Testing: Clinical Impression(s) from Imaging Studies Chest X-Ray 12/02/24 15:03 IMPRESSION: No acute abnormality is seen. Reading Location: [id number] Discharge Plan Triage Chief Complaint: Abn Labs ED Provider: Will Galarza Dx/Rx/DC Orders Clinical Impression: Hyperkalemia, Acute renal failure, Hyponatremia Prescriptions: No Action Humira 40 MG/0.8 ML syringe kit 40 mg SQ Q14D aspirin 81 MG tablet 81 mg PO DAILY@0800 metformin 1,000 MG tablet 1,000 mg PO BIDCM allopurinol 300 MG tablet 300 mg PO DAILY glipizide 5 MG tablet 5 mg PO BID carvedilol 12.5 mg tablet 12.5 mg PO BID Rx Instructions: must administer with a meal/food telmisartan [Micardis] 40 mg tablet 40 mg PO DAILY pioglitazone [Actos] 30 mg tablet 30 mg PO QHS Januvia 100 mg tablet 100 mg PO DAILY omega-3 fatty acids 1,000 mg capsule 1,000 mg PO DAILY atorvastatin [Lipitor] 80 mg tablet 80 mg PO QHS prednisone 10 mg tablet 10 mg PO QDAY tramadol 50 mg tablet 50 mg PO TID PRN naproxen sodium [Aleve] 220 mg capsule 220 mg PO BID PRN (Reason: pain) Primary Care Provider: Gumaro Menjivar Referrals: Gumaro Menjivar DO [Primary Care Provider] - Print Language: Lithuanian Disposition Disposition: Acute Care Hospital [facility]
[2024-12-02 15:43] LABS: Troponin T High Sensitivity 25 ng/L (<=22)
[2024-12-02 15:54] LABS: Anion Gap 16 (5-15); BUN 105 mg/dL (4-19); BUN/Creat Ratio 22.8 RATIO (10-20); Carbon Dioxide 18.5 mmol/L (21.0-32.0); Chloride 92 mmol/L (98-108); Creatinine, Serum 4.61 mg/dL (0.70-1.20); EST Glomerular Filtration Rate 13 (>60); Estimated Creatinine Clearance 19.29 ml/min (50-250); Glucose 154 mg/dL (70-99); Potassium 6.6 mmol/L (3.3-5.1); Sodium Level 127 mmol/L (133-145)
--- NOTE | 2024-12-02 15:57 | US_ITS ---
PROCEDURE: KIDNEY AND BLADDER, 12/02/2024 REASON FOR EXAM: ACUTE RENAL FAILURE TECHNIQUE: Grayscale and color doppler ultrasound of the kidneys and bladder was performed. COMPARISON: 08/25/2023 tiny hypodensities FINDINGS: Right kidney: 13.4 cm in length. Cysts up to 3.4 x 4.1 x 5.1 cm superiorly. No visualized calculus or hydronephrosis. Left kidney: 10.8 cm in length. Tiny hypodensities seen on CT are not visualized. No visualized mass, calculus, or hydronephrosis. Bladder: Underdistended and suboptimally evaluated; grossly unremarkable. Estimated volume 172 mL. Other: None. US/Kidney and Bladder IMPRESSION: 1. No hydronephrosis. 2. Additional description as above. Reading Location: [id number]
[2024-12-02] MEDS: Dextrose 10%-Water 250 ML 999 ML IV (16:15)
[2024-12-02 16:40] LABS: Bedside Glucose 100 mg/dL (74-106)
[2024-12-02] MEDS: Calcium Gluconate IV 3 GM in Syringe 1 EACH IV (16:46)
[2024-12-02] MEDS: Insulin Lispro 10 UNIT in Syringe 0 ML 6 UNIT IV (16:46)
[2024-12-02 17:32] LABS: Troponin T High Sens 2 HR 22 ng/L (<=22)
[2024-12-02 17:43] LABS: Bacteria 0 SEEN /hpf (None Seen); Mucous, Urine 0 SEEN /hpf (<or=2+)
[2024-12-02 18:00] LABS: Color, Urine Straw (Yellow); Glucose, Dipstick Normal (Normal); Ketone-Dipstick Negative (Negative); Leukocyte Esterase-Dipstick Negative /ul (Negative); Nitrite-Dipstick Negative (Negative); Occult Blood-Urine Negative /ul (Negative); Protein-Dipstick 30 mg/dl (Negative); Specific Gravity, Urine 1.015 (1.002-1.030); Urine Bilirubin Dipstick Negative (Negative); Urine Clarity Clear (Clear); Urine Urobilinogen Normal (Normal)
[2024-12-02 18:04] LABS: Urea Nitrogen, Urine 481 mg/dL (NO RANGE EST.); Urine Chloride 29 mmol/L (Not Establ.); Urine Potassium 37.4 mmol/L (Not Establ.); Urine Sodium 40 mmol/L (Not Establ.)
--- NOTE | 2024-12-02 18:26 | PCM.HP.STD ---
HPI - General General Date of Admission: 12/02/24 Date of Service: 12/02/24 Chief Complaint: Weakness and fatigue HPI Narrative CARMEN MENDEZ, is a 69y/o M hx HTN, DM, GERD, colon cancer who presented to [facility] ED 12/02/24 for elevated potassium. Pt patient had not been feeling well yesterday and family doctor ordered blood work and noticed potassium was 6.5 and advised him to come to the emergency department to be evaluated. On Friday felt like he had reflux symptoms which happens periodically with his GERD but other than that overall just feels weak and fatigued. In the ED patient afebrile, heart rate 69 with a blood pressure 126/49, respiratory rate 16 pulse ox 98% on room air. BMP revealed a sodium of 127, potassium 6.6, BUN of 105 with a creatinine of 4.61 with last creatinine value in our system in 2021 of 1.34. Additionally patient with bicarb of 18.6 and a gap of 16. White blood cell count 13.1 with hemoglobin 11.7. Troponin of 25. Renal ultrasound ordered and pending, hospitalist contacted for admission for hyperkalemia and suspected new onset kidney failure. Patient evaluated at bedside with family members present. Patient reports that it has been very hot he has been working outside, he has been little bit weak and fatigued and feels little bit achy today but does not feel sick enough to have to be in the hospital. He denies any recent medication changes, denies any fever or abdominal pain, denies any diarrhea or constipation, reports his urination has been normal. Denies any chest pain or shortness of breath. Other than feeling weak and fatigued over the past couple of days he has no other complaints [facility] Medical History GERD (gastroesophageal reflux disease) Rheumatoid arthritis High cholesterol Hearing loss, left Hearing loss, right Former smoker Diabetes Hypertension Colon cancer Home Medications ?Medication ?Instructions ?Recorded ?Last Taken ?Type adalimumab 40 mg/0.8 mL 40 mg SQ Q14D RA 05/26/18 11/21/24 History subcutaneous syringe kit (Humira) allopurinol 300 mg tablet 300 mg PO .COMPLEX GOUT 05/26/18 Unknown History aspirin 81 mg tablet,delayed 81 mg PO .COMPLEX HEART HEALTH 05/26/18 06/03/18 History release glipizide 5 mg tablet 5 mg PO .COMPLEX DIABETES 05/26/18 Unknown History metformin 1,000 mg tablet 1,000 mg PO .COMPLEX DIABETES 05/26/18 Unknown History atorvastatin 80 mg tablet (Lipitor) 80 mg PO .COMPLEX 12/02/24 Unknown History carvedilol 12.5 mg tablet 12.5 mg PO .COMPLEX 12/02/24 Unknown History naproxen sodium 220 mg capsule 220 mg PO .COMPLEX pain 12/02/24 Unknown History (Aleve) omega-3 fatty acids 1,000 mg 1,000 mg PO .COMPLEX 12/02/24 Unknown History capsule pioglitazone 30 mg tablet (Actos) 30 mg PO .COMPLEX 12/02/24 Unknown History prednisone 10 mg tablet 10 mg PO .COMPLEX 12/02/24 Unknown History sitagliptin phosphate 100 mg 100 mg PO .COMPLEX 12/02/24 Unknown History tablet (Januvia) telmisartan 40 mg tablet (Micardis) 40 mg PO .COMPLEX 12/02/24 Unknown History tramadol 50 mg tablet 50 mg PO .COMPLEX pain 12/02/24 Unknown History Allergy/AdvReac Type Severity Reaction Status Date / Time No Known Allergies Allergy Verified 12/02/24 17:16 Social History Smoking Status: Former smoker ROS ROS Narrative General: Denies fever/chills HENT: Denies headache, denies stuffy nose, denies sore throat EYES: Denies changes in vision Resp: Denies cough, denies shortness of breath Cardiac: Denies chest pain GI: Denies abdominal pain, denies changes in bowel, denies nausea/vomiting : Denies changes in urination Extremity: Denies swelling MSK: Some generalized weakness and fatigue Neuro: Denies any numbness/tingling Heme: Denies any bleeding or bruising Skin: Denies rashes Psychiatric: No complaints voiced Vital Signs Vital Signs Vital Signs: 12/02/24 13:52 12/02/24 14:51 12/02/24 14:52 Temperature 96.7 F L Temperature Source Temporal Pulse Rate 69 68 Respiratory Rate 16 18 Respiratory Effort Normal Respiratory Pattern Normal Blood Pressure 126/49 H 143/56 H Blood Pressure Mean 74 85 Pulse Ox 98 98 Oxygen Delivery Method Room Air Room Air 12/02/24 14:59 12/02/24 15:00 12/02/24 15:20 Temperature Temperature Source Pulse Rate 59 L 64 Respiratory Rate 12 12 Respiratory Effort Respiratory Pattern Blood Pressure 137/59 H Blood Pressure Mean 85 Pulse Ox 98 98 Oxygen Delivery Method Room Air Room Air 12/02/24 15:30 12/02/24 15:45 12/02/24 16:00 Temperature Temperature Source Pulse Rate 63 63 Respiratory Rate 14 17 Respiratory Effort Respiratory Pattern Blood Pressure 140/56 H 145/59 H 149/64 H Blood Pressure Mean 81 83 87 Pulse Ox 100 100 Oxygen Delivery Method 12/02/24 16:15 12/02/24 16:22 12/02/24 16:30 Temperature Temperature Source Pulse Rate 70 67 Respiratory Rate 15 Respiratory Effort Respiratory Pattern Blood Pressure 159/72 H 159/72 H Blood Pressure Mean 97 101 Pulse Ox 100 Oxygen Delivery Method 12/02/24 16:45 12/02/24 16:53 12/02/24 17:00 Temperature 97.9 F Temperature Source Pulse Rate 90 82 74 Respiratory Rate 36 H 22 H 16 Respiratory Effort Respiratory Pattern Blood Pressure 156/58 H 154/57 H Blood Pressure Mean 88 89 Pulse Ox 100 100 Oxygen Delivery Method 12/02/24 17:00 12/02/24 17:15 12/02/24 17:30 Temperature Temperature Source Pulse Rate 72 67 Respiratory Rate 20 H 16 Respiratory Effort Respiratory Pattern Blood Pressure 154/57 H 145/59 H 132/60 H Blood Pressure Mean 87 85 83 Pulse Ox 100 100 Oxygen Delivery Method Room Air Room Air 12/02/24 17:30 12/02/24 17:46 12/02/24 18:00 Temperature Temperature Source Pulse Rate 64 71 71 Respiratory Rate 13 18 19 H Respiratory Effort Respiratory Pattern Blood Pressure 132/60 H Blood Pressure Mean 83 Pulse Ox 100 Oxygen Delivery Method Room Air Weight Weight: 106.3 kg Body Mass Index (BMI) 32.2 Physical Exam Narrative General: Alert, oriented, no apparent distress HEENT: Atraumatic, normocephalic Eyes: Anicteric, normal conjunctiva, extraocular movements grossly intact Neck: Supple Respiratory: Clear to auscultation bilaterally, normal respiratory effort Cardiovascular: Regular rate and rhythm GI: Soft, nontender, nondistended Extremities: No edema Musculoskeletal: Moving all extremities Neuro: No overt focal neurological deficits Skin: No rashes appreciated Psych: Cooperative Results Lab / Micro Data 12/02/24 14:50 12/02/24 14:50 Labs: Laboratory Results - last 24 hr 12/02/24 14:50: WBC 13.1 H, RBC 3.72 L, Hgb 11.7 L, Hct 34.3 L, MCV 92.2, MCH 31.5, MCHC 34.1, RDW Std Deviation 48.1 H, RDW Coeff of Deep 14.2, Plt Count 215, MPV 10.9, Immature Gran % (Auto) 0.700, Neut % (Auto) 56.3, Lymph % (Auto) 26.9, Me[place] % (Auto) 8.5, Eos % (Auto) 7.1 H, Baso % (Auto) 0.5, Absolute Neuts (auto) 7.4, Absolute Lymphs (auto) 3.53, Nucleated RBC % 0, Sodium 127 L, Potassium 6.6 H*, Chloride 92 L, Carbon Dioxide 18.5 L, Anion Gap 16 H, BUN 105 H*, Creatinine 4.61 H, Estim Creat Clear Calc 19.29 L, Est GFR (MDRD) Non-Af 13 L, BUN/Creatinine Ratio 22.8 H, Glucose 154 H, Calcium 9.0, Troponin T High Sens 25 H 12/02/24 16:13: POC Glucose 100 12/02/24 16:48: Troponin T Hi Sens 2 Hr 22 12/02/24 17:32: Urine Color Straw, Urine Clarity Clear, Urine pH 5.0, Ur Specific [place] 1.015, Urine Protein 30 H, Urine Glucose (UA) Normal, Urine Ketones Negative, Urine Occult Blood Negative, Urine Nitrite Negative, Urine Bilirubin Negative, Urine Urobilinogen Normal, Ur Leukocyte Esterase Negative, Ur Random Sodium 40, Urine Creatinine 68.90, Urine Potassium 37.4, Urine Chloride 29, Urine Urea Nitrogen 481 Imaging Radiology Impression Chest X-Ray 12/02/24 15:03 IMPRESSION: No acute abnormality is seen. Reading Location: [id number] Renal Ultrasound 12/02/24 15:57 IMPRESSION: 1. No hydronephrosis. 2. Additional description as above. Reading Location: [facility] Assessment & Plan Assessment/Plan (1) Acute renal failure: (2) Hyperkalemia: PLAN: Plan #Hyperkalemia - Potassium 6.6 in the ED, received K lowering cocktail -EKG normal sinus rhythm with a QTc of 397, does seem to have slightly high T waves - Repeat BMP and trend every 4 -Will give Kayexalate -Monitor on telemetry -Renal diet - Nephrology consulted - Kidney and bladder ultrasound pending - Will check CK given patient has been working out in the heat - Hold patient's telmisartan, also appears patient's on naproxen at home, will hold #Acute kidney failure - Unclear etiology, most recent creatinine in our system was in 2021 was 1.34 -Kidney ultrasound ordered -Placed on bicarb drip per nephrology recommendations -Renal diet -Nephrology consult -Monitor I's and O's and daily weights -Urine studies ordered, FeNa is 2.1 which would indicate intrinsic - Hold telmisartan #Hx RA -On injections outpt - Patient listed as being on prednisone orally at home, suspect this may be related to the RA, continue at this time #Gout -Continue home allopurinol #Type 2 diabetes mellitus -Glucose checks and sliding scale insulin -Hold home oral hypoglycemics #DVT ppx: SCDs Reanna Ridley MD Charges/Coding Visit Charges Inpatient E&M: 02443 Init Hosp L2
[2024-12-02 19:10] LABS: Troponin T High Sens 4 HR 22 ng/L (<=22)
[2024-12-02 19:22] LABS: Red Blood Cells-Urine 0-5 SEEN /hpf (0-5); Squamous Epithelial Cells - UA 0-5 SEEN /hpf (0-5); White Blood Cells 0-5 SEEN /hpf (0-5)
[2024-12-02 19:29] LABS: Anion Gap 16 (5-15); BUN 99 mg/dL (4-19); BUN/Creat Ratio 24.2 RATIO (10-20); Calcium,Total 9.8 mg/dL (7.6-11.0); Carbon Dioxide 20.4 mmol/L (21.0-32.0); Chloride 95 mmol/L (98-108); Creatinine, Serum 4.09 mg/dL (0.70-1.20); EST Glomerular Filtration Rate 15 (>60); Estimated Creatinine Clearance 21.75 ml/min (50-250); Glucose 75 mg/dL (70-99); Potassium 5.7 mmol/L (3.3-5.1); Sodium Level 131 mmol/L (133-145)
[2024-12-02] MEDS: Sodium Bicarbonate 50 MEQ in Dextrose 5%-Water (1000mL Bag) 1,000 ML 100 MEQ IV (19:54)
[2024-12-02] MEDS: Sodium Polystyrene Sulfonate 15 GM/60 ML UDC 30 GM PO (19:54)
[2024-12-02 20:48] LABS: CPK Total, Creatine Kinase 185 U/L (24-195)
--- OUTSIDE RECORDS SUMMARY | 2024-12-02 22:04 | XMS RPT_ITS | CCD ---
Author Organization [facility]ini[facility] Care Team Providers Care Roads Supervisor Name Role Phone IMCA Unavailable Unavailable IMCA Unavailable Unavailable IMCA Unavailable Unavailable [facility] Unavailable Unavailable Gumaro Sepulveda DO Primary Care Provider Gumaro Sepulveda DO Primary Care Provider [phone] Gumaro Sepulveda DO Primary Care Provider Gumaro Sepulveda DO Primary Care Provider Gumaro Sepulveda DO Primary Care Provider PERKINS, MIRIAM Referring Unavailable GUMARO SEPULVEDA Primary Care Unavailable PERKINS, MIRIAM Referring Unavailable PERKINS, MIRIAM Attending Unavailable GUMARO SEPULVEDA Primary Care Unavailable PERKINS, MIRIAM Referring Unavailable GUMARO SEPULVEDA Primary Care Unavailable PERKINS, MIRIAM Referring Unavailable PERKINS, MIRIAM Attending Unavailable GUMAOR SEPULVEDA WINJULI Primary Care Unavailable PERKINS, MIRIAM Referring Unavailable GUMARO SEPULVEDA Primary Care Unavailable NORMAN LEWIS, ALYSSA Perla Primary Care Physician [phone] VENKAT LUIS MD Attending UnavailALYSSA Howell MD Primary Care Unavailable VENKAT LUIS MD Attending UnavailALYSSA Howell MD Primary Care Unavailable Darwin Montemayor Attending Unavailable Gumaro Sepulveda Primary Care Unavailable Gumaro Sepulveda Referring Unavailable Miriam Perkins Attending Unavailable Gumaro Sepulveda Primary Care Unavailable Darwin Montemayor Attending Unavailable Darwin Montemayor Referring Unavailable Gumaro Sepulveda Primary Care Unavailable Dr. Gumaro Sepulveda DO Primary Care Provider Dr. Will Galarza DO Emergency Provider [phone] Khai LEWIS, Dr. Forte Admit Provider Khai LEWIS, Dr. Forte Attending Provider Medications Current Medications Medication Drug Class(es) Dates Sig (Normalized) Sig (Original) 0.8 ml adalimumab 50 mg/ml prefilled syringe (20 sources) Tumor Necrosis Factor Franco Start: 05-26-2018 inject 40 mg by subcutaneous injection every other week Adalimumab (Humira) 40 MG/0.8 ML syringe kit Active 40 mg SQ Q14D May 26, 2018 1:00am Comment on above: Inject 40 mg subcuta neously every 2 weeks. allopurinol 300 mg oral tablet (20 sources) Xanthine Oxidase Inhibitor Start: 05-26-2018 Allopurinol 300 MG tablet Active 300 mg PO .COMPLEX May 26, 2018 1:00am 300 mg orally; Comment on above: Take 300 mg by mouth once daily. aspirin 81 mg delayed release oral tablet (20 sources) Platelet Aggregation Inhibitor, Nonsteroidal Anti-inflammatory Drug Start: 05-26-2018 Aspirin 81 MG tablet Active 81 mg PO .COMPLEX May 26, 2018 1:00am 81 mg orally; take 1 tablet by mouth once doyle y aspirin 81 mg chewable tablet Indications: Anemia, unspecified type , Abdominal cramping Take 81 mg by mouth once daily. 0 Active Comment on above: Take 81 mg by mouth once daily. atorvastatin 80 mg oral tablet (1 source) HMG-CoA Reductase Inhibitor Start: 5 Atorvastatin (Lipitor) 80 mg tablet Active 80 mg PO .COMPLEX December 02, 2024 12:00am 80 mg orally; carvedilol 12.5 mg oral tablet (1 source) alpha-Adrenergic Franco, beta-Adrenergic Franco Start: 5 take 1 tablet by mouth at mealtime Carvedilol 12.5 mg tablet Active 12.5 mg PO .COMPLEX December 02, 2024 12:00am 12.5 mg orally; must administer with a meal/food enteric contrast (will be provided with radiology test) (3 sources) Start: 3 End: 3 enteric contrast (will be provided with radiology test) Indications: Malignant neoplasm of splenic flexure (HCC) , Elevated CEA For CT CHESTABD/PEL W IVCON Routine order Administer, As Directed One Time Only, via Oral, Rectal, both Oral and Rectal, Enteric Tube, Stoma or Indwelling Catheter, Enteric Contrast as designated per enteric contrast guidelines 1 Each 0 02/26/2023 02/27/2023 Active Start: 02-05-2023 End: 02-06-2023 enteric contrast (will be pr ovided with radiology test) Indications: Malignant neoplasm of splenic flexure (HCC) For CT CHESTABD/PEL W IVCON Routine order Administer, As Directed One Time Only, via Oral, Rectal, both Oral and Rectal, Enteric Tube, Stoma or Indwelling Catheter, Enteric Contrast as designated per enteric contrast guidelines 1 Each 0 02/05/2023 02/06/2023 Start: 05-21-2022 End: 05-22-2022 enteric contrast (will be pr ovided with radiology test) Indications: Malignant neoplasm of splenic flexure (HCC) For CT CHESTABD/PEL W IVCON Routine order Administer, As Directed One Time Only, via Oral, Rectal, both Oral and Rectal, Enteric Tube, Stoma or Indwelling Catheter, Enteric Contrast as designated per enteric contrast guidelines 1 Each 0 05/21/2022 05/22/2022 Comment on above: For CT CHESTABD/PEL W IVCON Routine order Administer, As Directed One Time Only, via Oral, Rectal, both Oral and Rectal, Enteric Tube, Stoma or Indwelling Catheter, Enteric Contrast as designated per enteric contrast guidelines glipiZIDE 5 mg oral tablet (20 sources) Sulfonylurea Start: 05-26-2018 Glipizide 5 MG tablet Active 5 mg PO .COMPLEX May 26, 2018 1:00am 5 mg orally; Comment on above: Take 5 mg by mouth t hree times daily. iv contrast (will be provided with radiology test) (3 sources) Start: 02-26-2023 End: 02-27-2023 iv contrast (will be provided with radiology test) Indications: Malignant neoplasm of splenic flexure (HCC) , Elevated CEA CT Chest ABD/PEL-Inject, intravenously, once for 1 [...] in the CT contrast administration guidelines link. 1 Each 0 02/26/2023 02/27/2023 Active Start: 02-05-2023 End: 02-06-2023 iv contrast (will be provide d with radiology test) Indications: Malignant neoplasm of splenic flexure (HCC) CT Chest ABD/PEL-Inject, intravenously, once for 1 [...] in the CT contrast administration guidelines link. 1 Each 0 02/05/2023 02/06/2023 Start: 05-21-2022 End: 05-22-2022 iv contrast (will be provide d with radiology test) Indications: Malignant neoplasm of splenic flexure (HCC) CT Chest ABD/PEL-Inject, intravenously, once for 1 [...] in the CT contrast administration guidelines link. 1 Each 0 05/21/2022 05/22/2022 Comment on above: CT Chest ABD/PEL-Inj ect, intravenously, once for 1 dose.No IV access, [...] in the CT contrast administration guidelines link. metFORMIN hydrochloride 1000 mg oral tablet (20 sources) Biguanide Start: 05-26-2018 Metformin 1,000 MG tablet Active 1000 mg PO .COMPLEX May 26, 2018 1:00am 1,000 mg orally; Comment on above: Take 1,000 mg by eusebia th twice daily with meals. naproxen sodium 220 mg oral capsule (1 source) Nonsteroidal Anti-inflammatory Drug Start: 12-02-2024 Naproxen Sodium (Aleve) 220 mg capsule Active 220 mg PO .COMPLEX December 02, 2024 12:00am 220 mg orally; [place]-3 Fatty Acids 1,000 mg capsule (1 source) Start: 12-02-2024 [place]-3 Fatty Acids 1,000 mg capsule Active 1000 mg PO .COMPLEX December 02, 2024 12:00am 1,000 mg orally; pioglitazone 30 mg oral tablet (1 source) Peroxisome Proliferator Receptor alpha Agonist, Peroxisome Proliferator Receptor gamma Agonist, Thiazolidinedione Start: 12-02-2024 Pioglitazone (Actos) 30 mg tablet Active 30 mg PO .COMPLEX December 02, 2024 12:00am 30 mg orally; predniSONE 10 mg oral tablet (1 source) Start: 12-02-2024 Prednisone 10 mg tablet Active 10 mg PO .COMPLEX December 02, 2024 12:00am 10 mg orally; SITagliptin 100 mg oral tablet (17 sources) Dipeptidyl Peptidase 4 Inhibitor Start: 12-02-2024 Sitagliptin Phosphate (Januvia) 100 mg tablet Active 100 mg PO .COMPLEX December 02, 2024 12:00am 100 mg orally; take 100 mg by mouth once daily sitagliptin phosphate (JANUVIA ORAL) Take 100 mg by mouth once daily. 0 Active Comment on above: Take 100 mg by mouth once daily. telmisartan 40 mg oral tablet (17 sources) Angiotensin 2 Receptor Franco Start: 12-02-2024 Telmisartan (Micardis) 40 mg tablet Active 40 mg PO .COMPLEX December 02, 2024 12:00am 40 mg orally; take 1 tablet by mouth once doyle y telmisartan (MICARDIS) 40 mg tablet Take 40 mg by mouth once daily. 0 Active Comment on above: Take 40 mg by mouth once daily. traMADol hydrochloride 50 mg oral tablet (1 source) Opioid Agonist Start: 12-02-2024 Tramadol 50 mg tablet Active 50 mg PO .COMPLEX December 02, 2024 12:00am 50 mg orally; Completed/Discontinued Medications Medication Drug Class(es) Dates Sig (Normalized) Sig (Original) acetaminophen 500 mg oral tablet (5 sources) Start: 06-13-2018 End: 12-02-2024 take 2 tablets by mouth every six hours Acetaminophen 500 MG tablet Discontinued 1000 mg PO EVERY 6 HOURS June 13, 2018 1:00am December 02, 2024 4:59pm Start: 06-13-2018 take 1000 mg by mout h every six hours Acetaminophen Active 1000 MG PO EVERY 6 HOURS June 13, 2018 1:00am atenolol 50 mg oral tablet (5 sources) beta-Adrenergic Franco Start: 05-26-2018 End: 12-02-2024 Atenolol 50 MG tablet Discontinued 25 mg PO AT BEDTIME May 26, 2018 1:00am December 02, 2024 5:00pm Start: 05-26-2018 take 25 mg by mouth at bedtime Atenolol Active 25 MG PO AT BEDTIME May 26, 2018 1:00am calcium carbonate 1250 mg or al tablet (5 sources) Start: 05-26-2018 End: 12-02-2024 Calcium Carbonate (Oyster Sh ell Calcium 500) 500 MG tablet Discontinued 500 mg PO DAILY@0800 May 26, 2018 1:00am December 02, 2024 5:00pm Natural Pain Med (5 sources) Start: 05-26-2018 End: 12-02-2024 Natural Pain Med Discontinue d 1 {tbl} PO DAILY May 26, 2018 1:00am December 02, 2024 5:00pm Start: 05-26-2018 take 1 tablet by mouth once da jordy Natural Pain Med Active 1 TABLET PO DAILY May 26, 2018 12:00am Start: 05-26-2018 take 1 tablet by mouth once da jordy Natural Pain Med Active 1 TABLET PO DAILY May 26, 2018 1:00am omeprazole 20 mg delayed release oral tablet (4 sources) Proton Pump Inhibitor End: 03-06-2022 take 1 tablet by mouth once daily Omeprazole Magnesium (PRILOSEC OTC) 20 mg tablet Take 20 mg by mouth once daily. 0 03/06/2022 Discontinued Comment on above: Take 20 mg by mouth once daily. polysaccharide iron complex 150 mg oral capsule (5 sources) Start: 05-26-2018 End: 12-02-2024 Polysaccharide Iron Complex (Ferrex 150) 150 MG capsule Discontinued 150 mg PO DAILY WITH MEALS May 26, 2018 1:00am December 02, 2024 5:00pm pravastatin sodium 40 mg oral tablet (20 sources) HMG-CoA Reductase Inhibitor Start: 05-26-2018 End: 12-02-2024 take 1 tablet by mouth at bedtime Pravastatin 40 MG tablet Discontinued 40 mg PO AT BEDTIME May 26, 2018 1:00am December 02, 2024 5:00pm Comment on above: Take 40 mg by mouth once daily. Problems Problem Classification Problem Date Documented Date Episodic/Chronic Acute and unspecified renal failure (2 sources) Acute renal failure syndrome; Translations: [Acute kidney failure, unspecified] 12-02-2024 Episodic Cancer of colon (20 sources) Malignant tumor of splenic flexure; Translations: [Malignant neoplasm of splenic flexure] Onset: 07-14-2018 07-14-2018 Chronic Cancer of colon (1 source) History of malignant neoplasm of colon; Translations: [Personal history of other malignant neoplasm of large intestine] Episodic Diabetes mellitus without complication (16 sources) Type 2 diabetes mellitus without complication; Translations: [Type 2 diabetes mellitus without complications] Onset: 07-01-2017 07-14-2018 Chronic Disorders of lipid metabolism (16 sources) Hyperlipidemia; Translations: [Hyperlipidemia, unspecified] Onset: 07-01-2017 07-14-2018 Chronic Essential hypertension (16 sources) Essential hypertension; Translations: [Essential (primary) hypertension] Onset: 06-17-2018 07-14-2018 Chronic Fluid and electrolyte disorders (4 sources) Hyponatremia; Translations: [Hypo-osmolality and hyponatremia] 12-02-2024 Episodic Osteoarthritis (16 sources) Primary gonarthrosis, bilateral; Translations: [Bilateral primary osteoarthritis of knee] Onset: 04-08-2018 07-14-2018 Chronic Other ear and sense organ disorders (5 sources) Impacted cerumen; Translations: [Impacted cerumen, bilateral] 06-12-2021 Episodic Other injuries and conditions due to external causes (1 source) Unspecified injury of thorax, initial encounter; Translations: [Unspecified injury of thorax, initial encounter] Onset: 07-23-2024 Episodic Other liver diseases (16 sources) Steatosis of liver; Translations: [Fatty (change of) liver, not elsewhere classified] Onset: 07-01-2017 07-14-2018 Chronic Other screening for suspected conditions (not mental disorders or infectious disease) (2 sources) High carcinoembryonic antigen level; Translations: [Elevated carcinoembryonic antigen [CEA]] Onset: 09-04-2023 02-26-2023 Episodic Rheumatoid arthritis and related disease (16 sources) Seronegative rheumatoid arthritis; Translations: [Rheumatoid arthritis without rheumatoid factor, unspecified site] Onset: 04-08-2018 07-14-2018 Chronic Superficial injury; contusion (1 source) Contusion of left front wall of thorax, initial encounter; Translations: [Contusion of rib on left side] 07-01-2024 Episodic Results Test Name Value Interpretation Reference Range Facility Absolute lymphocyte countOrd ered By: Will Galarza on 12-02-2024 Lymphocytes Auto (Unsp spec) [#/Vol] 3.53 10*3/uL 0.83-4.51 [facility] Absolute neutrophil countOrd ered By: Will Galarza on 12-02-2024 Neutrophils (Bld) [#/Vol] 7.4 10*3/uL 2.0-7.7 [facility] Anion gap in Serum or Plasma Ordered By: Will Galarza on 12-02-2024 Anion gap [Moles/Vol] 16 mmol/L High 5-15 [facility] Automated lymphocyte count a s percentage of total leukocytesOrdered By: Will Galarza on 12-02-2024 Lymphocytes/100 WBC Auto (Unsp spec) 26.9 % 19-41 [facility] BUN/creatinine ratioOrdered By: Will Galarza on 12-02-2024 Urea nitrogen/Creatinine [Mass ratio] 22.8 mg/mg High 10-20 [facility] Basophil percentageOrdered B y: Will Galarza on 12-02-2024 Basophils/100 WBC (Bld) 0.5 % 0-1 [facility] Bilirubin Test strip Ql (U)O rdered By: Reanna Ridley on 12-02-2024 Bilirubin Ql (U) Negative Negative [facility] Carbon dioxide, total [Moles /volume] in Central venous bloodOrdered By: Will Galarza on 12-02-2024 CO2 [Moles/Vol] 18.5 mmol/L Low 21.0-32.0 [facility] Chloride assayOrdered By: Hermilo Galarza on 12-02-2024 Chloride [Moles/Vol] 92 mmol/L Low 98-108 [facility] Eosinophil percentageOrdered By: Will Galarza on 12-02-2024 Eosinophils/100 WBC (Bld) 7.1 % High 0-5 [facility] Erythrocyte distribution wid th ratioOrdered By: Will Galarza on 12-02-2024 Erythrocyte distribution width (RBC) [Ratio] 14.2 % 11.6-14.6 [facility] Erythrocyte distribution wid th standard deviationOrdered By: Will Galarza on 12-02-2024 Erythrocyte distribution width (RBC) [Ratio] 48.1 fl High 35.1-43.9 [facility] Glomerular filtration rate ( GFR) estimation/1.73 sq m using serum, plasma, or whole bOrdered By: Will Galarza on 12-02-2024 GFR/1.73 sq M.predicted among non-blacks MDRD (S/P/Bld) [Vol rate/Area] 13 mL/min/{1.73_m2} Low >60 [facility] Comment on above: mL/min/1.73m2 CKD-EP I Creatinine Equation (2020) [facility] deOrdered By: Will Galarza on 12-02-2024 Glucose [Mass/Vol] 100 mg/dL 74-106 [facility] Comment on above: MANAGEMENT OF PATIEN T CARE PER NURSING PROTOCOL Hematocrit Auto (Bld) [Volum e fraction]Ordered By: Will Galarza on 12-02-2024 Hematocrit (Bld) [Volume fraction] 34.3 % Low 40-54 [facility] Hemoglobin measurementOrdere d By: Will Galarza on 12-02-2024 Hemoglobin (Bld) [Mass/Vol] 11.7 g/dL Low 13.0-16.5 [facility] Immature granulocytes/100 WB C Auto (Bld)Ordered By: Will Galarza on 12-02-2024 Immature granulocytes/100 WBC (Bld) 0.700 % 0.0-0.9 [facility] Comment on above: IG% - Immature Granu locytes (promyelocytes, myelocytes and metamyelocytes) > 1% indicates that a LEFT SHIFT is Present. Ketones Test strip Ql (U)Ord ered By: Reanna Ridley on 12-02-2024 Ketones Ql (U) Negative Negative [facility] MCV (mean corpuscular volume ) determinationOrdered By: Will Galarza on 12-02-2024 MCV (RBC) [Entitic vol] 92.2 fL 80-94 [facility] Mean corpuscular hemoglobin (MCH) determinationOrdered By: Will Galarza on 12-02-2024 MCH (RBC) [Entitic mass] 31.5 pg 27.0-32.0 [facility] Mean corpuscular hemoglobin concentration (MCHC) determinationOrdered By: Will Galarza on 12-02-2024 MCHC (RBC) [Mass/Vol] 34.1 g/dL 32-36 [facility] Mean platelet volume determi nationOrdered By: Will Galarza on 12-02-2024 Platelet mean volume (Bld) [Entitic vol] 10.9 fL 6.2-12.0 [facility] Monocyte percentageOrdered B y: Will Galarza on 12-02-2024 Monocytes/100 WBC (Bld) 8.5 % 0-10 [facility] Neutrophil percentageOrdered By: Will Galarza on 12-02-2024 Neutrophils/100 WBC (Bld) 56.3 % 47-70 [facility] Nitrite Test strip Ql (U)Ord ered By: Reanna Ridley on 12-02-2024 Nitrite Ql (U) Negative Negative [facility] Nucleated red blood cell per centageOrdered By: Will Galarza on 12-02-2024 Nucleated RBC/100 WBC (Bld) [Ratio] 0 % 0-5 [facility] Platelet countOrdered By: Hermilo Galarza on 12-02-2024 Platelets (Bld) [#/Vol] 215 10*3/uL 150-450 [facility] Potassium measurement (mass/ volume)Ordered By: Will Galarza on 12-02-2024 Potassium (Unsp spec) [Mass/Vol] 6.6 mmol/L High 3.3-5.1 [facility] Comment on above: Critical Result(s) C alled DTENNANT at: 1554 by: HINA Results read back by same. Protein Test strip Ql (U)Ord ered By: Reanna Ridley on 12-02-2024 Protein Ql (U) 30 mg/dl High Negative [facility] RBC Auto (Bld) [#/Vol]Ordere d By: Will Galarza on 12-02-2024 RBC (Bld) [#/Vol] 3.72 10*6/uL Low 4.6-6.2 [facility] Random urine creatinine anika urement (mass/volume)Ordered By: Reanna Ridley on 12-02-2024 Creatinine Unsp time (U) [Mass/Vol] 68.90 mg/dL 39.00-259. 00 [facility] Serum creatinine measurement (mass/volume)Ordered By: Will Galarza on 12-02-2024 Creatinine [Mass/Vol] 4.61 mg/dL High 0.70-1.20 [facility] Serum glucose measurement (m ass/volume)Ordered By: Will Galarza on 12-02-2024 Glucose [Mass/Vol] 154 mg/dL High 70-99 [facility] Serum or plasma calcium anika urement (mass/volume)Ordered By: Will Galarza on 12-02-2024 Calcium [Mass/Vol] 9.0 mg/dL 7.6-11.0 [facility] Serum or plasma urea nitroge n measurement (mass/volume)Ordered By: Will Galarza on 12-02-2024 Urea nitrogen [Mass/Vol] 105 mg/dL High 4-19 [facility] Comment on above: Critical Result(s) C alled DTENNANT at: 1554 by: HINA Results read back by same. Sodium levelOrdered By: Sally Galarza on 12-02-2024 Sodium [Moles/Vol] 127 mmol/L Low 133-145 [facility] Troponin T.cardiac [Mass/vol ume] in Serum or Plasma by High sensitivity methodOrdered By: Will Galarza on 12-02-2024 Troponin T.cardiac High sensitivity method [Mass/Vol] 22 ng/L <22 [facility] Troponin T.cardiac High sensitivity method [Mass/Vol] 25 ng/L High <22 [facility] Urine clarityOrdered By: Sonu Ridley on 12-02-2024 Clarity (U) Clear Clear [facility] Urine color determinationOrd ered By: Reanna Ridley on 12-02-2024 Color (U) Straw Yellow [facility] Urine glucose detectionOrder ed By: Reanna Ridley on 12-02-2024 Glucose Ql (U) Normal mg/dl Normal [facility] Urine leukocyte esterase det ection by dipstickOrdered By: Reanna Ridley on 12-02-2024 Leukocyte esterase Test strip Ql (U) Negative Negative [facility] Urine pHOrdered By: Reanna perez on 12-02-2024 pH (U) 5.0 [pH] 5.0 - 8.0 [facility] Urine potassium measurement (moles/volume)Ordered By: Reanna Ridley on 12-02-2024 Potassium (U) [Moles/Vol] 37.4 mmol/L Not Establ. [facility] Urine sodium measurement (mo les/volume)Ordered By: Reanna Ridley on 12-02-2024 Sodium (U) [Moles/Vol] 40 mmol/L Not Establ. [facility] Urine specific gravity measu rementOrdered By: Reanna Ridley on 12-02-2024 Specific gravity (U) [Rel density] 1.015 1.002-1.03 0 [facility] Urine urobilinogen measureme ntOrdered By: Reanna Ridley on 12-02-2024 Urobilinogen Ql (U) Normal mg/dl Normal [facility] White blood cell (WBC) count Ordered By: Will Galarza on 12-02-2024 WBC (Bld) [#/Vol] 13.1 10*3/uL High 4.4-11.0 [facility] Ribs Unil 2V No CXRon 2024 Ribs Unil 2V No CXR [facility] [address] [place], [place] [address] Ribs Unil 2V No CXR MR#: [id number] Acct: [id number] Name: MAINOR MENDEZ Rep #: [id number] : 1955 M 68 From: Tereso luo MD PCP: Dr. Gumaro Sepulveda, DO Status: REG CLI Study: Ribs Unil 2V No CXR Date of Exam: 07/01/24 Exam# [id number] Ordering Dr: Darwin Lockwood [id number] STUDY: X-RAY - UNILATERAL RIBS ( LEFT ) REASON FOR EXAM: Male, 68 years old. Rib injury TECHNIQUE: 4 view(s) of the ribs. COMPARISON: None. FINDINGS: Normal visualized ribs without a demonstrated fracture. The visualized lung is clear and expanded. RAD/Ribs Unil 2V No CXR IMPRESSION: Normal x-ray examination of the ribs. Electronically Signed: Tereso Reynoso MD at 11:13 EST Reading Location ID and State: [facility] / [place] , Service support , CC: GAETANO Alford; Dr. Gumaro Sepulveda DO Dog Daycare Provider: Signed Normal [facility] Urgent Care Visit Reporton 0 07-01-2024 Urgent Care Visit Report [facility] [address], [address] [place] [address] OFFICE VISIT Date of Service: 07/01/24 MR#: [id number] Acct: [id number] Name: MAINOR MENDEZ Rep #: [id number] : 1955 Provider: GAETANO Alford Age/Sex: 68/M Location: [facility] Status: Signed Intake Vital Signs 06/12/21 08:37 07/01/24 09:19 Height 5 ft 11.5 in 5 ft 11.5 in Weight: 240 lb BMI 33.0 BP 154/60 H Blood Pressure Location Rt brachial Position Sitting Respiration 15 Pulse 59 L Pulse Source NIBP Temp 97.6 F L Temp Source Oral Pulse Oximetry (%) 96 Oxygen Delivery Method room air Intake Visit Reasons: L SIDE RIB PAIN FROM FALL Chief Complaint: left rib pain Appointment Clerk Required: No Is patient in pain?: Yes Allergies No Known Allergies Allergy (Verified 07/01/24 10:44) Have you fallen in the past year?: Yes Nurse's Note: fall 4 days ago on ice, landed on his back. has had left rib pain ever since, significantly worse since last noc. denies SOB, CP. pt has been working and lifting very heavy items frequently since fall. [facility] Social History Smoking Status: Never smoker HPI HPI Chief Complaint: left rib pain Details: MAINOR MENDEZ, is a 68 M who presents to the office today for complaint of left rib pain. Patient states he fell 4 days ago and has had worsening pain particularly last night. Patient denies shortness of breath, difficulty breathing or other chest pain. No other associated symptoms or alleviating/aggravating factors. ROS Const Constitutional: No other (6 system ROS completed with pertinent findings in the HPI otherwise normal.) Exam Const General: cooperative and well developed Chest Other: Reproducible pain left anterior chest with no crepitus. Resp Effort Inspection: normal respiratory effort and no audible wheezes Auscultation: Bilateral: Clear to Auscultation Cardio Rate: regular rate Rhythm: regular rhythm Neuro General: patient alert Psych Appearance: grossly normal Mental Status: mental status grossly normal Coding Level of Care Code Off vis,est,level 4 Diagnoses Contusion of rib on left side S20.212A Assessment and Plan Assessment and Plan (1) Contusion of rib on left side: Status: Acute Orders: Orders Ribs Unil 2V No CXR Today S29.9XXA - Unspecified injury of thorax, initial encounter Plan 2 view x-ray of the ribs read and interpreted by myself find no acute osseous abnormalities, awaiting radiology interpretation at time of patient discharge. Patient advised to use rest, ice morning with heat to the area. Advised to use ibuprofen or Tylenol as needed for pain unless contraindicated. Patient verbalized understanding and agreement with all the above. Clinical Quality Measures Falls Risk Screening/Assistive Devices Have you fallen in the past year?: Yes 07/01/24 4789 Date Darwin Tidwell Signature: Date (if applicable) CC: Normal [facility] .Auto Diffon 01-12-2024 Basophil, Absolute 0.1 10 3/mcL Normal 0.0-0.2 [facility] ([place]) Comment on above: Performed By: #### I BC, GFR, CBC, ADIFF, ANEU, FERR, FE, RFP #### [address] [address] #### PTH #### [address] [address] Basophils/100 WBC (Bld) 0.7 % Normal 0.0-2.5 [facility] ([place]) Comment on above: Performed By: #### I BC, GFR, CBC, ADIFF, ANEU, FERR, FE, RFP #### [address] [address] #### PTH #### [address] [address] Eosinophil, Absolute 0.4 10 3/mcL Normal 0.0-0.4 [facility] ([place]) Comment on above: Performed By: #### I BC, GFR, CBC, ADIFF, ANEU, FERR, FE, RFP #### [address] [address] #### PTH #### [address] [address] Eosinophils/100 WBC (Bld) 3.2 % Normal 0.0-7.0 [facility] ([place]) Comment on above: Performed By: #### I BC, GFR, CBC, ADIFF, ANEU, FERR, FE, RFP #### [address] [address] #### PTH #### [address] [address] Lymphocyte, Absolute 3.7 10 3/mcL Normal 0.8-3.9 [facility] ([place]) Comment on above: Performed By: #### I BC, GFR, CBC, ADIFF, ANEU, FERR, FE, RFP #### [address] [address] #### PTH #### [address] [address] Lymphocytes/100 WBC (Bld) 32.7 % Normal 10.0-50.0 [facility] ([place]) Comment on above: Performed By: #### I BC, GFR, CBC, ADIFF, ANEU, FERR, FE, RFP #### [address] [address] #### PTH #### [address] [address] Monocyte, Absolute 1.0 10 3/mcL Normal 0.2-1.0 [facility] ([place]) Comment on above: Performed By: #### I BC, GFR, CBC, ADIFF, ANEU, FERR, FE, RFP #### [address] [address] #### PTH #### [address] [address] Monocytes/100 WBC (Bld) 8.8 % Normal 1.7-13.0 [facility] ([place]) Comment on above: Performed By: #### I BC, GFR, CBC, ADIFF, ANEU, FERR, FE, RFP #### [address] [address] #### PTH #### [address] [address] Neutrophils/100 WBC (Bld) 54.6 % Normal 37.0-80.0 [facility] ([place]) Comment on above: Performed By: #### I BC, GFR, CBC, ADIFF, ANEU, FERR, FE, RFP #### [address] [address] #### PTH #### [address] [address] .GFRon 01-12-2024 GFR 43 ml/min/1.73sqm Normal [facility] ([place]) Comment on above: Result Comment: GFR Population mean for , Non- Americans Ages 20-29 = 116 mL/min/1.73 sq.m. Ages 30-39 = 107 mL/min/1.73 sq.m. Ages 40-49 = 99 mL/min/1.73 sq.m. Ages 50-59 = 93 mL/min/1.73 sq.m. Ages 60-69 = 85 mL/min/1.73 sq.m. Ages 70+ = 75 mL/min/1.73 sq.m. Chronic Kidney Disease: Less than 60 mL/min/1.73 square meters End Stage Renal Disease: Less than 15 mL/min/1.73 square meters Performed By: #### I BC, GFR, CBC, ADIFF, ANEU, FERR, FE, RFP #### [place] [address] #### PTH #### [address] [address] GFR Non- 36 ml/min/1.73sqm Normal [facility] ([place]) Comment on above: Result Comment: GFR Population mean for , Non- Americans Ages 20-29 = 116 mL/min/1.73 sq.m. Ages 30-39 = 107 mL/min/1.73 sq.m. Ages 40-49 = 99 mL/min/1.73 sq.m. Ages 50-59 = 93 mL/min/1.73 sq.m. Ages 60-69 = 85 mL/min/1.73 sq.m. Ages 70+ = 75 mL/min/1.73 sq.m. Chronic Kidney Disease: Less than 60 mL/min/1.73 square meters End Stage Renal Disease: Less than 15 mL/min/1.73 square meters Performed By: #### I BC, GFR, CBC, ADIFF, ANEU, FERR, FE, RFP #### [place] [address] #### PTH #### [address] [address] .NEUABSon 01-12-2024 Neutrophil, Absolute 6.2 10 3/mcL Normal 2.9-6.2 [facility] ([place]) Comment on above: Performed By: #### I BC, GFR, CBC, ADIFF, ANEU, FERR, FE, RFP #### [place] [address] #### PTH #### [address] [address] .Urinalysis Microscopic (AO) on 01-12-2024 UA RBC 0-5 Abnormal None Seen [facility] ([place]) Comment on above: Performed By: #### I BC, GFR, CBC, ADIFF, ANEU, FERR, FE, RFP #### [place] [address] #### PTH #### [place] [address] UA Squam Epithelial None Seen Normal None Seen [facility] ([place]) Comment on above: Performed By: #### I BC, GFR, CBC, ADIFF, ANEU, FERR, FE, RFP #### [place] [address] #### PTH #### [place] [address] UA WBC 0-5 Abnormal None Seen [facility] ([place]) Comment on above: Performed By: #### I BC, GFR, CBC, ADIFF, ANEU, FERR, FE, RFP #### [place] [address] #### PTH #### [place] [address] CBCon 01-12-2024 Erythrocyte distribution width (RBC) [Ratio] 14.9 % High 11.5-14.5 [facility] ([place]) Comment on above: Performed By: #### I BC, GFR, CBC, ADIFF, ANEU, FERR, FE, RFP #### [place] [address] #### PTH #### [place] [address] Hematocrit (Bld) [Volume fraction] 34.0 % Low 42.0-52.0 [facility] ([place]) Comment on above: Performed By: #### I BC, GFR, CBC, ADIFF, ANEU, FERR, FE, RFP #### [place] [address] #### PTH #### [place] [address] Hgb 11.2 G/dL Low 14.0-18.0 [facility] ([place]) Comment on above: Performed By: #### I BC, GFR, CBC, ADIFF, ANEU, FERR, FE, RFP #### [place] [address] #### PTH #### [address] [address] MCH (RBC) [Entitic mass] 31.2 pg Normal 27.0-31.2 [facility] ([place]) Comment on above: Performed By: #### I BC, GFR, CBC, ADIFF, ANEU, FERR, FE, RFP #### [place] [address] #### PTH #### [place] [address] MCHC 33.1 G/dL Normal 31.8-35.4 [facility] ([place]) Comment on above: Performed By: #### I BC, GFR, CBC, ADIFF, ANEU, FERR, FE, RFP #### [place] [address] #### PTH #### [place] [address] MCV (RBC) [Entitic vol] 94.2 fL High 80.0-94.0 [facility] ([place]) Comment on above: Performed By: #### I BC, GFR, CBC, ADIFF, ANEU, FERR, FE, RFP #### [place] [address] #### PTH #### [place] [address] Platelet 268 10 3/mcL Normal 130-400 [facility] ([place]) Comment on above: Performed By: #### I BC, GFR, CBC, ADIFF, ANEU, FERR, FE, RFP #### [place] [address] #### PTH #### [place] [address] Platelet mean volume (Bld) [Entitic vol] 8.1 fL Normal 7.4-10.4 [facility] ([place]) Comment on above: Performed By: #### I BC, GFR, CBC, ADIFF, ANEU, FERR, FE, RFP #### [place] [address] #### PTH #### [place] [address] RBC 3.61 10 6/mcL Low 4.04-6.13 [facility] ([place]) Comment on above: Performed By: #### I BC, GFR, CBC, ADIFF, ANEU, FERR, FE, RFP #### [place] [address] #### PTH #### [place] [address] WBC 11.4 10 3/mcL High 4.6-10.8 [facility] ([place]) Comment on above: Performed By: #### I BC, GFR, CBC, ADIFF, ANEU, FERR, FE, RFP #### [place] [address] #### PTH #### [place] [address] FEon 01-12-2024 Iron [Mass/Vol] 60 ug/dL Low 65-175 [facility] ([place]) Comment on above: Performed By: #### I BC, GFR, CBC, ADIFF, ANEU, FERR, FE, RFP #### [place] [address] #### PTH #### [place] [address] Mazin 01-12-2024 Ferritin [Mass/Vol] 331.0 ng/mL Normal 26.0-388.0 [facility] ([place]) Comment on above: Performed By: #### I BC, GFR, CBC, ADIFF, ANEU, FERR, FE, RFP #### [place] [address] #### PTH #### [place] [address] IBCon 01-12-2024 TIBC 325 mcg/dL Normal 250-450 [facility] ([place]) Comment on above: Performed By: #### I BC, GFR, CBC, ADIFF, ANEU, FERR, FE, RFP #### Raffy [address] [place], [place] [address] #### PTH #### [address] [address] LABORATORYOrdered By: Librado parikh on 01-12-2024 Appearance (U) Clear (01/12/24 10:31 AM) Normal Clear AO Auto Urine SS Bilirubin Ql (U) Negative (01/12/24 10:31 AM) Normal Negative AO Auto Urine SS Color (U) Yellow (01/12/24 10:31 AM) Normal AO Auto Urine SS Glucose Test strip (U) [Mass/Vol] Negative Normal Negative AO Auto Urine SS Hemoglobin Auto test strip (U) [Mass/Vol] Negative (01/12/24 10:31 AM) Normal Negative AO Auto Urine SS Ketones Ql (U) Negative Normal Negative AO Auto Urine SS UA Leuk Est Negative (01/12/24 10:31 AM) Normal Negative AO Auto Urine SS UA Nitrite Negative (01/12/24 10:31 AM) Normal Negative AO Auto Urine SS UA pH 7.0 (01/12/24 10:31 AM) Normal 5.0 - 8.0 AO Auto Urine SS UA Protein 100 mg/dL Invalid Interpretation Code Negative AO Auto Urine SS UA RBC 0-5 /HPF Invalid Interpretation Code None Seen AO Auto Urine SS UA Spec Grav 1.020 (01/12/24 10:31 AM) Normal 1.015-1.02 5 AO Auto Urine SS UA Specimen Type Clean Catch (01/12/24 10:31 AM) Normal AO Auto Urine SS UA Squam Epithelial None Seen /HPF Normal None Seen A O Auto Urine SS UA Urobilinogen 0.2 E.U./dL Normal 0.2-1.0 AO Auto Urine SS WBC LM.HPF (Urine sed) [#/Area] 0-5 /HPF Invalid Interpretation Code None Seen AO Auto Urine SS LABORATORYOrdered By: Radha Liu on 01-12-2024 Creatinine (U) [Mass/Vol] 71.2 mg/dL Normal 39.0 - 259.0 mg/dL AO ADM SS Protein (U) [Mass/Vol] 88 mg/dL High 0 - 1 1 mg/dL AO ADM SS U Ratio Prot/Creat 1.2 ratio Invalid Interpretation Code AO ADM SS LABORATORYOrdered By: SYSTEM SYSTEM on 01-12-2024 Albumin BCP dye [Mass/Vol] 3.2 G/dL Low 3.4 - 4.8 G/dL AO ADM SS Basophil, Absolute 0.1 103/mcL Normal 0.0 - 0.2 10^3/mcL AO Workflow SS Basophils/100 WBC (Bld) 0.7 % Normal 0.0 - 2.5 % AO Workflow SS Calcium [Mass/Vol] 9.3 mg/dL Normal 8.4 - 10. 2 mg/dL AO ADM SS Chloride [Moles/Vol] 100 mmol/L Normal 98 - 10 7 mmol/L AO ADM SS CO2 [Moles/Vol] 24 mmol/L Normal 23 - 31 mmol/L AO ADM SS Creatinine [Mass/Vol] 1.89 mg/dL High 0.70 - 1.30 mg/dL AO ADM SS Electrolyte Balance 11.0 mEq/L Normal 4.0 - 15 .0 mEq/L AO ADM SS Eosinophil, Absolute 0.4 103/mcL Normal 0.0 - 0 .4 10^3/mcL AO Workflow SS Eosinophils/100 WBC (Bld) 3.2 % Normal 0.0 - 7.0 % AO Workflow SS Erythrocyte distribution width (RBC) [Ratio] 14.9 % High 11.5 - 14.5 % AO Workflow SS Ferritin [Mass/Vol] 331.0 ng/mL Normal 26.0 - 388.0 ng/mL AO ADM SS GFR/1.73 sq M.predicted among blacks MDRD (S/P/Bld) [Vol rate/Area] 43 ml/min/1.73sqm Invalid Interpretation Code AO Chemistry S Comment on above: Interpretive Data: GFR Population mean for , Non- Americans Ages 20-29 = 116 mL/min/1.73 sq.m. Ages 30-39 = 107 mL/min/1.73 sq.m. Ages 40-49 = 99 mL/min/1.73 sq.m. Ages 50-59 = 93 mL/min/1.73 sq.m. Ages 60-69 = 85 mL/min/1.73 sq.m. Ages 70+ = 75 mL/min/1.73 sq.m. Chronic Kidney Disease: Less than 60 mL/min/1.73 square meters End Stage Renal Disease: Less than 15 mL/min/1.73 square meters GFR/1.73 sq M.predicted among non-blacks MDRD (S/P/Bld) [Vol rate/Area] 36 ml/min/1.73sqm Invalid Interpretation Code AO Chemistry S Comment on above: Interpretive Data: GFR Population mean for , Non- Americans Ages 20-29 = 116 mL/min/1.73 sq.m. Ages 30-39 = 107 mL/min/1.73 sq.m. Ages 40-49 = 99 mL/min/1.73 sq.m. Ages 50-59 = 93 mL/min/1.73 sq.m. Ages 60-69 = 85 mL/min/1.73 sq.m. Ages 70+ = 75 mL/min/1.73 sq.m. Chronic Kidney Disease: Less than 60 mL/min/1.73 square meters End Stage Renal Disease: Less than 15 mL/min/1.73 square meters Glucose [Mass/Vol] 199 mg/dL High 80 - 115 mg/dL AO ADM SS Hematocrit (Bld) [Volume fraction] 34.0 % Low 42.0 - 52.0 % AO Workflow SS Hemoglobin (Bld) [Mass/Vol] 11.2 G/dL Low 14.0 - 18.0 G/dL AO Workflow SS Iron [Mass/Vol] 60 ug/dL Low 65 - 175 mcg/dL AO ADM SS Iron binding capacity [Mass/Vol] 325 mcg/dL Normal 250 - 450 mcg/dL AO ADM SS Lymphocyte, Absolute 3.7 103/mcL Normal 0.8 - 3 .9 10^3/mcL AO Workflow SS Lymphocytes/100 WBC (Bld) 32.7 % Normal 10.0 - 50.0 % AO Workflow SS MCH (RBC) [Entitic mass] 31.2 pg Normal 27.0 - 31.2 pg AO Workflow SS MCHC 33.1 G/dL Normal 31.8 - 35.4 G/dL AO Workflow SS MCV (RBC) [Entitic vol] 94.2 fL High 80.0 - 94.0 fL AO Workflow SS Monocyte, Absolute 1.0 103/mcL Normal 0.2 - 1.0 10^3/mcL AO Workflow SS Monocytes/100 WBC (Bld) 8.8 % Normal 1.7 - 13.0 % AO Workflow SS Neutrophil, Absolute 6.2 103/mcL Normal 2.9 - 6 .2 10^3/mcL AO Workflow SS Neutrophils/100 WBC (Bld) 54.6 % Normal 37.0 - 80.0 % AO Workflow SS Parathyrin.intact [Mass/Vol] 60.7 pg/mL Normal 18.5 - 88.0 pg/mL AH ADM SS Phosphate [Mass/Vol] 2.9 mg/dL Normal 2.3 - 4 .1 mg/dL AO ADM SS Platelet mean volume (Bld) [Entitic vol] 8.1 fL Normal 7.4 - 10.4 fL AO Workflow SS Platelets (Bld) [#/Vol] 268 103/mcL Normal 130 - 400 10^3/mcL AO Workflow SS Potassium [Moles/Vol] 5.9 mmol/L High 3.5 - 5.1 mmol/L AO ADM SS RBC (Bld) [#/Vol] 3.61 106/mcL Low 4.04 - 6.13 10^6/mcL AO Workflow SS Sodium [Moles/Vol] 135 mmol/L Low 136 - 145 mmol/L AO ADM SS Urea nitrogen [Mass/Vol] 46 mg/dL High 7 - 18 mg/dL AO ADM SS Urea nitrogen/Creatinine [Mass ratio] 24 ratio Normal 7 - 27 ratio AO ADM SS WBC (Bld) [#/Vol] 11.4 103/mcL High 4.6 - 10.8 10^3/mcL AO Workflow SS PTHon 01-12-2024 PTH, Intact 60.7 pg/mL Normal 18.5-88.0 [facility] ([place]) Comment on above: Performed By: #### I BC, GFR, CBC, ADIFF, ANEU, FERR, FE, RFP #### [address] [address] #### PTH #### [address] [address] RFPon 01-12-2024 Albumin Level 3.2 G/dL Low 3.4-4.8 [facility] ([place]) Comment on above: Performed By: #### I BC, GFR, CBC, ADIFF, ANEU, FERR, FE, RFP #### [address] [address] #### PTH #### [address] [address] BUN/Creatinine Ratio 24 ratio Normal 7-27 [facility] ([place]) Comment on above: Performed By: #### I BC, GFR, CBC, ADIFF, ANEU, FERR, FE, RFP #### [address] [address] #### PTH #### [address] [address] Calcium [Mass/Vol] 9.3 mg/dL Normal 8.4-10.2 [facility] ([place]) Comment on above: Performed By: #### I BC, GFR, CBC, ADIFF, ANEU, FERR, FE, RFP #### [place] [address] #### PTH #### [place] [address] Chloride [Moles/Vol] 100 mmol/L Normal 98-107 [facility] ([place]) Comment on above: Performed By: #### I BC, GFR, CBC, ADIFF, ANEU, FERR, FE, RFP #### [address] [address] #### PTH #### [address] [address] CO2 [Moles/Vol] 24 mmol/L Normal 23-31 [facility] ([place]) Comment on above: Performed By: #### I BC, GFR, CBC, ADIFF, ANEU, FERR, FE, RFP #### [address] [address] #### PTH #### [address] [address] Creatinine [Mass/Vol] 1.89 mg/dL High 0.70-1.30 [facility] ([place]) Comment on above: Performed By: #### I BC, GFR, CBC, ADIFF, ANEU, FERR, FE, RFP #### [address] [address] #### PTH #### [address] [address] Electrolyte Balance 11.0 mEq/L Normal 4.0-15.0 [facility] ([place]) Comment on above: Performed By: #### I BC, GFR, CBC, ADIFF, ANEU, FERR, FE, RFP #### [place] [address] #### PTH #### [address] [address] Glucose [Mass/Vol] 199 mg/dL High 80-115 [facility] ([place]) Comment on above: Performed By: #### I BC, GFR, CBC, ADIFF, ANEU, FERR, FE, RFP #### [place] [address] #### PTH #### [address] [address] Phosphate [Mass/Vol] 2.9 mg/dL Normal 2.3-4.1 [facility] ([place]) Comment on above: Performed By: #### I BC, GFR, CBC, ADIFF, ANEU, FERR, FE, RFP #### [place] [address] #### PTH #### [address] [address] Potassium [Moles/Vol] 5.9 mmol/L High 3.5-5.1 [facility] ([place]) Comment on above: Performed By: #### I BC, GFR, CBC, ADIFF, ANEU, FERR, FE, RFP #### [place] [address] #### PTH #### [address] [address] Sodium [Moles/Vol] 135 mmol/L Low 136-145 [facility] ([place]) Comment on above: Performed By: #### I BC, GFR, CBC, ADIFF, ANEU, FERR, FE, RFP #### [address] [address] #### PTH #### [address] [address] Urea nitrogen [Mass/Vol] 46 mg/dL High 7-18 [facility] ([place]) Comment on above: Performed By: #### I BC, GFR, CBC, ADIFF, ANEU, FERR, FE, RFP #### [address] [address] #### PTH #### [address] [address] RPCURon 01-12-2024 U Creatinine 71.2 mg/dL Normal 39.0-259.0 [facility] ([place]) Comment on above: Performed By: #### R PCUR, UA, UAMICAO #### [address] [address] U Protein 88 mg/dL High 0-11 [facility] ([place]) Comment on above: Performed By: #### R PCUR, UA, UAMICAO #### [address] [address] U Ratio Prot/Creat 1.2 ratio Normal [facility] ([place]) Comment on above: Result Comment: resu lt calculated by rule GL_UR_PROT_NOTCALC_OLD (U Protein/U Creatinine) Performed By: #### R PCUR, UA, UAMICAO #### [address] [address] UAon 01-12-2024 Color (U) Yellow Normal [facility] ([place]) Comment on above: Performed By: #### I BC, GFR, CBC, ADIFF, ANEU, FERR, FE, RFP #### [address] [address] #### PTH #### [address] [address] Glucose (U) [Mass/Vol] Negative Normal Negative [facility] ([place]) Comment on above: Performed By: #### I BC, GFR, CBC, ADIFF, ANEU, FERR, FE, RFP #### [address] [address] #### PTH #### [address] [address] Ketones Ql (U) Negative Normal Negative [facility] ([place]) Comment on above: Performed By: #### I BC, GFR, CBC, ADIFF, ANEU, FERR, FE, RFP #### [address] [address] #### PTH #### [place] [address] UA Appear Clear Normal Clear [facility] ([place]) Comment on above: Performed By: #### I BC, GFR, CBC, ADIFF, ANEU, FERR, FE, RFP #### [address] [address] #### PTH #### [place] [address] UA Blood Negative Normal Negative [facility] ([place]) Comment on above: Performed By: #### I BC, GFR, CBC, ADIFF, ANEU, FERR, FE, RFP #### [address] [address] #### PTH #### [place] [address] UA Leuk Est Negative Normal Negative [facility] ([place]) Comment on above: Performed By: #### I BC, GFR, CBC, ADIFF, ANEU, FERR, FE, RFP #### [address] [address] #### PTH #### [place] [address] UA Nitrite Negative Normal Negative [facility] ([place]) Comment on above: Performed By: #### I BC, GFR, CBC, ADIFF, ANEU, FERR, FE, RFP #### [place] [address] #### PTH #### [place] [address] UA pH 7.0 Normal 5.0 - 8.0 [facility] ([place]) Comment on above: Performed By: #### I BC, GFR, CBC, ADIFF, ANEU, FERR, FE, RFP #### [place] [address] #### PTH #### [place] [address] UA Protein 100 mg/dL Abnormal Negative [facility] ([place]) Comment on above: Performed By: #### I BC, GFR, CBC, ADIFF, ANEU, FERR, FE, RFP #### [place] [address] #### PTH #### [place] [address] UA Spec Grav 1.020 Normal 1.015-1.02 5 [facility] ([place]) Comment on above: Performed By: #### I BC, GFR, CBC, ADIFF, ANEU, FERR, FE, RFP #### [place] [address] #### PTH #### [place] [address] UA Specimen Type Clean Catch Normal [facility] ([place]) Comment on above: Performed By: #### I BC, GFR, CBC, ADIFF, ANEU, FERR, FE, RFP #### [place] [address] #### PTH #### [place] [address] UA Urobilinogen 0.2 E.U./dL Normal 0.2-1.0 [facility] ([place]) Comment on above: Performed By: #### I BC, GFR, CBC, ADIFF, ANEU, FERR, FE, RFP #### [place] [address] #### PTH #### [place] [address] Urobilinogen (U) [Mass/Vol] Negative Normal Negative [facility] ([place]) Comment on above: Performed By: #### I BC, GFR, CBC, ADIFF, ANEU, FERR, FE, RFP #### [facility] [address] [place], [place] [address] #### PTH #### [place] [id number] [address] [place] [address] US RENALon 01-12-2024 US RENAL ORIGINAL EXAMINATION: LIMITED RETROPERITONEAL ULTRASOUND01/12/2024 12:05 pm Ultrasound retroperitoneum Complete: Attention Urinary tract COMPARISON: None TECHNIQUE: This report is based on interpretation of permanently recorded ultrasound images. HISTORY: ORDERING SYSTEM PROVIDED HISTORY: Reason for Exam: CKD3B, FINDINGS: Right kidney: 12.4 x 4.9 x 6.1 cm. Left kidney: 11.5 x 5.2 x 5.2 cm There is normal cortical thickness and echogenicity with no pelvocaliectasis, stone or shadowing mass on either side. Both kidneys have simple appearing cysts. The right kidney has at least 3 cysts. Largest upper pole cyst is 4.9 cm, lower pole cortical cyst is 1.9 cm and a mid to lower parapelvic cyst is 3.3 x 1.5 x 2.6 cm. There may be some cortical scarring adjacent to the parapelvic cyst in the right kidney. The left kidney has only 1 small 1.3 cm simple cyst in its lower pole. There is no free fluid seen in the abdomen. Urinary bladder is moderately distended with volume of 124 cc. No sonographic abnormality is seen. There is 25 cc of postvoid residual.. The prostate is not adequately visualized. IMPRESSION: No obstruction in either kidney. Bilateral simple appearing renal cysts. Interpreted by: Reynaldo Steward MD Preliminary Report By: Reynaldo Steward MD Electronically signed By Reynaldo Steward MD Dictated Date: 01/12/2024 12:18:39 PM Prelim Date: 01/12/2024 12:21:52 PM Sign Date: 01/12/2024 12:21:52 PM Ordering Provider: VENKAT Fisher [facility] ([place]) Anusha 09-05-2023 LEÓN Telephone (GLENN) MAINOR MENDEZ ([id number]) 1955 M Date Time Provider Department 09/05/23 MIRIAM PERKINS During your visit today, we recorded the following information about you: Miriam Perkins APRN.ANGELICA 09/05/2023 1:55 PM Signed Please inform pt. that his CEA looks good. Follow up here as needed. Follow up with Dr. Dykes when due for colonoscopy. Thank you. Miriam Perkins APRN.Sagrario Andrew LPN 09/05/2023 2:09 PM Signed Detailed message left on patient's identified VM. Patient to contact office for any questions. Sagrario Wayne LPN Allergies As of Date: 09/05/2023 (No Known Allergies) Date Reviewed: 09/04/2023 Reviewed by: Miriam Perkins APRN.SUBSTATION OPERATOR TRANSFORMING - Fully Assessed Prescriptions as of 09/05/2023 - pioglitazone (ACTOS) 30 mg tablet Take 30 mg by mouth once daily. - sitagliptin phosphate (JANUVIA ORAL) Take 100 mg by mouth once daily. - telmisartan (MICARDIS) 40 mg tablet Take 40 mg by mouth once daily. - adalimumab (HUMIRA) 40 mg/0.8 mL injection Inject 40 mg subcutaneously every 2 weeks. - pravastatin (PRAVACHOL) 40 mg tablet Take 40 mg by mouth once daily. - glipiZIDE (GLUCOTROL) 5 mg tablet Take 5 mg by mouth three times daily. - metFORMIN (GLUCOPHAGE) 1,000 mg tablet Take 1,000 mg by mouth twice daily with meals. - aspirin 81 mg chewable tablet Take 81 mg by mouth once daily. - ALLOPURINOL ORAL Take 300 mg by mouth once daily. Problem List As Of Date 09/05/2023 Noted Resolved Malignant neoplasm of splenic flexure (HCC) [C1*07/14/2018 Type 2 diabetes mellitus without complications *07/01/2017 Hyperlipidemia [E78.5] 07/01/2017 Essential (primary) hypertension [I10] 06/17/2018 Rheumatoid arthritis with negative rheumatoid f*04/08/2018 Fatty (change of) liver, not elsewhere classifi*07/01/2017 Primary osteoarthritis of both knees [M17.0] 04/08/2018 Encounter Status:Closed by SAGRARIO WAYNE on 09/05/23 Normal [facility] CEA SerPl-mCncon 09-04-2023 Carcinoembryonic Ag [Mass/Vol] 3.3 ng/mL High <=2.9 [facility] Comment on above: Order Comment: Speci men Type: BLOOD SPECIMEN Ordering Facility: [facility] Address: [address] [place] [address] Result Comment: Carc inoembryonic antigen test is used as an aid in monitoring response to treatment or recurrence in patients with established colorectal, breast, lung, prostatic, pancreatic, and ovarian carcinomas. Clinical correlation is required. The Carcinoembryonic antigen test was performed using the Saphoel DXI paramagnetic particle chemiluminescent immunoassay method. Results obtained with different assay methods or kits cannot be used interchangeably. Performed By: #### 2 [id number] #### [facility] CLIA [id number] [address] [place] [address] [place] CNOVSPon 09-04-2023 CNOVSP Visit (SP) Office (H EMAWS) MENDEZMAINOR CALDERON ([id number]) 1955 M Date Time Provider Department 09/04/23 8:00 AM MIRIAM PERKINS During your visit today, we recorded the following information about you: Temperature Pulse Blood pressure Weight 97.7 degrees 74/minute 164/64 109.3 kg Miriam Perkins APRN.SUBSTATION OPERATOR TRANSFORMING 09/04/2023 11:57 AM Signed Chief Complaint Patient presents with: Established Patient HPI: Mainorhilary Mendez is a 67 year old male who presents here today for follow up colon cancer. Per Dr. Iniguez's previous note: H/o hypercholesterolemia, hypertension, type 2 diabetes, rheumatoid arthritis and gout. For approximately the last 2 years, patient had symptoms of diarrhea after dinner. Then for about 2-3 months prior to evaluation was getting lower abdominal cramping. Recently found to have anemia and underwent work up: Patient underwent EGD/colonoscopy on 05/27/2018. Pathology: A. Jejunum, biopsy: Minimal nonspecific chronic inflammation. See comment. B. Gastric antrum, biopsy: Mild chronic inflammation. See comment. C. Gastroesophageal junction, biopsy: Mild acute and chronic inflammation. See comment. D. Mid esophagus, biopsy: Fragments of benign squamous mucosa. E. 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 See comment. CT A/P 05/28/2018: FINDINGS: Minimal degree of increased markings at [...] calcifications. Normal abdominal wall. Normal osseous structures. IMPRESSION: Circumferential wall thickening involving the distal transverse colon, splenic flexure and proximal descending colon with increased markings in the surrounding fat and small lymph nodes. Right renal cysts. CT chest 05/28/2018: FINDINGS: Mild degree of increased linear markings [...] demonstrated abnormality of the visualized upper abdomen. IMPRESSION: Findings just mild scarring at the lung bases as well as the right middle lobe. Underwent laparoscopic-assisted segmental colon cancer resection/splenic flexure mobilization was stapled functional end-to-end anastomosis on 06/10/2018. Pathology: MICROSCOPIC DIAGNOSIS Left colon, segmental colectomy: Invasive adenocarcinoma. See cancer checklist below. COMMENT COLON CANCER SUMMARY: Specimen - left [...] not identified Tumor deposits - not identified Ly (more content not included)... Normal [facility] CNPNon 08-27-2023 CNPN Telephone (GLENN) MAINOR MENDEZ ([id number]) 1955 M Date Time Provider Department 08/27/23 MIRIAM PERKINS During your visit today, we recorded the following information about you: Pauline Thompson 08/27/2023 3:58 PM Signed Patient is calling for CT results test was completed 08/24 at [facility] appears it was upload to [employer] yesterday. Please advise patient with results Miriam Perkins APRN.CNP 08/28/2023 12:03 PM Signed Please inform pt. that his CT's look good. Needs OV with CEA. Thank you. Miriam Perkins APRN.SUBSTATION OPERATOR TRANSFORMING Yareli Riana 08/28/2023 12:09 PM Signed Patient is zoroastrianism self-pay and needs authorized prior to scheduling OV. Spoke with patient, advising below. Patient is aware we will be calling to schedule lab AND OV once financially cleared. Riana Palma 09/01/2023 11:44 AM Signed Spoke with patient and scheduled. Riana Arredondo Allergies As of Date: 08/27/2023 (No Known Allergies) Date Reviewed: 02/26/2023 Reviewed by: Miriam Perkins APRN.SUBSTATION OPERATOR TRANSFORMING - Fully Assessed Reason for Visit: Results [95] Prescriptions as of 09/01/2023 - sitagliptin phosphate (JANUVIA ORAL) Take 100 mg by mouth once daily. - telmisartan (MICARDIS) 40 mg tablet Take 40 mg by mouth once daily. - adalimumab (HUMIRA) 40 mg/0.8 mL injection Inject 40 mg subcutaneously every 2 weeks. - pravastatin (PRAVACHOL) 40 mg tablet Take 40 mg by mouth once daily. - glipiZIDE (GLUCOTROL) 5 mg tablet Take 5 mg by mouth three times daily. - metFORMIN (GLUCOPHAGE) 1,000 mg tablet Take 1,000 mg by mouth twice daily with meals. - aspirin 81 mg chewable tablet Take 81 mg by mouth once daily. - ALLOPURINOL ORAL Take 300 mg by mouth once daily. Problem List As Of Date 08/27/2023 Noted Resolved Malignant neoplasm of splenic flexure (HCC) [C1*07/14/2018 Type 2 diabetes mellitus without complications *07/01/2017 Hyperlipidemia [E78.5] 07/01/2017 Essential (primary) hypertension [I10] 06/17/2018 Rheumatoid arthritis with negative rheumatoid f*04/08/2018 Fatty (change of) liver, not elsewhere classifi*07/01/2017 Primary osteoarthritis of both knees [M17.0] 04/08/2018 Encounter Status:Closed by RIANA ARREDONDO on 09/01/23 [facility] Basophil percentageOrdered B y: CITY SANITARIAN- Miriam Perkins on 08-25-2023 Creatinine [Mass/Vol] 1.0 mg/dL 0.70-1.30 [facility] CREATININE FINGERSTICKon Creatinine [Mass/Vol] 1.0 mg/dL Normal 0.70-1.30 [facility] Comment on above: Performed By: #### L 9100.0200 #### [facility] [address] [place], [address] EGFR WB > 60.0000 Normal >60 [facility] Comment on above: Performed By: #### L 9100.0200 #### [facility] [address] [place], [address] CT Chest, Abd, Pel w/Contras ton 08-25-2023 CT Chest, Abd, Pel w/Contrast [facility] [address] [place] [address] CT Chest, Abd, Pel w/Contrast MR#: [id number] Acct: [id number] Name: MAINOR MENDEZ VINOD Rep #: [id number] : 1955 M 67 From: Tereso luo MD PCP: Dr. Gumaro Sepulveda, DO Status: REG CL Study: CT Chest, Abd, Pel w/Contrast Date of Exam: Exam# [id number] Ordering Dr: Miriam Perkins CITY SANITARIAN N P-C [id number] STUDY: CT CHEST, ABDOMEN T PELVIS WITH CONTRAST REASON FOR EXAM: Male, 67 years old. MALIGNANT NEOPLASM OF SPLENIC FLEXURE, ELEVATED CEA RADIATION DOSAGE (If Supplied By Facility): CTDIvol = ( 19.20 ) mGy, DLP = ( 2015.44 ) mGycm TECHNIQUE: Transaxial imaging was performed following intravenous administration of Oral and amp; IV Gastrografin and amp; 100mL Isovue-370. Multiplanar coronal and sagittal images were reformatted. Individualized dose optimization techniques were used for this CT. COMPARISON: Comparison is made with prior study to February 19, 2023. FINDINGS: CHEST Stable mild centrilobular emphysematous changes seen in the lung apices bilaterally. There is no demonstrated pleural abnormality. Normal heart and pericardium. There are small lymph nodes within the mediastinum, which are normal in size and morphology most compatible with reactive lymph hyperplasia. Normal hilar regions. Normal unenhanced pulmonary arteries. There is atherosclerotic calcification of the aortic arch. There are mild degenerative changes of the thoracic spine. There is no demonstrated abnormality of the visualized upper abdomen. ABDOMEN There is decreased attenuation of the liver consistent with steatosis. Normal gallbladder and extrahepatic biliary system. Normal spleen. Normal pancreas. Normal bilateral adrenal glands. Stable bilateral renal cysts. The largest cyst is in the right upper pole measuring 5.4 cm. Normal left kidney. Normal visualized stomach. Normal small intestine. There are multiple colonic diverticula consistent with diverticulosis. Prior colectomy with anastomosis in the region of the splenic flexure. The appendix is visualized and appears normal. There is scattered atherosclerotic calcification of the abdominal aorta, without a demonstrated aneurysm. Normal inferior vena cava. Normal retroperitoneum. PELVIS Normal urinary bladder. Prostatic calcification. Normal visualized small intestine. Normal visualized colon. There is no pelvic fluid. There is no pelvic lymphadenopathy or mass lesion. There is diffuse atherosclerotic calcification of the pelvic arteries. Normal abdominal wall. There are mild degenerative changes of the visualized lumbar spine. CT/CT Chest, Abd, Pel w/Contrast IMPRESSION: Stable examination. Electronically Signed: Tereso Reynoso MD at 13:23 EDT , CC: SHAHEED Perkins; Dr. Gumaro Sepulveda DO Dog Daycare Provider: Signed Normal [facility] No Panel InformationOrdered By: SHAHEED Perkins on 08-25-2023 Bedside Estimated GFR (eGFR) > 60.0000 mL/min >60 [facility] CNOVSPon 02-26-2023 CNOVSP Visit (SP) Office (H EMAWS) MAINOR MENDEZ ([id number]) 1955 M Date Time Provider Department 02/26/23 8:00 AM MIRIAM PERKINS During your visit today, we recorded the following information about you: Temperature Pulse Blood pressure Weight 98.5 degrees 76/minute 147/74 102.1 kg Height 1.79 m Miriam Perkins APRN.SUBSTATION OPERATOR TRANSFORMING 02/26/2023 1:53 PM Signed Chief Complaint Patient presents with: Established Patient HPI: Mainor Mendez is a 67 year old male who presents here today for follow up colon cancer. Per Dr. Iniguez's previous note: H/o hypercholesterolemia, hypertension, type 2 diabetes, rheumatoid arthritis and gout. For approximately the last 2 years, patient had symptoms of diarrhea after dinner. Then for about 2-3 months prior to evaluation was getting lower abdominal cramping. Recently found to have anemia and underwent work up: Patient underwent EGD/colonoscopy on 05/27/2018. Pathology: A. Jejunum, biopsy: Minimal nonspecific chronic inflammation. See comment. B. Gastric antrum, biopsy: Mild chronic inflammation. See comment. C. Gastroesophageal junction, biopsy: Mild acute and chronic inflammation. See comment. D. Mid esophagus, biopsy: Fragments of benign squamous mucosa. E. 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 See comment. CT A/P 05/28/2018: FINDINGS: Minimal degree of increased markings at [...] calcifications. Normal abdominal wall. Normal osseous structures. IMPRESSION: Circumferential wall thickening involving the distal transverse colon, splenic flexure and proximal descending colon with increased markings in the surrounding fat and small lymph nodes. Right renal cysts. CT chest 05/28/2018: FINDINGS: Mild degree of increased linear markings [...] demonstrated abnormality of the visualized upper abdomen. IMPRESSION: Findings just mild scarring at the lung bases as well as the right middle lobe. Underwent laparoscopic-assisted segmental colon cancer resection/splenic flexure mobilization was stapled functional end-to-end anastomosis on 06/10/2018. Pathology: MICROSCOPIC DIAGNOSIS Left colon, segmental colectomy: Invasive adenocarcinoma. See cancer checklist below. COMMENT COLON CANCER SUMMARY: Specimen - left [...] invasion - not identified Tumor deposits - no (more content not included)... Normal [facility] CREATININE BLDon 02-26-2023 Creatinine [Mass/Vol] 1.38 mg/dL High 0.73-1.22 [facility] Comment on above: Order Comment: Carmelina quiñonez Type: BLOOD SPECIMEN [facility]ing Facility: [facility] Address: [address] [place] [address] Performed By: #### 2 039-6 #### [facility] CLIA [id number] [address] [place] [address] [place] Creatinine and Glomerular filtration rate.predicted panel (S/P/Bld) 57 mL/min/1.73m??? Low >=60 [facility] Comment on above: Order Comment: Carmelina quiñonez Type: BLOOD SPECIMEN [facility]ing Facility: [facility] Address: [address] [place] [address] Result Comment: Merlyn mated Glomerular Filtration Rate (eGFR) is calculated using the 2020 CKD-EPI creatinine equation. This equation utilizes serum creatinine, sex, and age as parameters. The creatinine assay has traceable calibration to isotope dilution-mass spectrometry. Refer to KDIGO guidelines for clinical interpretation. In patients with unstable renal function, e.g. those with acute kidney injury, the eGFR may not accurately reflect actual GFR. Performed By: #### 2 039-6 #### [facility] CLIA [id number] [address] [place] [address] [place] CREATININE BLDOrdered By: Florin Sparrow on 02-26-2023 Creatinine [Mass/Vol] 1.38 mg/dL High 0.73 - 1.22 mg/dL [facility] GFR/1.73 sq M.predicted among non-blacks MDRD (S/P/Bld) [Vol rate/Area] 57 mL/min/{1.73_m2} Low - PINF [facility] Comment on above: Estimated Glomerular Filtration Rate (eGFR) is calculated using the 2020 CKD-EPI creatinine equation. This equation utilizes serum creatinine, sex, and age as parameters. The creatinine assay has traceable calibration to isotope dilution-mass spectrometry. Refer to KDIGO guidelines for clinical interpretation. In patients with unstable renal function, e.g. those with acute kidney injury, the eGFR may not accurately reflect actual GFR. Interpretation and review of laboratory results [facility] LE[facility]N Telephone (GLENN) MAINOR MENDEZ ([id number]) 1955 M Date Time Provider Department 02/21/23 MIRIAM PERKINS During your visit today, we recorded the following information about you: Reanna Tarango 02/21/2023 2:14 PM Signed Patient requesting CT results from 02/[facility] Miriam Perkins APRN.ANGELICA 02/21/2023 2:48 PM Signed Please inform pt. that CT's show no acute findings and no sign of cancer. Follow up as scheduled next week. Thank you. Miriam Perkins APRN.Berta Power LPN 02/21/2023 2:53 PM Signed Pt. Notified of CT results, will keep appt. Next week as scheduled. Berta Hays LPN Allergies As of Date: 02/21/2023 (No Known Allergies) Date Reviewed: 09/02/2022 Reviewed by: Miriam Perkins APRN.ANGELICA - Fully Assessed Reason for Visit: Results [95] Prescriptions as of 02/21/2023 - sitagliptin phosphate (JANUVIA ORAL) Take 100 mg by mouth once daily. - telmisartan (MICARDIS) 40 mg tablet Take 40 mg by mouth once daily. - adalimumab (HUMIRA) 40 mg/0.8 mL injection Inject 40 mg subcutaneously every 2 weeks. - pravastatin (PRAVACHOL) 40 mg tablet Take 40 mg by mouth once daily. - glipiZIDE (GLUCOTROL) 5 mg tablet Take 5 mg by mouth three times daily. - metFORMIN (GLUCOPHAGE) 1,000 mg tablet Take 1,000 mg by mouth twice daily with meals. - aspirin 81 mg chewable tablet Take 81 mg by mouth once daily. - ALLOPURINOL ORAL Take 300 mg by mouth once daily. Problem List As Of Date 02/21/2023 Noted Resolved Malignant neoplasm of splenic flexure (HCC) [C1*07/14/2018 Type 2 diabetes mellitus without complications *07/01/2017 Hyperlipidemia [E78.5] 07/01/2017 Essential (primary) hypertension [I10] 06/17/2018 Rheumatoid arthritis with negative rheumatoid f*04/08/2018 Fatty (change of) liver, not elsewhere classifi*07/01/2017 Primary osteoarthritis of both knees [M17.0] 04/08/2018 Encounter Status:Closed by BERTA HAYS on 02/21/23 Normal [facility] Basophil percentageOrdered B y: PATTI- Miriam Perkins on 02-19-2023 Creatinine [Mass/Vol] 1.5 mg/dL 0.70-1.30 [facility] - Chemistry and C hemistry - challengeOrdered By: SHAHEED Perkins on 02-19-2023 GFR/1.73 sq M.predicted among non-blacks MDRD (S/P/Bld) [Vol rate/Area] 49.0000 mL/min/{1.73_m2} >60 [facility] CNPNon 02-07-2023 CNPN Telephone (GLENN) MAINOR MENDEZ ([id number]) 1955 M Date Time Provider Department 02/07/23 MIRIAM PERKINS During your visit today, we recorded the following information about you: Riana Arredondo 02/07/2023 10:51 AM Signed Patient called to reschedule 02/17 appointment as he is gettinga CT on 02/19/23 at [facility]. Referral for appointment was closed. New referral submitted. Once approved, please scheduled CEA/6 MO OV/CT @ [facility] 02/19* with Miriam on 02/26/23 at 8:00 AM (held appt time). Riana Navarro02/17/2023 10:08 AM Signed Pt scheduled as directed Allergies As of Date: 02/07/2023 (No Known Allergies) Date Reviewed: 09/02/2022 Reviewed by: Miriam Perkins APRN.SUBSTATION OPERATOR TRANSFORMING - Fully Assessed Reason for Visit: Future Appointment [256] Prescriptions as of 02/17/2023 - sitagliptin phosphate (JANUVIA ORAL) Take 100 mg by mouth once daily. - telmisartan (MICARDIS) 40 mg tablet Take 40 mg by mouth once daily. - adalimumab (HUMIRA) 40 mg/0.8 mL injection Inject 40 mg subcutaneously every 2 weeks. - pravastatin (PRAVACHOL) 40 mg tablet Take 40 mg by mouth once daily. - glipiZIDE (GLUCOTROL) 5 mg tablet Take 5 mg by mouth three times daily. - metFORMIN (GLUCOPHAGE) 1,000 mg tablet Take 1,000 mg by mouth twice daily with meals. - aspirin 81 mg chewable tablet Take 81 mg by mouth once daily. - ALLOPURINOL ORAL Take 300 mg by mouth once daily. Problem List As Of Date 02/07/2023 Noted Resolved Malignant neoplasm of splenic flexure (HCC) [C1*07/14/2018 Type 2 diabetes mellitus without complications *07/01/2017 Hyperlipidemia [E78.5] 07/01/2017 Essential (primary) hypertension [I10] 06/17/2018 Rheumatoid arthritis with negative rheumatoid f*04/08/2018 Fatty (change of) liver, not elsewhere classifi*07/01/2017 Primary osteoarthritis of both knees [M17.0] 04/08/2018 Encounter Status:Closed by TASH NVAARRO on 02/17/23 Normal [facility] Anusha 02-05-2023 LEÓN Telephone (HEMJORGE) VANESSAMAINOR Ashley ([id number]) 1955 M Date Time Provider Department 02/05/23 MIRIAM PERKINS During your visit today, we recorded the following information about you: Miriam Perkins APRN.CNP 02/05/2023 10:57 AM Signed Please inform pt. that his CEA is elevated-this is not uncommon for him but since he is having symptoms he should have CT's. Orders in. Pt. normally likes to have these done at [facility]. Please call pt and assist with scheduling. Thank you. Miriam Perkins APRN.Sagrario Andrew LPN 02/05/2023 11:01 AM Signed Patient is aware of all information. PSS- please contact patient to assist in scheduling CT's at [facility]. Sagrario Wayne LPN 02/05/2023 4:43 PM Signed Called pt. Stated he was ok with us faxing the orders to [facility] and having them contact him to [facility]. Pt stated that he will call our office and let us know when he is scheduled . Updated pt's referrals and Faxed orders 02/11/2023 9:54 AM Signed 1st attempt: LM When pt returns call please ask if pt has gotten scheduled and document the date and time in this encounter. As well as schedule externally the CT orders on pt's apt desk Reanna Tarango 02/11/2023 10:05 AM Signed Patient returned call. New TE was entered on 02/07 and documented. Allergies As of Date: 02/05/2023 (No Known Allergies) Date Reviewed: 09/02/2022 Reviewed by: Miriam Perkins APRN.CNP - Fully Assessed Reason for Visit: Results [95] Primary Visit Diagnosis:Malignant neoplasm of splenic flexure (HCC) [C18.5] Order(s):CT ABD/PEL W IVCON [[id number]] Order #: [id number] FUTURE CT CHEST W IVCON [[id number]] Order #: [id number] FUTURE [] iv contrast (will be provided with radiology test)CT Chest ABD/PEL-Inject, intravenously, once for 1 dose.No [...] protocol in the CT contrast administration guidelines link.Disp: 1 EachRfl: 0 [] enteric contrast (will be provided with radiology test)For CT CHESTABD/PEL W IVCON Routine order Administer, As Directed One Time Only, via Oral, Rectal, both Oral and Rectal, Enteric Tube, Stoma or Indwelling Catheter, Enteric Contrast as designated per enteric contrast guidelinesDisp: 1 EachRfl: 0 [] CREATININE BLD [SQCRET] Order #: [id number] FUTURE Prescriptions as of 10/15/2023 - pioglitazone (ACTOS) 30 mg tablet Take 30 mg by mouth once daily. - sitagliptin phosphate (JANUVIA ORAL) Take 100 mg by mouth once daily. - telmisartan (MICARDIS) 40 mg tablet Take 40 mg by mouth once daily. - adalimumab (HUMIRA) 40 mg/0.8 mL injection Inject 40 mg subcutaneously every 2 weeks. - pravastatin (PRAVACHOL) 40 mg tablet Take 40 mg by mouth once daily. - glipiZIDE (GLUCOTROL) 5 mg tablet Take 5 mg by mouth three times daily. - metFORMIN (GLUCOPHAGE) 1,000 mg tablet Take 1,000 mg by mouth twice daily with meals. - aspirin 81 mg chewable tablet Take 81 mg by mouth once daily. - ALLOPURINOL ORAL Take 300 mg by mouth once daily. Problem List As Of Date 02/05/2023 Noted Resolved Malignant neoplasm of splenic flexure (HCC) [C1*07/14/2018 Type 2 diabetes mellitus without complications *07/01/2017 Hyperlipidemia [E78.5] 07/01/2017 Essential (primary) hypertension [I10] 06/17/2018 Rheumatoid arthritis with negative rheumatoid f*04/08/2018 Fatty (change of) liver, not elsewhere classifi*07/01/2017 Primary osteoarthritis of both knees [M17.0] 04/08/2018 Prescriptions ordered this encounter Disp Refills Start End IV CONTRAST (RADIOLOGY PROCEDURE) 1 Ea* 0 02/05/2023 02/06/2023 Class: In Office Sig: CT Chest ABD/PEL-Inject, intravenously, once for 1 [...] in the CT contrast administration guidelines link. ENTERIC CONTRAST (RADIOLOGY PROCEDUR* 1 Ea* 0 02/05/2023 02/06/2023 Class: In Office Sig: For CT CHESTABD/PEL W IVCON Routine order Administer, As Directed One Time Only, via Oral, Rectal, both Oral and Rectal, Enteric Tube, Stoma or Indwelling Catheter, Enteric Contrast as designated per enteric contrast guidelines Encounter Status:Closed by TAMMY JUNIOR on 10/15/23 Normal [facility] CEA SerPl-mCncon 02-04-2023 Carcinoembryonic Ag [Mass/Vol] 4.7 ng/mL High <=2.9 [facility] Comment on above: Order Comment: Speci men Type: BLOOD SPECIMEN [facility]ing Facility: [facility] Address: [address] [place], [place] [address] Result Comment: Carc inoembryonic antigen test is used as an aid in monitoring response to treatment or recurrence in patients with established colorectal, breast, lung, prostatic, pancreatic, and ovarian carcinomas. Clinical correlation is required. The Carcinoembryonic antigen test was performed using the Quirino Scivantage Unicel DXI paramagnetic particle chemiluminescent immunoassay method. Results obtained with different assay methods or kits cannot be used interchangeably. Performed By: #### 2 039-6 #### [facility] CLIA [id number] [address] [place] [address] [place] Anusha 02-04-2023 CNPN Telephone (HEMAWS) MAINOR MENDEZ ([id number]) 1955 M Date Time Provider Department 02/04/23 ORLANDO INIGUEZ During your visit today, we recorded the following information about you: Reanna Tarango 02/04/2023 9:39 AM Signed Patient called asking for lab work. stating he isn't feeling well. vomiting this morning and nervous. Please advise. Sagrario Wayne LPN 02/04/2023 9:[address] C/A/P 07/17/2022 Last CEA and OV 09/02/2022. Next OV/CEA 02/17/2023. Patient states, I don't feel that sick. States he had one episode of emesis 2 months ago and another this morning. States both times this came on quickly. C/O still having sore area in RUQ. BM's have been regular. Denies abdominal bloating, diarrhea, heartburn, nausea, fever, sore throat or congestion. Also states he hasn't eaten anything abnormal. Patient asking for lab work today to make sure he's okay. Miriam Goff LPN, APRN.ANGELICA 02/04/2023 10:30 AM Addendum I will order the CEA since he has an OV in a week and a half but he should be evaluated at UC or ED if symptoms worsen. Thank you. Miriam Perkins APRN.Sagrario Andrew LPN 02/04/2023 10:35 AM Signed Patient is aware and will have labs drawn today. Is aware to go to UC or ED if symptoms worsen. Sagrario Wayne LPN Allergies As of Date: 02/04/2023 (No Known Allergies) Date Reviewed: 09/02/2022 Reviewed by: Miriam Perkins APRN.SUBSTATION OPERATOR TRANSFORMING - Fully Assessed Reason for Visit: Vomiting [120] Primary Visit Diagnosis:Malignant neoplasm of splenic flexure (HCC) [C18.5] Order(s):CEA BLD [SQCEA] Order #: [id number] FUTURE Prescriptions as of 02/04/2023 - sitagliptin phosphate (JANUVIA ORAL) Take 100 mg by mouth once daily. - telmisartan (MICARDIS) 40 mg tablet Take 40 mg by mouth once daily. - adalimumab (HUMIRA) 40 mg/0.8 mL injection Inject 40 mg subcutaneously every 2 weeks. - pravastatin (PRAVACHOL) 40 mg tablet Take 40 mg by mouth once daily. - glipiZIDE (GLUCOTROL) 5 mg tablet Take 5 mg by mouth three times daily. - metFORMIN (GLUCOPHAGE) 1,000 mg tablet Take 1,000 mg by mouth twice daily with meals. - aspirin 81 mg chewable tablet Take 81 mg by mouth once daily. - ALLOPURINOL ORAL Take 300 mg by mouth once daily. Problem List As Of Date 02/04/2023 Noted Resolved Malignant neoplasm of splenic flexure (HCC) [C1*07/14/2018 Type 2 diabetes mellitus without complications *07/01/2017 Hyperlipidemia [E78.5] 07/01/2017 Essential (primary) hypertension [I10] 06/17/2018 Rheumatoid arthritis with negative rheumatoid f*04/08/2018 Fatty (change of) liver, not elsewhere classifi*07/01/2017 Primary osteoarthritis of both knees [M17.0] 04/08/2018 Encounter Status:Closed by SAGRARIO WAYNE LPN on 02/04/23 [facility] Basophil percentageOrdered B y: SHAHEED Perkins on 07-17-2022 Creatinine [Mass/Vol] 1.3 mg/dL 0.70-1.30 [facility] No Panel InformationOrdered By: SHAHEED Perkins on 07-17-2022 Bedside Estimated GFR (eGFR) > 60.0000 mL/min >60 [facility] Basophil percentageon 2021 Chloride [Moles/Vol] 103 mmol/L 98-107 [facility] Work Phone: Glucose [Mass/Vol] 244 mg/dL 74-106 [facility] Work Phone: Comment on above: Glucose result great er than or equal to 200 mg/dLsuggests DIABETES MELLITUS per A.D.A. criteria. Potassium [Moles/Vol] 4.9 mmol/L 3.5-5.1 [facility] Work Phone: Sodium [Moles/Vol] 137 mmol/L 136-145 [facility] Work Phone: WBC (Bld) [#/Vol] 9.7 10*3/uL 4.4-11.0 [facility] Work Phone: Blood erythrocytes count (nu mber/volume)on 03-19-2022 RBC (Bld) [#/Vol] 4.00 10*6/uL 4.6-6.2 [facility] Work Phone: Blood hemoglobin measurement (mass/volume)on 03-19-2022 Hemoglobin (Bld) [Mass/Vol] 12.8 g/dL 13.0-16.5 [facility] Work Phone: Blood platelet mean volumeon 03-19-2022 Platelet mean volume (Bld) [Entitic vol] 10.3 fL 6.2-12.0 [facility] Work Phone: Determination of erythrocyte mean corpuscular volume (MCV)on 03-19-2022 MCV (RBC) [Entitic vol] 94.3 fL 80-94 [facility] Work Phone: Hematocrit Auto (Bld) [Volum e fraction]on 03-19-2022 Hematocrit (Bld) [Volume fraction] 37.7 % 40-54 [facility] Work Phone: Laboratory - Chemistry and C hemistry - challengeon 03-19-2022 CO2 [Moles/Vol] 26.0 mmol/L 21.0-32.0 [facility] Work Phone: Urea nitrogen/Creatinine [Mass ratio] 24.6 mg/mg 10-20 [facility] Work Phone: Laboratory - Hematology and Cell countson 03-19-2022 Erythrocyte distribution width (RBC) [Entitic vol] 47.8 fL 35.1-43.9 [facility] Work Phone: Erythrocyte distribution width (RBC) [Ratio] 13.8 % 11.6-14.6 [facility] Work Phone: MCH (RBC) [Entitic mass] 32.0 pg 27.0-32.0 [facility] Work Phone: MCHC Auto (RBC) [Mass/Vol]on 03-19-2022 MCHC (RBC) [Mass/Vol] 34.0 g/dL 32-36 [facility] Work Phone: No Panel Informationon 03-19 Estimated GFR (MDRD) Amer 69 mL/min >60 [facility] Work Phone: Comment on above: GFR Calc Estimated GFR (MDRD) Non-Af Amer 57 mL/min >60 [facility] Work Phone: Comment on above: Non- GFR Calc Platelets bldon 03-19-2022 Platelets (Bld) [#/Vol] 182 10*3/uL 150-450 [facility] Work Phone: Serum or plasma calcium anika urement (mass/volume)on 03-19-2022 Calcium [Mass/Vol] 9.9 mg/dL 8.5-10.1 [facility] Work Phone: Serum or plasma creatinine m easurement (mass/volume)on 03-19-2022 Creatinine [Mass/Vol] 1.34 mg/dL 0.70-1.30 [facility] Work Phone: Comment on above: The validity of the calculated GFR & GFRAA in patients over 70 years has not been determined. Clinical correlation is essential. Serum or plasma urea nitroge n measurement (mass/volume)on 03-19-2022 Urea nitrogen [Mass/Vol] 33 mg/dL 7-18 [facility] Work Phone: Thin prep Papanicolaou smear with manual screeningon 03-19-2022 Thin prep Papanicolaou smear with manual screening 8 5-15 [facility] Work Phone: ANES POSTPROC EVALon 022 ANES POSTPROC EVAL HNO ID: [id number] Author: Carla Quintana MD Service: Anesthesiology Author Type: Anesthesiologist Type: Anesthesia Postprocedure Evaluation Filed: 10/29/2021 1:18 PM Note Text: POST ANESTHESIA EVALUATION NOTE : 1955 Procedure Summary Date: 10/29/21 Room / Location: [facility] Anesthesia Start: 1032 Anesthesia Stop: 1056 Procedure: COLONOSCOPY SCREENING Diagnosis: Personal history of colon cancer (High risk colon cancer surveillance: Personal history of colon cancer) Scheduled Providers: Jas Dykes MD; Diamond Peralta APRN.WEB SYSTEMS DEVELOPER; Carla Quintana MD Responsible Provider: Carla Quintana MD Anesthesia Type: MAC ASA Status: 3 Anesthesia Type: MAC Last Vitals Vitals Value Taken Time BP 131/91 10/29/21 1130 Temp 36.2 ?C (97.2 ?F) 10/29/21 1130 HR SpO2 54 10/29/21 1130 Resp 16 10/29/21 1130 SpO2 100 % 10/29/21 1130 Post Anesthesia Patient Status Patient Evaluation: PACU. PACU/ICU Patient Condition: stable. Anticipated Disposition: phase 2 then home. Neurological Status: aware and responsive. Pulmonary Status: breathing comfortably on room air Airway Control: returned to baseline unsupported. Cardiovascular Status: stable. Pain Management: clinically adequate - multimodal analgesia pain management approach Postoperative Hydration: acceptable. Intraoperative Events: no significant anesthesia events Post Operative Nausea/Vomiting Status: no significant post operative nausea or vomiting Anesthetic Observations: Recommendation: continue current plan of care. Anesthesia Observations No Documentation SIGNATURE: Carla Quintana MD PATIENT NAME: Mainor Mendez DATE: October 29, 2021 TIME: 1:18 PM CSN: [id number] Normal [facility] ANES PRE-OPon 10-29-2021 ANES PRE-OP HNO ID: [id number] Author: Carla Quintana MD Service: Anesthesiology Author Type: Anesthesiologist Type: Anesthesia Preprocedure Evaluation Filed: 10/29/2021 9:52 AM Note Text: ANESTHESIOLOGY DAY OF SURGERY NOTE : 1955 Procedure Information Date/Time: 10/29/21 1100 Scheduled providers: Jas Dykes MD; Diamond Peralta APRN.WEB SYSTEMS DEVELOPER; Carla Quintana MD Procedure: COLONOSCOPY SCREENING Location: [facility] Endoscopy Estimated body mass index is 32.64 kg/m? as calculated from the following: Height as of this encounter: 180.3 cm (5' 11). Weight as of this encounter: 106.1 kg (234 lb). Most recent hematocrit and potassium results: Hematocrit 38.7 07/18/2020 Potassium 4.2 07/18/2020 Relevant Problems CARDIO (+) Essential (primary) hypertension ENDO (+) Type 2 diabetes mellitus without complications (HCC) -RENAL (+) Fatty (change of) liver, not elsewhere classified Other (+) Rheumatoid arthritis with negative rheumatoid factor (HCC) I - PHYSICAL EVALUATION AIRWAY Patient intubated: No. Tracheostomy tube not present Mallampati: II. TM distance: >3 FB. Neck ROM: full ROM without neurological symptoms. Mouth opening: adequate. Short neck: no. Thick neck: no DENTAL Dentures, upper: complete. Dentures, lower: complete. Additional exam findings: yes. CARDIOVASCULAR Rhythm: regular PULMONARY Breath sounds clear to auscultation. II - ANESTHESIA PLAN ASA Score: 3 Anesthetic Plan: MAC The patient is not a current smoker. Monitoring plan: standard ASA. Postoperative analgesic plan: multimodal analgesia. Patient / Surrogate agrees to blood products: blood products not planned DNR status not reviewed with patient and/or family prior to surgery. Significant changes in the patient condition since the History and Physical, not otherwise documented in primary service progress note: no. Potential Anesthesia issues that may suggest increased risk of complications or contraindication to planned procedure: none. No vitals data found for the desired time range. Outpatient Medications as of 10/29/2021 Medication Sig - telmisartan (MICARDIS) 40 mg tablet Take 40 mg by mouth once daily. - glipiZIDE (GLUCOTROL) 5 mg tablet Take 5 mg by mouth three times daily. - Omeprazole Magnesium (PRILOSEC OTC) 20 mg tablet Take 20 mg by mouth once daily. (Patient not taking: Reported on 08/07/2021 ) - sitagliptin phosphate (JANUVIA ORAL) Take 100 mg by mouth once daily. - adalimumab (HUMIRA) 40 mg/0.8 mL injection Inject 40 mg subcutaneously every 2 weeks. - pravastatin (PRAVACHOL) 40 mg tablet Take 40 mg by mouth once daily. - metFORMIN (GLUCOPHAGE) 1,000 mg tablet Take 1,000 mg by mouth twice daily with meals. - aspirin 81 mg chewable tablet Take 81 mg by mouth once daily. - ALLOPURINOL ORAL Take 300 mg by mouth once daily. Facility-Administered Medications as of 10/29/2021 Medication Dose Route Frequency - lactated ringers iv infusion 30 mL/hr INTRAVENOUS CONTINUOUS I have interviewed and examined the patient. I have reviewed the medical record and/or the pre-anesthesia evaluation, pertinent labs, and test results. This contains updated information obtained within 48 hours of Surgery/Procedure. SIGNATURE: Carla Quintana MD PATIENT NAME: Mainor Mendez DATE: October 29, 2021 TIME: 9:51 AM CSN: [id number] Normal [facility] COLONOSCOPY SCREENINGon 10-08 [facility] GLUCOSE, BLOOD (POC)on 10-29 Glucose [Mass/Vol] 192 mg/dL Abnormal 74 - 99 mg/dL [facility] Glucose [Mass/Vol] 197 mg/dL Abnormal 74 - 99 mg/dL [facility] HISTORY PHYSICALon HISTORY PHYSICAL HNO ID: [id number] Author: Jas Dykes MD Service: General Surgery Author Type: Physician Type: HANDP Filed: 10/29/2021 10:20 AM Note Text: HISTORY AND PHYSICAL ? Mainor Mendez 1955 ? REFERRING PHYSICIAN: Miriam Perkins APRN.* ? CHIEF COMPLAINT: Consult (colonoscopy) ? HPI: The patient is a 65 year old male referred for endoscopy. Mainor notes a personal history of colon cancer and is due for surveillance colonoscopy. Patient denies any change in bowel habits, weight changes, blood in stools, black tarry stools or abdominal pain. ? In addition to colon cancer as noted above, patient's past medical history is significant for diabetes mellitus, hypertension, gout, hypercholesterolemia, rheumatoid arthritis. Patient follows with Dr. Sepulveda in primary care for his chronic medical conditions and with Miriam Perkins CNP in hematology/oncology. ? Patient has followed with myself and Dr. Dykes in the past for his colon cancer and surveillance colonoscopies. Dr. Dykes has advised previously that the patient is to be scheduled with [facility] for endoscopy procedures due to airway concerns. ? ? ? PAST MEDICAL HISTORY PAST MEDICAL HISTORY Diagnosis Date - Colon cancer (HCC) ? - DM (diabetes mellitus) (HCC) ? - Gout ? - HTN (hypertension) ? - Hypercholesteremia ? - RA (rheumatoid arthritis) (HCC) ? ? ? PAST SURGICAL HISTORY PAST SURGICAL HISTORY Procedure Laterality Date - COLONOSCOPY FLX DX W/COLLJ SPEC WHEN PFRMD ? 05/27/2018 ? Colonoscopy - COLONOSCOPY FLX DX W/COLLJ SPEC WHEN PFRMD ? 08/09/2019 ? Colonoscopy - ESOPHAGOGASTRODUODENOSCOPY TRANSORAL DIAGNOSTIC ? 05/27/2018 ? EGD - FISTULOTOMY SUBCUT ? 1997 - PAST SURGICAL HISTORY OF ? 06/10/2018 ? laparoscopic assisted segmental colon cancer resection/splenic flexure mobilization w/stapled funtional end to end anastomosis ? ? ? CURRENT MEDICATIONS Current Outpatient Medications Medication Sig - sitagliptin phosphate (JANUVIA ORAL) Take 100 mg by mouth once daily. ? - telmisartan (MICARDIS) 40 mg tablet Take 40 mg by mouth once daily. - adalimumab (HUMIRA) 40 mg/0.8 mL injection Inject 40 mg subcutaneously every 2 weeks. - pravastatin (PRAVACHOL) 40 mg tablet Take 40 mg by mouth once daily. - glipiZIDE (GLUCOTROL) 5 mg tablet Take 5 mg by mouth three times daily. - metFORMIN (GLUCOPHAGE) 1,000 mg tablet Take 1,000 mg by mouth twice daily with meals. - aspirin 81 mg chewable tablet Take 81 mg by mouth once daily. - ALLOPURINOL ORAL Take 300 mg by mouth once daily. ? - Omeprazole Magnesium (PRILOSEC OTC) 20 mg tablet Take 20 mg by mouth once daily. (Patient not taking: Reported on 08/07/2021 ) ? No current facility-administered medications for this visit. ? ? ALLERGIES: Patient has no known allergies. ? PERSONAL HISTORY: SOCIAL HISTORY Social History ? Tobacco Use - Smoking status: Former Smoker ? ? Packs/day: 1.50 ? ? Years: 20.00 ? ? Pack years: 30.00 ? ? Types: Cigarettes ? ? Start date: 05/07/1973 ? ? Quit date: 05/07/1993 ? ? Years since quittin.2 - Smokeless tobacco: Never Used Vaping Use - Vaping Use: Never used Substance Use Topics - Alcohol use: No - Drug use: No ? FAMILY HISTORY: FAMILY HISTORY FAMILY HISTORY Problem Relation Age of Onset - Kidney Disease Mother ? ? s/p removal 2000 - other (cirrhosis) Maternal Grandmother ? - other (pancreatic tumor) Paternal Grandmother ? ? ? REVIEW OF SYMPTOMS: The review of systems data was entered by the nurse and reviewed by me ? Nursing Notes: Rosy BlakeONEAL 08/07/2021 3:27 PM Signed REVIEW OF SYSTEMS: General: The patient denies fatigue, denies weight loss, denies weight gain, denies feeling hot, and denies feelings of cold. Eyes: The patient denies glaucoma, denies eye injury/surgery, does not wear glasses or contacts. Ear/Nose/Throat: The patient denies allergies, denies hayfever, denies ear infections, and denies bloody noses. Cardiovascular: The patient denies chest pain, denies heart disease, notes high blood pressure,denies cardiac stent, denies prior heart attack, denies irregular heart beat, notes high cholesterol, denies poor circulation, denies heart failure, other cardiac issues, denies claudication, denies cold feet, denies peripheral arterial stent. Respiratory: The patient denies tuberculosis, denies pneumonia, denies frequent cough, denies pulmonary embolism, denies shortness of breath, and denies coughing up blood. Gastrointestinal: The patient denies difficulty swallowing, denies acid reflux, denies ulcers, denies vomiting, denies jaundice/hepatitis, denies gallbladder problems, denies black or tarry stools, denies hemorrhoids, denies bleeding from rectum, denies diverticulitis, denies constipation, denies diarrhea, denies loss of stool control, and denies hernias. Kidney/Bladder: The patient (more content not included)... Normal [facility] Vital Signs Date Time Vital Sign Value Performing Clinician Facility 12-02-2024 18:00-0400 Heart rate 71 /min Dr. Gumaro Sepulveda DO Work Phone: [facility] 12-02-2024 18:00-0400 Respiratory rate 19 /min Dr. Gumaro Sepulveda DO Work Phone: [facility] 12-02-2024 17:30-0400 Diastolic blood pressure 60 mm[Hg] Dr. Gumaro Sepulveda DO Work Phone: [facility] 12-02-2024 17:30-0400 SaO2% (BldA) [Mass fraction] 100 % Dr. Gumaro Sepulveda DO Work Phone: [facility] 12-02-2024 17:30-0400 Systolic blood pressure 132 mm[Hg] Dr. Gumaro Sepulveda DO Work Phone: [facility] 12-02-2024 17:00-0400 Body temperature 97.9 [degF] Dr. Gumaro Sepulveda DO Work Phone: [facility] 12-02-2024 14:44-0400 Body mass index (BMI) [Ratio] 32.2 kg/m2 Dr. Gumaro Sepulveda DO Work Phone: [facility] 12-02-2024 14:44-0400 Body weight 106.[address] Gumaro Sepulveda DO Work Phone: [facility] 12-02-2024 13:52-0400 Body height 181.[address] Gumaro Sepulveda DO Work Phone: [facility] 02-26-2023 08:03-0400 Body height 179 cm Miriam Perkins ADDICTIONS RECOVERY SPECIALIST.SUBSTATION OPERATOR TRANSFORMING Work Phone: [facility] 02-26-2023 08:03-0400 Body temperature 98.49 [degF] Miriam Perkins ADDICTIONS RECOVERY SPECIALIST.SUBSTATION OPERATOR TRANSFORMING Work Phone: [facility] 02-26-2023 08:03-0400 Body weight 102.06 kg Miriam Perkins ADDICTIONS RECOVERY SPECIALIST.SUBSTATION OPERATOR TRANSFORMING Work Phone: [facility] 02-26-2023 08:03-0400 Diastolic blood pressure 74 mm[Hg] Miriam Perkins ADDICTIONS RECOVERY SPECIALIST.SUBSTATION OPERATOR TRANSFORMING Work Phone: [facility] 02-26-2023 08:03-0400 Heart rate 76 /min Miriam Perkins ADDICTIONS RECOVERY SPECIALIST.SUBSTATION OPERATOR TRANSFORMING Work Phone: [facility] 02-26-2023 08:03-0400 SaO2% (BldA) [Mass fraction] 96 % Miriam Perkins ADDICTIONS RECOVERY SPECIALIST.SUBSTATION OPERATOR TRANSFORMING Work Phone: [facility] 02-26-2023 08:03-0400 Systolic blood pressure 147 mm[Hg] Miriam Perkins ADDICTIONS RECOVERY SPECIALIST.SUBSTATION OPERATOR TRANSFORMING Work Phone: [facility] 09-02-2022 08:34-0400 Body height 180.3 cm Means Perkins ADDICTIONS RECOVERY SPECIALIST.SUBSTATION OPERATOR TRANSFORMING Work Phone: [facility] 09-02-2022 08:34-0400 Body temperature 98.01 [degF] Means Perkins ADDICTIONS RECOVERY SPECIALIST.SUBSTATION OPERATOR TRANSFORMING Work Phone: [facility] 09-02-2022 08:34-0400 Body weight 103.87 kg Miriam Perkins ADDICTIONS RECOVERY SPECIALIST.SUBSTATION OPERATOR TRANSFORMING Work Phone: [facility] 09-02-2022 08:34-0400 Diastolic blood pressure 75 mm[Hg] Miriam Perkins ADDICTIONS RECOVERY SPECIALIST.SUBSTATION OPERATOR TRANSFORMING Work Phone: [facility] 09-02-2022 08:34-0400 Heart rate 80 /min Means Perkins ADDICTIONS RECOVERY SPECIALIST.SUBSTATION OPERATOR TRANSFORMING Work Phone: [facility] 09-02-2022 08:34-0400 Systolic blood pressure 143 mm[Hg] Means Perkins ADDICTIONS RECOVERY SPECIALIST.SUBSTATION OPERATOR TRANSFORMING Work Phone: [facility] 03-06-2022 08:34-0400 Body height 180.3 cm Means Perkins ADDICTIONS RECOVERY SPECIALIST.SUBSTATION OPERATOR TRANSFORMING Work Phone: [facility] 03-06-2022 08:34-0400 Body temperature 97.59 [degF] Miriam Perkins ADDICTIONS RECOVERY SPECIALIST.SUBSTATION OPERATOR TRANSFORMING Work Phone: [facility] 03-06-2022 08:34-0400 Body weight 103.19 kg Miriam Perkins ADDICTIONS RECOVERY SPECIALIST.SUBSTATION OPERATOR TRANSFORMING Work Phone: [facility] 03-06-2022 08:34-0400 Diastolic blood pressure 70 mm[Hg] Miriam Perkins ADDICTIONS RECOVERY SPECIALIST.SUBSTATION OPERATOR TRANSFORMING Work Phone: [facility] 03-06-2022 08:34-0400 Heart rate 87 /min Miriam Perkins ADDICTIONS RECOVERY SPECIALIST.SUBSTATION OPERATOR TRANSFORMING Work Phone: [facility] 03-06-2022 08:34-0400 Systolic blood pressure 135 mm[Hg] Means Perkins ADDICTIONS RECOVERY SPECIALIST.SUBSTATION OPERATOR TRANSFORMING Work Phone: [facility] 10-29-2021 11:30-0400 Body temperature 97.2 [degF] Jas Dykes MD Work Phone: [facility] 10-29-2021 11:30-0400 Diastolic blood pressure 91 mm[Hg] Jas Dykes MD Work Phone: [facility] 10-29-2021 11:30-0400 Heart rate 54 /min Jas Dykes MD Work Phone: [facility] 10-29-2021 11:30-0400 Respiratory rate 16 /min Jas Dykes MD Work Phone: [facility] 10-29-2021 11:30-0400 SaO2% (BldA) [Mass fraction] 100 % Jas Dykes MD Work Phone: [facility] 10-29-2021 11:30-0400 Systolic blood pressure 131 mm[Hg] Jas Dykes MD Work Phone: [facility] 10-29-2021 09:49-0400 Body height 180.3 cm Jas Dykes MD Work Phone: [facility] 10-29-2021 09:49-0400 Body weight 106.14 kg Jas Dykes MD Work Phone: [facility] Encounters Encounter Date Encounter Type Care Provider Facility Start: 12-02-2024 Evaluation and management of inpatient Dr. Reanna Ridley MD -Progressive Care Unit Work Phone: Start: 07-01-2024 End: 07-01-2024 ambulatory Darwin SALTER Facility:[facility] Start: 07-01-2024 End: 07-01-2024 ambulatory Darwin SALTER Facility:[facility] Start: 01-12-2024 End: 01-12-2024 ambulatory VENKAT LUIS MD Facility:[facility] Start: 01-12-2024 End: 01-12-2024 Patient encounter procedure VENKAT LUIS MD [facility] Start: 01-12-2024 End: 01-12-2024 ambulatory VENKAT LUIS MD Facility:[facility] Start: 01-12-2024 End: 01-12-2024 Patient encounter procedure VENKAT LUIS MD [facility] Start: 09-04-2023 End: 09-05-2023 ambulatory MIRIAM PERKINS Facility:[facility] Start: 08-27-2023 Telephone encounter Miriam Carp enter ADDICTIONS RECOVERY SPECIALIST.SUBSTATION OPERATOR TRANSFORMING Work Phone: Hematology/Oncology Comment on above: Results Start: 08-25-2023 End: 08-25-2023 ambulatory [facility] Work Phone: Start: 08-25-2023 End: 08-25-2023 Patient encounter procedure [facility]-Cat Scan, [facility] Work Phone: Start: 08-25-2023 End: 08-25-2023 ambulatory [facility] Facility:[facility] Start: 02-26-2023 End: 02-27-2023 ambulatory Miriam Perkins ADDICTIONS RECOVERY SPECIALIST.SUBSTATION OPERATOR TRANSFORMING Work Phone: Hematology/Oncology Comment on above: 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); Elevated CEA Start: 02-26-2023 End: 02-26-2023 Patient encounter procedure Miriam Calabreseenter ADDICTIONS RECOVERY SPECIALIST.SUBSTATION OPERATOR TRANSFORMING Work Phone: [facility] Start: 02-21-2023 Telephone encounter Miriam Carp enter ADDICTIONS RECOVERY SPECIALIST.SUBSTATION OPERATOR TRANSFORMING Work Phone: Hematology/Oncology Comment on above: Results Start: 02-19-2023 End: 02-19-2023 ambulatory [facility] Work Phone: Start: 02-19-2023 End: 02-19-2023 Patient encounter procedure [facility]-Cat Scan, [facility] Work Phone: Start: 02-07-2023 Telephone encounter Means Carp enter ADDICTIONS RECOVERY SPECIALIST.SUBSTATION OPERATOR TRANSFORMING Work Phone: Hematology/Oncology Comment on above: Future Appointment Start: 02-05-2023 Telephone encounter Miriam Carp enter ADDICTIONS RECOVERY SPECIALIST.SUBSTATION OPERATOR TRANSFORMING Work Phone: Hematology/Oncology Comment on above: Results Start: 02-04-2023 Telephone encounter Orlando Dorantes sandra DO Work Phone: Hematology/Oncology Comment on above: Vomiting Start: 02-04-2023 End: 02-05-2023 ambulatory MIRIAM CALABRESEENTER Facility:[facility] Start: 09-03-2022 Telephone encounter Miriam Calabrese enter ADDICTIONS RECOVERY SPECIALIST.SUBSTATION OPERATOR TRANSFORMING Work Phone: Hematology/Oncology Comment on above: Results Start: 09-02-2022 Telephone encounter Orlando flores DO Work Phone: Hematology/Oncology Comment on above: AV[facility] 09/02/22 Start: 09-02-2022 End: 09-02-2022 ambulatory Meanssandip CalabresePerkins ADDICTIONS RECOVERY SPECIALIST.SUBSTATION OPERATOR TRANSFORMING Work Phone: Hematology/Oncology Comment on above: 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) Start: 09-02-2022 End: 09-02-2022 Patient encounter procedure Miriam Perkins ADDICTIONS RECOVERY SPECIALIST.SUBSTATION OPERATOR TRANSFORMING Work Phone: [facility] Start: 07-24-2022 Telephone encounter Miriam Calabrese enter ADDICTIONS RECOVERY SPECIALIST.SUBSTATION OPERATOR TRANSFORMING Work Phone: Hematology/Oncology Comment on above: Results Start: 07-17-2022 End: 07-17-2022 ambulatory [facility] Work Phone: Start: 07-17-2022 End: 07-17-2022 Patient encounter procedure [facility]-Cat Scan, [facility] Start: 05-21-2022 Telephone encounter Miriam Calabrese enter ADDICTIONS RECOVERY SPECIALIST.SUBSTATION OPERATOR TRANSFORMING Work Phone: Hematology/Oncology Comment on above: Appointment Start: 03-19-2022 End: 03-19-2022 ambulatory [facility] Work Phone: Start: 03-19-2022 End: 03-19-2022 Patient encounter procedure [facility]-Pulmonary Services/Neurology Start: 03-08-2022 Telephone encounter Miriam Calabrese enter ADDICTIONS RECOVERY SPECIALIST.SUBSTATION OPERATOR TRANSFORMING Work Phone: Hematology/Oncology Comment on above: Results Start: 03-06-2022 End: 03-06-2022 ambulatory Miriam Perkins ADDICTIONS RECOVERY SPECIALIST.SUBSTATION OPERATOR TRANSFORMING Work Phone: Hematology/Oncology Comment on above: 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 Endoscopy Comment on above: Personal history of colon cancer [Z85.038] Start: 09-10-2021 Telephone encounter Jas Dykes MD Work Phone: General Surgery Comment on above: Question Start: 05-28-2018 Patient encounter procedure IMCA Facility:[facility] Procedures Date Procedure Procedure Detail Performing Clinician Start: 12-02-2024 Chloride measurement , urine Dr. Gumaro Sepulveda DO Work Phone: Start: 12-02-2024 Urea nitrogen measur ement, urine Dr. Gumaro Sepulveda DO Work Phone: Start: 12-02-2024 Urnls dip stick/tabl et reagent auto microscopy Dr. Gumaro Sepulveda DO Work Phone: Start: 12-02-2024 Complete ultrasound of kidneys and bladder Dr. Gumaro Sepulveda DO Work Phone: Start: 12-02-2024 X-ray of chest, PA a nd lateral views Dr. Gumaro Sepulveda DO Work Phone: Start: 12-02-[address] Gumaro Sepulveda DO Work Phone: Start: 08-25-2023 CT of chest and abdomen Start: 02-19-2023 CT of chest and abdomen Start: 07-17-2022 CT of chest and abdomen Start: 10-29-2021 Gluc bld gluc mntr d ev cleared fda spec home use Carla Quintana MD Work Phone: Start: 10-29-2021 Colon ca scrn not hi rsk ind Maribel Richards PA-C Work Phone: Start: 10-29-2021 Gluc bld gluc mntr d ev cleared fda spec home use Carla Quintana MD Work Phone: Start: 10-29-2021 Colonoscopy Jas del valle MD Work Phone: Start: 08-09-2019 Colonoscopy Jas del valle MD Work Phone: Start: 01-15-2019 Adult depression scr eening assessment Jas Dykes MD Work Phone: Plan of Treatment Date Care Activity Detail Author Start: 10-29-2026 Colonoscopy COLONOSCOPY [facility] Start: 10-29-2026 COLORECTAL CANCER SCREENING COLORECTAL CANCER SCREENING [facility] Start: 10-29-2026 Screening for malign ant neoplasm of colon [facility] Start: 12-02-2024 Admission procedure [facility] Start: 12-02-2024 Electrolytes measure ment, urine [facility] Start: 12-02-2024 Urea nitrogen measur ement, urine [facility] Start: 12-02-2024 [facility] Start: 12-02-2024 Hospital admission, emergency, from emergency room, medical nature [facility] Start: 12-02-2024 End: 12-02-2024 [facility] Start: 12-02-2024 [facility] Start: 12-02-2024 Bacteria identified in Urine by Culture Urine Culture [facility] Start: 10-29-2024 Colonoscopy COLONOSCOPY [facility] Start: 10-29-2024 COLORECTAL CANCER SCREENING COLORECTAL CANCER SCREENING [facility] Start: 02-08-2024 Influenza vaccination Influenz a Vaccine (Season Ended) [facility] Start: 08-27-2023 End: 10-27-2023 CREATININE BLD CREATININE BLD Lab STAT Malignant neoplasm of splenic flexure (HCC) Elevated CEA Expected: 08/27/2023 (Approximate), Expires: 10/27/2023 [facility] Work Phone: Comment on above: Expected: 08/27/2023 (Approximate), Expires: 10/27/2023 Start: 06-09-2023 Advance Directive Discussion Advance Directive Discussion [facility] Start: 06-09-2023 Behavioral Health Screening Behavioral Health Screening [facility] Start: 06-09-2023 [facility] Start: 02-07-2023 Influenza vaccination [facility] Start: 02-04-2023 End: 04-06-2023 Carcinoembryonic Ag [Mass/volume] in Serum or Plasma [facility] Work Phone: Comment on above: Expected: 02/04/2023 , Expires: 04/06/2023 Start: 2022 ADVANCE DIRECTIVE DISCUSSION ADVANCE DIRECTIVE DISCUSSION [facility] Start: 08-08-2022 Colonoscopy COLONOSCOPY [facility] Start: 08-08-2022 COLORECTAL CANCER SCREENING COLORECTAL CANCER SCREENING [facility] Start: 07-19-2022 End: 09-18-2022 CREATININE BLD CREATININE BLD Lab STAT Malignant neoplasm of splenic flexure (HCC) Expected: 07/19/2022, Expires: 09/18/2022 [facility] Work Phone: Comment on above: Expected: 07/19/2022 , Expires: 09/18/2022 Start: 06-09-2022 DEPRESSION ASSESSMENT DEPRESSION ASS ESSMENT [facility] Start: 02-07-2022 Influenza vaccination [facility] Start: 06-09-2021 [facility] Start: 10-12-2020 COVID-19 VACCINE (3 - Pfizer risk 4-dose series) COVID-19 VACCINE (3 - Pfizer risk 4-dose series) [facility] Start: 10-12-2020 COVID-19 VACCINE (3 - Pfizer risk series) COVID-19 VACCINE (3 - Pfizer risk series) [facility] Start: 06-21-2020 Hemoglobin A1c measurement HbA1C [facility] Start: 06-21-2020 Hemoglobin A1c/Hemoglobin.total in Blood HBA1C [facility] Start: 01-16-2020 Adult depression scr eening assessment DEPRESSION SCREENING [facility] Start: 2017 Hepatitis B Vaccine (1 of 3 - Risk 3-dose series) Hepatitis B Vaccine (1 of 3 - Risk 3-dose series) [facility] Start: 2017 RSV Vaccine (1 - 1-d ose 60+ series) RSV Vaccine (1 - 1-dose 60+ series) [facility] Start: 2012 PROSTATE CANCER SCRE ENING DISCUSSION PROSTATE CANCER SCREENING DISCUSSION [facility] Start: 2012 Prostate specific an tigen measurement Prostate Cancer Screening Discussion [facility] Start: 10-07-2007 SHINGRIX VACCINE (1 of 2) LOVE GRIX VACCINE (1 of 2) [facility] Start: 2002 COLOGUARD (FIT-DNA) COLOGUARD (FIT-D NA) [facility] Start: [address] COLONOGRAPHY [facility] Start: 2002 FECAL OCCULT BLOOD FECAL OCCULT BLOO D [facility] Start: 2002 Screening for malign ant neoplasm of colon [facility] Start: 2002 SIGMOIDOSCOPY SIGMOIDOSCOPY [facility] Start: 1976 SHINGRIX VACCINE (1 of 2) LOVE GRIX VACCINE (1 of 2) [facility] Start: 1976 Urine microalbumin profile [facility] Start: 10-07-1975 ANNUAL PCP TEAM [employer]SIDE [employer]INE[employer] WENDY DISEASE VISIT ANNUAL PCP TEAM CHRONIC DISEASE VISIT [facility] Start: 10-07-1975 BP CONTROLLED (<130/80) BP CONTROLLE D (<130/80) [facility] Start: 10-07-1975 Hepatitis B surface antibody level LDL CHOLESTEROL [facility] Start: 10-07-1975 HEPATITIS C SCREENING HEPATITIS C [facility] Start: 10-07-1975 Hepatitis C screening Hepatitis C [facility] Start: 10-07-1975 HIV SCREENING HIV SCREENING [facility] Start: 10-07-1975 HIV screening HIV Screening [facility] Start: 1973 ONE PNEUMOVAX PRIOR TO AGE 65 ONE PNEUMOVAX PRIOR TO AGE 65 [facility] Start: 10-07-1967 3 comp foot exam completed DIABETIC FOOT EXAM [facility] Start: 10-07-1967 Diabetic foot examination Diabetic F oot Exam [facility] Start: 10-07-1967 Glaucoma screening Dilated Retinal E xam [facility] Start: 10-07-1967 Hepatitis B screening URINE ALBUMIN:CREATININE RATIO [facility] Start: 10-07-1967 Hepatitis C antibody , confirmatory test DILATED RETINAL EXAM [facility] Start: 10-07-1963 PNEUMOCOCCAL (1 - PCV) PNEUMOCOCCAL (1 - PCV) [facility] Start: 10-07-1963 Pneumococcal Vaccine : 65+ (1 - PCV) Pneumococcal Vaccine: 65+ (1 - PCV) [facility] Start: 10-07-1963 Pneumococcal Vaccine : 65+ (1 of 2 - PCV) Pneumococcal Vaccine: 65+ (1 of 2 - PCV) [facility] Start: 10-07-1963 PNEUMOCOCCAL: 65+ (1 - PCV) PNEUMOCOCCAL: 65+ (1 - PCV) [facility] Start: 1957 ABDOMINAL AORTIC ANE URYSM SCREENING ABDOMINAL AORTIC ANEURYSM SCREENING [facility] Start: 1957 Abdominal aortic ane urysm screening Abdominal Aortic Aneurysm Screening [facility] Anion gap in Serum o r Plasma [facility] BUN/Creatinine ratio [facility] Calcium [Mass/volume ] in Serum or Plasma [facility] Carbon dioxide, tota l [Moles/volume] in Central venous blood [facility] Creatinine [Mass/vol ume] in Serum or Plasma [facility] End: 06-20-2023 Ct abdomen & pelvis w/contrast material CT ABD/PEL W IVCON Radiology Routine Malignant neoplasm of splenic flexure (HCC) 1 Occurrences starting 05/21/2022 until 06/20/2023 [facility] Work Phone: Comment on above: 1 Occurrences starti ng 05/21/2022 until 06/20/2023 End: 03-27-2024 Ct abdomen & pelvis w/contrast material CT ABD/PEL W IVCON Radiology Routine Malignant neoplasm of splenic flexure (HCC) Elevated CEA 1 Occurrences starting 02/26/2023 until 03/27/2024 [facility] Work Phone: Comment on above: 1 Occurrences starti ng 02/26/2023 until 03/27/2024 End: 03-06-2024 CT Abdomen and Pelvis W contrast IV CT ABD/PEL W IVCON Radiology Routine Malignant neoplasm of splenic flexure (HCC) 1 Occurrences starting 02/05/2023 until 03/06/2024 [facility] Work Phone: Comment on above: 1 Occurrences starti ng 02/05/2023 until 03/06/2024 End: 03-06-2024 CT Chest W contrast IV CT CHEST W IVCON Radiology Routine Malignant neoplasm of splenic flexure (HCC) 1 Occurrences starting 02/05/2023 until 03/06/2024 [facility] Comment on above: 1 Occurrences starti ng 02/05/2023 until 03/06/2024 End: 06-20-2023 CT CHEST W IVCON CT CHEST W IVCON Radiology Routine Malignant neoplasm of splenic flexure (HCC) 1 Occurrences starting 05/21/2022 until 06/20/2023 [facility] Work Phone: Comment on above: 1 Occurrences starti ng 05/21/2022 until 06/20/2023 End: 03-27-2024 CT CHEST W IVCON CT CHEST W IVCON Radiology Routine Malignant neoplasm of splenic flexure (HCC) Elevated CEA 1 Occurrences starting 02/26/2023 until 03/27/2024 [facility] Work Phone: Comment on above: 1 Occurrences starti ng 02/26/2023 until 03/27/2024 Glucose [Mass/volume ] in Serum or Plasma [facility] Measurement of renal function [facility] Microscopic urinalysis [facility] Organism count, microscopic method [facility] Osmolality of Urine [facility] Patient referral [facility] Work Phone: Potassium measurement [facility] Serum chloride measurement [facility] Sodium measurement [facility] Troponin T.cardiac [Mass/volume] in Serum or Plasma by High sensitivity method [facility] Urea nitrogen [Mass/volume] in Serum or Plasma [facility] Urine culture [facility] Urine microscopy: epithelial cells [facility] Urine microscopy: re d cells [facility] White blood cell count [facility] Immunizations Immunization Date Immunization Notes Care Provider Fa erickty 09-14-2020 Covid (Pfizer) [facility] 08-24-2020 Covid (Pfizer) [facility] Payers Date Payer Category Payer Self-pay [id number] 2023 Unknown [id number] 2020 Unknown [id number] 2020 Unknown [id number] 2020 Unknown [id number] 1955 Unknown [id number] 1955 Unknown [id number] Unknown [id number] Unknown [id number] Unknown [id number] [id number] [id number] Unknown [id number] [id number] [id number] Unknown COMMERCIAL OTHER [id number] Social History Date Type Detail Facility Start: 05-07-2018 End: 12-02-2024 Tobacco smoking status NHIS Ex-smoker [facility] Start: 05-07-1973 End: 05-07-1993 History of tobacco use Current smoker [facility] Start: 05-07-1973 End: 05-07-1993 History of tobacco use Cigarette Smoker [facility] Start: 05-07-2018 End: 07-01-2022 Cigarettes smoked current (pack per day) - Reported 1.5 [facility] Start: 05-07-2018 End: 10-15-2018 Tobacco use and exposure Smokeless tobacco non-user [facility] Start: 08-07-2021 End: 09-02-2022 Alcohol intake Current non-drinker of alcohol (finding) [facility] Start: 1955 Sex Assigned At Not on file [facility] Start: 10-19-2021 End: 03-06-2022 Exposure to SARS-CoV-2 (event) Not sure [facility] Start: 06-14-2021 End: 06-14-2021 Tobacco smoking status NHIS Unknown if ever smoked [facility] Start: 05-26-2018 Non-smoker [facility] Start: 1955 Sex Assigned At Male W [facility] Start: 07-01-2022 End: 09-02-2022 Tobacco use panel [facility] Adult Depression Screening Assessment 0 [facility] Tobacco smoking status No Smokin g Status Entered [facility] Medical Equipment Procedure Code Equipment Code Equipment Original Text Equipment Identifier Dates Laparoscopic-assisted sigmoidectomy RELOAD,BLUE 60 FDA Start: 06-10-2018 Laparoscopic-assisted sigmoidectomy RELOAD,BLUE 60 FDA Start: 06-10-2018 Laparoscopic-assisted sigmoidectomy RELOAD,BLUE 60 FDA Start: 06-10-2018 Laparoscopic-assisted sigmoidectomy STAPLER,TX60B FDA Start: 06-10-2018 Laparoscopic-assisted sigmoidectomy RELOAD,BLUE 60 FDA Start: 06-10-2018 Laparoscopic-assisted sigmoidectomy RELOAD,BLUE 60 FDA Start: 06-10-2018 Laparoscopic-assisted sigmoidectomy RELOAD,BLUE 60 FDA Start: 06-10-2018 Laparoscopic-assisted sigmoidectomy STAPLER,TX60B FDA Start: 06-10-2018 Laparoscopic-assisted sigmoidectomy RELOAD,BLUE 60 FDA Start: 06-10-2018 Laparoscopic-assisted sigmoidectomy RELOAD,BLUE 60 FDA Start: 06-10-2018 Laparoscopic-assisted sigmoidectomy RELOAD,BLUE 60 FDA Start: 06-10-2018 Laparoscopic-assisted sigmoidectomy STAPLER,TX60B FDA Start: 06-10-2018 Laparoscopic-assisted sigmoidectomy RELOAD,BLUE 60 FDA Start: 06-10-2018 Laparoscopic-assisted sigmoidectomy RELOAD,BLUE 60 FDA Start: 06-10-2018 Laparoscopic-assisted sigmoidectomy RELOAD,BLUE 60 FDA Start: 06-10-2018 Laparoscopic-assisted sigmoidectomy STAPLER,TX60B FDA Start: 06-10-2018 Laparoscopic-assisted sigmoidectomy RELOAD,BLUE 60 FDA Start: 06-10-2018 Laparoscopic-assisted sigmoidectomy RELOAD,BLUE 60 FDA Start: 06-10-2018 Laparoscopic-assisted sigmoidectomy RELLYNSEY HOPKINS 60 FDA Start: 06-10-2018 Laparoscopic-assisted sigmoidectomy [id number] FDA Start: 06-10-2018 Mental Status Date Assessment Result Facility 12-02-2024 Cognitive function Level Of Cons ciousness Awake;Alert;Appropriate;Follow s Commands [facility] Work Phone: Clinical Notes 09-11-2021 to 12-02-2024 Note Date & Type Note Facility 12-02-2024 Radiology Diagnostic study note [facility] Imaging Services [address] [place] [address] Kidney and Bladder MR#: [id number] Acct: [id number] Name: MAINOR MENDEZ Rep #: [id number] : 1955 M 69 From: Leah Somers MD PCP: Dr. Gumaro Sepulveda DO Status: REG ER Study:Kidney and Bladder Date of Exam: 0 12/02/24 Exam# [id number] Ordering Dr: Everardo Galarza DO PROCEDURE: KIDNEY AND BLADDER, 12/02/2024 REASON FOR EXAM: ACUTE RENAL FAILURE TECHNIQUE: Grayscale and color doppler ultrasound of the kidneys and bladder was performed. COMPARISON: 08/25/2023 tiny hypodensities FINDINGS: Right kidney: 13.4 cm in length. Cysts up to 3.4 x 4.1 x 5.1 cm superiorly. Novisualized calculus or hydronephrosis. Left kidney: 10.8 cm in length. Tiny hypodensities seen on CT are not visualized. No visualized mass, calculus, or hydronephrosis. Bladder: Underdistended and suboptimally evaluated; grossly unremarkable. Estimated volume 172 mL. Other: None. US/Kidney and Bladder IMPRESSION: 1. No hydronephrosis. 2. Additional description as above. Reading Location: [id number] CC: Dr. Gumaro Sepulveda DO; Dr. Will Galarza DO ~ Dog Daycare Provider: Signed [facility] 12-02-2024 Discharge summary [facility] 12-02-2024 Radiology Diagnostic study note [facility] Imaging Services [address] [place] [address] Chest PA and Lateral MR#: [id number] Acct: [id number] Name: MAINOR MENDEZ Rep #: [id number] : 1955 M 69 From: Mansoor Reynoso MD PCP: Dr. Gumaro Sepulveda DO Status: REG ER Study:Chest PA and Lateral Date of Exam: 12/02/24 Exam# [id number] Ordering Dr: Everardo Galarza DO PROCEDURE: CHEST PA AND LATERAL 12/02/2024 REASON FOR EXAM: CHEST PAIN TECHNIQUE: CHEST PA AND LATERAL COMPARISON: None FINDINGS: Hardware: EKG electrodes are seen. Heart: The heart is not enlarged. Mediastinum: The mediastinal contour is unremarkable. Lungs: Hyperinflation. Scattered calcified granulomas. No acute infiltrate is seen. Bones: Degenerative changes are identified within the thoracic spine. RAD/Chest PA and Lateral IMPRESSION: No acute abnormality is seen. Reading Location: [id number] CC: Dr. Gumaro Sepulveda DO; Dr. Will Galarza DO ~ Dog Daycare Provider: Signed [facility] 12-02-2024 Discharge summary Note Date/Time December 02, 2024 5:40pm [facility] Medical Records Department [address] [place] [address] Emergency Department Summary 12/02/24 MR#: [id number] Acct: [id number] Name: MAINOR MENDEZ Rep #:[id number] : 1955 69 From: Will Galarza DO PCP: Dr. Gumaro Sepulveda DO Status:REG ER Location: ED HPI History of Present Illness Chief Complaint: Abn Labs Narrative Narrative: Patient is a 69-year-old male with past medical history of hypertension, diabetes, hypercholesteremia, GERD, colon cancer who presented to the emergency department with concern of elevated potassium. Patient states that he was not feeling well yesterday his family doctor had blood work obtained and noted that potassium was 6.5 advised him to come to the emergency department to be evaluated. He states that he felt like on Friday he had acid reflux type symptoms as well. Patient states that this will happen periodically with his GERD. Patient denies any sick contacts. He just feels overall weak and fatigued. [facility] Medical History GERD (gastroesophageal reflux disease) Rheumatoid arthritis High cholesterol Hearing loss, left Hearing loss, right Former smoker Diabetes Hypertension Colon cancer Home Medications ?Medication ?Instructions ?Recorded ?Last Taken ?Type adalimumab 40 mg/0.8 mL 40 mg SQ Q14D RA 05/26/18 Un known History subcutaneous syringe kit (Humira) allopurinol 300 mg tablet 300 mg PO DAILY GOUT 8 Unknown History aspirin 81 mg tablet,delayed 81 mg PO DAILY@0800 [facility] 05/26/18 06/03/18 History release glipizide 5 mg tablet 5 mg PO TID DIABETES 8 Unknown History metformin 1,000 mg tablet 1,000 mg PO BIDCM DIABETES 1 07/27/17 Unknown History atorvastatin 80 mg tablet (Lipitor) 80 mg PO QHS 12/02 Unknown History carvedilol 12.5 mg tablet 12.5 mg PO BID 12/02/24 Unkn own History naproxen sodium 220 mg capsule 220 mg PO BID PRN pain 12/02/24 Unknown History (Aleve) omega-3 fatty acids 1,000 mg 1,000 mg PO DAILY 5 Unknown History capsule pioglitazone 30 mg tablet (Actos) 30 mg PO QHS 5 Unknown History prednisone 10 mg tablet 10 mg PO QDAY 12/02/24 Unkno wn History sitagliptin phosphate 100 mg 100 mg PO DAILY 12/02/24 Unknown History tablet (Januvia) telmisartan 40 mg tablet (Micardis) 40 mg PO DAILY Unknown History tramadol 50 mg tablet 50 mg PO TID PRN pain Unknown History Allergy/AdvReac Type Severity Reaction Status Date / Time No Known Allergies Allergy Verified 12/02/24 17:16 Social History Smoking Status: Former smoker ROS ROS ED ROS Narrative Constitutional: Denies headaches, lightness, dizziness, fevers, chills Eyes: Denies change in vision double vision blurry vision Cardiovascular: Denies chest pain Respiratory: Denies shortness of breath Abdomen: Denies abdominal pain nausea vomit diarrhea : Denies any urinary symptoms Neurological: Denies numbness, wheeze, tingling Musculoskeletal: Denies back pain Skin: Denies any rashes or lesions EXAM Physical Exam Narrative Exam Narrative: General: Patient was lying in bed resting comfortably did not appear to be acutedistress Head: Atraumatic, normocephalic Eyes: PERRL bilaterally, EOMI blood, no conjunctival injection noted Neck: Soft, supple, trachea midline Cardiovascular: Regular rate and rhythm no murmurs gallops rubs noted Respiratory: Clear to auscultation bilaterally Abdomen: Soft, nondistended, nontender to palpation Extremities: +5/5 strength noted in the bilateral upper and lower extremities, radial pulses +2/4 in the bilateral extremities, no pedal edema on exam Neurological: Patient following commands knew that he was at [facility] year is 2024 Skin: Warm, dry, tact no rashes or lesions noted Const Vital Signs: 12/02/24 13:52 12/02/24 14:51 12/02/24 14:52 Temperature 96.7 F L Temperature Source Temporal Pulse Rate 69 68 Respiratory Rate 16 18 Respiratory Effort Normal Respiratory Pattern Normal Blood Pressure 126/49 H 143/56 H Blood Pressure Mean 74 85 Pulse Ox 98 98 Oxygen Delivery Method Room Air Room Air 12/02/24 14:59 12/02/24 15:00 12/02/24 16:22 Temperature Temperature Source Pulse Rate 59 L 70 Respiratory Rate 12 Respiratory Effort Respiratory Pattern Blood Pressure 137/59 H 159/72 H Blood Pressure Mean 85 101 Pulse Ox 98 Oxygen Delivery Method Room Air Room Air 12/02/24 17:00 Temperature 97.9 F Temperature Source Pulse Rate 74 Respiratory Rate 16 Respiratory Effort Respiratory Pattern Blood Pressure 154/57 H Blood Pressure Mean 89 Pulse Ox 100 Oxygen Delivery Method MDM MDM MDM Narrative Medical decision making narrative: Patient is a 69-year-old male who presents to the emergency department with concern of hyperkalemia. On the differential diagnosis includes but not limitedto acute kidney injury, chronic kidney disease, hyperkalemia, hemolyzed specimen, ACS. Once workup is obtained reviewed he will be reevaluated. Patient's CBC was reviewed showed a leukocytosis of 13,000, hemoglobin 11.7, plate count of 215. Patient odium was low at 127 indicating hyponatremia, potassium was elevated to 6.6 which is consistent with the outpatient blood draw. Patient's CO2 was low at 18.5 anion gap of 16. Patient BUN elevated 105 with a creatinine of 4.61. Patient's troponin was 25 EKG reviewed and showed sinus rhythm rate of 74 bpm with a QTc of 397 patient does have evidence of peaked T waves on his EKG. Patient's chest x-ray reviewed by myself by radiology showed no acute abnormalities. Patient denies any dark black stools denies any blood in stool Will add on a renal ultrasound. Ordered the hyperkalemia treatment with insulin dextrose IV fluids calcium gluconate. Patient bladder scanned for 300 cc Will discuss case with hospitalist for admission. Discussed case with hospitalist Dr. Ridley who accept the patient for admission. Patient is agreeable to plan all question concerns answered bedside. She was requesting we reach out to nephrology which we page and we have been unable to get a hold of them at this point time. Lab Data Labs: Laboratory Results - last 24 hr 12/02/24 12/02/24 12/02/24 14:50 16:13 16:48 WBC 13.1 H RBC 3.72 L Hgb 11.7 L Hct 34.3 L MCV 92.2 MCH 31.5 MCHC 34.1 RDW Std Deviation 48.1 H RDW Coeff of Deep 14.2 Plt Count 215 MPV 10.9 Immature Gran % (Auto) 0.700 Neut % (Auto) 56.3 Lymph % (Auto) 26.9 [place] % (Auto) 8.5 Eos % (Auto) 7.1 H Baso % (Auto) 0.5 Absolute Neuts (auto) 7.4 Absolute Lymphs (auto) 3.53 Nucleated RBC % 0 Sodium 127 L Potassium 6.6 H* Chloride 92 L Carbon Dioxide 18.5 L Anion Gap 16 H BUN 105 H* Creatinine 4.61 H Estim Creat Clear Calc 19.29 L Est GFR (MDRD) Non-Af 13 L BUN/Creatinine Ratio 22.8 H Glucose 154 H Calcium 9.0 Troponin T High Sens 25 H Troponin T Hi Sens 2 Hr 22 POC Glucose 100 Radiography Diagnostic Testing: Clinical Impression(s) from Imaging Studies Chest X-Ray 12/02/24 15:03 IMPRESSION: No acute abnormality is seen. Reading Location: [id number] Discharge Plan Triage Chief Complaint: Abn Labs ED Provider: Will Galarza Dx/Rx/DC Orders Clinical Impression: Hyperkalemia, Acute renal failure, Hyponatremia Prescriptions: No Action Humira 40 MG/0.8 ML syringe kit 40 mg SQ Q14D aspirin 81 MG tablet 81 mg PO DAILY@0800 metformin 1,000 MG tablet 1,000 mg PO BIDCM allopurinol 300 MG tablet 300 mg PO DAILY glipizide 5 MG tablet 5 mg PO BID carvedilol 12.5 mg tablet 12.5 mg PO BID Rx Instructions: must administer with a meal/food telmisartan [Micardis] 40 mg tablet 40 mg PO DAILY pioglitazone [Actos] 30 mg tablet 30 mg PO QHS Januvia 100 mg tablet 100 mg PO DAILY omega-3 fatty acids 1,000 mg capsule 1,000 mg PO DAILY atorvastatin [Lipitor] 80 mg tablet 80 mg PO QHS prednisone 10 mg tablet 10 mg PO QDAY tramadol 50 mg tablet 50 mg PO TID PRN naproxen sodium [Aleve] 220 mg capsule 220 mg PO BID PRN (Reason: pain) Primary Care Provider: Gumaro Sepulveda Referrals: Gumaro Sepulveda DO [Primary Care Provider] - Print Language: New Zealander Disposition Disposition: Acute Care Hospital [facility] What to do if you have Problems For any increased pain, shortness of breath, bleeding, nausea or vomiting, chestpain, or any unexpected problems, contact your Primary Care Provider. Call [facility] ([phone]) or report to the closest Emergency Room. Call 911 if necessary. 12/02/24 1740 <Electronically signed by Will Galarza DO> Cosigner Signature (if applicable): CC: Dr. Gumaro Sepulveda DO ~ Signed [facility] Work Phone: 1(164) 519-135908-05-2024 Note ORIGINAL EXAMINATION: LIMITED RETROPERITONEAL ULTRASOUND01/12/2024 12:05 pm Ultrasound retroperitoneum Complete: Attention Urinary tract COMPARISON: None TECHNIQUE: This report is based on interpretation of permanently recorded ultrasound images. HISTORY: ORDERING SYSTEM PROVIDED HISTORY: Reason for Exam: CKD3B, FINDINGS: Right kidney: 12.4 x 4.9 x 6.1 cm. Left kidney: 11.5 x 5.2 x 5.2 cm There is normal cortical thickness and echogenicity with no pelvocaliectasis, stone or shadowing mass on either side. Both kidneys have simple appearing cysts. The right kidney has at least 3 cysts. Largest upper pole cyst is 4.9 cm, lower pole cortical cyst is 1.9 cm and a mid to lower parapelvic cyst is 3.3 x 1.5 x 2.6 cm. There may be some cortical scarring adjacent to the parapelvic cyst in the right kidney. The left kidney has only 1 small 1.3 cm simple cyst in its lower pole. There is no free fluid seen in the abdomen. Urinary bladder is moderately distended with volume of 124 cc. No sonographic abnormality is seen. There is 25 cc of postvoid residual.. The prostate is not adequately visualized. IMPRESSION: No obstruction in either kidney. Bilateral simple appearing renal cysts. Interpreted by: Reynaldo Steward MD Preliminary Report By: Reynaldo Steward MD Electronically signed By Reynaldo Steward MD Dictated Date: 01/12/2024 12:18:39 PM Prelim Date: 01/12/2024 12:21:52 PM Sign Date: 01/12/2024 12:21:52 PM Ordering Provider: [facility]03-28-2024 NoteHNO ID: [id number] Author: MIRIAM PERKINS APRN.SUBSTATION OPERATOR TRANSFORMING Service: ? Author Type: Nurse Practitioner Type: Progress Notes Filed: 09/04/2023 11:57 Note Text: Chief Complaint Patient presents with: Established Patient HPI: Mainor Mendez is a 67 year old male who presents here today for follow up colon cancer. Per Dr. Iniguez's previous note: H/o hypercholesterolemia, hypertension, type 2 diabetes, rheumatoid arthritis and gout. For approximately the last 2 years, patient had symptoms of diarrhea after dinner. Then for about 2-3 months prior to evaluation was getting lower abdominal cramping. Recently found to have anemia and underwent work up: Patient underwent EGD/colonoscopy on 05/27/2018. Pathology: A. Jejunum, biopsy: Minimal nonspecific chronic inflammation. See comment. B. Gastric antrum, biopsy: Mild chronic inflammation. See comment. C. Gastroesophageal junction, biopsy: Mild acute and chronic inflammation. See comment. D. Mid esophagus, biopsy: Fragments of benign squamous mucosa. E. 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 See comment. CT A/P 05/28/2018: FINDINGS: Minimal degree of increased markings at [...] calcifications. Normal abdominal wall. Normal osseous structures. IMPRESSION: Circumferential wall thickening involving the distal transverse colon, splenic flexure and proximal descending colon with increased markings in the surrounding fat and small lymph nodes. Right renal cysts. CT chest 05/28/2018: FINDINGS: Mild degree of increased linear markings [...] demonstrated abnormality of the visualized upper abdomen. IMPRESSION: Findings just mild scarring at the lung bases as well as the right middle lobe. Underwent laparoscopic-assisted segmental colon cancer resection/splenic flexure mobilization was stapled functional end-to-end anastomosis on 06/10/2018. Pathology: MICROSCOPIC DIAGNOSIS Left colon, segmental colectomy: Invasive adenocarcinoma. See cancer checklist below. COMMENT COLON CANCER SUMMARY: Specimen - left [...] studies: Microsatellite study performed on same tumor ([id number] / [id number]): Positive (loss of mismatch protein; microsatellite instability detected). There is complet (more content not included)...[facility] 09-01-2023 Miscellaneous Notes* Telephone Encounter - Riana Arredondo - 09/01/2023 11:44 AM EDT Spoke with patient and scheduled. Riana Arredondo * Telephone Encounter - Riana Arredondo - 08/28/2023 12:06 PM EDT Patient is zoroastrianism self-pay and needs authorized prior to scheduling OV. Spoke with patient, advising below. Patient is aware we will be calling to schedule lab & OV once financially cleared. Riana Arredondo * Telephone Encounter - Miriam Perkins APRN.CNP - 08/28/2023 12:02 PM EDT Please inform pt. that his CT's look good. Needs OV with CEA. Thank you. Miriam Perkins APRN.SUBSTATION OPERATOR TRANSFORMING * Telephone Encounter - Pauline Thompson - 08/27/2023 3:57 PM EDT Patient is calling for CT results test was completed 08/24 at [facility] appears it was upload to [employer] yesterday. Please advise patient with results documented in this encounterHol[facility] NoteHNO ID: [id number] Author: Miriam Perkins APRN.CNP Service: ? Author Type: Nurse Practitioner Type: Progress Notes Filed: 02/26/2023 1:53 PM Note Text: Chief Complaint Patient presents with: Established Patient HPI: Mainor Mendez is a 67 year old male who presents here today for follow up colon cancer. Per Dr. Iniguez's previous note: H/o hypercholesterolemia, hypertension, type 2 diabetes, rheumatoid arthritis and gout. For approximately the last 2 years, patient had symptoms of diarrhea after dinner. Then for about 2-3 months prior to evaluation was getting lower abdominal cramping. Recently found to have anemia and underwent work up: Patient underwent EGD/colonoscopy on 05/27/2018. Pathology: A. Jejunum, biopsy: Minimal nonspecific chronic inflammation. See comment. B. Gastric antrum, biopsy: Mild chronic inflammation. See comment. C. Gastroesophageal junction, biopsy: Mild acute and chronic inflammation. See comment. D. Mid esophagus, biopsy: Fragments of benign squamous mucosa. E. 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 See comment. CT A/P 05/28/2018: FINDINGS: Minimal degree of increased markings at [...] calcifications. Normal abdominal wall. Normal osseous structures. IMPRESSION: Circumferential wall thickening involving the distal transverse colon, splenic flexure and proximal descending colon with increased markings in the surrounding fat and small lymph nodes. Right renal cysts. CT chest 05/28/2018: FINDINGS: Mild degree of increased linear markings [...] demonstrated abnormality of the visualized upper abdomen. IMPRESSION: Findings just mild scarring at the lung bases as well as the right middle lobe. Underwent laparoscopic-assisted segmental colon cancer resection/splenic flexure mobilization was stapled functional end-to-end anastomosis on 06/10/2018. Pathology: MICROSCOPIC DIAGNOSIS Left colon, segmental colectomy: Invasive adenocarcinoma. See cancer checklist below. COMMENT COLON CANCER SUMMARY: Specimen - left [...] studies: Microsatellite study performed on same tumor ([id number] / [id number]): Positive (loss of mismatch protein; microsatellite instability detected). There i (more content not included)...[facility]09-20-20[facility] History of Present illness Narrative* Miriam Perkins APRN.SUBSTATION OPERATOR TRANSFORMING - 02/26/2023 8:18 AM EDT Chief Complaint Patient presents with: Established Patient HPI: Mainor Mendez is a 67 year old male who presents here today for follow up colon cancer. Per Dr. Iniguez's previous note: H/o hypercholesterolemia, hypertension, type 2 diabetes, rheumatoid arthritis and gout. For approximately the last 2 years, patient had symptoms of diarrhea after dinner. Then for about 2-3 months prior to evaluation was getting lower abdominal cramping. Recently found to have anemia and underwent work up: Patient underwent EGD/colonoscopy on 05/27/2018. Pathology: A. Jejunum, biopsy: Minimal nonspecific chronic inflammation. See comment. B. Gastric antrum, biopsy: Mild chronic inflammation. See comment. C. Gastroesophageal junction, biopsy: Mild acute and chronic inflammation. See comment. D. Mid esophagus, biopsy: Fragments of benign squamous mucosa. E. 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 See comment. CT A/P 05/28/2018: FINDINGS: Minimal degree of increased markings at [...] calcifications. Normal abdominal wall. Normal osseous structures. IMPRESSION: Circumferential wall thickening involving the distal transverse colon, splenic flexure and proximaldescending colon with increased markings in the surrounding fat and small lymph nodes. Right renal cysts. CT chest 05/28/2018: FINDINGS: Mild degree of increased linear markings [...] demonstrated abnormality of the visualized upper abdomen. IMPRESSION: Findings just mild scarring at the lung bases as well as the right middle lobe. Underwent laparoscopic-assisted segmental colon cancer resection/splenic flexure mobilization was stapled functional end-to-end anastomosis on 06/10/2018. Pathology: MICROSCOPIC DIAGNOSIS Left colon, segmental colectomy: Invasive adenocarcinoma. See cancer checklist below. COMMENT COLON CANCER SUMMARY: Specimen - left [...] studies: Microsatellite study performed on same tumor ([id number] / [id number]): Positive (loss of mismatch protein; microsatellite instability detected). There is complete loss of MLH1 and PMS2 and no loss of MSH2 and MSH6 markers. PATHOLOGIC STAGE: pT3 N0 Mx Colonoscopy done August [address] Nieves. Colonoscopy done October [address] Dykes. Next due in 5 years. No new concerns today. Appetite:Good. Energy level:I'm doing ok. Denies fevers or recent illness. Resp:denies cough or sob Cardiac:denies chest pain/palpitations GI:denies abd pain, n/v, moving bowels regularly :denies dysuria/hematuria Extrem:denies pain Neuro:denies symptoms of neuropathy Skin:denies rashes/lesions Heme:denies bleeding The ROS is otherwise negative. Past medical history, appointments, medications, allergies reviewed. No changes. EXAM: BP 147/74 Pulse 76 Temp 36.9 C (98.5 F) Ht 179 cm (5' 10.47) Wt 102.1 kg (225 lb) SpO2 96% BMI 31.85 kg/m APPEARANCE Well appearing, alert, in no acute distress, well-hydrated, well nourished. HEART RRR with normal S1 and S2, no murmurs LUNG clear to auscultation LYMPH NODES No cervical lymphadenopathy, No supraclavicular lymphadenopathy, and No axillary lymphadenopathy. ABDOMEN bowel sounds normoactive, soft, non-tender EXTREMITIES No edema NEURO Awake, alert and oriented x 3, Normal gait, and No involuntary motions. SKIN Skin color, texture, turgor normal, no suspicious rashes or lesions LABS: Component Latest Ref Rng & Units 03/22/2021 07/16/2021 03/06/2022 05/16/2022 09/02/2022 02/04/2023 CEA <=2.9 ng/mL 3.6 (H) 3.4 (H) 4.0 (H) 3.2 (H) 2.8 4.7 (H) ASSESSMENT/PLAN: 1. Malignant neoplasm of splenic flexure (HCC) - ICD9: 153.7, ICD10: C18.5 (primary diagnosis) 2. Elevated CEA - ICD9: 795.81, ICD10: R97.0 Stage II colon cancer (splenic flexure). Loss of MLH1 and PMS2. - No concerning findings on exam. FERMÍN on CT's. - Pt. over 4 years out from surgery 2022. - Reviewed CEA/CT's with pt. Will have CT's scanned into Epic. - CT's due August 2023. Pt. has this done at [facility]. - Follow up after above with CEA. - Pt. aware to call office with any questions/concerns. The patient indicates understanding of these issues and agrees with the plan. All documentation from previous visit of 09/02/22-Dr. Iniguez/myself was copied and pasted, documentation has been reviewed and edited as necessary for today's visit. Miriam Perkins APRN.ANGELICA documented in this encounterHol[facility]09-15-2023 Miscellaneous Notes* Telephone Encounter - Berta Hays LPN - 02/21/2023 2:52 PM EDT Pt. Notified of CT results, will keep appt. Next week as scheduled. Berta Hays LPN * Telephone Encounter - Miriam Perkins APRN.CNP - 02/21/2023 2:47 PM EDT Please inform pt. that CT's show no acute findings and no sign of cancer. Follow up as scheduled next week. Thank you. Miriam Perkins APRN.ANGELICA * Telephone Encounter - Reanna Tarango - 02/21/2023 2:14 PM EDT Patient requesting CT results from 02/19-[facility] documented in this encounterHol[facility]09-11-2023 Miscellaneous Notes* Telephone Encounter - Tash Navarro - 02/17/2023 10:08 AM EDT Pt scheduled as directed * Telephone Encounter - Riana Arredondo - 02/07/2023 10:49 AM EDT Patient called to reschedule 02/17 appointment as he is gettinga CT on 02/19/23 at [facility]. Referral for appointment was closed. New referral submitted. Once approved, please scheduled CEA/6 MO OV/CT @ [facility]02/19* with Miriam on 02/26/23 at 8:00 AM (held appt time). Riana Arredondo documented in this encounterHol[facility]09-05-2023 Telephone encounter Note * Telephone Encounter - Reanna Tarango - 02/11/2023 10:05 AM EDT Patient returned call. New TE was entered on 02/07 and documented. [facility] Work Phone: 1(977) 653-748109-05-2023 Miscellaneous Notes* Telephone Encounter - Reanna Tarango - 02/11/2023 10:05 AM EDT Patient returned call. New TE was entered on 02/07 and documented. * Telephone Encounter - Tash Navarro - 02/11/2023 9:51 AM EDT 1st attempt: LM When pt returns call please ask if pt has gotten scheduled and document the date and time in this encounter. As well as schedule externally the CT orders on pt's apt desk * Telephone Encounter - Tash Navarro - 02/05/2023 4:42 PM EDT Called pt. Stated he was ok with us faxing the orders to [facility] and having them contact him to mark anthony. Pt stated that he will call our office and let us know when he is scheduled . Updated pt's referrals and Faxed orders * Telephone Encounter - Sagrario Wayne LPN - 02/05/2023 11:00 AM EDT Patient is aware of all information. PSS- please contact patient to assist in scheduling CT's at [facility]. Sagrario Wayne LPN * Telephone Encounter - Miriam Perkins APRN.SUBSTATION OPERATOR TRANSFORMING - 02/05/2023 10:54 AM EDT Please inform pt. that his CEA is elevated-this is not uncommon for him but since he is having symptoms he should have CT's. Orders in. Pt. normally likes to have these done at [facility]. Please call pt and assist with scheduling. Thank you. Miriam Perkins APRN.SUBSTATION OPERATOR TRANSFORMING documented in this encounterHolmes County [facility]09-05-2023 Telephone encounter Note * Telephone Encounter - [place] - 02/11/2023 9:51 AM EDT 1st attempt: LM When pt returns call please ask if pt has gotten scheduled and document the date and time in this encounter. As well as schedule externally the CT orders on pt's apt desk [facility]08-30-2023 Telephone encounter Note* Telephone Encounter - [place], - 02/05/2023 4:42 PM EDT Called pt. Stated he was ok with us faxing the orders to [facility] and having them contact him to mark anthony. Pt stated that he will call our office and let us know when he is scheduled . Updated pt's referrals and Faxed orders [facility]08-30-2023 Telephone encounter Note* Telephone Encounter - Sagrario Wayne LPN - 02/05/2023 11:00 AM EDT Patient is aware of all information. PSS- please contact patient to assist in scheduling CT's at [facility]. Sagrario Wayne LPN [facility]08-30-2023 Telephone encounter Note* Telephone Encounter - Miriam Perkins APRN.CNP - 02/05/2023 10:54 AM EDT Please inform pt. that his CEA is elevated-this is not uncommon for him but since he is having symptoms he should have CT's. Orders in. Pt. normally likes to have these done at [facility]. Please call pt and assist with scheduling. Thank you. Miriam Perkins APRN.ANGELICA [facility]08-29-2023 Miscellaneous Notes* Telephone Encounter - Sagrario Wayne LPN - 02/04/2023 10:34 AM EDT Patient is aware and will have labs drawn today. Is aware to go to UC or ED if symptoms worsen. Sagrario Wayne LPN * Telephone Encounter - Miriam Perkins APRN.CNP - 02/04/2023 10:29 AM EDT I will order the CEA since he has an OV in a week and a half but he should be evaluated at UC or EDif symptoms worsen. Thank you. Miriam Perkins APRN.SUBSTATION OPERATOR TRANSFORMING * Telephone Encounter - Sagrario Wayne LPN - 02/04/2023 9:[address] C/A/P 07/17/2022 Last CEA and OV 09/02/2022. Next OV/CEA 02/17/2023. Patient states, I don't feel that sick. States he had one episode of emesis 2 months ago and another this morning. States both times this came on quickly. C/O still having sore area in RUQ. BM's have been regular. Denies abdominal bloating, diarrhea, heartburn, nausea, fever, sore throat or congestion. Also states he hasn't eaten anything abnormal. Patient asking for lab work today to make sure he's okay. Sagrario Wayne LPN * Telephone Encounter - Reanna Tarango - 02/04/2023 9:38 AM EDT Patient called asking for lab work. stating he isn't feeling well. vomiting this morning and nervous. Please advise. documented in this encounterHolmes County [facility]04-03-2023 Miscellaneous Notes* Telephone Encounter - Bell Carter - 09/09/2022 11:49 AM EDT Referral authorized. Patient has been scheduled for 02/2023 for lab work and office visit. [employer] message sent and mail reminder sent, unable to reach patient by phone call. Bell Carter * Telephone Encounter - Riana Arredondo - 09/02/2022 9:12 AM EDT Follow up in 6 months with CEA-pending today's CEA. - Pt. aware to call office with any questions/concerns. Patient is [employer] Self-Pay (May have [employer], but doesn't have card with him.) [employer] referrals submitted. Once cleared, schedule patient, document and close note. Riana Arredondo documented in this encounterHolmes County [facility]03-28-2023 Miscellaneous Notes* Telephone Encounter - Berta Laurent LPN - 09/03/2022 11:27 AM EDT Pt. Notified of CEA results, voiced understanding Berta Laurent LPN * Telephone Encounter - Miriam Perkins APRN.CNP - 09/03/2022 11:25 AM EDT Please inform pt. that his CEA looks good. Follow up in 6 months with CEA. Thank you. Miriam Perkins APRN.ANGELICA documented in this encounterHolmes [facility]03-27-2023 History of Present illness Narrative* Miriam Perkins APRN.ANGELICA - 09/02/2022 8:41 AM EDT Chief Complaint Patient presents with: Established Patient HPI: Mainor Mendez is a 66 year old male who presents here today for follow up colon cancer. Per Dr. Iniguez's previous note: H/o hypercholesterolemia, hypertension, type 2 diabetes, rheumatoid arthritis and gout. For approximately the last 2 years, patient had symptoms of diarrhea after dinner. Then for about 2-3 months prior to evaluation was getting lower abdominal cramping. Recently found to have anemia and underwent work up: Patient underwent EGD/colonoscopy on 05/27/2018. Pathology: A. Jejunum, biopsy: Minimal nonspecific chronic inflammation. See comment. B. Gastric antrum, biopsy: Mild chronic inflammation. See comment. C. Gastroesophageal junction, biopsy: Mild acute and chronic inflammation. See comment. D. Mid esophagus, biopsy: Fragments of benign squamous mucosa. E. 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 See comment. CT A/P 05/28/2018: FINDINGS: Minimal degree of increased markings at [...] calcifications. Normal abdominal wall. Normal osseous structures. IMPRESSION: Circumferential wall thickening involving the distal transverse colon, splenic flexure and proximaldescending colon with increased markings in the surrounding fat and small lymph nodes. Right renal cysts. CT chest 05/28/2018: FINDINGS: Mild degree of increased linear markings [...] demonstrated abnormality of the visualized upper abdomen. IMPRESSION: Findings just mild scarring at the lung bases as well as the right middle lobe. Underwent laparoscopic-assisted segmental colon cancer resection/splenic flexure mobilization was stapled functional end-to-end anastomosis on 06/10/2018. Pathology: MICROSCOPIC DIAGNOSIS Left colon, segmental colectomy: Invasive adenocarcinoma. See cancer checklist below. COMMENT COLON CANCER SUMMARY: Specimen - left [...] studies: Microsatellite study performed on same tumor ([id number] / [id number]): Positive (loss of mismatch protein; microsatellite instability detected). There is complete loss of MLH1 and PMS2 and no loss of MSH2 and MSH6 markers. PATHOLOGIC STAGE: pT3 N0 Mx Colonoscopy done August [address] Nieves. Colonoscopy done October [address] Dykes. Next due in [address]'s done in 2022 at [facility]. Appetite:Good. Energy level:I'm doing ok to be turning 67 next month. Denies fevers or recent illness. Resp:denies cough or sob Cardiac:denies chest pain/palpitations GI:denies abd pain, n/v, moving bowels regularly :denies dysuria/hematuria Extrem:denies pain Neuro:denies symptoms of neuropathy Skin:denies rashes/lesions Heme:denies bleeding The ROS is otherwise negative. Past medical history, appointments, medications, allergies reviewed. No changes. EXAM: BP 143/75 Pulse 80 Temp 36.7 C (98 F) (Temporal) Ht 180.3 cm (5' 11) Wt 103.9 kg (229 lb) BMI 31.94 kg/m APPEARANCE Well appearing, alert, in no acute distress, well-hydrated, well nourished. HEART RRR with normal S1 and S2, no murmurs LUNG clear to auscultation LYMPH NODES No cervical lymphadenopathy, No supraclavicular lymphadenopathy, and No axillary lymphadenopathy. ABDOMEN bowel sounds normoactive, soft, non-tender EXTREMITIES No edema NEURO Awake, alert and oriented x 3, Normal gait, and No involuntary motions. SKIN Skin color, texture, turgor normal, no suspicious rashes or lesions LABS: CEA: Pending ASSESSMENT/PLAN: 1. Malignant neoplasm of splenic flexure (HCC) - ICD9: 153.7, ICD10: C18.5 Stage II colon cancer (splenic flexure). Loss of MLH1 and PMS2. - No concerning findings on exam. - Pt. over 4 years out from surgery 2022. - CEA pending. - Reviewed CT's with pt. done 2022. - CT's due 2023. Pt. has this done at [facility]. - Follow up in 6 months with CEA-pending today's CEA. - Pt. aware to call office with any questions/concerns. The patient indicates understanding of these issues and agrees with the plan. All documentation from previous visit of 03/06/22-Dr. Iniguez/myself was copied and pasted, documentation has been reviewed and edited as necessary for today's visit. Miriam Perkins APRN.ANGELICA documented in this encounterHolmes County [facility]02-16-2023 Miscellaneous Notes* Telephone Encounter - Sagrario Wayne LPN - 07/25/2022 9:17 AM EST Patient is aware of all information and asked that I send the name of the recommended medication via [employer] message sent. Sagrario Wayne LPN * Telephone Encounter - Miriam Perkins APRN.CNP - 07/25/2022 9:03 AM EST Please inform pt. that CT's show no concerning findings for cancer. It does show a large amount of stool in colon. If pt. is not taking miralax a few times per week-please advise him to do so. Follow up as scheduled. Thank you. Miriam Perkins APRN.CNP * Telephone Encounter - Sagrario Wayne LPN - 07/24/2022 5:40 PM EST Results placed on Miriam's desk for review. Sagrraio Wayne LPN * Telephone Encounter - Nhung Her - 07/24/2022 5:28 PM EST Pt called regarding CT. He states he had it done at the [facility] on 07/17/22. documented in this encounterHolmes County [facility]12-16-2022 Miscellaneous Notes* Telephone Encounter - ROSELYN Madison - 05/24/2022 1:08 PM EST scheduled * Telephone Encounter - Sagrario Wayne LPN - 05/24/2022 10:20 AM EST Please schedule follow up end of August with CEA. Referral has been authorized. Sagrario Wayne LPN * Telephone Encounter - ROSELYN Madison - 05/24/2022 10:16 AM EST Order faxed to [facility], scanned fax into scanned documents with confirmation fax. * Telephone Encounter - ROSELYN Madison - 05/23/2022 2:49 PM EST I can fax orders to [facility] however it looks like his cts where denied. * Telephone Encounter - Miriam Perkins APRN.SUBSTATION OPERATOR TRANSFORMING - 05/21/2022 12:[address] orders in. Please schedule at [facility] in Jul. per pt. request. Thank you. Miriam Perkins APRN.SUBSTATION OPERATOR TRANSFORMING * Telephone Encounter - Deanna Mcneill LPN - 05/21/2022 12:30 PM EST Pt notified and voices understanding. He would like to have the CT's done at [facility]. PSS please work on a August apt with CEA. Deanna Mcneill LPN * Telephone Encounter - Miriam Perkins APRN.ANGELICA - 05/21/2022 11:46 AM EST Please inform pt. that his CEA is stable. CT's due 2022-please check with pt. to see if he would like to have these done again at [facility]. Iwill place orders once we know. Follow up end of August with CEA. Thank you. Miriam Perkins APRN.ANGELICA documented in this encounterHolmes County [facility]10-03-2022 Miscellaneous Notes* Telephone Encounter - Riana Arredondo - 03/11/2022 9:09 AM EDT Scheduled as directed. Riana Arredondo * Telephone Encounter - Sagrario Wayne LPN - 03/08/2022 3:10 PM EDT Patient notified. PSS- please schedule patient for CEA 05/08/2022 @ 4:00. No need to notify patient, he is aware. Sagrario Wayne LPN * Telephone Encounter - Miriam Perkins APRN.ANGELICA - 03/08/2022 3:00 PM EDT Please inform pt. that his CEA is up slightly from previous. Recheck CEA in 2 months. Thank you. Miriam Perkins APRN.ANGELICA documented in this encounterHolmes County [facility]09-28-2022 History of Present illness Narrative* Miriam Perkins APRN.CNP - 03/06/2022 8:52 AM EDT Chief Complaint Patient presents with: Established Patient HPI: Mainor Mendez is a 66 year old male who presents here today for follow up colon cancer. Per Dr. Iniguez's previous note: H/o hypercholesterolemia, hypertension, type 2 diabetes, rheumatoid arthritis and gout. For approximately the last 2 years, patient had symptoms of diarrhea after dinner. Then for about 2-3 months prior to evaluation was getting lower abdominal cramping. Recently found to have anemia and underwent work up: Patient underwent EGD/colonoscopy on 05/27/2018. Pathology: A. Jejunum, biopsy: Minimal nonspecific chronic inflammation. See comment. B. Gastric antrum, biopsy: Mild chronic inflammation. See comment. C. Gastroesophageal junction, biopsy: Mild acute and chronic inflammation. See comment. D. Mid esophagus, biopsy: Fragments of benign squamous mucosa. E. 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 See comment. CT A/P 05/28/2018: FINDINGS: Minimal degree of increased markings at [...] calcifications. Normal abdominal wall. Normal osseous structures. IMPRESSION: Circumferential wall thickening involving the distal transverse colon, splenic flexure and proximaldescending colon with increased markings in the surrounding fat and small lymph nodes. Right renal cysts. CT chest 05/28/2018: FINDINGS: Mild degree of increased linear markings [...] demonstrated abnormality of the visualized upper abdomen. IMPRESSION: Findings just mild scarring at the lung bases as well as the right middle lobe. Underwent laparoscopic-assisted segmental colon cancer resection/splenic flexure mobilization was stapled functional end-to-end anastomosis on 06/10/2018. Pathology: MICROSCOPIC DIAGNOSIS Left colon, segmental colectomy: Invasive adenocarcinoma. See cancer checklist below. COMMENT COLON CANCER SUMMARY: Specimen - left [...] studies: Microsatellite study performed on same tumor ([id number] / [id number]): Positive (loss of mismatch protein; microsatellite instability detected). There is complete loss of MLH1 and PMS2 and no loss of MSH2 and MSH6 markers. PATHOLOGIC STAGE: pT3 N0 Mx Colonoscopy done August [address]'s done in 2021 at [facility]. FERMÍN. Colonoscopy done October [address] Dykes. Next due in 5 years. Pt. was treated by PCP for swollen scrotum. Has appt. with urology tomorrow. Appetite:Good. Energy level:Ok, I'm getting older. Denies fevers or recent illness. Resp:denies cough or sob Cardiac:denies chest pain/palpitations GI:denies abd pain, n/v, moving bowels regularly :denies dysuria/hematuria Extrem:denies pain Neuro:denies symptoms of neuropathy Skin:denies rashes/lesions Heme:denies bleeding The ROS is otherwise negative. Past medical history, appointments, medications, allergies reviewed. No changes. EXAM: BP 135/70 Pulse 87 Temp 36.4 C (97.6 F) (Temporal) Ht 180.3 cm (5' 11) Wt 103.2 kg (227 lb8 oz) BMI 31.73 kg/m APPEARANCE Well appearing, alert, in no acute distress, well-hydrated, well nourished. HEART RRR with normal S1 and S2, no murmurs LUNG clear to auscultation LYMPH NODES No cervical lymphadenopathy, No supraclavicular lymphadenopathy, and No axillary lymphadenopathy. ABDOMEN bowel sounds normoactive, soft, non-tender, non-distended EXTREMITIES No edema NEURO Awake, alert and oriented x 3, Normal gait, and No involuntary motions. SKIN Skin color, texture, turgor normal, no suspicious rashes or lesions LABS: CEA: Pending ASSESSMENT/PLAN: 1. Malignant neoplasm of splenic flexure (HCC) - ICD9: 153.7, ICD10: C18.5 Stage II colon cancer (splenic flexure). Loss of MLH1 and PMS2. - No concerning findings on exam. - Pt. will be 4 years out from surgery 2022. - CEA pending. - CT's due 2022. Pt. has this done at [facility]. Pt. does not want to schedule today. - Follow up with Urology as scheduled tomorrow. - Follow up in 6 months with CEA-pending today's CEA. - Pt. aware to call office with any questions/concerns. The patient indicates understanding of these issues and agrees with the plan. All documentation from previous visit of 2/11/22-Dr. Iniguez/myself was copied and pasted, documentation has been reviewed and edited as necessary for today's visit. Miriam Perkins APRN.CNP documented in this encounterHolmes County [facility]09-09-2022 Miscellaneous Notes* Telephone Encounter - Miriam Perkins APRN.CNP - 02/15/2022 10:06 AM EDT Noted. Thank you. Miriam Perkins APRN.CNP * Telephone Encounter - Sagrario Wayne LPN - 02/15/2022 9:06 AM EDT Bryson ABBASI. I left Dr. Sepulveda's OV note on your desk. Sagrario Wayne LPN * Telephone Encounter - Riana Arredondo - 02/14/2022 10:06 AM EDT Patient had approved referral for 6 MO OV, so patient is scheduled as directed. Riana Arredondo * Telephone Encounter - Sagrario Wayne LPN - 02/14/2022 9:29 AM EDT I called and spoke to patient. He stated he went to his PCP and got antibiotics and he's feeling better now. I reminded him that he was supposed to follow up here in January. Patient stated I know. PSS- please schedule patient for 6 month follow up with CEA, per phone note from 08/01/2021. Patient is agreeable to appointment 03/06/2022, at 8:30. No need to notify patient, he is aware.Not sure if patient needs a new referral. Office notes requested from Dr. Sepulveda. Sagrario Wanye LPN * Telephone Encounter - Sagrario Wayne LPN - 02/12/2022 11:45 AM EDT Second message left for patient to contact office. Sagrario Wayne LPN * Telephone Encounter - Sagrario Wayne LPN - 02/08/2022 8:39 AM EDT Last OV 07/20/2021. Patient had CT's 07/2021 and colonoscopy 10/29/2021. Patient was supposed to follow up here 01/2022, and did not. I left a message for patient to contact office. When patient calls, please WARM transfer to hem/onc. Sagrario Wayne LPN * Telephone Encounter - Melissa Gagnon - 02/08/2022 8:15 AM EDT The patient states that since yesterday his intestines are swollen and sore. He states that he would rate his pain at a 3 out of 10, he is able to work. Please contact patient to advise on plan of care. documented in this encounterHolmes County [facility]05-23-2022 History and physical note * Jas Dykes MD - 10/29/2021 11:00 AM EDT UPDATED PROCEDURAL SEDATION HISTORY AND PHYSICAL EXAMINATION SERVICE DATE: 10/29/2021 SERVICE TIME: 10:34 AM PHYSICAL EXAM MUST BE COMPLETED ON ADMISSION PROCEDURE: Procedure Indications: The History and Physical (completed in the past 30 days) has been reviewed and the patient has beenexamined. The contents accurately reflect the patient's condition with the following additions or revisions since the H&P was completed. ASA Class: ASA Class:: Patient with severe systemic disease Examination indicates no changes. AIRWAY: Airway Visualization of Uvula: Yes Mouth opening greater than 2 fingerbreadths: Yes Neck Full Range of Motion: Yes LUNGS: Lungs clear to auscultation CARDIAC: Regular rhythm,Regular rate Provisional Diagnosis/Treatment Plan: personal history of splenic flexure colon cancer - colonoscopy SEDATION GOAL: Moderate This H&P can be found in the attached. SIGNATURE: Jas Dykes MD PATIENT NAME: Mainor Mendez DATE: October 29, 2021 TIME: 10:34 AM * Jas Dykes MD - 10/29/2021 11:00 AM EDT Images from the original note were not included. HISTORY AND PHYSICAL Mainor Mendez 1955 REFERRING PHYSICIAN: Miriam Perkins APRN.* CHIEF COMPLAINT: Consult (colonoscopy) HPI: The patient is a 65 year old male referred for endoscopy. Mainor notes a personal history of colon cancer and is due for surveillance colonoscopy. Patient denies any change in bowel habits, weight changes, blood in stools, black tarry stools or abdominal pain. In addition to colon cancer as noted above, patient's past medical history is significant for diabetes mellitus, hypertension, gout, hypercholesterolemia, rheumatoid arthritis. Patient follows with Dr. Sepulveda in primary care for his chronic medical conditions and with Miriam Perkins CNP in hematology/oncology. Patient has followed with myself and Dr. Dykes in the past for his colon cancer and surveillance colonoscopies. Dr. Dykes has advised previously that the patient is to be scheduled with [facility] for endoscopy procedures due to airway concerns. PAST MEDICAL HISTORY PAST MEDICAL HISTORY Diagnosis Date Colon cancer (HCC) DM (diabetes mellitus) (HCC) Gout HTN (hypertension) Hypercholesteremia RA (rheumatoid arthritis) (HCC) PAST SURGICAL HISTORY PAST SURGICAL HISTORY Procedure Laterality Date COLONOSCOPY FLX DX W/COLLJ SPEC WHEN PFRMD 05/27/2018 Colonoscopy COLONOSCOPY FLX DX W/COLLJ SPEC WHEN PFRMD 08/09/2019 Colonoscopy ESOPHAGOGASTRODUODENOSCOPY TRANSORAL DIAGNOSTIC 05/27/2018 EGD FISTULOTOMY SUBCUT 1998 PAST SURGICAL HISTORY OF 06/10/2018 laparoscopic assisted segmental colon cancer resection/splenic flexure mobilization w/stapled funtional end to end anastomosis CURRENT MEDICATIONS Current Outpatient Medications Medication Sig sitagliptin phosphate (JANUVIA ORAL) Take 100 mg by mouth once daily. telmisartan (MICARDIS) 40 mg tablet Take 40 mg by mouth once daily. adalimumab (HUMIRA) 40 mg/0.8 mL injection Inject 40 mg subcutaneously every 2 weeks. pravastatin (PRAVACHOL) 40 mg tablet Take 40 mg by mouth once daily. glipiZIDE (GLUCOTROL) 5 mg tablet Take 5 mg by mouth three times daily. metFORMIN (GLUCOPHAGE) 1,000 mg tablet Take 1,000 mg by mouth twice daily with meals. aspirin 81 mg chewable tablet Take 81 mg by mouth once daily. ALLOPURINOL ORAL Take 300 mg by mouth once daily. Omeprazole Magnesium (PRILOSEC OTC) 20 mg tablet Take 20 mg by mouth once daily. (Patient not taking: Reported on 08/07/2021 ) No current facility-administered medications for this visit. ALLERGIES: Patient has no known allergies. PERSONAL HISTORY: SOCIAL HISTORY Social History Tobacco Use Smoking status: Former Smoker Packs/day: 1.50 Years: 20.00 Pack years: 30.00 Types: Cigarettes Start date: 05/07/1973 Quit date: 05/07/1993 Years since quittin.2 Smokeless tobacco: Never Used Vaping Use Vaping Use: Never used Substance Use Topics Alcohol use: No Drug use: No FAMILY HISTORY: FAMILY HISTORY FAMILY HISTORY Problem Relation Age of Onset Kidney Disease Mother s/p removal 2000 other (cirrhosis) Maternal Grandmother other (pancreatic tumor) Paternal Grandmother REVIEW OF SYMPTOMS: The review of systems data was entered by the nurse and reviewed by md Nursing Notes: Rosy Blake LPN 08/07/2021 3:27 PM Signed REVIEW OF SYSTEMS: General: The patient denies fatigue, denies weight loss, denies weight gain, denies feeling hot, and denies feelings of cold. Eyes: The patient denies glaucoma, denies eye injury/surgery, does not wear glasses or contacts. Ear/Nose/Throat: The patient denies allergies, denies hayfever, denies ear infections, and denies bloody noses. Cardiovascular: The patient denies chest pain, denies heart disease, notes high blood pressure,denies cardiac stent, denies prior heart attack, denies irregular heart beat, notes high cholesterol, denies poor circulation, denies heart failure, other cardiac issues, denies claudication, denies cold feet, denies peripheral arterial stent. Respiratory: The patient denies tuberculosis, denies pneumonia, denies frequent cough, denies pulmonary embolism, denies shortness of breath, and denies coughing up blood. Gastrointestinal: The patient denies difficulty swallowing, denies acid reflux, denies ulcers, denies vomiting, denies jaundice/hepatitis, denies gallbladder problems, denies black or tarry stools, denies hemorrhoids, denies bleeding from rectum, denies diverticulitis, denies constipation, denies diarrhea, denies loss of stool control, and denies hernias. Kidney/Bladder: The patient denies kidney stones, denies urine infections, and denies bloody urine. Skin: The patient denies a history of skin cancer, denies bleeding/changing moles, and denies a history of skin rash. Neurologic: The patient denies a history of epilepsy/convulsions, denies headaches, denies head/spinal injuries, and denies stroke/TIA. Psychiatric: The patient denies psychiatric medications, denies depression, and denies voices, denies substance abuse. Endocrine: The patient denies thyroid disorders, notes diabetes, and denies hormonal problems. Hematologic: The patient denies a history of bruising, denies bleeding, and denies anemia, denies blood clots. Infections: The patient denies a history of measles and mumps, denies rheumatic fever, and denies sexually transmitted diseases. Musculoskeletal: The patient denies back pain/injury, denies back problems, denies sciatica, deniesknee/foot trouble, notes arthritis, or notes gout. When was patient's last Mammogram screening? N/A Last Colonoscopy: 2019 Rosy Blake LPN I have confirmed and edited as necessary, the PFSH and ROS obtained by others. Maribel Richards PA-C PHYSICAL EXAMINATION: General: The patient is 65 year old male, well nourished, well hydrated in no acute distress. The patient is oriented to time, place, and person. VITALS: Blood pressure 138/66, pulse 95, height 180.3 cm (5' 11), weight 106.1 kg (234 lb), SpO2 96 %. Body mass index is 32.64 kg/m . HEENT: Normal cephalic, ataumatic, pupils are equally round, sclera are anicteric, mucous membranesare moist, oropharynx is clear. Neck has no masses, asymmetry or lymphadenopathy. Respiratory: Clear to auscultation and percussion. Normal respiratory excursion and pattern. Cardiac: Examination is regular rate and rhythm. Normal S1/S2 Abdominal exam: Soft, nontender, with no palpable masses. No hepatosplenomegaly. No palpable hernias. Extremities: no clubbing, cyanosis or edema. No adenopathy. LABORATORY VALUES: As Noted RADIOLOGIC STUDIES: As Noted Assessment IMPRESSION: personal history of colon cancer, encounter for high-risk screening colonoscopy PLAN: I have reviewed my findings with the surgeon. Will plan for lower endoscopy. We discussed therisks and benefits of the planned endoscopy. I have informed the patient that complications can occur including failure to complete the endoscopy and perforation. The patient had the opportunity to ask questions concerning the planned endoscopy. My staff has also explained the procedure to the patient in understandable terms and has given the patient printed material concerning the procedure. Thepatient freely consents to surgery. The patient was offered a surgery/procedure at a [facility] facility. I have counseled the patient regarding the risk of exposure to and/or potential harm posed by the COVID-19 virus with having a surgery/procedure at this time versus the risk of delaying the surgery/procedure. It is not possible to know either the risk of delaying the surgery or procedure or chance of getting an infection with perfect accuracy, but a joint decision was made between the patient and myself to proceed at this time with endoscopy. I plan to use Gol[employer]ely bowel preparation We will plan for [facility] Consultation requested by Miriam Perkins CNP for an opinion regarding screening colonoscopy. My final recommendations will be communicated back to the requesting physician by way of shared Medical record or letter to requesting physician via US mail. Diagnoses: (Z85.038) Personal history of colon cancer (primary encounter diagnosis) (Z12.11) Encounter for screening for malignant neoplasm of colon Maribel Richards PA-C documented in this encounterHolmes County [facility]04-05-2022 Miscellaneous Notes* Telephone Encounter - Corinne Quezada RN - 09/11/2021 8:05 AM EDT Images from the original note were not included. Jas Dykes MD You 14 hours ago (5:27 PM) I can update the day of procedure Informed [facility] and patient. Encounter closed. * Telephone Encounter - Nishisubha Romeroley - 09/10/2021 4:07 PM EDT Romy from [facility] called the patient to schedule testing. Patient stated that he did not need it dueto having a physical done in office. He pays out of pocket and cannot afford coming in for another visit. However the physical will be done more than 30 days before surgery. They are looking for clarification. Please advise. documented in [facility] Plan note No data available for this section [facility] Evaluation note* Diagnosis Personal history of colon cancer Personal history of malignant neoplasm of large intestine documented in this encounter [facility]* Diagnosis Malignant neoplasm of splenic flexure (HCC)- Primary Malignant neoplasm of splenic flexure documented in this encounter [facility] noteNo assessment information availableWOur Lady of [facility] Work Phone: Evaluation note* Diagnosis Malignant neoplasm of splenic flexure (HCC)- Primary Malignant neoplasm of splenic flexure documented in this encounter [facility]* Diagnosis Malignant neoplasm of splenic flexure (HCC)- Primary Malignant neoplasm of splenic flexure documented in this encounter [facility]* Diagnosis Malignant neoplasm of splenic flexure (HCC)- Primary Malignant neoplasm of splenic flexure documented in this encounter [facility]* Diagnosis Malignant neoplasm of splenic flexure (HCC)- Primary Malignant neoplasm of splenic flexure Elevated CEA Elevated carcinoembryonic antigen [CEA] documented in this encounter [facility]* Diagnosis Malignant neoplasm of splenic flexure (HCC)- Primary Malignant neoplasm of splenic flexure documented in this encounter [facility]* Diagnosis Onset Date Resolution Status Admit Date Acute renal failure acute December 02, 2024 6:26pm Hyperkalemia acute December 02 025 6:26pm Hyponatremia acute December 02 025 6:26pm [facility] Work Phone: Hospital Discharge instructions No data available for this section [facility] Progress note No data available for this section [facility] Reason for referral (narrative)* Outpatient Procedure (Routine) - Closed Specialty Diagnoses / Procedures Referred By Contambrocio t Referred To Contact [facility] Diagnoses Personal history of colon cancer Procedures COLONOSCOPY SCREENING COLONOSCOPY FLX DX W/COLLJ SPEC WHEN PFRMD Maribel Richards PA-C [address] [place] [address] [facility] [address] [place] [address] Referral ID Status Reason Start Date Expiration Date V isits Requested Visits Authorized [id number] Closed Auto-Generat ed Referral Patient Cleared - [facility] 08/08/2021 06/08/2022 [address] [facility] for referral (narrative)* Diagnostic Procedure Only (Routine) - Closed Specialty Diagnoses / Procedures Referred By Angie riley Referred To Contact [facility] Diagnoses Malignant neoplasm of splenic flexure (HCC) Procedures CT CHEST W IVCON DIAGNOSTIC COMPUTED TOMOGRAPHY THORAX W/CONTRAST Miriam Perkins APRN.CNP [address] [place] [address] [facility] [address] [place] [address] Referral ID Status Reason Start Date Expiration Date V isits Requested Visits Authorized [id number] Closed Financial Clearance Required - Self Pay Clearance Not Met - Pt Rescheduled/Ca ncelled/Chose Not to Proceed 02/05/2023 03/06/2024 1 1 * Diagnostic Procedure Only (Routine) - Closed Specialty Diagnoses / Procedures Referred By Contac t Referred To Contact ADMIN [facility] Diagnoses Malignant neoplasm of splenic flexure (HCC) Procedures CT ABD/PEL W IVCON CT ABD & PELVIS W/CONTRAST Miriam Perkins APRN.SUBSTATION OPERATOR TRANSFORMING [address] [place] [address] [facility] [address] [place] [address] Referral ID Status Reason Start Date Expiration Date V isits Requested Visits Authorized [id number] Closed Financial Clearance Required - Self Pay Clearance Not Met - Pt Rescheduled/Ca ncelled/Chose Not to Proceed 02/05/2023 03/06/2024 1 1 [facility] (narrative)No reason for referral information availableWOur [facility] of [facility] Work Phone: Reason for visit Narrative* Outpatient Procedure (Routine) - Closed Specialty Diagnoses / Procedures Referred By Angie t Referred To Contact [facility] Diagnoses Personal history of colon cancer Procedures COLONOSCOPY SCREENING COLONOSCOPY FLX DX W/COLLJ SPEC WHEN PFRMD Maribel Richards PA-C [address] [place] [address] [facility] [address] [place] [address] Referral ID Status Reason Start Date Expiration Date V isits Requested Visits Authorized [id number] Closed Auto-Generat ed Referral Patient Cleared - [facility] Fund 08/08/2021 06/08/2022 1 1 [facility] Summary Purpose Family History No Family History Records FoundNo Family History Records FoundNo Family History Records Found No data available for this section No data available for this section No Family History Records FoundNo Family History Records Found Advance Directives Documents on File Type Date Recorded Patient Software Client Architect Expl anation Advance Directive(s) 08/09/2019 11:21 AM Documents on File Type Date Recorded Patient Software Client Architect Expl anation Advance Directive(s) 10/29/2021 9:26 AM Advance Directive(s) 08/09/2019 11:21 AM Advance Directive Response Recorded Date/ Time Living Will No June 10 1:07pm Power of Laboratory Assistant No June 10 019 1:07pm Advance Directive Response Recorded Date/ Time Living Will No June 10 12:07pm Power of Laboratory Assistant No June 10 019 12:07pm Advance Directive Response Recorded Date/ Time Do you have a Healthcare Power of Laboratory Assistant? No December 02, 2024 2:50pm Medications Administered Section Inactive Administered Medications - up to 3 most recent administrations Medication Order MAR Action Action Date Dose Rate Site lactated ringers iv infusion 30 mL/hr, INTRAVENOUS, CONTINUOUS, Starting on Fri10/29/21 at 1000, Until Fri10/29/21 at 1100, Preprocedure Restarted 10/29/2021 10:32 AM EDT New Bag/Syringe/Bottle 10/29/2021 10:00 AM EDT 30 mL/hr 30 mL/hr Chief Complaint and Reason for Visit Chief Complaint PRE OP Chief Complaint Malignant neoplasm o f splenic flexure Chief Complaint C18.5 Malignant neop lasm of splenic flexure Chief Complaint MALIGNANT NEOPLASM O F SPLENIC FLEXURE,ELEFATED CEA Chief Complaint Admit Date HYPERKALEMIA, ACUTE RENAL FAILURE November 082024 6:26pm Reason for Visit Admit Date Acute renal failure December 02, 2024 6:26 pm Hyperkalemia December 02, 2024 6:26 pm Hyponatremia December 02, 2024 6:26 pm Reason for Referral Specialty Diagnoses / Procedures Referred By Angie riley Referred To Contact CT [facility] Diagnoses Malignant neoplasm of splenic flexure (HCC) Procedures CT CHEST W IVCON DIAGNOSTIC COMPUTED TOMOGRAPHY THORAX W/CONTRAST Miriam Perkins, ION.SUBSTATION OPERATOR TRANSFORMING [address] [place] [address] Ct Imaging Referral ID Status Reason Start Date Expiration Date V isits Requested Visits Authorized [id number] Denied Auto-Generate d Referral 05/21/2022 06/20/2023 1 0 Specialty Diagnoses / Procedures Referred By Angie riley Referred To Contact CT [facility] Diagnoses Malignant neoplasm of splenic flexure (HCC) Procedures CT ABD/PEL W IVCON CT ABD & PELVIS W/CONTRAST Miriam Perkins, ION.SUBSTATION OPERATOR TRANSFORMING [address] [place] [address] Ct Imaging Referral ID Status Reason Start Date Expiration Date V isits Requested Visits Authorized [id number] Denied Auto-Generate d Referral 05/21/2022 06/20/2023 1 0 Specialty Diagnoses / Procedures Referred By Angie t Referred To Contact CT [facility] Diagnoses Malignant neoplasm of splenic flexure (HCC) Elevated CEA Procedures CT CHEST W IVCON DIAGNOSTIC COMPUTED TOMOGRAPHY THORAX W/CONTRAST Miriam Perkins, ION.SUBSTATION OPERATOR TRANSFORMING [address] [place] [address] [place] [address] Referral ID Status Reason Start Date Expiration Date Visits Requested Visits Authorized [id number] Pending Review Auto-Generat ed Referral 02/26/2023 03/27/2024 1 1 Specialty Diagnoses / Procedures Referred By Angie t Referred To Contact CT IM[facility] Diagnoses Malignant neoplasm of splenic flexure (HCC) Elevated CEA Procedures CT ABD/PEL W IVCON CT ABD & PELVIS W/CONTRAST Miriam Perkins, ION.SUBSTATION OPERATOR TRANSFORMING [address] [place] [address] [place] [address] Referral ID Status Reason Start Date Expiration Date Visits Requested Visits Authorized [id number] Pending Review Auto-Generat ed Referral 02/26/2023 03/27/2024 1 1 Additional Source Comments (unrecognized sect ion and content) No Status Records FoundNo Status Records FoundNo Status Records FoundNo Status Records FoundNo Status Records Found INFORMATION SOURCE (unrecogn ized section and content) DATE CREATED AUTHOR 05/31/2018 [facility] DATE CREATED AUTHOR AUTHOR'S ORGANIZ ATION 10/29/[address] [facility] DATE CREATED AUTHOR AUTHOR'S ORGANIZ ATION 10/17/2023 [facility] DATE CREATED AUTHOR AUTHOR'S ORGANIZ ATION 01/16/2024 [facility] DATE CREATED AUTHOR AUTHOR'S ORGANIZ ATION 07/25/2024 [facility] Source Comments (unrecognize d section and content) In the event this informatio n is protected by the Federal Confidentiality of Alcohol and Drug Abuse Patient Records regulations: The Federal rules restrict any use of the information to criminally investigate or prosecute any alcohol or drug abuse patient.[facility] the event this information is protected by the Federal Confidentiality of Alcohol and Drug Abuse Patient Records regulations: The Federal rules restrict any use of the information to criminally investigate or prosecute any alcohol or drug abuse patient.[facility] HospitalIn the event this information is protected by the Federal Confidentiality of Alcohol and Drug Abuse Patient Records regulations: The Federal rules restrict any use of the information to criminally investigate or prosecute any alcohol or drug abuse patient.[facility] HospitalIn the event this information is protected by the Federal Confidentiality of Alcohol and Drug Abuse Patient Records regulations: The Federal rules restrict any use of the information to criminally investigate or prosecute any alcohol or drug abuse patient.[facility] HospitalIn the event this information is protected by the Federal Confidentiality of Alcohol and Drug Abuse Patient Records regulations: The Federal rules restrict any use of the information to criminally investigate or prosecute any alcohol or drug abuse patient.[facility] HospitalIn the event this information is protected by the Federal Confidentiality of Alcohol and Drug Abuse Patient Records regulations: The Federal rules restrict any use of the information to criminally investigate or prosecute any alcohol or drug abuse patient.[facility] HospitalIn the event this information is protected by the Federal Confidentiality of Alcohol and Drug Abuse Patient Records regulations: The Federal rules restrict any use of the information to criminally investigate or prosecute any alcohol or drug abuse patient.[facility] HospitalIn the event this information is protected by the Federal Confidentiality of Alcohol and Drug Abuse Patient Records regulations: The Federal rules restrict any use of the information to criminally investigate or prosecute any alcohol or drug abuse patient.[facility] HospitalIn the event this information is protected by the Federal Confidentiality of Alcohol and Drug Abuse Patient Records regulations: The Federal rules restrict any use of the information to criminally investigate or prosecute any alcohol or drug abuse patient.[facility] HospitalIn the event this information is protected by the Federal Confidentiality of Alcohol and Drug Abuse Patient Records regulations: The Federal rules restrict any use of the information to criminally investigate or prosecute any alcohol or drug abuse patient.[facility] HospitalIn the event this information is protected by the Federal Confidentiality of Alcohol and Drug Abuse Patient Records regulations: The Federal rules restrict any use of the information to criminally investigate or prosecute any alcohol or drug abuse patient.[facility] HospitalIn the event this information is protected by the Federal Confidentiality of Alcohol and Drug Abuse Patient Records regulations: The Federal rules restrict any use of the information to criminally investigate or prosecute any alcohol or drug abuse patient.[facility] HospitalIn the event this information is protected by the Federal Confidentiality of Alcohol and Drug Abuse Patient Records regulations: The Federal rules restrict any use of the information to criminally investigate or prosecute any alcohol or drug abuse patient.[facility] HospitalIn the event this information is protected by the Federal Confidentiality of Alcohol and Drug Abuse Patient Records regulations: The Federal rules restrict any use of the information to criminally investigate or prosecute any alcohol or drug abuse patient.[facility] HospitalIn the event this information is protected by the Federal Confidentiality of Alcohol and Drug Abuse Patient Records regulations: The Federal rules restrict any use of the information to criminally investigate or prosecute any alcohol or drug abuse patient.[facility] HospitalIn the event this information is protected by the Federal Confidentiality of Alcohol and Drug Abuse Patient Records regulations: The Federal rules restrict any use of the information to criminally investigate or prosecute any alcohol or drug abuse patient.[facility] Reason for Visit (unrecogniz ed section and content) Reason Comments Question Reason Comments Patient Update Reason Comments Established Patient Specialty Diagnoses / Procedures Referred By Contac t Referred To Contact HEMATOLOGY/ONCOLOGY Diagnoses 6 MO FOLLOW UP CEA LAB [place] [address] [place] [id number] [facility] [facility] [address] [place] [address] Referral ID Status Reason Start Date Expiration Date V isits Requested Visits Authorized [id number] Closed Financial Clearance Required - Self Pay Patient Cleared - [facility] 12/24/2021 03/24/2022 1 1 Reason Comments Results Reason Comments Appointment Specialty Diagnoses / Procedures Referred By Contac t Referred To Contact HEMATOLOGY/ONCOLOGY Diagnoses CANCER FOLLOW UP Procedures DUE AUGUST 2022 - 6 MO OV WITH CEA Miriam Perkins APRN.SUBSTATION OPERATOR TRANSFORMING [address] [place] [address] [facility] [address] [place] [address] Referral ID Status Reason Start Date Expiration Date V isits Requested Visits Authorized [id number] Closed Financial Clearance Required - Self Pay Patient Cleared - [facility] 08/07/2022 11/05/2022 1 1 Reason Comments AVS 09/02/22 Reason Comments Vomiting Reason Comments Future Appointment Reason Comments Established Patient Specialty Diagnoses / Procedures Referred By Contac t Referred To Contact HEMATOLOGY/ONCOLOGY Diagnoses Malignant neoplasm of splenic flexure (HCC) Procedures 6 MONTH FOLLOW UP OFFICE VISIT Miriam Perkins APRN.SUBSTATION OPERATOR TRANSFORMING [address] [place] [address] [facility] [address] [address] [place] [address] Referral ID Status Reason Start Date Expiration Date V isits Requested Visits Authorized [id number] Closed Financial Clearance Required - Self Pay Patient Cleared - [employer] [facility] 02/26/2023 05/27/2023 1 1 Reason Comments Results Care Teams (unrecognized sec tion and content) Roads Supervisor Relationship Specialty [place] [address] [place], [place] [phone] PCP - General Internal Medicine 05/07/18 Roads Supervisor Relationship Specialty Start [place] [address] [place], [place] [phone] PCP - General Internal Medicine 05/07/18 Roads Supervisor Relationship Specialty Start [place] [address] [place] [address] [phone] PCP - General Internal Medicine 05/07/18 Roads Supervisor Relationship Specialty Start [place] [address] [place], [place] [phone] PCP - General Internal Medicine 05/07/18 Roads Supervisor Relationship Specialty Start [place] [address] [place] [address] [phone] PCP - General Internal Medicine 05/07/18 Team Status: Active Member Role Status Dates Dr. Gumaro Sepulveda DO Family Provider Active Dr. Gumaro Sepulveda DO Primary Care Provider Active Team Status: Inactive Member Role Status Dates Dr. Gumaro Sepulveda DO Primary Care Provider Active Miriam Perkins CITY SANITARIAN, CITY SANITARIAN-C Attending Provider, Referring Provider Active Roads Supervisor Relationship Specialty [place] [address] [place] [address] [phone] PCP - General Internal Medicine 05/07/18 Roads Supervisor Relationship Specialty [place] [address] [place] [address] [id number] PCP - General Internal Medicine 05/07/18 Roads Supervisor Relationship Specialty Start [place] [address] [place] [address] [phone] PCP - General Internal Medicine 05/07/18 Roads Supervisor Relationship Specialty [place] [address] [place] [address] [id number] PCP - General Internal Medicine 05/07/18 Roads Supervisor Relationship Specialty Start [place] [address] [address] PCP - General Internal Medicine 05/07/18 Roads Supervisor Relationship Specialty Start [place] [address] [place] [address] [phone] PCP - General Internal Medicine 05/07/18 Team Status: Inactive Member Role Status Dates Dr. Gumaro Sepulveda DO Primary Care Provider Active Miriam Perkins CITY SANITARIAN, CITY SANITARIAN-C Attending Provider Active Roads Supervisor Relationship Specialty Start [place] [address] [phone] PCP - General Internal Medicine 05/07/18 Roads Supervisor Relationship Specialty [place] [address] [place] [address] [phone] PCP - General Internal Medicine 05/07/18 Team Status: Active Member Role Status Dates Dr. Gumaro Sepulveda DO Primary Care Provider Active Team Status: Active Member Role Status Dates Dr. Gumaro Sepulveda DO Primary Care Provider Active Start: December 02, 2024 Dr. Will Galarza DO Emergency Provider Active Start: December 02, 2024 Dr. Reanna Ridley MD Admit Provider Active Star t: December 02, 2024 Dr. Reanna Ridley MD Attending Provider Active Start: December 02, 2024 Goals (unrecognized section and content) Goals may be documented in a n alternate sectionGoals may be documented in an alternate sectionGoals may be documented in an alternate sectionGoals may be documented in an alternate section No data available for this section No data available for this sectionGoals may be documented in an alternate section FOR RECORDS PERTAINING TO PATIENTS WHO ARE OR HAVE BEEN ENROLLED IN A CHEMICAL DEPENDENCY/SUBSTANCEABUSE PROGRAM, SOME INFORMATION MAY BE OMITTED. This clinical summary was aggregated from multiple sources. Caution should be exercised in using it in the provision of clinical care. This summary normalizes information from multiple sources, and as a consequence, information in this document may materially change the coding, format and clinical context of patient data. In addition, data may be omitted in some cases. CLINICAL DECISIONS SHOULD BE BASED ON THE PRIMARY CLINICAL RECORDS. [email or web address] provides no warranty or guarantee of the accuracy or completeness of information in this document.
[2024-12-02] MEDS: Atorvastatin Calcium 80 MG Tablet PO (22:06)
[2024-12-02] MEDS: Carvedilol 6.25 MG Tablet PO (22:06)
[2024-12-02] MEDS: 0.9% Saline Lock 10 ML Syringe IV (22:06)
--- OUTSIDE RECORDS SUMMARY | 2024-12-02 22:10 | XMS RPT_ITS | CCD ---
Author Organization [facility] CliniSymi Care Team Providers Care Pie Bottomer Name Role Phone IMCA Unavailable Unavailable IMCA Unavailable Unavailable IMCA Unavailable Unavailable [facility] Unavailable Unavailable Gumaro Sepulveda DO Primary Care Provider [phone] Gumaro Sepulveda DO Primary Care Provider Gumaro [...] Unavailable PERKINS, MIRIAM Attending Unavailable GUMARO SEPULVEDA WINJULI Primary Care Unavailable PERKINS, MIRIAM Referring Unavailable GUMARO SEPULVEDA Primary Care Unavailable NORMAN LEWIS, ALYSSA Perla Primary Care Physician VENKAT LUIS MD Attending UnavailALYSSA Howell MD Primary Care Unavailable VENKAT LUIS MD Attending UnavailALSYSA Howell MD Primary Care Unavailable Darwin Montemayor Attending Unavailable Gumaro Sepulveda Primary Care Unavailable Gumaro Sepulveda Referring Unavailable Miriam Perkins Attending Unavailable Gumaro Sepulveda Primary Care Unavailable Darwin Montemayor Attending Unavailable Darwin Montemayor Referring Unavailable Gumaro Sepulveda Primary Care Unavailable Dr. Gumaro Sepulveda DO Primary Care Provider Dr. Will Galarza DO Emergency Provider Khai LEWIS, Dr. Forte Admit Provider Khai [...] December 02, 2024 12:00am 220 mg orally; Bellevue-3 Fatty Acids 1,000 mg capsule (1 source) Start: 12-02-2024 [facility]vue-3 Fatty Acids 1,000 mg capsule Active 1000 [...] Auto (Unsp spec) [#/Vol] 3.53 10*3/uL 0.83-4.51 [facility] Absolute neutrophil countOrd ered By: Will Galarza on 12-02-2024 Neutrophils (Bld) [#/Vol] 7.4 10*3/uL 2.0-7.7 [facility] Anion gap in Serum or Plasma Ordered By: Will Galarza on 12-02-2024 Anion gap [Moles/Vol] 16 mmol/L High 5-15 [facility] Automated lymphocyte count a s percentage of total leukocytesOrdered By: Will Galarza on 12-02-2024 Lymphocytes/100 WBC Auto (Unsp spec) 26.9 % 19-41 [facility] BUN/creatinine ratioOrdered By: Will Galarza on 12-02-2024 Urea nitrogen/Creatinine [Mass ratio] 22.8 mg/mg High 10-20 [facility] Basophil percentageOrdered B y: Will Galarza on 12-02-2024 Basophils/100 WBC (Bld) 0.5 % 0-1 [facility] Bilirubin Test strip Ql (U)O rdered By: Reanna Ridley on 12-02-2024 Bilirubin Ql (U) Negative Negative [facility] Carbon dioxide, total [Moles /volume] in Central venous bloodOrdered By: Will Galarza on 12-02-2024 CO2 [Moles/Vol] 18.5 mmol/L Low 21.0-32.0 [facility] Chloride assayOrdered By: Hermilo Galarza on 12-02-2024 Chloride [Moles/Vol] 92 mmol/L Low 98-108 [facility] Eosinophil percentageOrdered By: Will Galarza on 12-02-2024 Eosinophils/100 WBC (Bld) 7.1 % High 0-5 [facility] Erythrocyte distribution wid th ratioOrdered By: Will Galarza on 12-02-2024 Erythrocyte distribution width (RBC) [Ratio] 14.2 % 11.6-14.6 [facility] Erythrocyte distribution wid th standard deviationOrdered By: Will Galarza on 12-02-2024 Erythrocyte distribution width (RBC) [Ratio] 48.1 fl High 35.1-43.9 [facility] Glomerular filtration rate ( GFR) estimation/1.73 sq m using serum, plasma, or whole bOrdered By: Will Galarza on 12-02-2024 GFR/1.73 sq M.predicted among non-blacks MDRD (S/P/Bld) [Vol rate/Area] 13 mL/min/{1.73_m2} Low >60 [facility] Comment on above: mL/min/1.73m2 CKD-EP I Creatinine Equation (2020) [facility] deOrdered By: Will Galarza on 12-02-2024 Glucose [Mass/Vol] 100 mg/dL 74-106 [facility] Comment on above: MANAGEMENT OF PATIEN T CARE PER NURSING PROTOCOL Hematocrit Auto (Bld) [Volum e fraction]Ordered By: Will Galarza on 12-02-2024 Hematocrit (Bld) [Volume fraction] 34.3 % Low 40-54 [facility] Hemoglobin measurementOrdere d By: Will Galarza on 12-02-2024 Hemoglobin (Bld) [Mass/Vol] 11.7 g/dL Low 13.0-16.5 [facility] Immature granulocytes/100 WB C Auto (Bld)Ordered By: Will Galarza on 12-02-2024 Immature granulocytes/100 WBC (Bld) 0.700 % 0.0-0.9 [facility] Comment on above: IG% - Immature Granu locytes (promyelocytes, myelocytes and metamyelocytes) > 1% indicates that a LEFT SHIFT is Present. Ketones Test strip Ql (U)Ord ered By: Reanna Ridley on 12-02-2024 Ketones Ql (U) Negative Negative [facility] MCV (mean corpuscular volume ) determinationOrdered By: Will Galarza on 12-02-2024 MCV (RBC) [Entitic vol] 92.2 fL 80-94 [facility] Mean corpuscular hemoglobin (MCH) determinationOrdered By: Will Galarza on 12-02-2024 MCH (RBC) [Entitic mass] 31.5 pg 27.0-32.0 [facility] Mean corpuscular hemoglobin concentration (MCHC) determinationOrdered By: Will Galarza on 12-02-2024 MCHC (RBC) [Mass/Vol] 34.1 g/dL 32-36 [facility] Mean platelet volume determi nationOrdered By: Will Galarza on 12-02-2024 Platelet mean volume (Bld) [Entitic vol] 10.9 fL 6.2-12.0 [facility] Monocyte percentageOrdered B y: Will Galarza on 12-02-2024 Monocytes/100 WBC (Bld) 8.5 % 0-10 [facility] Neutrophil percentageOrdered By: Will Galarza on 12-02-2024 Neutrophils/100 WBC (Bld) 56.3 % 47-70 [facility] Nitrite Test strip Ql (U)Ord ered By: Reanna Ridley on 12-02-2024 Nitrite Ql (U) Negative Negative [facility] Nucleated red blood cell per centageOrdered By: iWll Galarza on 12-02-2024 Nucleated RBC/100 WBC (Bld) [Ratio] 0 % 0-5 [facility] Platelet countOrdered By: Hermilo Galarza on 12-02-2024 Platelets (Bld) [#/Vol] 215 10*3/uL 150-450 [facility] Potassium measurement (mass/ volume)Ordered By: Will Galarza on 12-02-2024 Potassium (Unsp spec) [Mass/Vol] 6.6 mmol/L High 3.3-5.1 [facility] Comment on above: Critical Result(s) C alled DTENNANT at: 1554 by: HINA Results read back by same. Protein Test strip Ql (U)Ord ered By: Reanna Ridley on 12-02-2024 Protein Ql (U) 30 mg/dl High Negative [facility] RBC Auto (Bld) [#/Vol]Ordere d By: Will Galarza on 12-02-2024 RBC (Bld) [#/Vol] 3.72 10*6/uL Low 4.6-6.2 [facility] Random urine creatinine anika urement (mass/volume)Ordered By: Reanna Ridley on 12-02-2024 Creatinine Unsp time (U) [Mass/Vol] 68.90 mg/dL 39.00-259. 00 [facility] Serum creatinine measurement (mass/volume)Ordered By: Will Galarza on 12-02-2024 Creatinine [Mass/Vol] 4.61 mg/dL High 0.70-1.20 [facility] Serum glucose measurement (m ass/volume)Ordered By: Will Galarza on 12-02-2024 Glucose [Mass/Vol] 154 mg/dL High 70-99 [facility] Serum or plasma calcium anika urement (mass/volume)Ordered By: Will Galarza on 12-02-2024 Calcium [Mass/Vol] 9.0 mg/dL 7.6-11.0 [facility] Serum or plasma urea nitroge n measurement (mass/volume)Ordered By: Will Galarza on 12-02-2024 Urea nitrogen [Mass/Vol] 105 mg/dL High 4-19 [facility] Comment on above: Critical Result(s) C alled DTENNANT at: 1554 by: HINA Results read back by same. Sodium levelOrdered By: Sally Galarza on 12-02-2024 Sodium [Moles/Vol] 127 mmol/L Low 133-145 [facility] Troponin T.cardiac [Mass/vol ume] in Serum or Plasma by High sensitivity methodOrdered By: Will Galarza on 12-02-2024 Troponin T.cardiac High sensitivity method [Mass/Vol] 22 ng/L <22 [facility] Troponin T.cardiac High sensitivity method [Mass/Vol] 25 ng/L High <22 [facility] Urine clarityOrdered By: Sonu Ridley on 12-02-2024 Clarity (U) Clear Clear [facility] Urine color determinationOrd ered By: Reanna Ridley on 12-02-2024 Color (U) Straw Yellow [facility] Urine glucose detectionOrder ed By: Reanna Ridley on 12-02-2024 Glucose Ql (U) Normal mg/dl Normal [facility] Urine leukocyte esterase det ection by dipstickOrdered By: Reanna Ridley on 12-02-2024 Leukocyte esterase Test strip Ql (U) Negative Negative [facility] Urine pHOrdered By: Reanna perze on 12-02-2024 pH (U) 5.0 [pH] 5.0 - 8.0 [facility] Urine potassium measurement (moles/volume)Ordered By: Reanna Ridley on 12-02-2024 Potassium (U) [Moles/Vol] 37.4 mmol/L Not Establ. [facility] Urine sodium measurement (mo les/volume)Ordered By: Reanna Ridley on 12-02-2024 Sodium (U) [Moles/Vol] 40 mmol/L Not Establ. [facility] Urine specific gravity measu rementOrdered By: Reanna Ridley on 12-02-2024 Specific gravity (U) [Rel density] 1.015 1.002-1.03 0 [facility] Urine urobilinogen measureme ntOrdered By: Reanna Ridley on 12-02-2024 Urobilinogen Ql (U) Normal mg/dl Normal [facility] White blood cell (WBC) count Ordered By: Will Galarza on 12-02-2024 WBC (Bld) [#/Vol] 13.1 10*3/uL High 4.4-11.0 [facility] Ribs Unil 2V No CXRon 2024 Ribs Unil 2V No CXR [facility] [address] [place], [place] [address] Ribs Unil 2V No CXR MR#: [id number] Acct: [id number] Name: MAINOR MENDEZ Rep #: [id number] : 1955 M 68 From: Tereso luo MD PCP: Dr. Gumaro Sepulveda, DO Status: REG CLI Study: Ribs Unil 2V No CXR Date of Exam: 07/01/24 Exam# [id number] Ordering Dr: Darwin Lockwood [id number] STUDY: X-RAY - UNILATERAL RIBS ( LEFT [...] 11:13 EST Reading Location ID and State: [facility] / [place] , Service support , CC: GAETANO Alford; Dr. Gumaro Sepulveda DO [employer] Technician: Signed Normal [facility] Urgent Care Visit Reporton 0 07-01-2024 Urgent Care Visit Report [facility] [address], [address] [place] [address] OFFICE VISIT Date of Service: 07/01/24 MR#: [id number] Acct: [id number] Name: MAINOR MENDEZ Rep #: [id number] : 1955 Provider: GAETANO Alford Age/Sex: 68/M Location: [facility] [place] Status: Signed Intake Vital Signs 06/12/21 08:37 [...] FROM FALL Chief Complaint: left rib pain Algebra Tutor Required: No Is patient in pain?: Yes Allergies No Known Allergies Allergy (Verified 07/01/24 10:44) Have you fallen in the past year?: Yes Nurse's Note: fall 4 days ago on ice, landed on his back. has had left rib pain ever since, significantly worse since last noc. denies SOB, CP. pt has been working and lifting very heavy items frequently since fall. [facility] Social History Smoking Status: Never smoker HPI [...] fallen in the past year?: Yes 07/01/24 9269 Date Darwin Tidwell Signature: Date (if applicable) CC: Normal [facility] .Auto Diffon 01-12-2024 Basophil, Absolute 0.1 10 3/mcL Normal 0.0-0.2 [facility] Comment on above: Performed By: #### I BC, GFR, CBC, ADIFF, ANEU, FERR, FE, RFP #### [address] [address] #### PTH #### [address] [address] Basophils/100 WBC (Bld) 0.7 % Normal 0.0-2.5 [facility] ([place]) Comment on above: Performed By: #### I BC, GFR, CBC, ADIFF, ANEU, FERR, FE, RFP #### [address] [address] #### PTH #### [address] [address] Eosinophil, Absolute 0.4 10 3/mcL Normal 0.0-0.4 [facility] ([place]) Comment on above: Performed By: #### I BC, GFR, CBC, ADIFF, ANEU, FERR, FE, RFP #### [address] [address] #### PTH #### [address] [address] Eosinophils/100 WBC (Bld) 3.2 % Normal 0.0-7.0 [facility] ([place]) Comment on above: Performed By: #### I BC, GFR, CBC, ADIFF, ANEU, FERR, FE, RFP #### [address] [address] #### PTH #### [address] [address] Lymphocyte, Absolute 3.7 10 3/mcL Normal 0.8-3.9 [facility] ([place]) Comment on above: Performed By: #### I BC, GFR, CBC, ADIFF, ANEU, FERR, FE, RFP #### [address] [address] #### PTH #### [address] [address] Lymphocytes/100 WBC (Bld) 32.7 % Normal 10.0-50.0 [facility] ([place]) Comment on above: Performed By: #### I BC, GFR, CBC, ADIFF, ANEU, FERR, FE, RFP #### [address] [address] #### PTH #### [address] [address] Monocyte, Absolute 1.0 10 3/mcL Normal 0.2-1.0 [facility] Comment on above: Performed By: #### I BC, GFR, CBC, ADIFF, ANEU, FERR, FE, RFP #### [address] [address] #### PTH #### [address] [address] Monocytes/100 WBC (Bld) 8.8 % Normal 1.7-13.0 [facility] ([place] Comment on above: Performed By: #### I BC, GFR, CBC, ADIFF, ANEU, FERR, FE, RFP #### [address] [address] #### PTH #### [address] [address] Neutrophils/100 WBC (Bld) 54.6 % Normal 37.0-80.0 [facility] ([place] Comment on above: Performed By: #### I BC, GFR, CBC, ADIFF, ANEU, FERR, FE, RFP #### [address] [address] #### PTH #### [address] [address] .GFRon 01-12-2024 GFR 43 ml/min/1.73sqm Normal [facility] ([place]) Comment on above: Result Comment: GFR Population [...] CBC, ADIFF, ANEU, FERR, FE, RFP #### [place] [address] #### PTH #### [address] [address] GFR Non- 36 ml/min/1.73sqm Normal [facility] ([place]) Comment on above: Result Comment: GFR Population [...] CBC, ADIFF, ANEU, FERR, FE, RFP #### [place] [address] #### PTH #### [address] [address] .NEUABSon 01-12-2024 Neutrophil, Absolute 6.2 10 3/mcL Normal 2.9-6.2 [facility] ([place]) Comment on above: Performed By: #### I BC, GFR, CBC, ADIFF, ANEU, FERR, FE, RFP #### [place] [address] #### PTH #### [address] [address] .Urinalysis Microscopic (AO) on 01-12-2024 UA RBC 0-5 Abnormal None Seen [facility] ([place]) Comment on above: Performed By: #### I BC, GFR, CBC, ADIFF, ANEU, FERR, FE, RFP #### [place] [address] #### PTH #### [place] [address] UA Squam Epithelial None Seen Normal None Seen [facility] ([place]) Comment on above: Performed By: #### I BC, GFR, CBC, ADIFF, ANEU, FERR, FE, RFP #### [place] [address] #### PTH #### [place] [address] UA WBC 0-5 Abnormal None Seen [facility] ([place] Comment on above: Performed By: #### I BC, GFR, CBC, ADIFF, ANEU, FERR, FE, RFP #### [place] [address] #### PTH #### [place] [address] CBCon 01-12-2024 Erythrocyte distribution width (RBC) [Ratio] 14.9 % High 11.5-14.5 [facility] ([place]) Comment on above: Performed By: #### I BC, GFR, CBC, ADIFF, ANEU, FERR, FE, RFP #### [place] [address] #### PTH #### [place] [address] Hematocrit (Bld) [Volume fraction] 34.0 % Low 42.0-52.0 [facility] ([place]) Comment on above: Performed By: #### I BC, GFR, CBC, ADIFF, ANEU, FERR, FE, RFP #### [place] [address] #### PTH #### [place] [address] Hgb 11.2 G/dL Low 14.0-18.0 [facility] ([place]) Comment on above: Performed By: #### I BC, GFR, CBC, ADIFF, ANEU, FERR, FE, RFP #### [place] [address] #### PTH #### [address] [address] MCH (RBC) [Entitic mass] 31.2 pg Normal 27.0-31.2 [facility] ([place] Comment on above: Performed By: #### I BC, GFR, CBC, ADIFF, ANEU, FERR, FE, RFP #### [place] [address] #### PTH #### [place] [address] MCHC 33.1 G/dL Normal 31.8-35.4 [facility] ([place] Comment on above: Performed By: #### I BC, GFR, CBC, ADIFF, ANEU, FERR, FE, RFP #### [place] [address] #### PTH #### [place] [address] MCV (RBC) [Entitic vol] 94.2 fL High 80.0-94.0 [facility] ([place] Comment on above: Performed By: #### I BC, GFR, CBC, ADIFF, ANEU, FERR, FE, RFP #### [place] [address] #### PTH #### [place] [address] Platelet 268 10 3/mcL Normal 130-400 [facility] ([place]) Comment on above: Performed By: #### I BC, GFR, CBC, ADIFF, ANEU, FERR, FE, RFP #### [place] [address] #### PTH #### [place] [address] Platelet mean volume (Bld) [Entitic vol] 8.1 fL Normal 7.4-10.4 [facility] ([place]) Comment on above: Performed By: #### I BC, GFR, CBC, ADIFF, ANEU, FERR, FE, RFP #### [place] [address] #### PTH #### [place] [address] RBC 3.61 10 6/mcL Low 4.04-6.13 [facility] ([place] Comment on above: Performed By: #### I BC, GFR, CBC, ADIFF, ANEU, FERR, FE, RFP #### [place] [address] #### PTH #### [place] [address] WBC 11.4 10 3/mcL High 4.6-10.8 [facility] ([place]) Comment on above: Performed By: #### I BC, GFR, CBC, ADIFF, ANEU, FERR, FE, RFP #### [place] [address] #### PTH #### [place] [address] FEon 01-12-2024 Iron [Mass/Vol] 60 ug/dL Low 65-175 [facility] ([place]) Comment on above: Performed By: #### I BC, GFR, CBC, ADIFF, ANEU, FERR, FE, RFP #### [place] [address] #### PTH #### [place] [address] Mazin 01-12-2024 Ferritin [Mass/Vol] 331.0 ng/mL Normal 26.0-388.0 [facility] Comment on above: Performed By: #### I BC, GFR, CBC, ADIFF, ANEU, FERR, FE, RFP #### [place] [address] #### PTH #### [place] [address] IBCon 01-12-2024 TIBC 325 mcg/dL Normal 250-450 [facility] ([place]) Comment on above: Performed By: #### I BC, GFR, CBC, ADIFF, ANEU, FERR, FE, RFP #### [place] [place] [address] [place], [place] [address] #### PTH #### [address] [address] LABORATORYOrdered By: Librado parikh on 01-12-2024 Appearance [...] 01-12-2024 PTH, Intact 60.7 pg/mL Normal 18.5-88.0 [facility] ([place]) Comment on above: Performed By: #### I BC, GFR, CBC, ADIFF, ANEU, FERR, FE, RFP #### [address] [address] #### PTH #### [address] [address] RFPon 01-12-2024 Albumin Level 3.2 G/dL Low 3.4-4.8 [facility] ([place]) Comment on above: Performed By: #### I BC, GFR, CBC, ADIFF, ANEU, FERR, FE, RFP #### [address] [address] #### PTH #### [address] [address] BUN/Creatinine Ratio 24 ratio Normal 7-27 [facility] Comment on above: Performed By: #### I BC, GFR, CBC, ADIFF, ANEU, FERR, FE, RFP #### [address] [address] #### PTH #### [address] [address] Calcium [Mass/Vol] 9.3 mg/dL Normal 8.4-10.2 [facility] ([place]) Comment on above: Performed By: #### I BC, GFR, CBC, ADIFF, ANEU, FERR, FE, RFP #### [place] [address] #### PTH #### [place] [address] Chloride [Moles/Vol] 100 mmol/L Normal 98-107 [facility] Comment on above: Performed By: #### I BC, GFR, CBC, ADIFF, ANEU, FERR, FE, RFP #### [address] [address] #### PTH #### [address] [address] CO2 [Moles/Vol] 24 mmol/L Normal 23-31 [facility] ([place]) Comment on above: Performed By: #### I BC, GFR, CBC, ADIFF, ANEU, FERR, FE, RFP #### [address] [address] #### PTH #### [address] [address] Creatinine [Mass/Vol] 1.89 mg/dL High 0.70-1.30 [facility] ([place]) Comment on above: Performed By: #### I BC, GFR, CBC, ADIFF, ANEU, FERR, FE, RFP #### [address] [address] #### PTH #### [address] [address] Electrolyte Balance 11.0 mEq/L Normal 4.0-15.0 [facility] ([place]) Comment on above: Performed By: #### I BC, GFR, CBC, ADIFF, ANEU, FERR, FE, RFP #### [place] [address] #### PTH #### [address] [address] Glucose [Mass/Vol] 199 mg/dL High 80-115 [facility] ([place]) Comment on above: Performed By: #### I BC, GFR, CBC, ADIFF, ANEU, FERR, FE, RFP #### [place] [address] #### PTH #### [address] [address] Phosphate [Mass/Vol] 2.9 mg/dL Normal 2.3-4.1 [facility] Comment on above: Performed By: #### I BC, GFR, CBC, ADIFF, ANEU, FERR, FE, RFP #### [place] [address] #### PTH #### [address] [address] Potassium [Moles/Vol] 5.9 mmol/L High 3.5-5.1 [facility] ([place]) Comment on above: Performed By: #### I BC, GFR, CBC, ADIFF, ANEU, FERR, FE, RFP #### [place] [address] #### PTH #### [address] [address] Sodium [Moles/Vol] 135 mmol/L Low 136-145 [facility] ([place]) Comment on above: Performed By: #### I BC, GFR, CBC, ADIFF, ANEU, FERR, FE, RFP #### [address] [address] #### PTH #### [address] [address] Urea nitrogen [Mass/Vol] 46 mg/dL High 7-18 [facility] ([place]) Comment on above: Performed By: #### I BC, GFR, CBC, ADIFF, ANEU, FERR, FE, RFP #### [address] [address] #### PTH #### [address] [address] RPCURon 01-12-2024 U Creatinine 71.2 mg/dL Normal 39.0-259.0 [facility] ([place]) Comment on above: Performed By: #### R PCUR, UA, UAMICAO #### [address] [address] U Protein 88 mg/dL High 0-11 [facility] ([place]) Comment on above: Performed By: #### R PCUR, UA, UAMICAO #### [address] [address] U Ratio Prot/Creat 1.2 ratio Normal [facility] ([place]) Comment on above: Result Comment: resu lt calculated by rule GL_UR_PROT_NOTCALC_OLD (U Protein/U Creatinine) Performed By: #### R PCUR, UA, UAMICAO #### [address] [address] UAon 01-12-2024 Color (U) Yellow Normal [facility] ([place]) Comment on above: Performed By: #### I BC, GFR, CBC, ADIFF, ANEU, FERR, FE, RFP #### [address] [address] #### PTH #### [address] [address] Glucose (U) [Mass/Vol] Negative Normal Negative [facility] ([place]) Comment on above: Performed By: #### I BC, GFR, CBC, ADIFF, ANEU, FERR, FE, RFP #### [address] [address] #### PTH #### [address] [address] Ketones Ql (U) Negative Normal Negative [facility] ([place]) Comment on above: Performed By: #### I BC, GFR, CBC, ADIFF, ANEU, FERR, FE, RFP #### [address] [address] #### PTH #### [place] [address] UA Appear Clear Normal Clear [facility] ([place]) Comment on above: Performed By: #### I BC, GFR, CBC, ADIFF, ANEU, FERR, FE, RFP #### [address] [address] #### PTH #### [place] [address] UA Blood Negative Normal Negative [facility] ([place]) Comment on above: Performed By: #### I BC, GFR, CBC, ADIFF, ANEU, FERR, FE, RFP #### [address] [address] #### PTH #### [place] [address] UA Leuk Est Negative Normal Negative [facility] ([place] Comment on above: Performed By: #### I BC, GFR, CBC, ADIFF, ANEU, FERR, FE, RFP #### [address] [address] #### PTH #### [place] [address] UA Nitrite Negative Normal Negative [facility] ([place] Comment on above: Performed By: #### I BC, GFR, CBC, ADIFF, ANEU, FERR, FE, RFP #### [place] [address] #### PTH #### [place] [address] UA pH 7.0 Normal 5.0 - 8.0 [facility] ([place]) Comment on above: Performed By: #### I BC, GFR, CBC, ADIFF, ANEU, FERR, FE, RFP #### [place] [address] #### PTH #### [place] [address] UA Protein 100 mg/dL Abnormal Negative [facility] ([place] Comment on above: Performed By: #### I BC, GFR, CBC, ADIFF, ANEU, FERR, FE, RFP #### [place] [address] #### PTH #### [place] [address] UA Spec Grav 1.020 Normal 1.015-1.02 5 [facility] ([place] Comment on above: Performed By: #### I BC, GFR, CBC, ADIFF, ANEU, FERR, FE, RFP #### [place] [address] #### PTH #### [place] [address] UA Specimen Type Clean Catch Normal [facility] ([place] Comment on above: Performed By: #### I BC, GFR, CBC, ADIFF, ANEU, FERR, FE, RFP #### [place] [address] #### PTH #### [place] [address] UA Urobilinogen 0.2 E.U./dL Normal 0.2-1.0 [facility] ([place] Comment on above: Performed By: #### I BC, GFR, CBC, ADIFF, ANEU, FERR, FE, RFP #### [place] [address] #### PTH #### [place] [address] Urobilinogen (U) [Mass/Vol] Negative Normal Negative [facility] ([place] Comment on above: Performed By: #### I BC, GFR, CBC, ADIFF, ANEU, FERR, FE, RFP #### [facility] [address] [place], [place] [address] #### PTH #### [place] [id number] [address] [place] [address] [place] RENALon 01-12-2024 [place] RENAL ORIGINAL EXAMINATION: [...] 01/12/2024 12:21:52 PM Ordering Provider: VENKAT Fisher [facility] ([place]) Anusha 09-05-2023 LEÓN Telephone (GLENN) MAINOR MENDEZ ([id number]) 1955 M Date Time Provider Department 09/05/23 [...] Date Reviewed: 09/04/2023 Reviewed by: Miriam Perkins APRN.HEALTH INSURANCE ASSESSOR - Fully Assessed Prescriptions as of 09/05/2023 [...] Status:Closed by SAGRARIO WAYNE on 09/05/23 Normal [facility] CEA SerPl-mCncon 09-04-2023 Carcinoembryonic Ag [Mass/Vol] 3.3 ng/mL High <=2.9 [facility] Comment on above: Order Comment: Speci men Type: BLOOD SPECIMEN Ordering Facility: [facility] Address: [address] [place] [address] Result Comment: Carc inoembryonic antigen test is used as an aid in monitoring response to treatment or recurrence in patients with established colorectal, breast, lung, prostatic, pancreatic, and ovarian carcinomas. Clinical correlation is required. The Carcinoembryonic antigen test was performed using the [employer] DXI paramagnetic particle chemiluminescent immunoassay method. Results obtained with different assay methods or kits cannot be used interchangeably. Performed By: #### 2 039-6 #### [facility] CLIA [id number] [address] [place] [address] [place] CNOVSPon 09-04-2023 CNOVSP Visit (SP) Office (H EMAWS) MENDEZMAINOR CALDERON ([id number]) 1955 M Date Time Provider Department 09/04/23 8:00 AM MIRIAM PERKINS During your visit today, we recorded the following information about you: Temperature Pulse Blood pressure Weight 97.7 degrees 74/minute 164/64 109.3 kg Miriam Perkins APRN.HEALTH INSURANCE ASSESSOR 09/04/2023 11:57 AM Signed Chief Complaint Patient [...] identified Ly (more content not included)... Normal [facility] CNPNon 08-27-2023 CNPN Telephone (GLENN) MAINOR MENDEZ ([id number]) 1955 M Date Time Provider Department 08/27/23 MIRIAM PERKINS During your visit today, we recorded the following information about you: Pauline Thompson 08/27/2023 3:58 PM Signed Patient is calling for CT results test was completed 08/24 at [facility] appears it was upload to [email or web address] yesterday. Please advise patient with results Miriam Perkins APRN.CNP 08/28/2023 12:03 PM Signed Please inform pt. that his CT's look good. Needs OV with CEA. Thank you. Miriam Perkins APRN.HEALTH INSURANCE ASSESSOR Yareli Riana 08/28/2023 12:09 PM Signed Patient is denominational self-pay and needs authorized prior to scheduling OV. Spoke with patient, advising below. Patient is aware we will be calling to schedule lab AND OV once financially cleared. Riana Palma 09/01/2023 11:44 AM Signed Spoke with patient and scheduled. Riana Arredondo Allergies As of Date: 08/27/2023 (No Known Allergies) Date Reviewed: 02/26/2023 Reviewed by: Miriam Perkins APRN.HEALTH INSURANCE ASSESSOR - Fully Assessed Reason for Visit: Results [...] Status:Closed by RIANA ARREDONDO on 09/01/23 [facility] Basophil percentageOrdered B y: TRACTOR ENGINE ASSEMBLER- Miriam Perkins on 08-25-2023 Creatinine [Mass/Vol] 1.0 mg/dL 0.70-1.30 [facility] CREATININE FINGERSTICKon Creatinine [Mass/Vol] 1.0 mg/dL Normal 0.70-1.30 [facility] Comment on above: Performed By: #### L 9100.0200 #### [facility] [address] [place], [address] EGFR WB > 60.0000 Normal >60 [facility] Comment on above: Performed By: #### L 9100.0200 #### [facility] [address] [place], [address] CT Chest, Abd, Pel w/Contras ton 08-25-2023 CT Chest, Abd, Pel w/Contrast [facility] Imaging Services [address] [place] [address] CT Chest, Abd, Pel w/Contrast MR#: [id number] Acct: [id number] Name: MAINOR MENDEZ VINOD Rep #: [id number] : 1955 M 67 From: Tereso luo MD PCP: Dr. Gumaro Sepulveda, DO Status: REG CL Study: CT Chest, Abd, Pel w/Contrast Date of Exam: Exam# [id number] Ordering Dr: Miriam Perkins TRACTOR ENGINE ASSEMBLER N P-C [id number] STUDY: CT CHEST, ABDOMEN T PELVIS WITH [...] CC: SHAHEED Perkins; Dr. Gumaro Sepulveda DO Tire And Lube Technician: Signed Normal [facility] No Panel InformationOrdered By: SHAHEED Perkins on 08-25-2023 Bedside Estimated GFR (eGFR) > 60.0000 mL/min >60 [facility] CNOVSPon 02-26-2023 CNOVSP Visit (SP) Office (H EMAWS) MAINOR MENDEZ ([id number]) 1955 M Date Time Provider Department 02/26/23 8:00 AM MIRIAM PERKINS During your visit today, we recorded the following information about you: Temperature Pulse Blood pressure Weight 98.5 degrees 76/minute 147/74 102.1 kg Height 1.79 m Miriam Perkins APRN.HEALTH INSURANCE ASSESSOR 02/26/2023 1:53 PM Signed Chief Complaint Patient [...] - no (more content not included)... Normal [facility] CREATININE BLDon 02-26-2023 Creatinine [Mass/Vol] 1.38 mg/dL High 0.73-1.[address] [facility] Comment on above: Order Comment: Carmelina quiñonez Type: BLOOD SPECIMEN Ordering Facility: [facility] Address: [address] [place] [address] Performed By: #### 2 039-6 #### [facility] CLIA [id number] [address] [place] [address] [place] Creatinine and Glomerular filtration rate.predicted panel (S/P/Bld) 57 mL/min/1.73m??? Low >=60 [facility] Comment on above: Order Comment: Carmelina quiñonez Type: BLOOD SPECIMEN Ordering Facility: [facility] Address: [address] [place] [address] Result Comment: Merlyn mated Glomerular Filtration Rate [...] GFR. Performed By: #### 2 039-6 #### [facility] CLIA [id number] [address] [place] [address] [place] CREATININE BLDOrdered By: Florin Sparrow on 02-26-2023 Creatinine [Mass/Vol] 1.38 mg/dL High 0.73 - 1.22 mg/dL [facility] GFR/1.73 sq M.predicted among non-blacks MDRD (S/P/Bld) [Vol rate/Area] 57 mL/min/{1.73_m2} Low - PINF [facility] Comment on above: Estimated Glomerular Filtration Rate [...] Interpretation and review of laboratory results [facility] LEÓN Telephone (GLENN) MAINOR MENDEZ ([id number]) 1955 M Date Time Provider Department 02/21/23 MIRIAM PERKINS During your visit today, we recorded the following information about you: Reanna Tarango 02/21/2023 2:14 PM Signed Patient requesting CT results from 02[facility] Miriam Perkins APRN.ANGELICA 02/21/2023 2:48 PM [...] Status:Closed by BERTA HAYS on 02/21/23 Normal [facility] Basophil percentageOrdered B y: PATTI- Miriam Perkins on 02-19-2023 Creatinine [Mass/Vol] 1.5 mg/dL 0.70-1.30 [facility] - Chemistry and C hemistry - challengeOrdered By: SHAHEED Perkins on 02-19-2023 GFR/1.73 sq M.predicted among non-blacks MDRD (S/P/Bld) [Vol rate/Area] 49.0000 mL/min/{1.73_m2} >60 [facility] CNPNon 02-07-2023 CNPN Telephone (GLENN) MIANOR MENDEZ ([id number]) 1955 M Date Time Provider Department 02/07/23 MIRIAM PERKINS During your visit today, we recorded the following information about you: Riana Arredondo 02/07/2023 10:51 AM Signed Patient called to reschedule 02/17 appointment as he is gettinga CT on 02/19/23 at [facility]. Referral for appointment was closed. New referral submitted. Once approved, please scheduled CEA/6 MO OV/CT @ [facility] 02/19* with Miriam on 02/26/23 at 8:00 AM (held appt time). Riana Navarro02/17/2023 10:08 AM Signed Pt scheduled as directed Allergies As of Date: 02/07/2023 (No Known Allergies) Date Reviewed: 09/02/2022 Reviewed by: Miriam Perkins APRN.HEALTH INSURANCE ASSESSOR - Fully Assessed Reason for Visit: Future [...] knees [M17.0] 04/08/2018 Encounter Status:Closed by TASH NAVARRO on 02/17/23 Normal [facility] Anusha 02-05-2023 LEÓN Telephone (HEMJORGE) VANESSAMAINOR Ashley ([id number]) 1955 M Date Time Provider Department 02/05/23 MIRIAM PERKINS During your visit today, we recorded the following information about you: Miriam Perkins APRN.CNP 02/05/2023 10:57 AM Signed Please inform pt. that his CEA is elevated-this is not uncommon for him but since he is having symptoms he should have CT's. Orders in. Pt. normally likes to have these done at [facility]. Please call pt and assist with scheduling. Thank you. Miriam Perkins APRN.Sagrario Andrew LPN 02/05/2023 11:01 AM Signed Patient is aware of all information. PSS- please contact patient to assist in scheduling CT's at [facility]. Sagrario Wayne LPN 02/05/2023 4:43 PM Signed Called pt. Stated he was ok with us faxing the orders to [facility] and having them contact him to [facility]. Pt stated that he will [...] flexure (HCC) [C18.5] Order(s):CT ABD/PEL W IVCON [[id number]] Order #: [id number] FUTURE CT CHEST W IVCON [[id number]] Order #: [id number] FUTURE [] iv contrast (will be provided [...] 0 [] CREATININE BLD [SQCRET] Order #: [id number] FUTURE Prescriptions as of 10/15/2023 - pioglitazone [...] Status:Closed by TAMMY JUNIOR on 10/15/23 Normal [facility] CEA SerPl-mCncon 02-04-2023 Carcinoembryonic Ag [Mass/Vol] 4.7 ng/mL High <=2.9 [facility] Comment on above: Order Comment: Speci men Type: BLOOD SPECIMEN Ordering Facility: [facility] Address: [address] [place], [place] [id number] Result Comment: Carc inoembryonic antigen test is used as an aid in monitoring response to treatment or recurrence in patients with established colorectal, breast, lung, prostatic, pancreatic, and ovarian carcinomas. Clinical correlation is required. The Carcinoembryonic antigen test was performed using the [employer] DXI paramagnetic particle chemiluminescent immunoassay method. Results obtained with different assay methods or kits cannot be used interchangeably. Performed By: #### 2 039-6 #### [facility] CLIA [id number] [address] [place] [address] [place] Anusha 02-04-2023 CNPN Telephone (HEMAWS) MAINOR MENDEZ ([id number]) 1955 M Date Time Provider Department 02/04/23 [...] make sure he's okay. 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] Order(s):CEA BLD [SQCEA] Order #: [id number] FUTURE Prescriptions as of 02/04/2023 - sitagliptin [...] by SAGRARIO WAYNE LPN on 02/04/23 [facility] Basophil percentageOrdered B y: SHAHEED Perkins on 07-17-2022 Creatinine [Mass/Vol] 1.3 mg/dL 0.70-1.30 [facility] No Panel InformationOrdered By: SHAHEED Perkins on 07-17-2022 Bedside Estimated GFR (eGFR) > 60.0000 mL/min >60 [facility] Basophil percentageon 2021 Chloride [Moles/Vol] 103 mmol/L 98-107 [facility] Work Phone: Glucose [Mass/Vol] 244 mg/dL 74-106 [facility] Work Phone: Comment on above: Glucose result great er than or equal to 200 mg/dLsuggests DIABETES MELLITUS per A.D.A. criteria. Potassium [Moles/Vol] 4.9 mmol/L 3.5-5.1 [facility] Work Phone: Sodium [Moles/Vol] 137 mmol/L 136-145 [facility] Work Phone: WBC (Bld) [#/Vol] 9.7 10*3/uL 4.4-11.0 [facility] Work Phone: Blood erythrocytes count (nu mber/volume)on 03-19-2022 RBC (Bld) [#/Vol] 4.00 10*6/uL 4.6-6.2 [facility] Work Phone: Blood hemoglobin measurement (mass/volume)on 03-19-2022 Hemoglobin (Bld) [Mass/Vol] 12.8 g/dL 13.0-16.5 [facility] Work Phone: Blood platelet mean volumeon 03-19-2022 Platelet mean volume (Bld) [Entitic vol] 10.3 fL 6.2-12.0 [facility] Work Phone: Determination of erythrocyte mean corpuscular volume (MCV)on 03-19-2022 MCV (RBC) [Entitic vol] 94.3 fL 80-94 [facility] Work Phone: Hematocrit Auto (Bld) [Volum e fraction]on 03-19-2022 Hematocrit (Bld) [Volume fraction] 37.7 % 40-54 [facility] Work Phone: Laboratory - Chemistry and C hemistry - challengeon 03-19-2022 CO2 [Moles/Vol] 26.0 mmol/L 21.0-32.0 [facility] Work Phone: Urea nitrogen/Creatinine [Mass ratio] 24.6 mg/mg 10-20 [facility] Work Phone: Laboratory - Hematology and Cell countson 03-19-2022 Erythrocyte distribution width (RBC) [Entitic vol] 47.8 fL 35.1-43.9 [facility] Work Phone: Erythrocyte distribution width (RBC) [Ratio] 13.8 % 11.6-14.6 [facility] Work Phone: MCH (RBC) [Entitic mass] 32.0 pg 27.0-32.0 [facility] Work Phone: MCHC Auto (RBC) [Mass/Vol]on 03-19-2022 MCHC (RBC) [Mass/Vol] 34.0 g/dL 32-36 [facility] Work Phone: No Panel Informationon 03-19 Estimated GFR (MDRD) Amer 69 mL/min >60 [facility] Work Phone: Comment on above: GFR Calc Estimated GFR (MDRD) Non-Af Amer 57 mL/min >60 [facility] Work Phone: Comment on above: Non- GFR Calc Platelets bldon 03-19-2022 Platelets (Bld) [#/Vol] 182 10*3/uL 150-450 [facility] Work Phone: Serum or plasma calcium anika urement (mass/volume)on 03-19-2022 Calcium [Mass/Vol] 9.9 mg/dL 8.5-10.1 [facility] Work Phone: Serum or plasma creatinine m easurement (mass/volume)on 03-19-2022 Creatinine [Mass/Vol] 1.34 mg/dL 0.70-1.30 [facility] Work Phone: Comment on above: The validity of the calculated GFR & GFRAA in patients over 70 years has not been determined. Clinical correlation is essential. Serum or plasma urea nitroge n measurement (mass/volume)on 03-19-2022 Urea nitrogen [Mass/Vol] 33 mg/dL 7-18 [facility] Work Phone: Thin prep Papanicolaou smear with manual screeningon 03-19-2022 Thin prep Papanicolaou smear with manual screening 8 5-15 [facility] Work Phone: ANES POSTPROC EVALon 022 ANES POSTPROC EVAL HNO ID: [id number] Author: Carla Quintana MD Service: Anesthesiology Author [...] Scheduled Providers: Jas Dykes MD; Diamond Peralta APRN.COMMERCIAL ENERGY RATER; Carla Quintana MD Responsible Provider: Carla Quintana [...] October 29, 2021 TIME: 1:18 PM CSN: [id number] Normal [facility] ANES PRE-OPon 10-29-2021 ANES PRE-OP HNO ID: [id number] Author: Carla Quintana MD Service: Anesthesiology Author Type: Anesthesiologist Type: Anesthesia Preprocedure Evaluation Filed: 10/29/2021 9:52 AM Note Text: ANESTHESIOLOGY DAY OF SURGERY NOTE : 1955 Procedure Information Date/Time: 10/29/21 1100 Scheduled providers: Jas Dykes MD; Diamond Peralta APRN.COMMERCIAL ENERGY RATER; Carla Quintana MD Procedure: COLONOSCOPY SCREENING Location: [facility] Estimated body mass index is 32.64 [...] October 29, 2021 TIME: 9:51 AM CSN: [id number] Normal [facility] COLONOSCOPY SCREENINGon 10-08 [facility] GLUCOSE, BLOOD (POC)on 10-29 Glucose [Mass/Vol] 192 mg/dL Abnormal 74 - 99 mg/dL [facility] Glucose [Mass/Vol] 197 mg/dL Abnormal 74 - 99 mg/dL [facility] HISTORY PHYSICALon HISTORY PHYSICAL HNO ID: [id number] Author: Jas Dykes MD Service: General Surgery [...] The patient (more content not included)... Normal [facility] Vital Signs Date Time Vital Sign Value Performing Clinician Facility 12-02-2024 18:00-0400 Heart rate 71 /min Dr. Gumaro Sepulveda DO Work Phone: [facility] 12-02-2024 18:00-0400 Respiratory rate 19 /min Dr. Gumaro Sepulveda DO Work Phone: [facility] 12-02-2024 17:30-0400 Diastolic blood pressure 60 mm[Hg] Dr. Gumaro Sepulveda DO Work Phone: [facility] 12-02-2024 17:30-0400 SaO2% (BldA) [Mass fraction] 100 % Dr. Gumaro Sepulveda DO Work Phone: [facility] 12-02-2024 17:30-0400 Systolic blood pressure 132 mm[Hg] Dr. Gumaro Sepulveda DO Work Phone: [facility] 12-02-2024 17:00-0400 Body temperature 97.9 [degF] Dr. Gumaro Sepulveda DO Work Phone: [facility] 12-02-2024 14:44-0400 Body mass index (BMI) [Ratio] 32.2 kg/m2 Dr. Gumaro Sepulveda DO Work Phone: [facility] 12-02-2024 14:44-0400 Body weight 106.[address] Gumaro Sepulveda DO Work Phone: [facility] 12-02-2024 13:52-0400 Body height 181.[address] Gumaro Sepulveda DO Work Phone: [facility] 02-26-2023 08:03-0400 Body height 179 cm Miriam Perkins SHELLAC POLISHER.HEALTH INSURANCE ASSESSOR Work Phone: [facility] 02-26-2023 08:03-0400 Body temperature 98.49 [degF] Miriam Perkins SHELLAC POLISHER.HEALTH INSURANCE ASSESSOR Work Phone: [facility] 02-26-2023 08:03-0400 Body weight 102.06 kg Miriam Perkins SHELLAC POLISHER.HEALTH INSURANCE ASSESSOR Work Phone: [facility] 02-26-2023 08:03-0400 Diastolic blood pressure 74 mm[Hg] Miriam Perkins SHELLAC POLISHER.HEALTH INSURANCE ASSESSOR Work Phone: [facility] 02-26-2023 08:03-0400 Heart rate 76 /min Miriam Perkins SHELLAC POLISHER.HEALTH INSURANCE ASSESSOR Work Phone: [facility] 02-26-2023 08:03-0400 SaO2% (BldA) [Mass fraction] 96 % Miriam Perkins SHELLAC POLISHER.HEALTH INSURANCE ASSESSOR Work Phone: [facility] 02-26-2023 08:03-0400 Systolic blood pressure 147 mm[Hg] Miriam Perkins SHELLAC POLISHER.HEALTH INSURANCE ASSESSOR Work Phone: [facility] 09-02-2022 08:34-0400 Body height 180.3 cm Destrehan Perkins SHELLAC POLISHER.HEALTH INSURANCE ASSESSOR Work Phone: [facility] 09-02-2022 08:34-0400 Body temperature 98.01 [degF] Destrehan Perkins SHELLAC POLISHER.HEALTH INSURANCE ASSESSOR Work Phone: [facility] 09-02-2022 08:34-0400 Body weight 103.87 kg Miriam Perkins SHELLAC POLISHER.HEALTH INSURANCE ASSESSOR Work Phone: [facility] 09-02-2022 08:34-0400 Diastolic blood pressure 75 mm[Hg] Miriam Perkins SHELLAC POLISHER.HEALTH INSURANCE ASSESSOR Work Phone: [facility] 09-02-2022 08:34-0400 Heart rate 80 /min Destrehan Perkins SHELLAC POLISHER.HEALTH INSURANCE ASSESSOR Work Phone: [facility] 09-02-2022 08:34-0400 Systolic blood pressure 143 mm[Hg] Destrehan Perkins SHELLAC POLISHER.HEALTH INSURANCE ASSESSOR Work Phone: [facility] 03-06-2022 08:34-0400 Body height 180.3 cm Destrehan Perkins SHELLAC POLISHER.HEALTH INSURANCE ASSESSOR Work Phone: [facility] 03-06-2022 08:34-0400 Body temperature 97.59 [degF] Miriam Perkins SHELLAC POLISHER.HEALTH INSURANCE ASSESSOR Work Phone: [facility] 03-06-2022 08:34-0400 Body weight 103.19 kg Miriam Perkins SHELLAC POLISHER.HEALTH INSURANCE ASSESSOR Work Phone: [facility] 03-06-2022 08:34-0400 Diastolic blood pressure 70 mm[Hg] Miriam Perkins SHELLAC POLISHER.HEALTH INSURANCE ASSESSOR Work Phone: [facility] 03-06-2022 08:34-0400 Heart rate 87 /min Miriam Perkins SHELLAC POLISHER.HEALTH INSURANCE ASSESSOR Work Phone: [facility] 03-06-2022 08:34-0400 Systolic blood pressure 135 mm[Hg] Destrehan Perkins SHELLAC POLISHER.HEALTH INSURANCE ASSESSOR Work Phone: [facility] 10-29-2021 11:30-0400 Body temperature 97.2 [degF] Jas Dykes MD Work Phone: [facility] 10-29-2021 11:30-0400 Diastolic blood pressure 91 mm[Hg] Jas Dykes MD Work Phone: [facility] 10-29-2021 11:30-0400 Heart rate 54 /min Jas Dykes MD Work Phone: [facility] 10-29-2021 11:30-0400 Respiratory rate 16 /min Jas Dykes MD Work Phone: [facility] 10-29-2021 11:30-0400 SaO2% (BldA) [Mass fraction] 100 % Jas Dykes MD Work Phone: [facility] 10-29-2021 11:30-0400 Systolic blood pressure 131 mm[Hg] Jas Dykes MD Work Phone: [facility] 10-29-2021 09:49-0400 Body height 180.3 cm Jas Dykes MD Work Phone: [facility] 10-29-2021 09:49-0400 Body weight 106.14 kg Jas Dykes MD Work Phone: [facility] Encounters Encounter Date Encounter Type Care Provider Facility Start: 12-02-2024 Evaluation and management of inpatient Dr. Reanna Ridley MD -Progressive Care Unit Work Phone: Start: 07-01-2024 End: 07-01-2024 ambulatory Darwin SALTER Facility:[facility] Start: 07-01-2024 End: 07-01-2024 ambulatory Darwin SALTER Facility:[facility] Start: 01-12-2024 End: 01-12-2024 ambulatory VENKAT LUIS MD Facility:B Start: 01-12-2024 End: 01-12-2024 Patient encounter procedure VENKAT LUIS MD [facility] Start: 01-12-2024 End: 01-12-2024 ambulatory VENKAT LUIS MD Facility:[facility] Start: 01-12-2024 End: 01-12-2024 Patient encounter procedure VENKAT LUIS MD [facility] Start: 09-04-2023 End: 09-05-2023 ambulatory MIRIAM PERKINS Facility:[facility] Start: 08-27-2023 Telephone encounter Miriam Carp enter SHELLAC POLISHER.HEALTH INSURANCE ASSESSOR Work Phone: Hematology/Oncology Comment on above: Results Start: 08-25-2023 End: 08-25-2023 ambulatory [facility] Work Phone: Start: 08-25-2023 End: 08-25-2023 Patient encounter procedure [facility]-Cat Scan, [facility] Work Phone: Start: 08-25-2023 End: 08-25-2023 ambulatory [facility] Facility:[facility] Start: 02-26-2023 End: 02-27-2023 ambulatory Miriam Perkins SHELLAC POLISHER.HEALTH INSURANCE ASSESSOR Work Phone: Hematology/Oncology Comment on above: 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); Elevated CEA Start: 02-26-2023 End: 02-26-2023 Patient encounter procedure Mirima Calabreseenter SHELLAC POLISHER.HEALTH INSURANCE ASSESSOR Work Phone: [facility] Start: 02-21-2023 Telephone encounter Miriam Carp enter SHELLAC POLISHER.HEALTH INSURANCE ASSESSOR Work Phone: Hematology/Oncology Comment on above: Results Start: 02-19-2023 End: 02-19-2023 ambulatory [facility] Work Phone: Start: 02-19-2023 End: 02-19-2023 Patient encounter procedure [facility]Cat Scan, [facility] Work Phone: Start: 02-07-2023 Telephone encounter Destrehan Carp enter SHELLAC POLISHER.HEALTH INSURANCE ASSESSOR Work Phone: Hematology/Oncology Comment on above: Future Appointment Start: 02-05-2023 Telephone encounter Miriam Carp enter SHELLAC POLISHER.HEALTH INSURANCE ASSESSOR Work Phone: Hematology/Oncology Comment on above: Results Start: 02-04-2023 Telephone encounter Orlando Dorantes sandra DO Work Phone: Hematology/Oncology Comment on above: Vomiting Start: 02-04-2023 End: 02-05-2023 ambulatory MIRIAM CALABRESEENTER Facility:[facility] Start: 09-03-2022 Telephone encounter Miriam Calabrese enter SHELLAC POLISHER.HEALTH INSURANCE ASSESSOR Work Phone: Hematology/Oncology Comment on above: Results Start: 09-02-2022 Telephone encounter Orlando flores DO Work Phone: Hematology/Oncology Comment on above: AVS 09/02/22 Start: 09-02-2022 End: 09-02-2022 ambulatory Destrehansandip CalabresePerkins SHELLAC POLISHER.HEALTH INSURANCE ASSESSOR Work Phone: Hematology/Oncology Comment on above: 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) Start: 09-02-2022 End: 09-02-2022 Patient encounter procedure Miriam Perkins SHELLAC POLISHER.HEALTH INSURANCE ASSESSOR Work Phone: [facility] Start: 07-24-2022 Telephone encounter Miriam Calabrese enter SHELLAC POLISHER.HEALTH INSURANCE ASSESSOR Work Phone: Hematology/Oncology Comment on above: Results Start: 07-17-2022 End: 07-17-2022 ambulatory [facility] Work Phone: Start: 07-17-2022 End: 07-17-2022 Patient encounter procedure [facility]-Cat Scan, [facility] Start: 05-21-2022 Telephone encounter Miriam Calabrese enter SHELLAC POLISHER.HEALTH INSURANCE ASSESSOR Work Phone: Hematology/Oncology Comment on above: Appointment Start: 03-19-2022 End: 03-19-2022 ambulatory [facility] Work Phone: Start: 03-19-2022 End: 03-19-2022 Patient encounter procedure [facility]-Pulmonary Services/Neurology Start: 03-08-2022 Telephone encounter Miriam Calabrese enter SHELLAC POLISHER.HEALTH INSURANCE ASSESSOR Work Phone: Hematology/Oncology Comment on above: Results Start: 03-06-2022 End: 03-06-2022 ambulatory Miriam Perkins SHELLAC POLISHER.HEALTH INSURANCE ASSESSOR Work Phone: Hematology/Oncology Comment on above: 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) Start: 03-06-2022 End: 03-06-2022 Patient encounter procedure Miriam Perkins SHELLAC POLISHER.HEALTH INSURANCE ASSESSOR Work Phone: [facility] Start: 02-08-2022 Telephone encounter Miriam camacho SHELLAC POLISHER.HEALTH INSURANCE ASSESSOR Work Phone: Hematology/Oncology Comment on above: Patient Update Start: 10-29-2021 End: 10-29-2021 Subsequent hospital visit by physician Jas Dykes MD Work Phone: [facility] Comment on above: Personal history of colon cancer [Z85.038] Start: 09-10-2021 Telephone encounter Jas Dykes MD Work Phone: General Surgery Comment on above: Question Start: 05-28-2018 Patient encounter procedure [facility] Facility:[facility] Procedures Date Procedure Procedure Detail Performing Clinician [...] Activity Detail Author Start: 10-29-2026 Colonoscopy COLONOSCOPY [facility] Start: 10-29-2026 COLORECTAL CANCER SCREENING COLORECTAL CANCER SCREENING [facility] Start: 10-29-2026 Screening for malign ant neoplasm of colon [facility] Start: 12-02-2024 Admission procedure [facility] Start: 12-02-2024 Electrolytes measure ment, urine [facility] Start: 12-02-2024 Urea nitrogen measur ement, urine [facility] Start: 12-02-2024 [facility] Start: 12-02-2024 Hospital admission, emergency, from emergency room, medical nature [facility] Start: 12-02-2024 End: 12-02-2024 [facility] Start: 12-02-2024 [facility] Start: 12-02-2024 Bacteria identified in Urine by Culture Urine Culture [facility] Start: 10-29-2024 Colonoscopy COLONOSCOPY [facility] Start: 10-29-2024 COLORECTAL CANCER SCREENING COLORECTAL CANCER SCREENING [facility] Start: 02-08-2024 Influenza vaccination Influenz a Vaccine (Season Ended) [facility] Start: 08-27-2023 End: 10-27-2023 CREATININE BLD CREATININE BLD Lab STAT Malignant neoplasm of splenic flexure (HCC) Elevated CEA Expected: 08/27/2023 (Approximate), Expires: 10/27/2023 [facility] Work Phone: Comment on above: Expected: 08/27/2023 (Approximate), Expires: 10/27/2023 Start: 06-09-2023 Advance Directive Discussion Advance Directive Discussion [facility] Start: 06-09-2023 Behavioral Health Screening Behavioral Health Screening [facility] Start: 06-09-2023 Depression [facility] Start: 02-07-2023 Influenza vaccination [facility] Start: 02-04-2023 End: 04-06-2023 Carcinoembryonic Ag [Mass/volume] in Serum or Plasma [facility] Work Phone: Comment on above: Expected: 02/04/2023 , Expires: 04/06/2023 Start: 2022 ADVANCE DIRECTIVE DISCUSSION ADVANCE DIRECTIVE DISCUSSION [facility] Start: 08-08-2022 Colonoscopy COLONOSCOPY [facility] Start: 08-08-2022 COLORECTAL CANCER SCREENING COLORECTAL CANCER SCREENING [facility] Start: 07-19-2022 End: 09-18-2022 CREATININE BLD CREATININE BLD Lab STAT Malignant neoplasm of splenic flexure (HCC) Expected: 07/19/2022, Expires: 09/18/2022 [facility] Work Phone: Comment on above: Expected: 07/19/2022 , Expires: 09/18/2022 Start: 06-09-2022 DEPRESSION ASSESSMENT DEPRESSION ASS ESSMENT [facility] Start: 02-07-2022 Influenza vaccination [facility] Start: 06-09-2021 DEPRESSION ASSESSMENT [facility] Start: 10-12-2020 COVID-19 VACCINE (3 - Pfizer risk 4-dose series) COVID-19 VACCINE (3 - Pfizer risk 4-dose series) [facility] Start: 10-12-2020 COVID-19 VACCINE (3 - Pfizer risk series) COVID-19 VACCINE (3 - Pfizer risk series) [facility] Start: 06-21-2020 Hemoglobin A1c measurement HbA1C [facility] Start: 06-21-2020 Hemoglobin A1c/Hemoglobin.total in Blood HBA1C [facility] Start: 01-16-2020 Adult depression scr eening assessment DEPRESSION SCREENING [facility] Start: 2017 Hepatitis B Vaccine (1 of 3 - Risk 3-dose series) Hepatitis B Vaccine (1 of 3 - Risk 3-dose series) [facility] Start: 2017 RSV Vaccine (1 - 1-d ose 60+ series) RSV Vaccine (1 - 1-dose 60+ series) [facility] Start: 2012 PROSTATE CANCER SCRE ENING DISCUSSION PROSTATE CANCER SCREENING DISCUSSION [facility] Start: 2012 Prostate specific an tigen measurement Prostate Cancer Screening Discussion [facility] Start: 10-07-2007 SHINGRIX VACCINE (1 of 2) LOVE GRIX VACCINE (1 of 2) [facility] Start: 2002 COLOGUARD (FIT-DNA) COLOGUARD (FIT-D NA) [facility] Start: [address] COLONOGRAPHY [facility] Start: 2002 FECAL OCCULT BLOOD FECAL OCCULT BLOO D [facility] Start: 2002 Screening for malign ant neoplasm of colon [facility] Start: 2002 SIGMOIDOSCOPY SIGMOIDOSCOPY [facility] Start: 1976 SHINGRIX VACCINE (1 of 2) LOVE GRIX VACCINE (1 of 2) [facility] Start: 1976 Urine microalbumin profile [facility] Start: 10-07-1975 ANNUAL PCP TEAM FOOD PRODUCTION SUPERVISOR WENDY DISEASE VISIT ANNUAL PCP TEAM CHRONIC DISEASE VISIT [facility] Start: 10-07-1975 BP CONTROLLED (<130/80) BP CONTROLLE D (<130/80) [facility] Start: 10-07-1975 Hepatitis B surface antibody level LDL CHOLESTEROL [facility] Start: 10-07-1975 HEPATITIS C SCREENING HEPATITIS C [facility] Start: 10-07-1975 Hepatitis C screening Hepatitis C [facility] Start: 10-07-1975 HIV SCREENING HIV SCREENING [facility] Start: 10-07-1975 HIV screening HIV Screening [facility] Start: 1973 ONE PNEUMOVAX PRIOR TO AGE 65 ONE PNEUMOVAX PRIOR TO AGE 65 [facility] Start: 10-07-1967 3 comp foot exam completed DIABETIC FOOT EXAM [facility] Start: 10-07-1967 Diabetic foot examination Diabetic F oot Exam [facility] Start: 10-07-1967 Glaucoma screening Dilated Retinal E xam [facility] Start: 10-07-1967 Hepatitis B screening URINE ALBUMIN:CREATININE RATIO [facility] Start: 10-07-1967 Hepatitis C antibody , confirmatory test DILATED RETINAL EXAM [facility] Start: 10-07-1963 PNEUMOCOCCAL (1 - PCV) PNEUMOCOCCAL (1 - PCV) [facility] Start: 10-07-1963 Pneumococcal Vaccine : 65+ (1 - PCV) Pneumococcal Vaccine: 65+ (1 - PCV) [facility] Start: 10-07-1963 Pneumococcal Vaccine : 65+ (1 of 2 - PCV) Pneumococcal Vaccine: 65+ (1 of 2 - PCV) [facility] Start: 10-07-1963 PNEUMOCOCCAL: 65+ (1 - PCV) PNEUMOCOCCAL: 65+ (1 - PCV) [facility] Start: 1957 ABDOMINAL AORTIC ANE URYSM SCREENING ABDOMINAL AORTIC ANEURYSM SCREENING [facility] Start: 1957 Abdominal aortic ane urysm screening Abdominal Aortic Aneurysm Screening [facility] Anion gap in Serum o r Plasma [facility] BUN/Creatinine ratio [facility] Calcium [Mass/volume ] in Serum or Plasma [facility] Carbon dioxide, tota l [Moles/volume] in Central venous blood [facility] Creatinine [Mass/vol ume] in Serum or Plasma [facility] End: 06-20-2023 Ct abdomen & pelvis w/contrast material CT ABD/PEL W IVCON Radiology Routine Malignant neoplasm of splenic flexure (HCC) 1 Occurrences starting 05/21/2022 until 06/20/2023 [facility] Work Phone: Comment on above: 1 Occurrences starti ng 05/21/2022 until 06/20/2023 End: 03-27-2024 Ct abdomen & pelvis w/contrast material CT ABD/PEL W IVCON Radiology Routine Malignant neoplasm of splenic flexure (HCC) Elevated CEA 1 Occurrences starting 02/26/2023 until 03/27/2024 [facility] Work Phone: Comment on above: 1 Occurrences starti ng 02/26/2023 until 03/27/2024 End: 03-06-2024 CT Abdomen and Pelvis W contrast IV CT ABD/PEL W IVCON Radiology Routine Malignant neoplasm of splenic flexure (HCC) 1 Occurrences starting 02/05/2023 until 03/06/2024 [facility] Work Phone: Comment on above: 1 Occurrences starti ng 02/05/2023 until 03/06/2024 End: 03-06-2024 CT Chest W contrast IV CT CHEST W IVCON Radiology Routine Malignant neoplasm of splenic flexure (HCC) 1 Occurrences starting 02/05/2023 until 03/06/2024 [facility] Comment on above: 1 Occurrences starti ng 02/05/2023 until 03/06/2024 End: 06-20-2023 CT CHEST W IVCON CT CHEST W IVCON Radiology Routine Malignant neoplasm of splenic flexure (HCC) 1 Occurrences starting 05/21/2022 until 06/20/2023 [facility] Work Phone: Comment on above: 1 Occurrences starti ng 05/21/2022 until 06/20/2023 End: 03-27-2024 CT CHEST W IVCON CT CHEST W IVCON Radiology Routine Malignant neoplasm of splenic flexure (HCC) Elevated CEA 1 Occurrences starting 02/26/2023 until 03/27/2024 [facility] Work Phone: Comment on above: 1 Occurrences starti ng 02/26/2023 until 03/27/2024 Glucose [Mass/volume ] in Serum or Plasma [facility] Measurement of renal function [facility] Microscopic urinalysis [facility] Organism count, microscopic method [facility] Osmolality of Urine [facility] Patient referral [facility] Work Phone: Potassium measurement [facility] Serum chloride measurement [facility] Sodium measurement [facility] Troponin T.cardiac [Mass/volume] in Serum or Plasma by High sensitivity method [facility] Urea nitrogen [Mass/volume] in Serum or Plasma [facility] Urine culture [facility] Urine microscopy: epithelial cells [facility] Urine microscopy: re d cells [facility] White blood cell count [facility] Immunizations Immunization Date Immunization Notes Care Provider Fa erickty 09-14-2020 Covid (Pfizer) [facility] 08-24-2020 Covid (Pfizer) [facility] Payers Date Payer Category Payer Self-pay [id number] 2023 Unknown [id number] 2020 Unknown [id number] 2020 Unknown [id number] 2020 Unknown [id number] 1957 Unknown [id number] 1955 Unknown [id number] Unknown [id number] Unknown [id number] Unknown [id number] [id number] [id number] Unknown [id number] [id number] [id number] Unknown COMMERCIAL OTHER [id number] Social History Date Type Detail Facility Start: 05-07-2018 End: 12-02-2024 Tobacco smoking status NHIS Ex-smoker [facility] Start: 05-07-1973 End: 05-07-1993 History of tobacco use Current smoker [facility] Start: 05-07-1973 End: 05-07-1993 History of tobacco use Cigarette Smoker [facility] Start: 05-07-2018 End: 07-01-2022 Cigarettes smoked current (pack per day) - Reported 1.5 [facility] Start: 05-07-2018 End: 10-15-2018 Tobacco use and exposure Smokeless tobacco non-user [facility] Start: 08-07-2021 End: 09-02-2022 Alcohol intake Current non-drinker of alcohol (finding) [facility] Start: 1955 Sex Assigned At Not on file [facility] Start: 10-19-2021 End: 03-06-2022 Exposure to SARS-CoV-2 (event) Not sure [facility] Start: 06-14-2021 End: 06-14-2021 Tobacco smoking status NHIS Unknown if ever smoked [facility] Start: 05-26-2018 Non-smoker [facility] Start: 1955 Sex Assigned At Male W [facility] Start: 07-01-2022 End: 09-02-2022 Tobacco use panel [facility] Adult Depression Screening Assessment 0 [facility] Tobacco smoking status No Smokin g Status Entered [facility] Medical Equipment Procedure Code Equipment Code Equipment [...] Level Of Cons ciousness Awake;Alert;Appropriate;Follow s Commands [facility] Work Phone: Clinical Notes 09-11-2021 to 12-02-2024 Note Date & Type Note Facility 12-02-2024 Radiology Diagnostic study note [facility] Imaging Services [address] [place] [address] Kidney and Bladder MR#: [id number] Acct: [id number] Name: MAINOR MENDEZ Rep #: [id number] : 1955 M 69 From: Leah Somers MD PCP: Dr. Gumaro Sepulveda DO Status: REG ER Study:Kidney and Bladder Date of Exam: 0 12/02/24 Exam# [id number] Ordering Dr: Everardo Galarza DO PROCEDURE: KIDNEY [...] 2. Additional description as above. Reading Location: [id number] CC: Dr. Gumaro Sepulveda DO; Dr. Will Galarza DO ~ Tire And Lube Technician: Signed [facility] 12-02-2024 Discharge summary [facility] 12-02-2024 Radiology Diagnostic study note [facility] Imaging Services [address] [place] [address] Chest PA and Lateral MR#: [id number] Acct: [id number] Name: MAINOR MENDEZ Rep #: [id number] : 1955 M 69 From: Mansoor Reynoso MD PCP: Dr. Gumaro Sepulveda DO Status: REG ER Study:Chest PA and Lateral Date of Exam: 12/02/24 Exam# [id number] Ordering Dr: Everardo Galarza DO PROCEDURE: CHEST [...] No acute abnormality is seen. Reading Location: [id number] CC: Dr. Gumaro Sepulveda DO; Dr. Will Galarza DO ~ Tire And Lube Technician: Signed [facility] 12-02-2024 Discharge summary Note Date/Time December 02, 2024 5:40pm [facility] Medical Records Department [address] [place] [address] Emergency Department Summary 12/02/24 MR#: [id number] Acct: [id number] Name: MAINOR MENDEZ Rep #:[id number] : 1955 69 From: Will Galarza [...] He just feels overall weak and fatigued. [facility] Medical History GERD (gastroesophageal reflux disease) Rheumatoid [...] following commands knew that he was at [facility] year is 2024 Skin: Warm, dry, tact [...] % (Auto) 56.3 Lymph % (Auto) 26.9 [place] % (Auto) 8.5 Eos % (Auto) 7.1 [...] No acute abnormality is seen. Reading Location: [id number] Discharge Plan Triage Chief Complaint: Abn Labs [...] DO [Primary Care Provider] - Print Language: Kosovan Disposition Disposition: Acute Care Hospital [facility] What to do if you have Problems For any increased pain, shortness of breath, bleeding, nausea or vomiting, chestpain, or any unexpected problems, contact your Primary Care Provider. Call [facility] ([phone]) or report to the closest Emergency Room. Call 911 if necessary. 12/02/24 1740 <Electronically signed by Will Galarza DO> Cosigner Signature (if applicable): CC: Dr. Gumaro Sepulveda DO ~ Signed [facility] Work Phone: [phone]) 450-420108-05-2024 Note ORIGINAL EXAMINATION: LIMITED RETROPERITONEAL ULTRASOUND01/12/2024 12:05 [...] Sign Date: 01/12/2024 12:21:52 PM Ordering Provider: [facility]03-28-2024 NoteHNO ID: [id number] Author: MIRIAM PERKINS APRN.HEALTH INSURANCE ASSESSOR Service: ? Author Type: Nurse Practitioner Type: [...] studies: Microsatellite study performed on same tumor ([id number] / [id number]): Positive (loss of mismatch protein; microsatellite instability detected). There is complet (more content not included)...[facility] 09-01-2023 Miscellaneous Notes* Telephone Encounter - Riana Arredondo - 09/01/2023 11:44 AM EDT Spoke with patient and scheduled. Riana Arredondo * Telephone Encounter - Riana Arredondo - 08/28/2023 12:06 PM EDT Patient is denominational self-pay and needs authorized prior to scheduling OV. Spoke with patient, advising below. Patient is aware we will be calling to schedule lab & OV once financially cleared. Riana Arredondo * Telephone Encounter - Miriam Perkins APRN.CNP - 08/28/2023 12:02 PM EDT Please inform pt. that his CT's look good. Needs OV with CEA. Thank you. Miriam Perkins APRN.HEALTH INSURANCE ASSESSOR * Telephone Encounter - Pauline Thompson - 08/27/2023 3:57 PM EDT Patient is calling for CT results test was completed 08/24 at [facility] appears it was upload to [email or web address] yesterday. Please advise patient with results [facility] NoteHNO ID: [id number] Author: Miriam Perkins APRN.CNP Service: ? Author [...] studies: Microsatellite study performed on same tumor ([id number] / [id number]): Positive (loss of mismatch protein; microsatellite instability detected). There i (more content not included)...[facility]09-20-2023 History of Present illness Narrative* Miriam Perkins APRN.HEALTH INSURANCE ASSESSOR - 02/26/2023 8:18 AM EDT Chief Complaint [...] studies: Microsatellite study performed on same tumor ([id number] / [id number]): Positive (loss of mismatch protein; microsatellite instability [...] August 2023. Pt. has this done at [facility]. - Follow up after above with CEA. - Pt. aware to call office with any questions/concerns. The patient indicates understanding of these issues and agrees with the plan. All documentation from previous visit of 09/02/22-Dr. Iniguez/myself was copied and pasted, documentation has been reviewed and edited as necessary for today's visit. Miriam Perkins APRN.ANGELICA documented in this [facility]Prem[facility]-2023 Miscellaneous Notes* Telephone Encounter - Berta Hays [...] Perkins APRN.ANGELICA * Telephone Encounter - Reanna Taragno - 02/21/2023 2:14 PM EDT Patient requesting CT results from 02/[facility] documented in this encounterPrem[facility]23 Miscellaneous Notes* Telephone Encounter - Tash Navarro - 02/17/2023 10:08 AM EDT Pt scheduled as directed * Telephone Encounter - Riana Arredondo - 02/07/2023 10:49 AM EDT Patient called to reschedule 02/17 appointment as he is gettinga CT on 02/19/23 at [facility]. Referral for appointment was closed. New referral submitted. Once approved, please scheduled CEA/6 MO OV/CT @ [facility]02/19* with Miriam on 02/26/23 at 8:00 AM (held appt time). Riana Arredondo documented in this encounterPrem[facility]-05-2023 Telephone encounter Note * Telephone Encounter - Reanna Tarango - 02/11/2023 10:05 AM EDT Patient returned call. New TE was entered on 02/07 and documented. [facility] Work Phone: 1(372) 218-616609-05-2023 Miscellaneous Notes* Telephone Encounter - Reanna Tarango [...] ok with us faxing the orders to [facility] and having them contact him to mark anthony. Pt stated that he will call our office and let us know when he is scheduled . Updated pt's referrals and Faxed orders * Telephone Encounter - Sagrario Wayne LPN - 02/05/2023 11:00 AM EDT Patient is aware of all information. PSS- please contact patient to assist in scheduling CT's at [facility]. Sagrario Wayne LPN * Telephone Encounter - Miriam Perkins APRN.HEALTH INSURANCE ASSESSOR - 02/05/2023 10:54 AM EDT Please inform pt. that his CEA is elevated-this is not uncommon for him but since he is having symptoms he should have CT's. Orders in. Pt. normally likes to have these done at [facility]. Please call pt and assist with scheduling. Thank you. Miriam Perkins APRN.HEALTH INSURANCE ASSESSOR documented in this encounterPrem[facility]09-05-2023 Telephone encounter Note * Telephone Encounter - Chester - 02/11/2023 9:51 AM EDT 1st attempt: LM When pt returns call please ask if pt has gotten scheduled and document the date and time in this encounter. As well as schedule externally the CT orders on pt's apt desk [facility]08-30-2023 Telephone encounter Note* Telephone Encounter - Chester, - 02/05/2023 4:42 PM EDT Called pt. Stated he was ok with us faxing the orders to [facility] and having them contact him to mark anthony. Pt stated that he will call our office and let us know when he is scheduled . Updated pt's referrals and Faxed orders [facility]08-30-2023 Telephone encounter Note* Telephone Encounter - Sagrario Wayne LPN - 02/05/2023 11:00 AM EDT Patient is aware of all information. PSS- please contact patient to assist in scheduling CT's at [facility]. Sagrario Wayne LPN [facility] [facility] Telephone encounter Note* Telephone Encounter - Miriam Perkins APRN.CNP - 02/05/2023 10:54 AM EDT Please inform pt. that his CEA is elevated-this is not uncommon for him but since he is having symptoms he should have CT's. Orders in. Pt. normally likes to have these done at [facility]. Please call pt and assist with scheduling. Thank you. Miriam Perkins APRN.ANGELICA [facility]08-29-2023 Miscellaneous Notes* Telephone Encounter - Sagrario Wayne [...] EDif symptoms worsen. Thank you. Miriam Perkins APRN.HEALTH INSURANCE ASSESSOR * Telephone Encounter - Sagrario Wayne LPN [...] and nervous. Please advise. documented in this encounterPrem[facility]04-03-2023 Miscellaneous Notes* Telephone Encounter - Bell Carter - 09/09/2022 11:49 AM EDT Referral authorized. Patient has been scheduled for 02/2023 for lab work and office visit. [employer] message sent and mail reminder sent, unable to reach patient by phone call. Bell Carter * Telephone Encounter - Riana Arredondo - 09/02/2022 9:12 AM EDT Follow up in 6 months with CEA-pending today's CEA. - Pt. aware to call office with any questions/concerns. Patient is [employer] (May have [employer], but doesn't have card with him.) [employer] referrals submitted. Once cleared, schedule patient, document and close note. Riana Arredondo documented in this encounterPrem[facility]03-28-2023 Miscellaneous Notes* Telephone Encounter - Berta Laurent LPN - 09/03/2022 11:27 AM EDT Pt. Notified of CEA results, voiced understanding Berta Laurent LPN * Telephone Encounter - Miriam Perkins APRN.CNP - 09/03/2022 11:25 AM EDT Please inform pt. that his CEA looks good. Follow up in 6 months with CEA. Thank you. Miriam Perkins APRN.ANGELICA documented in this encounterPrem[facility]03-27-2023 History of Present illness Narrative* Miriam Perkins [...] studies: Microsatellite study performed on same tumor ([id number] / [id number]): Positive (loss of mismatch protein; microsatellite instability detected). There is complete loss of MLH1 and PMS2 and no loss of MSH2 and MSH6 markers. PATHOLOGIC STAGE: pT3 N0 Mx Colonoscopy done August [address] Nieves. Colonoscopy done October [address] Dykes. Next due in [address]'s done in 2022 at [facility]. Appetite:Good. Energy level:I'm doing ok to be [...] due 2023. Pt. has this done at [facility]. - Follow up in 6 months with CEA-pending today's CEA. - Pt. aware to call office with any questions/concerns. The patient indicates understanding of these issues and agrees with the plan. All documentation from previous visit of 03/06/22-Dr. Iniguez/myself was copied and pasted, documentation has been reviewed and edited as necessary for today's visit. Miriam Perkins APRN.ANGELICA documented in this encounterPrem[facility] Health [facility]02-16-2023 Miscellaneous Notes* Telephone Encounter - Sagrario Wayne LPN - 07/25/2022 9:17 AM EST Patient is aware of all information and asked that I send the name of the recommended medication via [employer]. [employer] message sent. Sagrario Wayne LPN * Telephone [...] Results placed on Miriam's desk for review. Sagrario Wayne LPN * Telephone Encounter - Nhung Her - 07/24/2022 5:28 PM EST Pt called regarding CT. He states he had it done at the [facility] on 07/17/22. documented in this encounterPrem[facility]12-16-2022 Miscellaneous Notes* Telephone Encounter - ROSELYN Madison - 05/24/2022 1:08 PM EST scheduled * Telephone Encounter - Sagrario Wayne LPN - 05/24/2022 10:20 AM EST Please schedule follow up end of August with CEA. Referral has been authorized. Sagrario Wayne LPN * Telephone Encounter - ROSELYN Madison - 05/24/2022 10:16 AM EST Order faxed to [facility], scanned fax into scanned documents with confirmation fax. * Telephone Encounter - ROSELYN Madison - 05/23/2022 2:49 PM EST I can fax orders to [facility] however it looks like his cts where denied. * Telephone Encounter - Miriam Perkins APRN.HEALTH INSURANCE ASSESSOR - 05/21/2022 12:[address] orders in. Please schedule at [facility] in Jul. per pt. request. Thank you. Miriam Perkins APRN.HEALTH INSURANCE ASSESSOR * Telephone Encounter - Deanna Mcneill LPN - 05/21/2022 12:30 PM EST Pt notified and voices understanding. He would like to have the CT's done at [facility]. PSS please work on a August apt with CEA. Deanna Mcneill LPN * Telephone Encounter - Miriam Perkins APRN.ANGELICA - 05/21/2022 11:46 AM EST Please inform pt. that his CEA is stable. CT's due 2022-please check with pt. to see if he would like to have these done again at [facility]. Iwill place orders once we know. Follow up end of August with CEA. Thank you. Miriam Perkins APRN.ANGELICA documented in this encounterPrem[facility]10-03-2022 Miscellaneous Notes* Telephone Encounter - Riana Arredondo [...] you. Miriam Perkins APRN.ANGELICA documented in this encounterPrem[facility]09-28-2022 History of Present illness Narrative* Miriam Perkins [...] studies: Microsatellite study performed on same tumor ([id number] / [id number]): Positive (loss of mismatch protein; microsatellite instability detected). There is complete loss of MLH1 and PMS2 and no loss of MSH2 and MSH6 markers. PATHOLOGIC STAGE: pT3 N0 Mx Colonoscopy done August [address]'s done in 2021 at [facility]. FERMÍN. Colonoscopy done October [address] [...] due 2022. Pt. has this done at [facility]. Pt. does not want to schedule today. [...] visit. Miriam Perkins APRN.CNP documented in this encounterPremier Health [facility]09-09-2022 Miscellaneous Notes* Telephone Encounter - Miriam Perkins [...] Office notes requested from Dr. Sepulveda. Sagrario Wayne LPN * Telephone Encounter - [...] on plan of care. documented in this encounterPremier Health [facility]05-23-2022 History and physical note * Jas Dykes [...] entered by the nurse and reviewed by wi Nursing Notes: Rosy Blake LPN 08/07/2021 3:27 [...] patient was offered a surgery/procedure at a [facility]. I have counseled the patient regarding [...] colon Maribel Richards PA-C documented in this encounterPremier Health [facility]04-05-2022 Miscellaneous Notes* Telephone Encounter - Corinne Quezada [...] for clarification. Please advise. documented in [facility] encounterOhio[facility] + Plan note No data available for this section [facility] Evaluation note* Diagnosis Personal history of colon cancer Personal history of malignant neoplasm of large intestine documented in this encounter [facility]* Diagnosis Malignant neoplasm of splenic flexure (HCC)- Primary Malignant neoplasm of splenic flexure documented in this encounter [facility] noteNo assessment information availableWMercy Health St[facility] Work Phone: Evaluation note* Diagnosis Malignant neoplasm of splenic flexure (HCC)- Primary Malignant neoplasm of splenic flexure documented in this encounter [facility]* Diagnosis Malignant neoplasm of splenic flexure (HCC)- Primary Malignant neoplasm of splenic flexure documented in this encounter [facility]* Diagnosis Malignant neoplasm of splenic flexure (HCC)- Primary Malignant neoplasm of splenic flexure documented in this encounter [facility]* Diagnosis Malignant neoplasm of splenic flexure (HCC)- Primary Malignant neoplasm of splenic flexure Elevated CEA Elevated carcinoembryonic antigen [CEA] documented in this encounter [facility] note* Diagnosis Malignant neoplasm of splenic flexure (HCC)- Primary Malignant neoplasm of splenic flexure documented in this encounter [facility] note* Diagnosis Onset Date Resolution Status Admit Date Acute renal failure acute December 02, 2024 6:26pm Hyperkalemia acute December 02 025 6:26pm Hyponatremia acute December 02 025 6:26pm [facility] Work Phone: Hospital Discharge instructions No data available for this section [facility] Progress note No data available for this section [facility] Reason for referral (narrative)* Outpatient Procedure (Routine) - Closed Specialty Diagnoses / Procedures Referred By Contambrocio t Referred To Contact [facility] Diagnoses Personal history of colon cancer Procedures COLONOSCOPY SCREENING COLONOSCOPY FLX DX W/COLLJ SPEC WHEN PFRMD Maribel Richards PA-C [address] [place] [address] [facility] [address] [place] [address] Referral ID Status Reason Start Date Expiration Date V isits Requested Visits Authorized [id number] Closed Auto-Generat ed Referral Patient Cleared - [facility] 08/08/2021 06/08/2022 1 1 [facility] for referral (narrative)* Diagnostic Procedure Only (Routine) - Closed Specialty Diagnoses / Procedures Referred By Angie riley Referred To Contact ADMIN [facility] Diagnoses Malignant neoplasm of splenic flexure (HCC) Procedures CT CHEST W IVCON DIAGNOSTIC COMPUTED TOMOGRAPHY THORAX W/CONTRAST Miriam Perkins APRN.CNP [address] [place] [address] Admin [facility] [address] [place] [address] Referral ID Status Reason Start Date Expiration Date V isits Requested Visits Authorized [id number] Closed Financial Clearance Required - Self Pay Clearance Not Met - Pt Rescheduled/Ca ncelled/Chose Not to Proceed 02/05/2023 03/06/2024 1 1 * Diagnostic Procedure Only (Routine) - Closed Specialty Diagnoses / Procedures Referred By Contac t Referred To Contact ADMIN [facility] Diagnoses Malignant neoplasm of splenic flexure (HCC) Procedures CT ABD/PEL W IVCON CT ABD & PELVIS W/CONTRAST Miriam Perikns APRN.HEALTH INSURANCE ASSESSOR [address] [place] [address] Admin [facility] [address] [facility] [place] [address] Referral ID Status Reason Start Date Expiration Date V isits Requested Visits Authorized [id number] Closed Financial Clearance Required - Self Pay Clearance Not Met - Pt Rescheduled/Ca ncelled/Chose Not to Proceed 02/05/2023 03/06/2024 1 1 [facility]Reason for referral (narrative)No reason for referral information availableWMercy Health St[facility] Work Phone: Reason for visit Narrative* Outpatient Procedure (Routine) - Closed Specialty Diagnoses / Procedures Referred By Angie t Referred To Contact [facility] Diagnoses Personal history of colon cancer Procedures COLONOSCOPY SCREENING COLONOSCOPY FLX DX W/COLLJ SPEC WHEN PFRMD Maribel Richards PA-C [address] [place] [address] [facility] [address] [place] [address] Referral ID Status Reason Start Date Expiration Date V isits Requested Visits Authorized [id number] Closed Auto-Generat ed Referral Patient Cleared - [facility] 08/08/2021 06/08/2022 1 1 [facility] Summary Purpose Family History No Family History Records FoundNo Family History Records FoundNo Family History Records Found No data available for this section No data available for this section No Family History Records FoundNo Family History Records Found Advance Directives Documents on File Type Date Recorded Patient Ruby Developer Expl anation Advance Directive(s) 08/09/2019 11:21 AM Documents on File Type Date Recorded Patient Ruby Developer Expl anation Advance Directive(s) 10/29/2021 9:26 AM Advance Directive(s) 08/09/2019 11:21 AM Advance Directive Response Recorded Date/ Time Living Will No June 10 1:07pm Power of Racking Machine Operator No June 10 019 1:07pm Advance Directive Response Recorded Date/ Time Living Will No June 10 12:07pm Power of Racking Machine Operator No June 10 019 12:07pm Advance Directive Response Recorded Date/ Time Do you have a Healthcare Power of Racking Machine Operator? No December 02, 2024 2:50pm Medications Administered [...] DIAGNOSTIC COMPUTED TOMOGRAPHY THORAX W/CONTRAST Miriam Perkins, ION.HEALTH INSURANCE ASSESSOR [address] [place] [address] Ct Imaging Referral ID Status Reason Start Date Expiration Date V isits Requested Visits Authorized [id number] Denied Auto-Generate d Referral 05/21/2022 06/20/2023 1 0 Specialty Diagnoses / Procedures Referred By Angie riley Referred To Contact CT [facility] Diagnoses Malignant neoplasm of splenic flexure (HCC) Procedures CT ABD/PEL W IVCON CT ABD & PELVIS W/CONTRAST Miriam Perkins, ION.HEALTH INSURANCE ASSESSOR [address] [place] [address] Ct Imaging Referral ID Status Reason Start Date Expiration Date V isits Requested Visits Authorized [id number] Denied Auto-Generate d Referral 05/21/2022 06/20/2023 1 0 Specialty Diagnoses / Procedures Referred By Angie t Referred To Contact CT [facility]AG[facility] Diagnoses Malignant neoplasm of splenic flexure (HCC) Elevated CEA Procedures CT CHEST W IVCON DIAGNOSTIC COMPUTED TOMOGRAPHY THORAX W/CONTRAST Miriam Perkins, ION.HEALTH INSURANCE ASSESSOR [address] [place] [address] [place] [address] Referral ID Status Reason Start Date Expiration Date Visits Requested Visits Authorized [id number] Pending Review Auto-Generat ed Referral 02/26/2023 03/27/2024 1 1 Specialty Diagnoses / Procedures Referred By Angie t Referred To Contact CT IMAGING Diagnoses Malignant neoplasm of splenic flexure (HCC) Elevated CEA Procedures CT ABD/PEL W IVCON CT ABD & PELVIS W/CONTRAST Miriam Perkins, ION.HEALTH INSURANCE ASSESSOR [address] [place] [address] [place] [address] Referral ID Status Reason Start Date Expiration Date Visits Requested Visits Authorized [id number] Pending Review Auto-Generat ed Referral 02/26/2023 03/27/2024 1 1 Additional Source Comments (unrecognized sect ion and content) No Status Records FoundNo Status Records FoundNo Status Records FoundNo Status Records FoundNo Status Records Found INFORMATION SOURCE (unrecogn ized section and content) DATE CREATED AUTHOR 05/31/2018 [facility] DATE CREATED AUTHOR AUTHOR'S ORGANIZ ATION 10/29/2021 [facility] DATE CREATED AUTHOR AUTHOR'S ORGANIZ ATION 10/17/2023 [facility] DATE CREATED AUTHOR AUTHOR'S ORGANIZ ATION 01/16/2024 [facility] DATE CREATED AUTHOR AUTHOR'S ORGANIZ ATION 07/25/2024 [facility] Source Comments (unrecognize d section and content) In the event this informatio n is protected by the Federal Confidentiality of Alcohol and Drug Abuse Patient Records regulations: The Federal rules restrict any use of the information to criminally investigate or prosecute any alcohol or drug abuse patient.[facility] the event this information is protected by the Federal Confidentiality of Alcohol and Drug Abuse Patient Records regulations: The Federal rules restrict any use of the information to criminally investigate or prosecute any alcohol or drug abuse patient.[facility]In the event this information is protected by the Federal Confidentiality of Alcohol and Drug Abuse Patient Records regulations: The Federal rules restrict any use of the information to criminally investigate or prosecute any alcohol or drug abuse patient.[facility] SouthIn the event this information is protected by the Federal Confidentiality of Alcohol and Drug Abuse Patient Records regulations: The Federal rules restrict any use of the information to criminally investigate or prosecute any alcohol or drug abuse patient.[facility] SouthIn the event this information is protected by the Federal Confidentiality of Alcohol and Drug Abuse Patient Records regulations: The Federal rules restrict any use of the information to criminally investigate or prosecute any alcohol or drug abuse patient.[facility] SouthIn the event this information is protected by the Federal Confidentiality of Alcohol and Drug Abuse Patient Records regulations: The Federal rules restrict any use of the information to criminally investigate or prosecute any alcohol or drug abuse patient.[facility] SouthIn the event this information is protected by the Federal Confidentiality of Alcohol and Drug Abuse Patient Records regulations: The Federal rules restrict any use of the information to criminally investigate or prosecute any alcohol or drug abuse patient.[facility] SouthIn the event this information is protected by the Federal Confidentiality of Alcohol and Drug Abuse Patient Records regulations: The Federal rules restrict any use of the information to criminally investigate or prosecute any alcohol or drug abuse patient.[facility] SouthIn the event this information is protected by the Federal Confidentiality of Alcohol and Drug Abuse Patient Records regulations: The Federal rules restrict any use of the information to criminally investigate or prosecute any alcohol or drug abuse patient.[facility] SouthIn the event this information is protected by the Federal Confidentiality of Alcohol and Drug Abuse Patient Records regulations: The Federal rules restrict any use of the information to criminally investigate or prosecute any alcohol or drug abuse patient.[facility] SouthIn the event this information is protected by the Federal Confidentiality of Alcohol and Drug Abuse Patient Records regulations: The Federal rules restrict any use of the information to criminally investigate or prosecute any alcohol or drug abuse patient.[facility] SouthIn the event this information is protected by the Federal Confidentiality of Alcohol and Drug Abuse Patient Records regulations: The Federal rules restrict any use of the information to criminally investigate or prosecute any alcohol or drug abuse patient.[facility] SouthIn the event this information is protected by the Federal Confidentiality of Alcohol and Drug Abuse Patient Records regulations: The Federal rules restrict any use of the information to criminally investigate or prosecute any alcohol or drug abuse patient.[facility] SouthIn the event this information is protected by the Federal Confidentiality of Alcohol and Drug Abuse Patient Records regulations: The Federal rules restrict any use of the information to criminally investigate or prosecute any alcohol or drug abuse patient.[facility] SouthIn the event this information is protected by the Federal Confidentiality of Alcohol and Drug Abuse Patient Records regulations: The Federal rules restrict any use of the information to criminally investigate or prosecute any alcohol or drug abuse patient.[facility] SouthIn the event this information is protected by the Federal Confidentiality of Alcohol and Drug Abuse Patient Records regulations: The Federal rules restrict any use of the information to criminally investigate or prosecute any alcohol or drug abuse patient.[facility] Reason for Visit (unrecogniz ed section and content) Reason Comments Question Reason Comments Patient Update Reason Comments Established Patient Specialty Diagnoses / Procedures Referred By Contac t Referred To Contact HEMATOLOGY/ONCOLOGY Diagnoses 6 MO FOLLOW UP CEA LAB [place] [address] [place] [address] [facility] [address] [place] [address] Referral ID Status Reason Start Date Expiration Date V isits Requested Visits Authorized [id number] Closed Financial Clearance Required - Self Pay Patient Cleared - [facility] 12/24/2021 03/24/2022 1 1 Reason Comments Results Reason Comments Appointment Specialty Diagnoses / Procedures Referred By Contac t Referred To Contact HEMATOLOGY/ONCOLOGY Diagnoses CANCER FOLLOW UP Procedures DUE AUGUST 2022 - 6 MO OV WITH CEA Miriam Perkins APRN.HEALTH INSURANCE ASSESSOR [address] [place] [address] [facility] [address] [place] [address] Referral ID Status Reason Start Date Expiration Date V isits Requested Visits Authorized [id number] Closed Financial Clearance Required - Self Pay Patient Cleared - [facility] 08/07/2022 11/05/2022 1 1 Reason Comments AVS 09/02/22 Reason Comments Vomiting Reason Comments Future Appointment Reason Comments Established Patient Specialty Diagnoses / Procedures Referred By Contac t Referred To Contact HEMATOLOGY/ONCOLOGY Diagnoses Malignant neoplasm of splenic flexure (HCC) Procedures 6 MONTH FOLLOW UP OFFICE VISIT Miriam Perkins APRN.HEALTH INSURANCE ASSESSOR [address] [place] [address] [facility] [address] [place] [address] Referral ID Status Reason Start Date Expiration Date V isits Requested Visits Authorized [id number] Closed Financial Clearance Required - Self Pay Patient Cleared - [employer] 02/26/2023 05/27/2023 1 1 Reason Comments Results Care Teams (unrecognized sec tion and content) Pie Bottomer Relationship Specialty Start [place] [address] [place], [place] [id number] PCP - General Internal Medicine 05/07/18 Pie Bottomer Relationship Specialty Start [place] [address] [place], [place] [id number] PCP - General Internal Medicine 05/07/18 Pie Bottomer Relationship Specialty Start [place] [address] [place] [address] [phone] PCP - General Internal Medicine 05/07/18 Pie Bottomer Relationship Specialty Start [place] [address] [place], [place] [phone] PCP - General Internal Medicine 05/07/18 Pie Bottomer Relationship Specialty Start [place] [address] [place] [phone] PCP - General Internal Medicine 05/07/18 Team Status: Active Member Role Status Dates Dr. Gumaro Sepulveda DO Family Provider Active Dr. Gumaro Sepulveda DO Primary Care Provider Active Team Status: Inactive Member Role Status Dates Dr. Gumaro Sepulveda DO Primary Care Provider Active Miriam Perkins TRACTOR ENGINE ASSEMBLER, TRACTOR ENGINE ASSEMBLER-C Attending Provider, Referring Provider Active Pie Bottomer Relationship Specialty Start [place] [address] [place] [address] [phone] PCP - General Internal Medicine 05/07/18 Pie Bottomer Relationship Specialty [place] [address] [place] [id number] PCP - General Internal Medicine 05/07/18 Pie Bottomer Relationship Specialty Start [place] [address] [place] [id number] PCP - General Internal Medicine 05/07/18 Pie Bottomer Relationship Specialty Start [place] [address] [place] [phone] PCP - General Internal Medicine 05/07/18 Pie Bottomer Relationship Specialty [place] [address] [address] PCP - General Internal Medicine 05/07/18 Pie Bottomer Relationship Specialty Start [place] [address] [place] [address] [id number] PCP - General Internal Medicine 05/07/18 Team Status: Inactive Member Role Status Dates Dr. Gumaro Sepulveda DO Primary Care Provider Active Miriam Perkins TRACTOR ENGINE ASSEMBLER, TRACTOR ENGINE ASSEMBLER-C Attending Provider Active Pie Bottomer Relationship Specialty [place] [address] [id number] PCP - General Internal Medicine 05/07/18 Pie Bottomer Relationship Specialty Start [place] [address] [place] [address] [place] [address] [id number] PCP - General Internal Medicine 05/07/18 Team [...] BE BASED ON THE PRIMARY CLINICAL RECORDS. [email or web address] provides no warranty or guarantee of the accuracy or completeness of information in this document.
--- OUTSIDE RECORDS SUMMARY | 2024-12-02 22:11 | XMS RPT_ITS | CCD ---
Author Organization [facility] CliniSyri Care Team Providers Care Check Writer Salesperson Name Role Phone IMCA Unavailable Unavailable IMCA Unavailable Unavailable IMCA Unavailable Unavailable IMCA Unavailable Unavailable Gumaro Sepulveda DO Primary Care Provider Gumaro Sepulveda DO Primary Care Provider [phone] Gumaro Sepulveda DO Primary Care Provider Gumaro Sepulveda DO Primary Care Provider Gumaro Sepulveda DO Primary Care Provider PERKINS, MIRIAM Referring Unavailable GUMARO SEPULVEDA Primary Care Unavailable PERKINS, MIRIAM Referring Unavailable PERKINS, MIRIAM Attending Unavailable GUMARO SEPULVEDA Primary Care Unavailable PERKINS, MIRIAM Referring Unavailable GUMARO SEPULVEDA Primary Care Unavailable PERKINS, IMRIAM Referring Unavailable PERKINS, MIRIAM Attending Unavailable GUMARO SEPULVEDA WINJULI Primary Care Unavailable PERKINS, MIRIAM Referring Unavailable GUMARO SEPUVLEDA Primary Care Unavailable NORMAN LEWIS, ALYSSA Perla Primary Care Physician VENKAT LUIS MD Attending UnavailALYSSA Howell MD Primary Care Unavailable VENKAT LUIS MD Attending UnavailALYSSA Howell MD Primary Care Unavailable Darwin Montemayor Attending Unavailable uGmaro Sepulveda Primary Care Unavailable Gumaro Sepulveda Referring Unavailable Miriam Perkins Attending Unavailable Gumaro Sepulveda Primary Care Unavailable Darwin Montemayor Attending Unavailable Darwin Montemayor Referring Unavailable Gumaro Sepulveda Primary Care Unavailable Dr. Gumaro Sepulveda DO Primary Care Provider Dr. Will Galarza DO Emergency Provider [phone] Khai LEWIS, Dr. Forte Admit Provider Khai [...] December 02, 2024 12:00am 220 mg orally; Bumpass-3 Fatty Acids 1,000 mg capsule (1 source) Start: 12-02-2024 Bumpass-3 Fatty Acids 1,000 mg capsule Active 1000 [...] Auto (Unsp spec) [#/Vol] 3.53 10*3/uL 0.83-4.51 [facility] Absolute neutrophil countOrd ered By: Will Galarza on 12-02-2024 Neutrophils (Bld) [#/Vol] 7.4 10*3/uL 2.0-7.7 [facility] Anion gap in Serum or Plasma Ordered By: Will Galarza on 12-02-2024 Anion gap [Moles/Vol] 16 mmol/L High 5-[address] [facility] Automated lymphocyte count a s percentage of total leukocytesOrdered By: Will Galarza on 12-02-2024 Lymphocytes/100 WBC Auto (Unsp spec) 26.9 % 19-41 [facility] BUN/creatinine ratioOrdered By: Will Galarza on 12-02-2024 Urea nitrogen/Creatinine [Mass ratio] 22.8 mg/mg High 10-20 [facility] Basophil percentageOrdered B y: Will Galarza on 12-02-2024 Basophils/100 WBC (Bld) 0.5 % 0-1 [facility] Bilirubin Test strip Ql (U)O rdered By: Reanna Ridley on 12-02-2024 Bilirubin Ql (U) Negative Negative [facility] Carbon dioxide, total [Moles /volume] in Central venous bloodOrdered By: Will Galarza on 12-02-2024 CO2 [Moles/Vol] 18.5 mmol/L Low 21.0-32.0 [facility] Chloride assayOrdered By: Hermilo Galarza on 12-02-2024 Chloride [Moles/Vol] 92 mmol/L Low 98-108 [facility] Eosinophil percentageOrdered By: Will Galarza on 12-02-2024 Eosinophils/100 WBC (Bld) 7.1 % High 0-5 [facility] Erythrocyte distribution wid th ratioOrdered By: Will Galarza on 12-02-2024 Erythrocyte distribution width (RBC) [Ratio] 14.2 % 11.6-14.6 [facility] Erythrocyte distribution wid th standard deviationOrdered By: Will Galarza on 12-02-2024 Erythrocyte distribution width (RBC) [Ratio] 48.1 fl High 35.1-43.9 [facility] Glomerular filtration rate ( GFR) estimation/1.73 sq m using serum, plasma, or whole bOrdered By: Will Galraza on 12-02-2024 GFR/1.73 sq M.predicted among non-blacks MDRD (S/P/Bld) [Vol rate/Area] 13 mL/min/{1.73_m2} Low >60 [facility] Comment on above: mL/min/1.73m2 CKD-EP I Creatinine Equation (2020) [facility] deOrdered By: Will Galarza on 12-02-2024 Glucose [Mass/Vol] 100 mg/dL 74-106 [facility] Comment on above: MANAGEMENT OF PATIEN T CARE PER NURSING PROTOCOL Hematocrit Auto (Bld) [Volum e fraction]Ordered By: Will Galarza on 12-02-2024 Hematocrit (Bld) [Volume fraction] 34.3 % Low 40-54 [facility] Hemoglobin measurementOrdere d By: Will Galarza on 12-02-2024 Hemoglobin (Bld) [Mass/Vol] 11.7 g/dL Low 13.0-16.5 [facility] Immature granulocytes/100 WB C Auto (Bld)Ordered By: Will Galarza on 12-02-2024 Immature granulocytes/100 WBC (Bld) 0.700 % 0.0-0.9 [facility] Comment on above: IG% - Immature Granu locytes (promyelocytes, myelocytes and metamyelocytes) > 1% indicates that a LEFT SHIFT is Present. Ketones Test strip Ql (U)Ord ered By: Reanna Ridley on 12-02-2024 Ketones Ql (U) Negative Negative [facility] MCV (mean corpuscular volume ) determinationOrdered By: Will Galarza on 12-02-2024 MCV (RBC) [Entitic vol] 92.2 fL 80-94 [facility] Mean corpuscular hemoglobin (MCH) determinationOrdered By: Will Galarza on 12-02-2024 MCH (RBC) [Entitic mass] 31.5 pg 27.0-32.0 [facility] Mean corpuscular hemoglobin concentration (MCHC) determinationOrdered By: Will Galarza on 12-02-2024 MCHC (RBC) [Mass/Vol] 34.1 g/dL 32-[address] [facility] Mean platelet volume determi nationOrdered By: Will Galarza on 12-02-2024 Platelet mean volume (Bld) [Entitic vol] 10.9 fL 6.2-12.0 [facility] Monocyte percentageOrdered B y: Will Galarza on 12-02-2024 Monocytes/100 WBC (Bld) 8.5 % 0-10 [facility] Neutrophil percentageOrdered By: Will Galarza on 12-02-2024 Neutrophils/100 WBC (Bld) 56.3 % 47-70 [facility] Nitrite Test strip Ql (U)Ord ered By: Reanna Ridley on 12-02-2024 Nitrite Ql (U) Negative Negative [facility] Nucleated red blood cell per centageOrdered By: Will Galarza on 12-02-2024 Nucleated RBC/100 WBC (Bld) [Ratio] 0 % 0-5 [facility] Platelet countOrdered By: Hermilo Galarza on 12-02-2024 Platelets (Bld) [#/Vol] 215 10*3/uL 150-450 [facility] Potassium measurement (mass/ volume)Ordered By: Will Galarza on 12-02-2024 Potassium (Unsp spec) [Mass/Vol] 6.6 mmol/L High 3.3-5.1 [facility] Comment on above: Critical Result(s) C alled DTENNANT at: 1554 by: HINA Results read back by same. Protein Test strip Ql (U)Ord ered By: Reanna Ridley on 12-02-2024 Protein Ql (U) 30 mg/dl High Negative [facility] RBC Auto (Bld) [#/Vol]Ordere d By: Will Galarza on 12-02-2024 RBC (Bld) [#/Vol] 3.72 10*6/uL Low 4.6-6.[address] [facility] Random urine creatinine anika urement (mass/volume)Ordered By: Reanna Ridley on 12-02-2024 Creatinine Unsp time (U) [Mass/Vol] 68.90 mg/dL 39.00-259. 00 [facility] Serum creatinine measurement (mass/volume)Ordered By: Will Galarza on 12-02-2024 Creatinine [Mass/Vol] 4.61 mg/dL High 0.70-1.[address] [facility] Serum glucose measurement (m ass/volume)Ordered By: Will Galarza on 12-02-2024 Glucose [Mass/Vol] 154 mg/dL High 70-99 [facility] Serum or plasma calcium anika urement (mass/volume)Ordered By: Will Galarza on 12-02-2024 Calcium [Mass/Vol] 9.0 mg/dL 7.6-11.0 [facility] Serum or plasma urea nitroge n measurement (mass/volume)Ordered By: Will Galarza on 12-02-2024 Urea nitrogen [Mass/Vol] 105 mg/dL High 4-19 [facility] Comment on above: Critical Result(s) C alled DTENNANT at: 1554 by: HINA Results read back by same. Sodium levelOrdered By: Sally Galarza on 12-02-2024 Sodium [Moles/Vol] 127 mmol/L Low 133-145 [facility] Troponin T.cardiac [Mass/vol ume] in Serum or Plasma by High sensitivity methodOrdered By: Will Galarza on 12-02-2024 Troponin T.cardiac High sensitivity method [Mass/Vol] 22 ng/L <22 [facility] Troponin T.cardiac High sensitivity method [Mass/Vol] 25 ng/L High <22 [facility] Urine clarityOrdered By: Sonu Ridley on 12-02-2024 Clarity (U) Clear Clear [facility] Urine color determinationOrd ered By: Reanna Ridley on 12-02-2024 Color (U) Straw Yellow [facility] Urine glucose detectionOrder ed By: Reanna Ridley on 12-02-2024 Glucose Ql (U) Normal mg/dl Normal [facility] Urine leukocyte esterase det ection by dipstickOrdered By: Reanna Ridley on 12-02-2024 Leukocyte esterase Test strip Ql (U) Negative Negative [facility] Urine pHOrdered By: Reanna perez on 12-02-2024 pH (U) 5.0 [pH] 5.0 - 8.0 [facility] Urine potassium measurement (moles/volume)Ordered By: Reanna Ridley on 12-02-2024 Potassium (U) [Moles/Vol] 37.4 mmol/L Not Establ. [facility] Urine sodium measurement (mo les/volume)Ordered By: Reanna Ridley on 12-02-2024 Sodium (U) [Moles/Vol] 40 mmol/L Not Establ. [facility] Urine specific gravity measu rementOrdered By: Reanna Ridley on 12-02-2024 Specific gravity (U) [Rel density] 1.015 1.002-1.03 0 [facility] Urine urobilinogen measureme ntOrdered By: Reanna Ridley on 12-02-2024 Urobilinogen Ql (U) Normal mg/dl Normal [facility] White blood cell (WBC) count Ordered By: Will Galarza on 12-02-2024 WBC (Bld) [#/Vol] 13.1 10*3/uL High 4.4-11.[address] [facility] Ribs Unil 2V No CXRon 2024 Ribs Unil 2V No CXR [facility] Imaging Services [address] [place], [place] [address] Ribs Unil 2V No CXR MR#: [id number] Acct: [id number] Name: MAINOR MENDEZ Rep #: [id number] : 1955 M 68 From: Tereso luo MD PCP: Dr. Gumaro Sepulveda, DO Status: REG CLI Study: Ribs Unil 2V No CXR Date of Exam: 07/01/24 Exam# [id number] Ordering Dr: Darwin Lockwood [id number] STUDY: X-RAY - UNILATERAL RIBS ( LEFT [...] 11:13 EST Reading Location ID and State: [facility] [place] , Service support , CC: GAETANO Alford; Dr. 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: Signed Normal [facility] Urgent Care Visit Reporton 0 07-01-2024 Urgent Care Visit Report [facility] [address], [address] [place] [address] OFFICE VISIT Date of Service: 07/01/24 MR#: [id number] Acct: [id number] Name: MAINOR MENDEZ Rep #: [id number] : 1955 Provider: GAETANO Alford Age/Sex: 68/M Location: [facility] Status: Signed Intake Vital Signs 06/12/21 08:37 [...] FROM FALL Chief Complaint: left rib pain Maintenance Leader Required: No Is patient in pain?: Yes Allergies No Known Allergies Allergy (Verified 07/01/24 10:44) Have you fallen in the past year?: Yes Nurse's Note: fall 4 days ago on ice, landed on his back. has had left rib pain ever since, significantly worse since last noc. denies SOB, CP. pt has been working and lifting very heavy items frequently since fall. [facility] Social History Smoking Status: Never smoker HPI [...] fallen in the past year?: Yes 07/01/24 4109 Date Darwin Tidwell Signature: Date (if applicable) CC: Normal [facility] .Auto Diffon 01-12-2024 Basophil, Absolute 0.1 10 3/mcL Normal 0.0-0.2 [facility] ([place] Comment on above: Performed By: #### I BC, GFR, CBC, ADIFF, ANEU, FERR, FE, RFP #### [address] [address] #### PTH #### [address] [address] Basophils/100 WBC (Bld) 0.7 % Normal 0.0-2.5 [facility] ([place] Comment on above: Performed By: #### I BC, GFR, CBC, ADIFF, ANEU, FERR, FE, RFP #### [address] [address] #### PTH #### [address] [address] Eosinophil, Absolute 0.4 10 3/mcL Normal 0.0-0.4 [facility] ([place] Comment on above: Performed By: #### I BC, GFR, CBC, ADIFF, ANEU, FERR, FE, RFP #### [address] [address] #### PTH #### [address] [address] Eosinophils/100 WBC (Bld) 3.2 % Normal 0.0-7.0 [facility] ([place] Comment on above: Performed By: #### I BC, GFR, CBC, ADIFF, ANEU, FERR, FE, RFP #### [address] [address] #### PTH #### [address] [address] Lymphocyte, Absolute 3.7 10 3/mcL Normal 0.8-3.9 [facility] ([place] Comment on above: Performed By: #### I BC, GFR, CBC, ADIFF, ANEU, FERR, FE, RFP #### [address] [address] #### PTH #### [address] [address] Lymphocytes/100 WBC (Bld) 32.7 % Normal 10.0-50.0 [facility] ([place] Comment on above: Performed By: #### I BC, GFR, CBC, ADIFF, ANEU, FERR, FE, RFP #### [address] [address] #### PTH #### [address] [address] Monocyte, Absolute 1.0 10 3/mcL Normal 0.2-1.0 [facility] ([place] Comment on above: Performed By: #### I BC, GFR, CBC, ADIFF, ANEU, FERR, FE, RFP #### [address] [address] #### PTH #### [address] [address] Monocytes/100 WBC (Bld) 8.8 % Normal 1.7-13.0 [facility] ([place] Comment on above: Performed By: #### I BC, GFR, CBC, ADIFF, ANEU, FERR, FE, RFP #### [address] [address] #### PTH #### [address] [address] Neutrophils/100 WBC (Bld) 54.6 % Normal 37.0-80.0 [facility] ([place] Comment on above: Performed By: #### I BC, GFR, CBC, ADIFF, ANEU, FERR, FE, RFP #### [address] [address] #### PTH #### [address] [address] .GFRon 01-12-2024 GFR 43 ml/min/1.73sqm Normal [facility] ([place] Comment on above: Result Comment: GFR Population [...] CBC, ADIFF, ANEU, FERR, FE, RFP #### [place] [address] #### PTH #### [address] [address] GFR Non- 36 ml/min/1.73sqm Normal [facility] ([place] Comment on above: Result Comment: GFR Population [...] CBC, ADIFF, ANEU, FERR, FE, RFP #### [place] [address] #### PTH #### [address] [address] .NEUABSon 01-12-2024 Neutrophil, Absolute 6.2 10 3/mcL Normal 2.9-6.2 [facility] ([place] Comment on above: Performed By: #### I BC, GFR, CBC, ADIFF, ANEU, FERR, FE, RFP #### [place] [address] #### PTH #### [address] [address] .Urinalysis Microscopic (AO) on 01-12-2024 UA RBC 0-5 Abnormal None Seen [facility] ([place] Comment on above: Performed By: #### I BC, GFR, CBC, ADIFF, ANEU, FERR, FE, RFP #### [place] [address] #### PTH #### [place] [address] UA Squam Epithelial None Seen Normal None Seen [facility] ([place] Comment on above: Performed By: #### I BC, GFR, CBC, ADIFF, ANEU, FERR, FE, RFP #### [place] [address] #### PTH #### [place] [address] UA WBC 0-5 Abnormal None Seen [facility] ([place] Comment on above: Performed By: #### I BC, GFR, CBC, ADIFF, ANEU, FERR, FE, RFP #### [place] [address] #### PTH #### [place] [address] CBCon 01-12-2024 Erythrocyte distribution width (RBC) [Ratio] 14.9 % High 11.5-14.5 [facility] ([place] Comment on above: Performed By: #### I BC, GFR, CBC, ADIFF, ANEU, FERR, FE, RFP #### [place] [address] #### PTH #### [place] [address] Hematocrit (Bld) [Volume fraction] 34.0 % Low 42.0-52.0 [facility] ([place] Comment on above: Performed By: #### I BC, GFR, CBC, ADIFF, ANEU, FERR, FE, RFP #### [place] [address] #### PTH #### [place] [address] Hgb 11.2 G/dL Low 14.0-18.0 [facility] ([place] Comment on above: Performed By: #### I BC, GFR, CBC, ADIFF, ANEU, FERR, FE, RFP #### [place] [address] #### PTH #### [address] [address] MCH (RBC) [Entitic mass] 31.2 pg Normal 27.0-31.2 [facility] ([place] Comment on above: Performed By: #### I BC, GFR, CBC, ADIFF, ANEU, FERR, FE, RFP #### [place] [address] #### PTH #### [place] [address] MCHC 33.1 G/dL Normal 31.8-35.4 [facility] ([place] Comment on above: Performed By: #### I BC, GFR, CBC, ADIFF, ANEU, FERR, FE, RFP #### [place] [address] #### PTH #### [place] [address] MCV (RBC) [Entitic vol] 94.2 fL High 80.0-94.0 [facility] ([place] Comment on above: Performed By: #### I BC, GFR, CBC, ADIFF, ANEU, FERR, FE, RFP #### [place] [address] #### PTH #### [place] [address] Platelet 268 10 3/mcL Normal 130-400 [facility] ([place] Comment on above: Performed By: #### I BC, GFR, CBC, ADIFF, ANEU, FERR, FE, RFP #### [place] [address] #### PTH #### [place] [address] Platelet mean volume (Bld) [Entitic vol] 8.1 fL Normal 7.4-10.4 [facility] ([place] Comment on above: Performed By: #### I BC, GFR, CBC, ADIFF, ANEU, FERR, FE, RFP #### [place] [address] #### PTH #### [place] [address] RBC 3.61 10 6/mcL Low 4.04-6.13 [facility] ([place] Comment on above: Performed By: #### I BC, GFR, CBC, ADIFF, ANEU, FERR, FE, RFP #### [place] [address] #### PTH #### [place] [address] WBC 11.4 10 3/mcL High 4.6-10.8 [facility] ([place] Comment on above: Performed By: #### I BC, GFR, CBC, ADIFF, ANEU, FERR, FE, RFP #### [place] [address] #### PTH #### [place] [address] FEon 01-12-2024 Iron [Mass/Vol] 60 ug/dL Low 65-175 [facility] ([place] Comment on above: Performed By: #### I BC, GFR, CBC, ADIFF, ANEU, FERR, FE, RFP #### [place] [address] #### PTH #### [place] [address] Mazin 01-12-2024 Ferritin [Mass/Vol] 331.0 ng/mL Normal 26.0-388.0 [facility] ([place] Comment on above: Performed By: #### I BC, GFR, CBC, ADIFF, ANEU, FERR, FE, RFP #### [place] [address] #### PTH #### [place] [address] IBCon 01-12-2024 TIBC 325 mcg/dL Normal 250-450 [facility] ([place] Comment on above: Performed By: #### I BC, GFR, CBC, ADIFF, ANEU, FERR, FE, RFP #### [address] [place], [place] [address] #### PTH #### [address] [address] LABORATORYOrdered By: Librado parikh on 01-12-2024 Appearance [...] 01-12-2024 PTH, Intact 60.7 pg/mL Normal 18.5-88.0 [facility] ([place] Comment on above: Performed By: #### I BC, GFR, CBC, ADIFF, ANEU, FERR, FE, RFP #### [address] [address] #### PTH #### [address] [address] RFPon 01-12-2024 Albumin Level 3.2 G/dL Low 3.4-4.8 [facility] ([place] Comment on above: Performed By: #### I BC, GFR, CBC, ADIFF, ANEU, FERR, FE, RFP #### [address] [address] #### PTH #### [address] [address] BUN/Creatinine Ratio 24 ratio Normal 7-27 [facility] ([place] Comment on above: Performed By: #### I BC, GFR, CBC, ADIFF, ANEU, FERR, FE, RFP #### [address] [address] #### PTH #### [address] [address] Calcium [Mass/Vol] 9.3 mg/dL Normal 8.4-10.2 [facility] ([place] Comment on above: Performed By: #### I BC, GFR, CBC, ADIFF, ANEU, FERR, FE, RFP #### [place] [address] #### PTH #### [place] [address] Chloride [Moles/Vol] 100 mmol/L Normal 98-107 [facility] ([place] Comment on above: Performed By: #### I BC, GFR, CBC, ADIFF, ANEU, FERR, FE, RFP #### [address] [address] #### PTH #### [address] [address] CO2 [Moles/Vol] 24 mmol/L Normal 23-31 [facility] ([place] Comment on above: Performed By: #### I BC, GFR, CBC, ADIFF, ANEU, FERR, FE, RFP #### [address] [address] #### PTH #### [address] [address] Creatinine [Mass/Vol] 1.89 mg/dL High 0.70-1.30 [facility] ([place] Comment on above: Performed By: #### I BC, GFR, CBC, ADIFF, ANEU, FERR, FE, RFP #### [address] [address] #### PTH #### [address] [address] Electrolyte Balance 11.0 mEq/L Normal 4.0-15.0 [facility] ([place] Comment on above: Performed By: #### I BC, GFR, CBC, ADIFF, ANEU, FERR, FE, RFP #### [place] [address] #### PTH #### [address] [address] Glucose [Mass/Vol] 199 mg/dL High 80-115 [facility] ([place] Comment on above: Performed By: #### I BC, GFR, CBC, ADIFF, ANEU, FERR, FE, RFP #### [place] [address] #### PTH #### [address] [address] Phosphate [Mass/Vol] 2.9 mg/dL Normal 2.3-4.1 [facility] ([place] Comment on above: Performed By: #### I BC, GFR, CBC, ADIFF, ANEU, FERR, FE, RFP #### [place] [address] #### PTH #### [address] [address] Potassium [Moles/Vol] 5.9 mmol/L High 3.5-5.1 [facility] ([place] Comment on above: Performed By: #### I BC, GFR, CBC, ADIFF, ANEU, FERR, FE, RFP #### [place] [address] #### PTH #### [address] [address] Sodium [Moles/Vol] 135 mmol/L Low 136-145 [facility] ([place] Comment on above: Performed By: #### I BC, GFR, CBC, ADIFF, ANEU, FERR, FE, RFP #### [address] [address] #### PTH #### [address] [address] Urea nitrogen [Mass/Vol] 46 mg/dL High 7-18 [facility] ([place] Comment on above: Performed By: #### I BC, GFR, CBC, ADIFF, ANEU, FERR, FE, RFP #### [address] [address] #### PTH #### [address] [address] RPCURon 01-12-2024 U Creatinine 71.2 mg/dL Normal 39.0-259.0 [facility] ([place] Comment on above: Performed By: #### R PCUR, UA, UAMICAO #### [address] [address] U Protein 88 mg/dL High 0-11 [facility] ([place] Comment on above: Performed By: #### R PCUR, UA, UAMICAO #### [address] [address] U Ratio Prot/Creat 1.2 ratio Normal [facility] ([place] Comment on above: Result Comment: resu lt calculated by rule GL_UR_PROT_NOTCALC_OLD (U Protein/U Creatinine) Performed By: #### R PCUR, UA, UAMICAO #### [address] [address] UAon 01-12-2024 Color (U) Yellow Normal [facility] ([place] Comment on above: Performed By: #### I BC, GFR, CBC, ADIFF, ANEU, FERR, FE, RFP #### [address] [address] #### PTH #### [address] [address] Glucose (U) [Mass/Vol] Negative Normal Negative [facility] ([place] Comment on above: Performed By: #### I BC, GFR, CBC, ADIFF, ANEU, FERR, FE, RFP #### [address] [address] #### PTH #### [address] [address] Ketones Ql (U) Negative Normal Negative [facility] ([place] Comment on above: Performed By: #### I BC, GFR, CBC, ADIFF, ANEU, FERR, FE, RFP #### [address] [address] #### PTH #### [place] [address] UA Appear Clear Normal Clear [facility] ([place] Comment on above: Performed By: #### I BC, GFR, CBC, ADIFF, ANEU, FERR, FE, RFP #### [address] [address] #### PTH #### [place] [address] UA Blood Negative Normal Negative [facility] ([place] Comment on above: Performed By: #### I BC, GFR, CBC, ADIFF, ANEU, FERR, FE, RFP #### [address] [address] #### PTH #### [place] [address] UA Leuk Est Negative Normal Negative [facility] ([place] Comment on above: Performed By: #### I BC, GFR, CBC, ADIFF, ANEU, FERR, FE, RFP #### [address] [address] #### PTH #### [place] [address] UA Nitrite Negative Normal Negative [facility] ([place] Comment on above: Performed By: #### I BC, GFR, CBC, ADIFF, ANEU, FERR, FE, RFP #### [place] [address] #### PTH #### [place] [address] UA pH 7.0 Normal 5.0 - 8.0 [facility] ([place] Comment on above: Performed By: #### I BC, GFR, CBC, ADIFF, ANEU, FERR, FE, RFP #### [place] [address] #### PTH #### [place] [address] UA Protein 100 mg/dL Abnormal Negative [facility] ([place] Comment on above: Performed By: #### I BC, GFR, CBC, ADIFF, ANEU, FERR, FE, RFP #### [place] [address] #### PTH #### [place] [address] UA Spec Grav 1.020 Normal 1.015-1.02 5 [facility] ([place] Comment on above: Performed By: #### I BC, GFR, CBC, ADIFF, ANEU, FERR, FE, RFP #### [place] [address] #### PTH #### [place] [address] UA Specimen Type Clean Catch Normal [facility] ([place] Comment on above: Performed By: #### I BC, GFR, CBC, ADIFF, ANEU, FERR, FE, RFP #### [place] [address] #### PTH #### [place] [address] UA Urobilinogen 0.2 E.U./dL Normal 0.2-1.0 [facility] ([place] Comment on above: Performed By: #### I BC, GFR, CBC, ADIFF, ANEU, FERR, FE, RFP #### [place] [address] #### PTH #### [place] [address] Urobilinogen (U) [Mass/Vol] Negative Normal Negative [facility] ([place] Comment on above: Performed By: #### I BC, GFR, CBC, ADIFF, ANEU, FERR, FE, RFP #### [facility] [address] [place], [place] [address] #### PTH #### [place] [address] [address] [place] [address] [place] RENALon 01-12-2024 [place] RENAL ORIGINAL EXAMINATION: [...] 01/12/2024 12:21:52 PM Ordering Provider: VENKAT Fisher [facility] ([place] Anusha 09-05-2023 LEÓN Telephone (GLENN) MAINOR MENDEZ ([id number]) 1955 M Date Time Provider Department 09/05/23 [...] Date Reviewed: 09/04/2023 Reviewed by: Miriam Perkins APRN.ELECTRONIC IMAGING SYSTEM OPERATOR - Fully Assessed Prescriptions as of 09/05/2023 [...] Status:Closed by SAGRARIO WAYNE on 09/05/23 Normal [facility] CEA SerPl-mCncon 09-04-2023 Carcinoembryonic Ag [Mass/Vol] 3.3 ng/mL High <=2.9 [facility] Comment on above: Order Comment: Speci men Type: BLOOD SPECIMEN Ordering Facility: [facility] Address: [address] [place] [address] Result Comment: Carc inoembryonic antigen test is used as an aid in monitoring response to treatment or recurrence in patients with established colorectal, breast, lung, prostatic, pancreatic, and ovarian carcinomas. Clinical correlation is required. The Carcinoembryonic antigen test was performed using the [employer] DXI paramagnetic particle chemiluminescent immunoassay method. Results obtained with different assay methods or kits cannot be used interchangeably. Performed By: #### 2 039-6 #### [facility] CLIA [id number] [address] [place] [address] [place] CNOVSPon 09-04-2023 CNOVSP Visit (SP) Office (H EMAWS) MENDEZMAINOR CALDERON ([id number]) 1955 M Date Time Provider Department 09/04/23 8:00 AM MIRIAM PERKINS During your visit today, we recorded the following information about you: Temperature Pulse Blood pressure Weight 97.7 degrees 74/minute 164/64 109.3 kg Miriam Perkins APRN.ELECTRONIC IMAGING SYSTEM OPERATOR 09/04/2023 11:57 AM Signed Chief Complaint Patient [...] identified Ly (more content not included)... Normal [facility] CNPNon 08-27-2023 CNPN Telephone (GLENN) MAINOR MENDEZ ([id number]) 1955 M Date Time Provider Department 08/27/23 MIRIAM PERKINS During your visit today, we recorded the following information about you: Pauline Thompson 08/27/2023 3:58 PM Signed Patient is calling for CT results test was completed 08/24 at [facility] appears it was upload to [employer] yesterday. Please advise patient with results Miriam Perkins APRN.CNP 08/28/2023 12:03 PM Signed Please inform pt. that his CT's look good. Needs OV with CEA. Thank you. Miriam Perkins APRN.ELECTRONIC IMAGING SYSTEM OPERATOR Yareli Riana 08/28/2023 12:09 PM Signed Patient is restorationist self-pay and needs authorized prior to scheduling OV. Spoke with patient, advising below. Patient is aware we will be calling to schedule lab AND OV once financially cleared. Riana Palma 09/01/2023 11:44 AM Signed Spoke with patient and scheduled. Riana Arredondo Allergies As of Date: 08/27/2023 (No Known Allergies) Date Reviewed: 02/26/2023 Reviewed by: Miriam Perkins APRN.ELECTRONIC IMAGING SYSTEM OPERATOR - Fully Assessed Reason for Visit: Results [...] Status:Closed by RIANA ARREDONDO on 09/01/23 Normal [facility] Basophil percentageOrdered B y: AIR POLLUTION INSPECTOR- Miriam Perkins on 08-25-2023 Creatinine [Mass/Vol] 1.0 mg/dL 0.70-1.30 [facility] CREATININE FINGERSTICKon Creatinine [Mass/Vol] 1.0 mg/dL Normal 0.70-1.[address] [facility] Comment on above: Performed By: #### L 9100.0200 #### [facility] [address] [place], [address] EGFR WB > 60.0000 Normal >60 [facility] Comment on above: Performed By: #### L 9100.0200 #### [facility] [address] [place], [address] CT Chest, Abd, Pel w/Contras ton 08-25-2023 CT Chest, Abd, Pel w/Contrast [facility] Imaging Services [address] [place] [address] CT Chest, Abd, Pel w/Contrast MR#: [id number] Acct: [id number] Name: MAINOR MENDEZ VINOD Rep #: [id number] : 1955 M 67 From: Tereso luo MD PCP: Dr. Gumaro Sepulveda, DO Status: REG CL Study: CT Chest, Abd, Pel w/Contrast Date of Exam: Exam# [id number] Ordering Dr: Miriam Perkins AIR POLLUTION INSPECTOR N P-C [id number] STUDY: CT CHEST, ABDOMEN T PELVIS WITH [...] CC: SHAHEED Perkins; Dr. 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: Signed Normal [facility] No Panel InformationOrdered By: SHAHEED Perkins on 08-25-2023 Bedside Estimated GFR (eGFR) > 60.0000 mL/min >60 [facility] CNOVSPon 02-26-2023 CNOVSP Visit (SP) Office (H EMAWS) MAINOR MENDEZ ([id number]) 1955 M Date Time Provider Department 02/26/23 8:00 AM MIRIAM PERKINS During your visit today, we recorded the following information about you: Temperature Pulse Blood pressure Weight 98.5 degrees 76/minute 147/74 102.1 kg Height 1.79 m Miriam Perkins APRN.ELECTRONIC IMAGING SYSTEM OPERATOR 02/26/2023 1:53 PM Signed Chief Complaint Patient [...] - no (more content not included)... Normal [facility] CREATININE BLDon 02-26-2023 Creatinine [Mass/Vol] 1.38 mg/dL High 0.73-1.22 [facility] Comment on above: Order Comment: Carmelina quiñonez Type: BLOOD SPECIMEN Ordering Facility: [facility] Address: [address] [place] [address] Performed By: #### 2 039-6 #### [facility] CLIA [id number] [address] [place] [address] [place] Creatinine and Glomerular filtration rate.predicted panel (S/P/Bld) 57 mL/min/1.73m??? Low >=60 [facility] Comment on above: Order Comment: Carmelina quiñonez Type: BLOOD SPECIMEN Ordering Facility: [facility] Address: [address] [place] [address] Result Comment: Merlyn mated Glomerular Filtration Rate [...] #### 2 039-6 #### [facility] CLIA [id number] [address] [place] [address] [place] CREATININE BLDOrdered By: Florin Sparrow on 02-26-2023 Creatinine [Mass/Vol] 1.38 mg/dL High 0.73 - 1.22 mg/dL [facility] GFR/1.73 sq M.predicted among non-blacks MDRD (S/P/Bld) [Vol rate/Area] 57 mL/min/{1.73_m2} Low - PINF [facility] Comment on above: Estimated Glomerular Filtration [...] Interpretation and review of laboratory results [facility]N Telephone (GLENN) MAINOR MENDEZ ([id number]) 1955 M Date Time Provider Department 02/21/23 MIRIAM PERKINS During your visit today, we recorded the following information about you: Reanna Tarango 02/21/2023 2:14 PM Signed Patient requesting CT results from 02/19[facility] Miriam Perkins APRN.ANGELICA 02/21/2023 2:48 PM Signed [...] Status:Closed by BERTA HAYS on 02/21/23 Normal [facility] Basophil percentageOrdered B y: PATTI- Miriam Perkins on 02-19-2023 Creatinine [Mass/Vol] 1.5 mg/dL 0.70-1.[address] [facility] - Chemistry and C hemistry - challengeOrdered By: SHAHEED Perkins on 02-19-2023 GFR/1.73 sq M.predicted among non-blacks MDRD (S/P/Bld) [Vol rate/Area] 49.0000 mL/min/{1.73_m2} >60 [facility] CNPNon 02-07-2023 CNPN Telephone (GLENN) MAINOR MENDEZ ([id number]) 1955 M Date Time Provider Department 02/07/23 MIRIAM PERKINS During your visit today, we recorded the following information about you: Riana Arredondo 02/07/2023 10:51 AM Signed Patient called to reschedule 02/17 appointment as he is gettinga CT on 02/19/23 at [facility]. Referral for appointment was closed. New referral submitted. Once approved, please scheduled CEA/6 MO OV/CT @ [facility] 02/19* with Miriam on 02/26/23 at 8:00 AM (held appt time). Riana Navarro02/17/2023 10:08 AM Signed Pt scheduled as directed Allergies As of Date: 02/07/2023 (No Known Allergies) Date Reviewed: 09/02/2022 Reviewed by: Miriam Perkins APRN.ELECTRONIC IMAGING SYSTEM OPERATOR - Fully Assessed Reason for Visit: Future [...] Status:Closed by TASH NAVARRO on 02/17/23 Normal [facility] Anusha 02-05-2023 LEÓN Telephone (HEMJORGE) VANESSAMAINOR Ashley ([id number]) 1955 M Date Time Provider Department 02/05/23 MIRIAM PERKINS During your visit today, we recorded the following information about you: Miriam Perkins APRN.CNP 02/05/2023 10:57 AM Signed Please inform pt. that his CEA is elevated-this is not uncommon for him but since he is having symptoms he should have CT's. Orders in. Pt. normally likes to have these done at [facility]. Please call pt and assist with scheduling. Thank you. Miriam Perkins APRN.Sagrario Andrew LPN 02/05/2023 11:01 AM Signed Patient is aware of all information. PSS- please contact patient to assist in scheduling CT's at [facility]. Sagrario Wayne LPN 02/05/2023 4:43 PM Signed Called pt. Stated he was ok with us faxing the orders to [facility] and having them contact him to [facility]. Pt stated that he will call [...] flexure (HCC) [C18.5] Order(s):CT ABD/PEL W IVCON [[id number]] Order #: [id number] FUTURE CT CHEST W IVCON [[id number]] Order #: [id number] FUTURE [] iv contrast (will be provided [...] 0 [] CREATININE BLD [SQCRET] Order #: [id number] FUTURE Prescriptions as of 10/15/2023 - pioglitazone [...] Status:Closed by TAMMY JUNIOR on 10/15/23 Normal [facility] CEA SerPl-mCncon 02-04-2023 Carcinoembryonic Ag [Mass/Vol] 4.7 ng/mL High <=2.9 [facility] Comment on above: Order Comment: Speci men Type: BLOOD SPECIMEN Ordering Facility: [facility] Address: [address] [place], [place] [id number] Result Comment: Carc inoembryonic antigen test is used as an aid in monitoring response to treatment or recurrence in patients with established colorectal, breast, lung, prostatic, pancreatic, and ovarian carcinomas. Clinical correlation is required. The Carcinoembryonic antigen test was performed using the [employer] DXI paramagnetic particle chemiluminescent immunoassay method. Results obtained with different assay methods or kits cannot be used interchangeably. 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 No Panel InformationOrdered By: SHAHEED Perkins on 07-17-2022 Bedside Estimated GFR (eGFR) > 60.0000 mL/min >60 [facility] Basophil percentageon 2021 Chloride [Moles/Vol] 103 mmol/L 98-107 [facility] Work Phone: Glucose [Mass/Vol] 244 mg/dL 74-106 [facility] Work Phone: Comment on above: Glucose result great er than or equal to 200 mg/dLsuggests DIABETES MELLITUS per A.D.A. criteria. Potassium [Moles/Vol] 4.9 mmol/L 3.5-5.[address] [facility] Work Phone: Sodium [Moles/Vol] 137 mmol/L 136-145 [facility] Work Phone: WBC (Bld) [#/Vol] 9.7 10*3/uL 4.4-11.0 [facility] Work Phone: Blood erythrocytes count (nu mber/volume)on 03-19-2022 RBC (Bld) [#/Vol] 4.00 10*6/uL 4.6-6.[address] [facility] Work Phone: Blood hemoglobin measurement (mass/volume)on 03-19-2022 Hemoglobin (Bld) [Mass/Vol] 12.8 g/dL 13.0-16.5 [facility] Work Phone: Blood platelet mean volumeon 03-19-2022 Platelet mean volume (Bld) [Entitic vol] 10.3 fL 6.2-12.0 [facility] Work Phone: Determination of erythrocyte mean corpuscular volume (MCV)on 03-19-2022 MCV (RBC) [Entitic vol] 94.3 fL 80-94 [facility] Work Phone: Hematocrit Auto (Bld) [Volum e fraction]on 03-19-2022 Hematocrit (Bld) [Volume fraction] 37.7 % 40-54 [facility] Work Phone: Laboratory - Chemistry and C hemistry - challengeon 03-19-2022 CO2 [Moles/Vol] 26.0 mmol/L 21.0-32.0 [facility] Work Phone: Urea nitrogen/Creatinine [Mass ratio] 24.6 mg/mg 10-20 [facility] Work Phone: Laboratory - Hematology and Cell countson 03-19-2022 Erythrocyte distribution width (RBC) [Entitic vol] 47.8 fL 35.1-43.9 [facility] Work Phone: Erythrocyte distribution width (RBC) [Ratio] 13.8 % 11.6-14.6 [facility] Work Phone: MCH (RBC) [Entitic mass] 32.0 pg 27.0-32.0 [facility] Work Phone: MCHC Auto (RBC) [Mass/Vol]on 03-19-2022 MCHC (RBC) [Mass/Vol] 34.0 g/dL 32-[address] [facility] Work Phone: No Panel Informationon 03-19 Estimated GFR (MDRD) Amer 69 mL/min >60 [facility] Work Phone: Comment on above: GFR Calc Estimated GFR (MDRD) Non-Af Amer 57 mL/min >60 [facility] Work Phone: Comment on above: Non- GFR Calc Platelets bldon 03-19-2022 Platelets (Bld) [#/Vol] 182 10*3/uL 150-450 [facility] Work Phone: Serum or plasma calcium anika urement (mass/volume)on 03-19-2022 Calcium [Mass/Vol] 9.9 mg/dL 8.5-10.1 [facility] Work Phone: Serum or plasma creatinine m easurement (mass/volume)on 03-19-2022 Creatinine [Mass/Vol] 1.34 mg/dL 0.70-1.[address] [facility] Work Phone: Comment on above: The validity of the calculated GFR & GFRAA in patients over 70 years has not been determined. Clinical correlation is essential. Serum or plasma urea nitroge n measurement (mass/volume)on 03-19-2022 Urea nitrogen [Mass/Vol] 33 mg/dL 7-18 [facility] Work Phone: Thin prep Papanicolaou smear with manual screeningon 03-19-2022 Thin prep Papanicolaou smear with manual screening 8 5-15 [facility] Work Phone: ANES POSTPROC EVALon 022 ANES POSTPROC EVAL HNO ID: [id number] Author: Carla Quintana MD Service: Anesthesiology Author [...] Scheduled Providers: Jas Dykes MD; Diamond Peralta APRN.ARMATURE VARNISHER; Carla Quintana MD Responsible Provider: Carla Quintana [...] October 29, 2021 TIME: 1:18 PM CSN: [id number] Normal [facility] ANES PRE-OPon 10-29-2021 ANES PRE-OP HNO ID: [id number] Author: Carla Quintana MD Service: Anesthesiology Author Type: Anesthesiologist Type: Anesthesia Preprocedure Evaluation Filed: 10/29/2021 9:52 AM Note Text: ANESTHESIOLOGY DAY OF SURGERY NOTE : 1955 Procedure Information Date/Time: 10/29/21 1100 Scheduled providers: Jas Dykes MD; Diamond Peralta APRN.ARMATURE VARNISHER; Carla Quintana MD Procedure: COLONOSCOPY SCREENING Location: [facility] Endoscopy Estimated body mass index is [...] October 29, 2021 TIME: 9:51 AM CSN: [id number] Normal [facility] COLONOSCOPY SCREENINGon 10-08 [facility] GLUCOSE, BLOOD (POC)on 10-29 Glucose [Mass/Vol] 192 mg/dL Abnormal 74 - 99 mg/dL [facility] Glucose [Mass/Vol] 197 mg/dL Abnormal 74 - 99 mg/dL [facility] HISTORY PHYSICALon HISTORY PHYSICAL HNO ID: [id number] Author: Jas Dykes MD Service: General Surgery [...] The patient (more content not included)... Normal [facility] Vital Signs Date Time Vital Sign Value Performing Clinician Facility 12-02-2024 18:00-0400 Heart rate 71 /min Dr. Gumaro Sepulveda DO Work Phone: [facility] 12-02-2024 18:00-0400 Respiratory rate 19 /min Dr. Gumaro Sepulveda DO Work Phone: [facility] 12-02-2024 17:30-0400 Diastolic blood pressure 60 mm[Hg] Dr. Gumaro Sepulveda DO Work Phone: [facility] 12-02-2024 17:30-0400 SaO2% (BldA) [Mass fraction] 100 % Dr. Gumaro Sepulveda DO Work Phone: [facility] 12-02-2024 17:30-0400 Systolic blood pressure 132 mm[Hg] Dr. Gumaro Sepulveda DO Work Phone: [facility] 12-02-2024 17:00-0400 Body temperature 97.9 [degF] Dr. Gumaro Sepulveda DO Work Phone: [facility] 12-02-2024 14:44-0400 Body mass index (BMI) [Ratio] 32.2 kg/m2 Dr. Gumaro Sepulveda DO Work Phone: [facility] 12-02-2024 14:44-0400 Body weight 106.[address] Gumaro Sepulveda DO Work Phone: [facility] 12-02-2024 13:52-0400 Body height 181.[address] Gumaro Sepulveda DO Work Phone: [facility] 02-26-2023 08:03-0400 Body height 179 cm Miriam Perkins TICKET CHOPPER ASSEMBLER.ELECTRONIC IMAGING SYSTEM OPERATOR Work Phone: [facility] 02-26-2023 08:03-0400 Body temperature 98.49 [degF] Miriam Perkins TICKET CHOPPER ASSEMBLER.ELECTRONIC IMAGING SYSTEM OPERATOR Work Phone: [facility] 02-26-2023 08:03-0400 Body weight 102.06 kg Miriam Perkins TICKET CHOPPER ASSEMBLER.ELECTRONIC IMAGING SYSTEM OPERATOR Work Phone: [facility] 02-26-2023 08:03-0400 Diastolic blood pressure 74 mm[Hg] Miriam Perkins TICKET CHOPPER ASSEMBLER.ELECTRONIC IMAGING SYSTEM OPERATOR Work Phone: [facility] 02-26-2023 08:03-0400 Heart rate 76 /min Miriam Perkins TICKET CHOPPER ASSEMBLER.ELECTRONIC IMAGING SYSTEM OPERATOR Work Phone: [facility] 02-26-2023 08:03-0400 SaO2% (BldA) [Mass fraction] 96 % Miriam Perkins TICKET CHOPPER ASSEMBLER.ELECTRONIC IMAGING SYSTEM OPERATOR Work Phone: [facility] 02-26-2023 08:03-0400 Systolic blood pressure 147 mm[Hg] Miriam Perkins TICKET CHOPPER ASSEMBLER.ELECTRONIC IMAGING SYSTEM OPERATOR Work Phone: [facility] 09-02-2022 08:34-0400 Body height 180.3 cm [place] Perkins TICKET CHOPPER ASSEMBLER.ELECTRONIC IMAGING SYSTEM OPERATOR Work Phone: [facility] 09-02-2022 08:34-0400 Body temperature 98.01 [degF] [place] Perkins TICKET CHOPPER ASSEMBLER.ELECTRONIC IMAGING SYSTEM OPERATOR Work Phone: [facility] 09-02-2022 08:34-0400 Body weight 103.87 kg Miriam Perkins TICKET CHOPPER ASSEMBLER.ELECTRONIC IMAGING SYSTEM OPERATOR Work Phone: [facility] 09-02-2022 08:34-0400 Diastolic blood pressure 75 mm[Hg] Miriam Perkins TICKET CHOPPER ASSEMBLER.ELECTRONIC IMAGING SYSTEM OPERATOR Work Phone: [facility] 09-02-2022 08:34-0400 Heart rate 80 /min [place] Perkins TICKET CHOPPER ASSEMBLER.ELECTRONIC IMAGING SYSTEM OPERATOR Work Phone: [facility] 09-02-2022 08:34-0400 Systolic blood pressure 143 mm[Hg] [place] Perkins TICKET CHOPPER ASSEMBLER.ELECTRONIC IMAGING SYSTEM OPERATOR Work Phone: [facility] 03-06-2022 08:34-0400 Body height 180.3 cm [place] Perkins TICKET CHOPPER ASSEMBLER.ELECTRONIC IMAGING SYSTEM OPERATOR Work Phone: [facility] 03-06-2022 08:34-0400 Body temperature 97.59 [degF] Miriam Perkins TICKET CHOPPER ASSEMBLER.ELECTRONIC IMAGING SYSTEM OPERATOR Work Phone: [facility] 03-06-2022 08:34-0400 Body weight 103.19 kg Miriam Perkins TICKET CHOPPER ASSEMBLER.ELECTRONIC IMAGING SYSTEM OPERATOR Work Phone: [facility] 03-06-2022 08:34-0400 Diastolic blood pressure 70 mm[Hg] Miriam Perkins TICKET CHOPPER ASSEMBLER.ELECTRONIC IMAGING SYSTEM OPERATOR Work Phone: [facility] 03-06-2022 08:34-0400 Heart rate 87 /min Miriam Perkins TICKET CHOPPER ASSEMBLER.ELECTRONIC IMAGING SYSTEM OPERATOR Work Phone: [facility] 03-06-2022 08:34-0400 Systolic blood pressure 135 mm[Hg] [place] Perkins TICKET CHOPPER ASSEMBLER.ELECTRONIC IMAGING SYSTEM OPERATOR Work Phone: [facility] 10-29-2021 11:30-0400 Body temperature 97.2 [degF] Jas Dykes MD Work Phone: [facility] 10-29-2021 11:30-0400 Diastolic blood pressure 91 mm[Hg] Jas Dykes MD Work Phone: [facility] 10-29-2021 11:30-0400 Heart rate 54 /min Jas Dykes MD Work Phone: [facility] 10-29-2021 11:30-0400 Respiratory rate 16 /min Jas Dykes MD Work Phone: [facility] 10-29-2021 11:30-0400 SaO2% (BldA) [Mass fraction] 100 % Jas Dykes MD Work Phone: [facility] 10-29-2021 11:30-0400 Systolic blood pressure 131 mm[Hg] Jas Dykes MD Work Phone: [facility] 10-29-2021 09:49-0400 Body height 180.3 cm Jas Dykes MD Work Phone: [facility] 10-29-2021 09:49-0400 Body weight 106.14 kg Jas Dykes MD Work Phone: [facility] Encounters Encounter Date Encounter Type Care Provider Facility Start: 12-02-2024 Evaluation and management of inpatient Dr. Reanna Ridley MD -Progressive Care Unit Work Phone: Start: 07-01-2024 End: 07-01-2024 ambulatory Darwin SALTER Facility:[facility] Start: 07-01-2024 End: 07-01-2024 ambulatory Darwin SALTER Facility:[facility] Start: 01-12-2024 End: 01-12-2024 ambulatory VENKAT LUIS MD Facility:[facility] Start: 01-12-2024 End: 01-12-2024 Patient encounter procedure VENKAT LUIS MD [facility] Start: 01-12-2024 End: 01-12-2024 ambulatory VENKAT LUIS MD Facility:[facility] Start: 01-12-2024 End: 01-12-2024 Patient encounter procedure VENKAT LUIS MD [facility] Start: 09-04-2023 End: 09-05-2023 ambulatory MIRIAM PERKINS Facility:[facility] Start: 08-27-2023 Telephone encounter Miriam Carp enter TICKET CHOPPER ASSEMBLER.ELECTRONIC IMAGING SYSTEM OPERATOR Work Phone: Hematology/Oncology Comment on above: Results Start: 08-25-2023 End: 08-25-2023 ambulatory [facility] Work Phone: Start: 08-25-2023 End: 08-25-2023 Patient encounter procedure [facility]Cat [facility], [facility] Work Phone: Start: 08-25-2023 End: 08-25-2023 ambulatory [facility] Facility:[facility] Start: 02-26-2023 End: 02-27-2023 ambulatory Miriam Perkins TICKET CHOPPER ASSEMBLER.ELECTRONIC IMAGING SYSTEM OPERATOR Work Phone: Hematology/Oncology Comment on above: 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); Elevated CEA Start: 02-26-2023 End: 02-26-2023 Patient encounter procedure Miriam Calabreseenter TICKET CHOPPER ASSEMBLER.ELECTRONIC IMAGING SYSTEM OPERATOR Work Phone: [facility] Start: 02-21-2023 Telephone encounter Miriam Carp enter TICKET CHOPPER ASSEMBLER.ELECTRONIC IMAGING SYSTEM OPERATOR Work Phone: Hematology/Oncology Comment on above: Results Start: 02-19-2023 End: 02-19-2023 ambulatory [facility] Work Phone: Start: 02-19-2023 End: 02-19-2023 Patient encounter procedure [facility], [facility] Work Phone: Start: 02-07-2023 Telephone encounter [place] Carp enter TICKET CHOPPER ASSEMBLER.ELECTRONIC IMAGING SYSTEM OPERATOR Work Phone: Hematology/Oncology Comment on above: Future Appointment Start: 02-05-2023 Telephone encounter Miriam Carp enter TICKET CHOPPER ASSEMBLER.ELECTRONIC IMAGING SYSTEM OPERATOR Work Phone: Hematology/Oncology Comment on above: Results Start: 02-04-2023 Telephone encounter Orlando Dorantes sandra DO Work Phone: Hematology/Oncology Comment on above: Vomiting Start: 02-04-2023 End: 02-05-2023 ambulatory MIRIAM CALABRESEENTER Facility:[facility] Start: 09-03-2022 Telephone encounter Miriam Calabrese enter TICKET CHOPPER ASSEMBLER.ELECTRONIC IMAGING SYSTEM OPERATOR Work Phone: Hematology/Oncology Comment on above: Results Start: 09-02-2022 Telephone encounter Orlando flores DO Work Phone: Hematology/Oncology Comment on above: AVS 09/02/22 Start: 09-02-2022 End: 09-02-2022 ambulatory [place] CalabresePerkins TICKET CHOPPER ASSEMBLER.ELECTRONIC IMAGING SYSTEM OPERATOR Work Phone: Hematology/Oncology Comment on above: 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) Start: 09-02-2022 End: 09-02-2022 Patient encounter procedure Miriam Perkins TICKET CHOPPER ASSEMBLER.ELECTRONIC IMAGING SYSTEM OPERATOR Work Phone: [facility] Start: 07-24-2022 Telephone encounter Miriam Calabrese enter TICKET CHOPPER ASSEMBLER.ELECTRONIC IMAGING SYSTEM OPERATOR Work Phone: Hematology/Oncology Comment on above: Results Start: 07-17-2022 End: 07-17-2022 ambulatory [facility] Work Phone: Start: 07-17-2022 End: 07-17-2022 Patient encounter procedure [facility]Cat [facility], [facility] Start: 05-21-2022 Telephone encounter Miriam Calabrese enter TICKET CHOPPER ASSEMBLER.ELECTRONIC IMAGING SYSTEM OPERATOR Work Phone: Hematology/Oncology Comment on above: Appointment Start: 03-19-2022 End: 03-19-2022 ambulatory [facility] Work Phone: Start: 03-19-2022 End: 03-19-2022 Patient encounter procedure [facility]Neurology Start: 03-08-2022 Telephone encounter Miriam Calabrese enter TICKET CHOPPER ASSEMBLER.ELECTRONIC IMAGING SYSTEM OPERATOR Work Phone: Hematology/Oncology Comment on above: Results Start: 03-06-2022 End: 03-06-2022 ambulatory Miriam Perkins TICKET CHOPPER ASSEMBLER.ELECTRONIC IMAGING SYSTEM OPERATOR Work Phone: Hematology/Oncology Comment on above: 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) Start: 03-06-2022 End: 03-06-2022 Patient encounter procedure Miriam Perkins TICKET CHOPPER ASSEMBLER.ELECTRONIC IMAGING SYSTEM OPERATOR Work Phone: [facility] Start: 02-08-2022 Telephone encounter Miriam camacho TICKET CHOPPER ASSEMBLER.ELECTRONIC IMAGING SYSTEM OPERATOR Work Phone: Hematology/Oncology Comment on above: Patient Update Start: 10-29-2021 End: 10-29-2021 Subsequent hospital visit by physician Jas Dykes MD Work Phone: [facility] Comment on above: Personal history of colon cancer [Z85.038] Start: 09-10-2021 Telephone encounter Jas Dykes MD Work Phone: General Surgery Comment on above: Question Start: 05-28-2018 Patient encounter procedure IMCA Facility:[facility] Procedures Date Procedure Procedure Detail Performing Clinician Start: 12-02-2024 Chloride measurement , urine Dr. Gumaro Sepulveda DO Work Phone: Start: 12-02-2024 Urea nitrogen measur ement, urine Dr. Gumaro Sepulevda DO Work Phone: Start: 12-02-2024 Urnls dip [...] Activity Detail Author Start: 10-29-2026 Colonoscopy COLONOSCOPY [facility] Start: 10-29-2026 COLORECTAL CANCER SCREENING COLORECTAL CANCER SCREENING [facility] Start: 10-29-2026 Screening for malign ant neoplasm of colon [facility] Start: 12-02-2024 Admission procedure [facility] Start: 12-02-2024 Electrolytes measure ment, urine [facility] Start: 12-02-2024 Urea nitrogen measur ement, urine [facility] Start: 12-02-2024 [facility] Start: 12-02-2024 Hospital admission, emergency, from emergency room, medical nature [facility] Start: 12-02-2024 End: 12-02-2024 [facility] Start: 12-02-2024 [facility] Start: 12-02-2024 Bacteria identified in Urine by Culture Urine Culture [facility] Start: 10-29-2024 Colonoscopy COLONOSCOPY [facility] Start: 10-29-2024 COLORECTAL CANCER SCREENING COLORECTAL CANCER SCREENING [facility] Start: 02-08-2024 Influenza vaccination Influenz a Vaccine (Season Ended) [facility] Start: 08-27-2023 End: 10-27-2023 CREATININE BLD CREATININE BLD Lab STAT Malignant neoplasm of splenic flexure (HCC) Elevated CEA Expected: 08/27/2023 (Approximate), Expires: 10/27/2023 [facility] Work Phone: Comment on above: Expected: 08/27/2023 (Approximate), Expires: 10/27/2023 Start: 06-09-2023 Advance Directive Discussion Advance Directive Discussion [facility] Start: 06-09-2023 Behavioral Health Screening Behavioral Health Screening [facility] Start: 06-09-2023 [facility] Start: 02-07-2023 Influenza vaccination C [facility] Start: 02-04-2023 End: 04-06-2023 Carcinoembryonic Ag [Mass/volume] in Serum or Plasma [facility] Work Phone: Comment on above: Expected: 02/04/2023 , Expires: 04/06/2023 Start: 2022 ADVANCE DIRECTIVE DISCUSSION ADVANCE DIRECTIVE DISCUSSION [facility] Start: 08-08-2022 Colonoscopy COLONOSCOPY [facility] Start: 08-08-2022 COLORECTAL CANCER SCREENING COLORECTAL CANCER SCREENING [facility] Start: 07-19-2022 End: 09-18-2022 CREATININE BLD CREATININE BLD Lab STAT Malignant neoplasm of splenic flexure (HCC) Expected: 07/19/2022, Expires: 09/18/2022 [facility] Work Phone: Comment on above: Expected: 07/19/2022 , Expires: 09/18/2022 Start: 06-09-2022 DEPRESSION ASSESSMENT DEPRESSION ASS ESSMENT [facility] Start: 02-07-2022 Influenza vaccination [facility] Start: 06-09-2021 DEPRESSION ASSESSMENT DEPRESSION ASS TONSIL HOSPITALMENT [facility] Start: 10-12-2020 COVID-19 VACCINE (3 - Pfizer risk 4-dose series) COVID-19 VACCINE (3 - Pfizer risk 4-dose series) [facility] Start: 10-12-2020 COVID-19 VACCINE (3 - Pfizer risk series) COVID-19 VACCINE (3 - Pfizer risk series) [facility] Start: 06-21-2020 Hemoglobin A1c measurement HbA1C [facility] Start: 06-21-2020 Hemoglobin A1c/Hemoglobin.total in Blood HBA1C [facility] Start: 01-16-2020 Adult depression scr eening assessment DEPRESSION SCREENING [facility] Start: 2017 Hepatitis B Vaccine (1 of 3 - Risk 3-dose series) Hepatitis B Vaccine (1 of 3 - Risk 3-dose series) [facility] Start: 2017 RSV Vaccine (1 - 1-d ose 60+ series) RSV Vaccine (1 - 1-dose 60+ series) [facility] Start: 2012 PROSTATE CANCER SCRE ENING DISCUSSION PROSTATE CANCER SCREENING DISCUSSION [facility] Start: 2012 Prostate specific an tigen measurement Prostate Cancer Screening Discussion [facility] Start: 10-07-2007 SHINGRIX VACCINE (1 of 2) LOVE GRIX VACCINE (1 of 2) [facility] Start: 2002 COLOGUARD (FIT-DNA) COLOGUARD (FIT-D NA) [facility] Start: [address] COLONOGRAPHY [facility] Start: 2002 FECAL OCCULT BLOOD FECAL OCCULT BLOO D [facility] Start: 2002 Screening for malign ant neoplasm of colon [facility] Start: 2002 SIGMOIDOSCOPY SIGMOIDOSCOPY [facility] Start: 1976 SHINGRIX VACCINE (1 of 2) LOVE GRIX VACCINE (1 of 2) [facility] Start: 1976 Urine microalbumin profile [facility] Start: 10-07-1975 ANNUAL PCP TEAM SUPERVISOR CURING ROOM WENDY DISEASE VISIT ANNUAL PCP TEAM CHRONIC DISEASE VISIT [facility] Start: 10-07-1975 BP CONTROLLED (<130/80) BP CONTROLLE D (<130/80) [facility] Start: 10-07-1975 Hepatitis B surface antibody level LDL CHOLESTEROL [facility] Start: 10-07-1975 HEPATITIS C SCREENING HEPATITIS C [facility] Start: 10-07-1975 Hepatitis C screening Hepatitis C [facility] Start: 10-07-1975 HIV SCREENING HIV SCREENING [facility] Start: 10-07-1975 HIV screening HIV Screening [facility] Start: 1973 ONE PNEUMOVAX PRIOR TO AGE 65 ONE PNEUMOVAX PRIOR TO AGE 65 [facility] Start: 10-07-1967 3 comp foot exam completed DIABETIC FOOT EXAM [facility] Start: 10-07-1967 Diabetic foot examination Diabetic F oot Exam [facility] Start: 10-07-1967 Glaucoma screening Dilated Retinal E xam [facility] Start: 10-07-1967 Hepatitis B screening URINE ALBUMIN:CREATININE RATIO [facility] Start: 10-07-1967 Hepatitis C antibody , confirmatory test DILATED RETINAL EXAM [facility] Start: 10-07-1963 PNEUMOCOCCAL (1 - PCV) PNEUMOCOCCAL (1 - PCV) [facility] Start: 10-07-1963 Pneumococcal Vaccine : 65+ (1 - PCV) Pneumococcal Vaccine: 65+ (1 - PCV) [facility] Start: 10-07-1963 Pneumococcal Vaccine : 65+ (1 of 2 - PCV) Pneumococcal Vaccine: 65+ (1 of 2 - PCV) [facility] Start: 10-07-1963 PNEUMOCOCCAL: 65+ (1 - PCV) PNEUMOCOCCAL: 65+ (1 - PCV) [facility] Start: 1957 ABDOMINAL AORTIC ANE URYSM SCREENING ABDOMINAL AORTIC ANEURYSM SCREENING [facility] Start: 1957 Abdominal aortic ane urysm screening Abdominal Aortic Aneurysm Screening [facility] Anion gap in Serum o r Plasma [facility] BUN/Creatinine ratio [facility] Calcium [Mass/volume ] in Serum or Plasma [facility] Carbon dioxide, tota l [Moles/volume] in Central venous blood [facility] Creatinine [Mass/vol ume] in Serum or Plasma [facility] End: 06-20-2023 Ct abdomen & pelvis w/contrast material CT ABD/PEL W IVCON Radiology Routine Malignant neoplasm of splenic flexure (HCC) 1 Occurrences starting 05/21/2022 until 06/20/2023 [facility] Work Phone: Comment on above: 1 Occurrences starti ng 05/21/2022 until 06/20/2023 End: 03-27-2024 Ct abdomen & pelvis w/contrast material CT ABD/PEL W IVCON Radiology Routine Malignant neoplasm of splenic flexure (HCC) Elevated CEA 1 Occurrences starting 02/26/2023 until 03/27/2024 [facility] Work Phone: Comment on above: 1 Occurrences starti ng 02/26/2023 until 03/27/2024 End: 03-06-2024 CT Abdomen and Pelvis W contrast IV CT ABD/PEL W IVCON Radiology Routine Malignant neoplasm of splenic flexure (HCC) 1 Occurrences starting 02/05/2023 until 03/06/2024 [facility] Work Phone: Comment on above: 1 Occurrences starti ng 02/05/2023 until 03/06/2024 End: 03-06-2024 CT Chest W contrast IV CT CHEST W IVCON Radiology Routine Malignant neoplasm of splenic flexure (HCC) 1 Occurrences starting 02/05/2023 until 03/06/2024 [facility] Comment on above: 1 Occurrences starti ng 02/05/2023 until 03/06/2024 End: 06-20-2023 CT CHEST W IVCON CT CHEST W IVCON Radiology Routine Malignant neoplasm of splenic flexure (HCC) 1 Occurrences starting 05/21/2022 until 06/20/2023 [facility] Work Phone: Comment on above: 1 Occurrences starti ng 05/21/2022 until 06/20/2023 End: 03-27-2024 CT CHEST W IVCON CT CHEST W IVCON Radiology Routine Malignant neoplasm of splenic flexure (HCC) Elevated CEA 1 Occurrences starting 02/26/2023 until 03/27/2024 [facility] Work Phone: Comment on above: 1 Occurrences starti ng 02/26/2023 until 03/27/2024 Glucose [Mass/volume ] in Serum or Plasma [facility] Measurement of renal function [facility] Microscopic urinalysis [facility] Organism count, microscopic method [facility] Osmolality of Urine [facility] Patient referral [facility] Work Phone: Potassium measurement [facility] Serum chloride measurement [facility] Sodium measurement [facility] Troponin T.cardiac [Mass/volume] in Serum or Plasma by High sensitivity method [facility] Urea nitrogen [Mass/volume] in Serum or Plasma [facility] Urine culture [facility] Urine microscopy: epithelial cells [facility] Urine microscopy: re d cells [facility] White blood cell count [facility] Immunizations Immunization Date Immunization Notes Care Provider Fa erickty 09-14-2020 Covid (Pfizer) [facility] 08-24-2020 Covid (Pfizer) [facility] Payers Date Payer Category Payer Self-pay [id number] 2023 Unknown [id number] 2020 Unknown [id number] 2020 Unknown [id number] 2020 Unknown [id number] 1955 Unknown [id number] 1955 Unknown [id number] Unknown [id number] Unknown [id number] [id number] [id number] Unknown [id number] [id number] [id number] Unknown [id number] [id number] [id number] Unknown COMMERCIAL OTHER [id number] Social History Date Type Detail Facility Start: 05-07-2018 End: 12-02-2024 Tobacco smoking status NHIS Ex-smoker [facility] Start: 05-07-1973 End: 05-07-1993 History of tobacco use Current smoker [facility] Start: 05-07-1973 End: 05-07-1993 History of tobacco use Cigarette Smoker [facility] Start: 05-07-2018 End: 07-01-2022 Cigarettes smoked current (pack per day) - Reported 1.5 [facility] Start: 05-07-2018 End: 10-15-2018 Tobacco use and exposure Smokeless tobacco non-user [facility] Start: 08-07-2021 End: 09-02-2022 Alcohol intake Current non-drinker of alcohol (finding) [facility] Start: 1955 Sex Assigned At Not on file C [facility] Start: 10-19-2021 End: 03-06-2022 Exposure to SARS-CoV-2 (event) Not sure [facility] Start: 06-14-2021 End: 06-14-2021 Tobacco smoking status NHIS Unknown if ever smoked [facility] Start: 05-26-2018 Non-smoker [facility] Start: 1955 Sex Assigned At Male [facility] Start: 07-01-2022 End: 09-02-2022 Tobacco use panel [facility] Adult Depression Screening Assessment 0 [facility] Tobacco smoking status No Smokin g Status Entered [facility] Medical Equipment Procedure Code Equipment Code [...] Level Of Cons ciousness Awake;Alert;Appropriate;Follow s Commands [facility] Work Phone: Clinical Notes 09-11-2021 to 12-02-2024 Note Date & Type Note Facility 12-02-2024 Radiology Diagnostic study note [facility] Imaging Services [address] [place] [address] Kidney and Bladder MR#: [id number] Acct: [id number] Name: MAINOR MENDEZ Rep #: [id number] : 1955 M 69 From: Leah Somers MD PCP: Dr. Gumaro Sepulveda DO Status: REG ER Study:Kidney and Bladder Date of Exam: 0 12/02/24 Exam# [id number] Ordering Dr: Everardo Galarza DO PROCEDURE: KIDNEY [...] 2. Additional description as above. Reading Location: [id number] CC: Dr. Gumaro Sepulveda DO; Dr. Will Galarza DO ~ Mechanical Maintenance Worker: Signed [facility] 12-02-2024 Discharge summary [facility] 12-02-2024 Radiology Diagnostic study note [facility] Imaging Services [address] [place] [address] Chest PA and Lateral MR#: [id number] Acct: [id number] Name: MAINOR MENDEZ Rep #: [id number] : 1955 M 69 From: Mansoor Reynoso MD PCP: Dr. Gumaro Sepulveda DO Status: REG ER Study:Chest PA and Lateral Date of Exam: 12/02/24 Exam# [id number] Ordering Dr: Everardo Galarza DO PROCEDURE: CHEST [...] No acute abnormality is seen. Reading Location: [id number] CC: Dr. Gumaro Sepulveda DO; Dr. Will Galarza DO ~ Mechanical Maintenance Worker: Signed [facility] 12-02-2024 Discharge summary Note Date/Time December 02, 2024 5:40pm [facility] Medical Records Department [address] [place] [address] Emergency Department Summary 12/02/24 MR#: [id number] Acct: [id number] Name: MAINOR MENDEZ Rep #:[id number] : 1955 69 From: Will Galarza [...] He just feels overall weak and fatigued. [facility] Medical History GERD (gastroesophageal reflux disease) Rheumatoid [...] following commands knew that he was at [facility] year is 2024 [...] % (Auto) 56.3 Lymph % (Auto) 26.9 O'Brien % (Auto) 8.5 Eos % (Auto) 7.1 [...] No acute abnormality is seen. Reading Location: [id number] Discharge Plan Triage Chief Complaint: Abn Labs [...] DO [Primary Care Provider] - Print Language: Mozambican Disposition Disposition: Acute Care Hospital [facility] What to do if you have Problems For any increased pain, shortness of breath, bleeding, nausea or vomiting, chestpain, or any unexpected problems, contact your Primary Care Provider. Call [facility] ([phone]) or report to the closest Emergency Room. Call 911 if necessary. 12/02/24 1740 <Electronically signed by Will Galarza DO> Cosigner Signature (if applicable): CC: Dr. Gumaro Sepulveda DO ~ Signed [facility] Work Phone: 1(681) 930-191608-05-2024 Note ORIGINAL EXAMINATION: LIMITED RETROPERITONEAL ULTRASOUND01/12/2024 12:05 [...] Sign Date: 01/12/2024 12:21:52 PM Ordering Provider: [facility]03-28-2024 NoteHNO ID: [id number] Author: MIRIAM PERKINS APRN.ELECTRONIC IMAGING SYSTEM OPERATOR Service: ? Author Type: Nurse Practitioner Type: [...] studies: Microsatellite study performed on same tumor ([id number] / [id number]): Positive (loss of mismatch protein; microsatellite instability detected). There is complet (more content not included)...[facility] 09-01-2023 Miscellaneous Notes* Telephone Encounter - Riana Arredondo - 09/01/2023 11:44 AM EDT Spoke with patient and scheduled. Riana Arredondo * Telephone Encounter - Riana Arredondo - 08/28/2023 12:06 PM EDT Patient is restorationist self-pay and needs authorized prior to scheduling OV. Spoke with patient, advising below. Patient is aware we will be calling to schedule lab & OV once financially cleared. Riana Arredondo * Telephone Encounter - Miriam Perkins APRN.CNP - 08/28/2023 12:02 PM EDT Please inform pt. that his CT's look good. Needs OV with CEA. Thank you. Miriam Perkins APRN.ELECTRONIC IMAGING SYSTEM OPERATOR * Telephone Encounter - Pauline Thompson - 08/27/2023 3:57 PM EDT Patient is calling for CT results test was completed 08/24 at [facility] appears it was upload to [employer] yesterday. Please advise patient with results [facility]-2023 NoteHNO ID: [id number] Author: Miriam Perkins APRN.CNP Service: ? Author [...] studies: Microsatellite study performed on same tumor ([id number] / [id number]): Positive (loss of mismatch protein; microsatellite instability detected). There i (more content not included)...[facility]09-20-2023 History of Present illness Narrative* Miriam Perkins APRN.ELECTRONIC IMAGING SYSTEM OPERATOR - 02/26/2023 8:18 AM EDT Chief Complaint [...] studies: Microsatellite study performed on same tumor ([id number] / [id number]): Positive (loss of mismatch protein; microsatellite instability [...] August 2023. Pt. has this done at [facility]. - Follow up after above with CEA. - Pt. aware to call office with any questions/concerns. The patient indicates understanding of these issues and agrees with the plan. All documentation from previous visit of 09/02/22-Dr. Iniguez/myself was copied and pasted, documentation has been reviewed and edited as necessary for today's visit. Miriam Perkins APRN.ANGELICA documented in [facility]09-15-2023 Miscellaneous Notes* Telephone Encounter - Berta [...] PM EDT Patient requesting CT results from 02/19-[facility] documented in this encounterFlower Hospital09-11-2023 Miscellaneous Notes* Telephone Encounter - Tash Navarro - 02/17/2023 10:08 AM EDT Pt scheduled as directed * Telephone Encounter - Riana Arredondo - 02/07/2023 10:49 AM EDT Patient called to reschedule 02/17 appointment as he is gettinga CT on 02/19/23 at [facility]. Referral for appointment was closed. New referral submitted. Once approved, please scheduled CEA/6 MO OV/CT @ [facility]02/19* with Miriam on 02/26/23 at 8:00 AM (held appt time). Riana Arredondo documented in [facility]09-05-2023 Telephone encounter Note * Telephone Encounter - Reanna Tarango - 02/11/2023 10:05 AM EDT Patient returned call. New TE was entered on 02/07 and documented. [facility] Work Phone: 1(542) 772-951109-05-2023 Miscellaneous Notes* Telephone Encounter - Reanna Tarango [...] ok with us faxing the orders to [facility] and having them contact him to mark anthony. Pt stated that he will call our office and let us know when he is scheduled . Updated pt's referrals and Faxed orders * Telephone Encounter - Sagrario Wyane LPN - 02/05/2023 11:00 AM EDT Patient is aware of all information. PSS- please contact patient to assist in scheduling CT's at [facility]. Sagrario Wayne LPN * Telephone Encounter - Miriam Perkins APRN.ELECTRONIC IMAGING SYSTEM OPERATOR - 02/05/2023 10:54 AM EDT Please inform pt. that his CEA is elevated-this is not uncommon for him but since he is having symptoms he should have CT's. Orders in. Pt. normally likes to have these done at [facility]. Please call pt and assist with scheduling. Thank you. Miriam Perkins APRN.ELECTRONIC IMAGING SYSTEM OPERATOR documented in this encounterFlower Hospital09-05-2023 Telephone encounter Note * Telephone Encounter - [place] - 02/11/2023 9:51 AM EDT 1st attempt: LM When pt returns call please ask if pt has gotten scheduled and document the date and time in this encounter. As well as schedule externally the CT orders on pt's apt desk [facility]08-30-2023 Telephone encounter Note* Telephone Encounter - [place], - 02/05/2023 4:42 PM EDT Called pt. Stated he was ok with us faxing the orders to [facility] and having them contact him to mark anthony. Pt stated that he will call our office and let us know when he is scheduled . Updated pt's referrals and Faxed orders [facility]08-30-2023 Telephone encounter Note* Telephone Encounter - Sagrario Wayne LPN - 02/05/2023 11:00 AM EDT Patient is aware of all information. PSS- please contact patient to assist in scheduling CT's at [facility]. Sagrario Wayne LPN [facility]08-30-2023 Telephone encounter Note* Telephone Encounter - Miriam Perkins APRN.CNP - 02/05/2023 10:54 AM EDT Please inform pt. that his CEA is elevated-this is not uncommon for him but since he is having symptoms he should have CT's. Orders in. Pt. normally likes to have these done at [facility]. Please call pt and assist with scheduling. Thank you. Miriam Perkins APRN.ANGELICA [facility]08-29-2023 Miscellaneous Notes* Telephone Encounter - Sagrario [...] EDif symptoms worsen. Thank you. Miriam Perkins APRN.ELECTRONIC IMAGING SYSTEM OPERATOR * Telephone Encounter - Sagrario Wayne LPN [...] and nervous. Please advise. documented in this encounterFlower Hospital04-03-2023 Miscellaneous Notes* Telephone Encounter - Bell Carter - 09/09/2022 11:49 AM EDT Referral authorized. Patient has been scheduled for 02/2023 for lab work and office visit. [employer] message sent and mail reminder sent, unable to reach patient by phone call. Bell Carter * Telephone Encounter - Riana Arredondo - 09/02/2022 9:12 AM EDT Follow up in 6 months with CEA-pending today's CEA. - Pt. aware to call office with any questions/concerns. Patient is [employer] Self-[employer] (May have [employer], but doesn't have card with him.) [employer] referrals submitted. Once cleared, schedule patient, document and close note. Riana Arredondo documented in this encounterFlower Hospital03-28-2023 Miscellaneous Notes* Telephone Encounter - Berta Laurent LPN - 09/03/2022 11:27 AM EDT Pt. Notified of CEA results, voiced understanding Berta Laurent LPN * Telephone Encounter - Miriam Perkins APRN.CNP - 09/03/2022 11:25 AM EDT Please inform pt. that his CEA looks good. Follow up in 6 months with CEA. Thank you. Miriam Perkins APRN.ANGELICA documented in this encounterFlower Hospital03-27-2023 History of Present illness Narrative* Miriam [...] studies: Microsatellite study performed on same tumor ([id number] / [id number]): Positive (loss of mismatch protein; microsatellite instability detected). There is complete loss of MLH1 and PMS2 and no loss of MSH2 and MSH6 markers. PATHOLOGIC STAGE: pT3 N0 Mx Colonoscopy done August [address] Nieves. Colonoscopy done October [address] Dykes. Next due in [address]'s done in 2022 at [facility]. Appetite:Good. Energy level:I'm doing ok to [...] due 2023. Pt. has this done at [facility]. - Follow up in 6 months with CEA-pending today's CEA. - Pt. aware to call office with any questions/concerns. The patient indicates understanding of these issues and agrees with the plan. All documentation from previous visit of 03/06/22-Dr. Iniguez/myself was copied and pasted, documentation has been reviewed and edited as necessary for today's visit. Miriam Perkins APRN.ANGELICA documented in this encounterFlower Hospital02-16-2023 Miscellaneous Notes* Telephone Encounter - Sagrario Wayne LPN - 07/25/2022 9:17 AM EST Patient is aware of all information and asked that I send the name of the recommended medication via [employer]. [employer] message sent. Sagrario Wayne LPN * Telephone [...] states he had it done at the [facility] on 07/17/22. documented in this encounterFlower Hospital12-16-2022 Miscellaneous Notes* Telephone Encounter - ROSELYN [place] - 05/24/2022 1:08 PM EST scheduled * Telephone Encounter - Sagrario Wayne LPN - 05/24/2022 10:20 AM EST Please schedule follow up end of August with CEA. Referral has been authorized. Sagrario Wayne LPN * Telephone Encounter - ROSELYN [place] - 05/24/2022 10:16 AM EST Order faxed to [facility], scanned fax into scanned documents with confirmation fax. * Telephone Encounter - ROSELYN [place] - 05/23/2022 2:49 PM EST I can fax orders to [facility] however it looks like his cts where denied. * Telephone Encounter - Miriam Perkins APRN.ELECTRONIC IMAGING SYSTEM OPERATOR - 05/21/2022 12:[address] orders in. Please schedule at [facility] in Jul. per pt. request. Thank you. Miriam Perkins APRN.ELECTRONIC IMAGING SYSTEM OPERATOR * Telephone Encounter - Deanna Mcneill LPN - 05/21/2022 12:30 PM EST Pt notified and voices understanding. He would like to have the CT's done at [facility]. PSS please work on a August apt with CEA. Deanna Mcneill LPN * Telephone Encounter - Miriam Perkins APRN.ANGELICA - 05/21/2022 11:46 AM EST Please inform pt. that his CEA is stable. CT's due 2022-please check with pt. to see if he would like to have these done again at [facility]. Iwill place orders once we know. Follow up end of August with CEA. Thank you. Miriam Perkins APRN.ANGELICA [facility] Miscellaneous Notes* Telephone Encounter - Riana [...] you. Miriam Perkins APRN.ANGELICA documented in [facility] encounterFlower [facility]09-28-2022 History of Present illness Narrative* Miriam [...] studies: Microsatellite study performed on same tumor ([id number] / [id number]): Positive (loss of mismatch protein; microsatellite instability detected). There is complete loss of MLH1 and PMS2 and no loss of MSH2 and MSH6 markers. PATHOLOGIC STAGE: pT3 N0 Mx Colonoscopy done August [address]ieves[address]'s done in 2021 at [facility]. FERMÍN. Colonoscopy done October 2021 by [...] due 2022. Pt. has this done at [facility]. Pt. does not want to schedule [...] visit. Miriam Perkins APRN.CNP documented in this encounterFlower Hospital09-09-2022 Miscellaneous Notes* Telephone Encounter - Miriam [...] on plan of care. documented in this encounterFlower Hospital05-23-2022 History and physical note * Jas [...] entered by the nurse and reviewed by vt Nursing Notes: Rosy Blake LPN 08/07/2021 3:27 [...] patient was offered a surgery[facility]procedure [facility]. I have counseled the patient [...] colon Maribel Richards PA-C documented in this encounterFlower Hospital04-05-2022 Miscellaneous Notes* Telephone Encounter - Corinne [...] for clarification. Please advise. documented in [facility]Park[facility] Plan note No data available for this section [facility] Evaluation note* Diagnosis Personal history of colon cancer Personal history of malignant neoplasm of large intestine documented [facility] this encounter [facility]* Diagnosis Malignant neoplasm of splenic flexure (HCC)- Primary Malignant neoplasm of splenic flexure documented in this encounter [facility] noteNo assessment information availableWGreen Cross Hospital Work Phone: Evaluation note* Diagnosis Malignant neoplasm of splenic flexure (HCC)- Primary Malignant neoplasm of splenic flexure documented in this encounter [facility]* Diagnosis Malignant neoplasm of splenic flexure (HCC)- Primary Malignant neoplasm of splenic flexure documented in this encounter [facility]* Diagnosis Malignant neoplasm of splenic flexure (HCC)- Primary Malignant neoplasm of splenic flexure documented [facility] encounter [facility]* Diagnosis Malignant neoplasm of splenic flexure (HCC)- Primary Malignant neoplasm of splenic flexure Elevated CEA Elevated carcinoembryonic antigen [CEA] documented in this encounter [facility]* Diagnosis Malignant neoplasm of splenic flexure (HCC)- Primary Malignant neoplasm of splenic flexure documented in this encounter [facility]* Diagnosis Onset Date Resolution Status Admit Date Acute renal failure acute December 02, 2024 6:26pm Hyperkalemia acute December 02 025 6:26pm Hyponatremia acute December 02 025 6:26pm [facility] Work Phone: Hospital Discharge instructions No data available for this section [facility] Progress note No data available for this section [facility] Reason for referral (narrative)* Outpatient Procedure (Routine) - Closed Specialty Diagnoses / Procedures Referred By Contambrocio t Referred To Contact [facility] Diagnoses Personal history of colon cancer Procedures COLONOSCOPY SCREENING COLONOSCOPY FLX DX W/COLLJ SPEC WHEN PFRMD Maribel Richards PA-C [address] [place] [address] [facility] [place] [address] [place] [address] Referral ID Status Reason Start Date Expiration Date V isits Requested Visits Authorized [id number] Closed Auto-Generat ed Referral Patient Cleared - [facility] 08/08/2021 06/08/2022 1 1 [facility] for referral (narrative)* Diagnostic Procedure Only (Routine) - Closed Specialty Diagnoses / Procedures Referred By Angie riley Referred To Contact [facility]MIN [facility] Diagnoses Malignant neoplasm of splenic flexure (HCC) Procedures CT CHEST W IVCON DIAGNOSTIC COMPUTED TOMOGRAPHY THORAX W/CONTRAST Miriam Perkins APRN.CNP [address] [place] [address] Admin [facility] [address] [place] [address] Referral ID Status Reason Start Date Expiration Date V isits Requested Visits Authorized [id number] Closed Financial Clearance Required - Self Pay Clearance Not Met - Pt Rescheduled/Ca ncelled/Chose Not to Proceed 02/05/2023 03/06/2024 1 1 * Diagnostic Procedure Only (Routine) - Closed Specialty Diagnoses / Procedures Referred By Contac t Referred To Contact [facility] Diagnoses Malignant neoplasm of splenic flexure (HCC) Procedures CT ABD/PEL W IVCON CT ABD & PELVIS W/CONTRAST Miriam Perkins APRN.ELECTRONIC IMAGING SYSTEM OPERATOR [address] [place] [address] Admin [facility] [address] [facility] [place] [address] Referral ID Status Reason Start Date Expiration Date V isits Requested Visits Authorized [id number] Closed Financial Clearance Required - Self Pay Clearance Not Met - Pt Rescheduled/Ca ncelled/Chose Not to Proceed 02/05/2023 03/06/2024 1 1 [facility] for referral (narrative)No reason for referral information availableWGreen Cross Hospital Work Phone: Reason for visit Narrative* Outpatient Procedure (Routine) - Closed Specialty Diagnoses / Procedures Referred By Angie t Referred To Contact [facility] Diagnoses Personal history of colon cancer Procedures COLONOSCOPY SCREENING COLONOSCOPY FLX DX W/COLLJ SPEC WHEN PFRMD Maribel Richards PA-C [address] [place] [address] [facility] [place] [address] [place] [address] Referral ID Status Reason Start Date Expiration Date V isits Requested Visits Authorized [id number] Closed Auto-Generat ed Referral Patient Cleared - [facility] 08/08/2021 06/08/2022 1 1 [facility] Summary Purpose Family History No Family History Records FoundNo Family History Records FoundNo Family History Records Found No data available for this section No data available for this section No Family History Records FoundNo Family History Records Found Advance Directives Documents on File Type Date Recorded Patient Surgical Territory Manager Expl anation Advance Directive(s) 08/09/2019 11:21 AM Documents on File Type Date Recorded Patient Surgical Territory Manager Expl anation Advance Directive(s) 10/29/2021 9:26 AM Advance Directive(s) 08/09/2019 11:21 AM Advance Directive Response Recorded Date/ Time Living Will No June 10 1:07pm Power of Specimen Collector No June 10 019 1:07pm Advance Directive Response Recorded Date/ Time Living Will No June 10 12:07pm Power of Specimen Collector No June 10 019 12:07pm Advance Directive Response Recorded Date/ Time Do you have a Healthcare Power of Specimen Collector? No December 02, 2024 2:50pm Medications Administered [...] DIAGNOSTIC COMPUTED TOMOGRAPHY THORAX W/CONTRAST Miriam Perkins, ION.ELECTRONIC IMAGING SYSTEM OPERATOR [address] [place] [address] Ct Imaging Referral ID Status Reason Start Date Expiration Date V isits Requested Visits Authorized [id number] Denied Auto-Generate d Referral 05/21/2022 06/20/2023 1 0 Specialty Diagnoses / Procedures Referred By Angie riley Referred To Contact CT IMAGING Diagnoses Malignant neoplasm of splenic flexure (HCC) Procedures CT ABD/PEL W IVCON CT ABD & PELVIS W/CONTRAST Miriam Perkins, ION.ELECTRONIC IMAGING SYSTEM OPERATOR [address] [place] [address] Ct Imaging Referral ID Status Reason Start Date Expiration Date V isits Requested Visits Authorized [id number] Denied Auto-Generate d Referral 05/21/2022 06/20/2023 1 0 Specialty Diagnoses / Procedures Referred By Angie t Referred To Contact CT IMAGING Diagnoses Malignant neoplasm of splenic flexure (HCC) Elevated CEA Procedures CT CHEST W IVCON DIAGNOSTIC COMPUTED TOMOGRAPHY THORAX W/CONTRAST Miriam Perkins, ION.ELECTRONIC IMAGING SYSTEM OPERATOR [address] [place] [address] [place] [address] Referral ID Status Reason Start Date Expiration Date Visits Requested Visits Authorized [id number] Pending Review Auto-Generat ed Referral 02/26/2023 03/27/2024 1 1 Specialty Diagnoses / Procedures Referred By Angie t Referred To Contact CT IMAGING Diagnoses Malignant neoplasm of splenic flexure (HCC) Elevated CEA Procedures CT ABD/PEL W IVCON CT ABD & PELVIS W/CONTRAST Miriam Perkins, ION.ELECTRONIC IMAGING SYSTEM OPERATOR [address] [place] [address] [place] [address] Referral ID Status Reason Start Date Expiration Date Visits Requested Visits Authorized [id number] Pending Review Auto-Generat ed Referral 02/26/2023 03/27/2024 1 1 Additional Source Comments (unrecognized sect ion and content) No Status Records FoundNo Status Records FoundNo Status Records FoundNo Status Records FoundNo Status Records Found INFORMATION SOURCE (unrecogn ized section and content) DATE CREATED AUTHOR 05/31/2018 [facility] DATE CREATED AUTHOR AUTHOR'S ORGANIZ ATION 10/29/2021 [facility] DATE CREATED AUTHOR AUTHOR'S ORGANIZ ATION 10/17/2023 [facility] DATE CREATED AUTHOR AUTHOR'S ORGANIZ ATION 01/16/2024 [facility] DATE CREATED AUTHOR AUTHOR'S ORGANIZ ATION 07/25/2024 [facility] Source Comments (unrecognize d section and content) In the event this informatio n is protected by the Federal Confidentiality of Alcohol and Drug Abuse Patient Records regulations: The Federal rules restrict any use of the information to criminally investigate or prosecute any alcohol or drug abuse patient.[facility] [place] the event this information is protected by the Federal Confidentiality of Alcohol and Drug Abuse Patient Records regulations: The Federal rules restrict any use of the information to criminally investigate or prosecute any alcohol or drug abuse patient.[facility] HospitalIn the event this information is protected by the Federal Confidentiality of Alcohol and Drug Abuse Patient Records regulations: The Federal rules restrict any use of the information to criminally investigate or prosecute any alcohol or drug abuse patient.[facility] HospitalIn the event this information is protected by the Federal Confidentiality of Alcohol and Drug Abuse Patient Records regulations: The Federal rules restrict any use of the information to criminally investigate or prosecute any alcohol or drug abuse patient.[facility] HospitalIn the event this information is protected by the Federal Confidentiality of Alcohol and Drug Abuse Patient Records regulations: The Federal rules restrict any use of the information to criminally investigate or prosecute any alcohol or drug abuse patient.[facility] HospitalIn the event this information is protected by the Federal Confidentiality of Alcohol and Drug Abuse Patient Records regulations: The Federal rules restrict any use of the information to criminally investigate or prosecute any alcohol or drug abuse patient.[facility] HospitalIn the event this information is protected by the Federal Confidentiality of Alcohol and Drug Abuse Patient Records regulations: The Federal rules restrict any use of the information to criminally investigate or prosecute any alcohol or drug abuse patient.[facility] HospitalIn the event this information is protected by the Federal Confidentiality of Alcohol and Drug Abuse Patient Records regulations: The Federal rules restrict any use of the information to criminally investigate or prosecute any alcohol or drug abuse patient.[facility] HospitalIn the event this information is protected by the Federal Confidentiality of Alcohol and Drug Abuse Patient Records regulations: The Federal rules restrict any use of the information to criminally investigate or prosecute any alcohol or drug abuse patient.[facility] HospitalIn the event this information is protected by the Federal Confidentiality of Alcohol and Drug Abuse Patient Records regulations: The Federal rules restrict any use of the information to criminally investigate or prosecute any alcohol or drug abuse patient.[facility] HospitalIn the event this information is protected by the Federal Confidentiality of Alcohol and Drug Abuse Patient Records regulations: The Federal rules restrict any use of the information to criminally investigate or prosecute any alcohol or drug abuse patient.[facility] HospitalIn the event this information is protected by the Federal Confidentiality of Alcohol and Drug Abuse Patient Records regulations: The Federal rules restrict any use of the information to criminally investigate or prosecute any alcohol or drug abuse patient.[facility] HospitalIn the event this information is protected by the Federal Confidentiality of Alcohol and Drug Abuse Patient Records regulations: The Federal rules restrict any use of the information to criminally investigate or prosecute any alcohol or drug abuse patient.[facility] HospitalIn the event this information is protected by the Federal Confidentiality of Alcohol and Drug Abuse Patient Records regulations: The Federal rules restrict any use of the information to criminally investigate or prosecute any alcohol or drug abuse patient.[facility] HospitalIn the event this information is protected by the Federal Confidentiality of Alcohol and Drug Abuse Patient Records regulations: The Federal rules restrict any use of the information to criminally investigate or prosecute any alcohol or drug abuse patient.[facility] HospitalIn the event this information is protected by the Federal Confidentiality of Alcohol and Drug Abuse Patient Records regulations: The Federal rules restrict any use of the information to criminally investigate or prosecute any alcohol or drug abuse patient.[facility] Reason for Visit (unrecogniz ed section and content) Reason Comments Question Reason Comments Patient Update Reason Comments Established Patient Specialty Diagnoses / Procedures Referred By Contac t Referred To Contact HEMATOLOGY/ONCOLOGY Diagnoses 6 MO FOLLOW UP CEA LAB [place] [address] [place] [address] [facility] [address] [place] [address] Referral ID Status Reason Start Date Expiration Date V isits Requested Visits Authorized [id number] Closed Financial Clearance Required - Self Pay Patient Cleared - [facility] 12/24/2021 03/24/2022 1 1 Reason Comments Results Reason Comments Appointment Specialty Diagnoses / Procedures Referred By Contac t Referred To Contact HEMATOLOGY/ONCOLOGY Diagnoses CANCER FOLLOW UP Procedures DUE AUGUST 2022 - 6 MO OV WITH CEA Miriam Perkins APRN.ELECTRONIC IMAGING SYSTEM OPERATOR [address] [place] [address] [facility] [address] [place] [address] Referral ID Status Reason Start Date Expiration Date V isits Requested Visits Authorized [id number] Closed Financial Clearance Required - Self Pay Patient Cleared - [facility] 08/07/2022 11/05/2022 1 1 Reason Comments AVS 09/02/22 Reason Comments Vomiting Reason Comments Future Appointment Reason Comments Established Patient Specialty Diagnoses / Procedures Referred By Contac t Referred To Contact HEMATOLOGY/ONCOLOGY Diagnoses Malignant neoplasm of splenic flexure (HCC) Procedures 6 MONTH FOLLOW UP OFFICE VISIT Miriam Perkins APRN.ELECTRONIC IMAGING SYSTEM OPERATOR [address] [place] [address] [facility] [address] [place] [address] Referral ID Status Reason Start Date Expiration Date V isits Requested Visits Authorized [id number] Closed Financial Clearance Required - Self Pay Patient Cleared - [employer] [facility] 02/26/2023 05/27/2023 1 1 Reason Comments Results Care Teams (unrecognized sec tion and content) Check Writer Salesperson Relationship Specialty [place] [address] [place], [place] [phone] PCP - General Internal Medicine 05/07/18 Check Writer Salesperson Relationship Specialty Start [place] [address] [place], [place] [phone] PCP - General Internal Medicine 05/07/18 Check Writer Salesperson Relationship Specialty Start [place] [address] [place] [phone] PCP - General Internal Medicine 05/07/18 Check Writer Salesperson Relationship Specialty Start [place] [address] [place], [place] [phone] PCP - General Internal Medicine 05/07/18 Check Writer Salesperson Relationship Specialty Start [place] [address] [place] [id number] PCP - General Internal Medicine 05/07/18 Team Status: Active Member Role Status Dates Dr. Gumaro Sepulveda DO Family Provider Active Dr. Gumaro Sepulveda DO Primary Care Provider Active Team Status: Inactive Member Role Status Dates Dr. Gumaro Sepulveda DO Primary Care Provider Active Miriam Perkins AIR POLLUTION INSPECTOR, AIR POLLUTION INSPECTOR-C Attending Provider, Referring Provider Active Check Writer Salesperson Relationship Specialty Start [place] [address] [place] [phone] PCP - General Internal Medicine 05/07/18 Check Writer Salesperson Relationship Specialty [place] [address] [place] [address] [id number] PCP - General Internal Medicine 05/07/18 Check Writer Salesperson Relationship Specialty [place] [address] [place] [address] [phone] PCP - General Internal Medicine 05/07/18 Check Writer Salesperson Relationship Specialty Start [place] [address] [place] [address] [id number] PCP - General Internal Medicine 05/07/18 Check Writer Salesperson Relationship Specialty Start [place] [address] [address] PCP - General Internal Medicine 05/07/18 Check Writer Salesperson Relationship Specialty [place] [address] [place] [address] [id number] PCP - General Internal Medicine 05/07/18 Team Status: Inactive Member Role Status Dates Dr. Gumaro Sepulveda DO Primary Care Provider Active Miriam Perkins AIR POLLUTION INSPECTOR, AIR POLLUTION INSPECTOR-C Attending Provider Active Check Writer Salesperson Relationship Specialty Start [place] [address] [id number] PCP - General Internal Medicine 05/07/18 Check Writer Salesperson Relationship Specialty [place] [address] [place] [address] [phone] PCP - General Internal Medicine 05/07/18 Team [...] BE BASED ON THE PRIMARY CLINICAL RECORDS. [employer] provides no warranty or guarantee of the accuracy or completeness of information in this document.
[2024-12-02] MEDS: Insulin Lispro 100 UNIT/ML INSULN.PEN SC (22:13)
[2024-12-03 01:19] LABS: Anion Gap 17 (5-15); BUN 97 mg/dL (4-19); BUN/Creat Ratio 25.6 RATIO (10-20); Calcium,Total 9.1 mg/dL (7.6-11.0); Carbon Dioxide 17.2 mmol/L (21.0-32.0); Chloride 95 mmol/L (98-108); Creatinine, Serum 3.77 mg/dL (0.70-1.20); EST Glomerular Filtration Rate 17 (>60); Estimated Creatinine Clearance 23.59 ml/min (50-250); Glucose 271 mg/dL (70-99); Potassium 5.5 mmol/L (3.3-5.1); Sodium Level 129 mmol/L (133-145)
[2024-12-03 01:35] LABS: Bedside Glucose 217 mg/dL (74-106)
[2024-12-03 03:30] VITALS: BP 137/63; PULSE 69; RESP 16; TEMP 36.6; O2SAT 98
[2024-12-03 04:54] LABS: Anion Gap 15 (5-15); BUN 91 mg/dL (4-19); Calcium,Total 9.1 mg/dL (7.6-11.0); Chloride 95 mmol/L (98-108); Creatinine, Serum 3.39 mg/dL (0.70-1.20); EST Glomerular Filtration Rate 19 (>60); Estimated Creatinine Clearance 26.24 ml/min (50-250); Glucose 179 mg/dL (70-99); Potassium 4.9 mmol/L (3.3-5.1); Sodium Level 130 mmol/L (133-145)
[2024-12-03 05:04] VITALS: BMI 33.2
[2024-12-03] MEDS: Sodium Bicarbonate 50 MEQ in Dextrose 5%-Water (1000mL Bag) 1,000 ML 100 MEQ IV (06:24)
[2024-12-03 07:18] LABS: Bedside Glucose 143 mg/dL (74-106)
[2024-12-03 07:37] LABS: Absolute Lymphocyte Count 2.99 X10^3/uL (0.83-4.51); Basophil# 0.05 X10^3/uL; Basophil% 0.4 % (0-1); Eosinophil# 0.88 X10^3/uL; Eosinophils% 7.1 % (0-5); Hematocrit 32.1 % (40-54); Lymphocyte # 2.99 X10^3/ul (0.83-4.51); Lymphocyte % 24.2 % (19-41); Mean Corp Hgb Conc 34.3 g/dL (32-36); Mean Corpuscular Hgb 31.3 pg (27.0-32.0); Mean Corpuscular Volume 91.5 fL (80-94); Mean Platelet Vol. 11.3 fl (6.2-12.0); Monocyte# 1.39 X10^3/uL; Monocyte% 11.2 % (0-10); NRBC Flagged by Analyzer 0 % (0-5); Neutrophil # 6.97 X10^3/uL (2.7-7.7); Neutrophil % 56.5 % (47-70); Platelet Count 202 K/mm3 (150-450); RBC Distribution Width SD 47.4 fl (35.1-43.9); Red Blood Count 3.51 M/mm3 (4.6-6.2); White Blood Count 12.4 K/mm3 (4.4-11.0)
[2024-12-03 08:07] LABS: Anion Gap 14 (5-15); BUN 87 mg/dL (4-19); Calcium,Total 9.1 mg/dL (7.6-11.0); Carbon Dioxide 21.3 mmol/L (21.0-32.0); Chloride 97 mmol/L (98-108); Creatinine, Serum 3.12 mg/dL (0.70-1.20); EST Glomerular Filtration Rate 21 (>60); Estimated Creatinine Clearance 28.73 ml/min (50-250); Glucose 152 mg/dL (70-99); Magnesium 2.3 mg/dL (1.5-2.2); Potassium 5.1 mmol/L (3.3-5.1); Sodium Level 133 mmol/L (133-145)
[2024-12-03 09:07] LABS: Osmolality, Urine 355 mOsm/KG
[2024-12-03 09:56] VITALS: BP 134/55; PULSE 68; RESP 18; TEMP 36.6; O2SAT 99
[2024-12-03] MEDS: Aspirin 81 MG TAB.CHEW PO (09:59)
[2024-12-03] MEDS: Allopurinol 300 MG Tablet PO (09:59)
[2024-12-03] MEDS: Carvedilol 6.25 MG Tablet PO ×2 (09:59→22:10)
--- NOTE | 2024-12-03 11:27 | PCM.CONS.R ---
Assessment & Plan Assessment/Plan (1) Acute renal failure: (2) Hyperkalemia: (3) CKD (chronic kidney disease): PLAN: Plan This is a 69-year-old male with past medical history significant for diabetes mellitus type 2, RA, hypertension, GERD, colon cancer who was admitted to the hospital for hyperkalemia and SIMA. Nephrology consulted in view of above. With bicarb drip, receiving Kayexalate and hyperkalemia medication protocol both serum creatinine and potassium have improved. Today creatinine 3.12, potassium 5.1 and bicarb 21. Will stop bicarb drip and start on normal saline at gentle rate. Patient's naproxen, Micardis and metformin are on hold. Patient is nonoliguric. Volume status appears near euvolemic. Renal ultrasound no hydronephrosis, no visualized mass or calculus. Likely nonoliguric, mildly hypovolemic SIMA secondary to significant volume depletion with concurrent use of ARB and NSAID. Overall renal function and potassium levels have improved, no acute indication for renal placement therapy. We will attempt to obtain past serum creatinine trends to determine baseline serum creatinine. Patient states he was told about a month ago his creatinine was 3.9. Last labs to review in the system his creatinine was 1.3 mg/dL in 2021. UA did not show any blood or bacteria, 30 protein; we will check urine protein creatinine ratio. Further orders forthcoming as hospitalization evolves, thank you for allowing us participate in the care of Mr. Rios. Assessment and plan reviewed with Dr. Marte. HPI Consult Data Date of Consult: 12/03/24 HPI Narrative HPI Narrative: CARMEN RIOS, is a 69 M who presented to the emergency room for elevated potassium of 6.5, patient had labs drawn by PCP who contacted him and encouraged him to go to the ED. Patient has past medical history significant for diabetes mellitus type 2 (diagnosed in his 40s), history of hypertension, GERD, colon cancer, RA. In ER lab work revealed potassium 6.6, BUN 105, creatinine 4.61, bicarb 18. Patient was admitted for SIMA. Nephrology consulted in view of elevated creatinine and potassium. Overnight patient was placed on bicarb drip. Patient denies any recent vomiting. He does state that over the weekend he had episode of nausea. Patient states despite the heat he had been working outside daily, probably not taking in adequate fluids. He denies any chest pain or shortness of breath. Denies any pain anywhere else. Denies any diarrhea. Denies any new medications. Patient does state due to nightly leg cramps he does take Aleve. Patient denies any dysuria or hematuria. No obstructive symptoms. Patient does report that he follows with endocrinology closely, also follows with Dr. Gonzalez for RA and was referred to rn med surg in [place] (Dr. Tran) over a year ago. [facility] Medical History GERD (gastroesophageal reflux disease) Rheumatoid arthritis High cholesterol Hearing loss, left Hearing loss, right Former smoker Diabetes Hypertension Colon cancer Home Medications ?Medication ?Instructions ?Recorded ?Last Taken ?Type adalimumab 40 mg/0.8 mL 40 mg SQ Q14D RA 05/26/18 11/21/24 History subcutaneous syringe kit (Humira) allopurinol 300 mg tablet 300 mg PO .COMPLEX GOUT 05/26/18 Unknown History aspirin 81 mg tablet,delayed 81 mg PO .COMPLEX HEART HEALTH 05/26/18 06/03/18 History release glipizide 5 mg tablet 5 mg PO .COMPLEX DIABETES 05/26/18 Unknown History metformin 1,000 mg tablet 1,000 mg PO .COMPLEX DIABETES 05/26/18 Unknown History atorvastatin 80 mg tablet (Lipitor) 80 mg PO .COMPLEX cholesterol 12/02/24 Unknown History carvedilol 12.5 mg tablet 12.5 mg PO .COMPLEX bp 12/02/24 Unknown History naproxen sodium 220 mg capsule 220 mg PO .COMPLEX pain 12/02/24 Unknown History (Aleve) omega-3 fatty acids 1,000 mg 1,000 mg PO .COMPLEX supplement 12/02/24 Unknown History capsule pioglitazone 30 mg tablet (Actos) 30 mg PO .COMPLEX dm 12/02/24 Unknown History prednisone 10 mg tablet 20 mg PO DAILY PRN RA 12/02/24 Unknown History sitagliptin phosphate 100 mg 100 mg PO .COMPLEX dm 12/02/24 Unknown History tablet (Januvia) telmisartan 40 mg tablet (Micardis) 40 mg PO .COMPLEX htn 12/02/24 Unknown History tramadol 50 mg tablet 50 mg PO .COMPLEX pain 12/02/24 Unknown History Allergy/AdvReac Type Severity Reaction Status Date / Time No Known Allergies Allergy Verified 12/02/24 17:16 Social History Smoking Status: Former smoker ROS ROS Narrative As in HPI Physical Exam Narrative Alert and oriented x 3, no apparent distress S1, S2, RRR Lungs sound clear. No rales or rhonchi. On room air Abdomen soft, nontender, nondistended No edema Lab / Micro Data 12/03/24 06:35 12/03/24 06:35 Labs: Laboratory Results - last 24 hr 12/02/24 14:50: WBC 13.1 H, RBC 3.72 L, Hgb 11.7 L, Hct 34.3 L, MCV 92.2, MCH 31.5, MCHC 34.1, RDW Std Deviation 48.1 H, RDW Coeff of Deep 14.2, Plt Count 215, MPV 10.9, Immature Gran % (Auto) 0.700, Neut % (Auto) 56.3, Lymph % (Auto) 26.9, [place] % (Auto) 8.5, Eos % (Auto) 7.1 H, Baso % (Auto) 0.5, Absolute Neuts (auto) 7.4, Absolute Lymphs (auto) 3.53, Nucleated RBC % 0, Sodium 127 L, Potassium 6.6 H*, Chloride 92 L, Carbon Dioxide 18.5 L, Anion Gap 16 H, BUN 105 H*, Creatinine 4.61 H, Estim Creat Clear Calc 19.29 L, Est GFR (MDRD) Non-Af 13 L, BUN/Creatinine Ratio 22.8 H, Glucose 154 H, Calcium 9.0, Troponin T High Sens 25 H 12/02/24 16:13: POC Glucose 100 12/02/24 16:48: Sodium Cancelled, Potassium Cancelled, Chloride Cancelled, Carbon Dioxide Cancelled, Anion Gap Cancelled, BUN Cancelled, Creatinine Cancelled, Est GFR (MDRD) Non-Af Cancelled, BUN/Creatinine Ratio Cancelled, Glucose Cancelled, Calcium Cancelled, Total Creatine Kinase 185, Troponin T Hi Sens 2 Hr 22 12/02/24 17:32: Urine Color Straw, Urine Clarity Clear, Urine pH 5.0, Ur Specific [place] 1.015, Urine Protein 30 H, Urine Glucose (UA) Normal, Urine Ketones Negative, Urine Occult Blood Negative, Urine Nitrite Negative, Urine Bilirubin Negative, Urine Urobilinogen Normal, Ur Leukocyte Esterase Negative, Urine RBC 0-5 SEEN, Urine WBC 0-5 SEEN, Ur Squamous Epith Cells 0-5 SEEN, Urine Bacteria 0 SEEN, Urine Mucus 0 SEEN, Urine Osmolality 355, Ur Random Sodium 40, Urine Creatinine 68.90, Urine Potassium 37.4, Urine Chloride 29, Urine Urea Nitrogen 481 12/02/24 18:45: Sodium 131 L, Potassium 5.7 H, Chloride 95 L, Carbon Dioxide 20.4 L, Anion Gap 16 H, BUN 99 H, Creatinine 4.09 H, Estim Creat Clear Calc 21.75 L, Est GFR (MDRD) Non-Af 15 L, BUN/Creatinine Ratio 24.2 H, Glucose 75, Calcium 9.8, Troponin T Hi Sens 4Hr 22 12/02/24 22:05: POC Glucose 217 H 12/02/24 23:35: Sodium 129 L, Potassium 5.5 H, Chloride 95 L, Carbon Dioxide 17.2 L, Anion Gap 17 H, BUN 97 H, Creatinine 3.77 H, Estim Creat Clear Calc 23.59 L, Est GFR (MDRD) Non-Af 17 L, BUN/Creatinine Ratio 25.6 H, Glucose 271 H, Calcium 9.1 12/03/24 03:15: Sodium 130 L, Potassium 4.9, Chloride 95 L, Carbon Dioxide 20.0 L, Anion Gap 15, BUN 91 H, Creatinine 3.39 H, Estim Creat Clear Calc 26.24 L, Est GFR (MDRD) Non-Af 19 L, BUN/Creatinine Ratio 27.0 H, Glucose 179 H, Calcium 9.1 12/03/24 06:30: POC Glucose 143 H 12/03/24 06:35: WBC 12.4 H, RBC 3.51 L, Hgb 11.0 L, Hct 32.1 L, MCV 91.5, MCH 31.3, MCHC 34.3, RDW Std Deviation 47.4 H, RDW Coeff of Deep 14.0, Plt Count 202, MPV 11.3, Immature Gran % (Auto) 0.600, Neut % (Auto) 56.5, Lymph % (Auto) 24.2, [place] % (Auto) 11.2 H, Eos % (Auto) 7.1 H, Baso % (Auto) 0.4, Absolute Neuts (auto) 7.0, Absolute Lymphs (auto) 2.99, Nucleated RBC % 0, Sodium 133, Potassium 5.1, Chloride 97 L, Carbon Dioxide 21.3, Anion Gap 14, BUN 87 H, Creatinine 3.12 H, Estim Creat Clear Calc 28.73 L, Est GFR (MDRD) Non-Af 21 L, BUN/Creatinine Ratio 28.0 H, Glucose 152 H, Calcium 9.1, Magnesium 2.3 H Imaging Radiology Impression Chest X-Ray 12/02/24 15:03 IMPRESSION: No acute abnormality is seen. Reading Location: [id number] Renal Ultrasound 12/02/24 15:57 IMPRESSION: 1. No hydronephrosis. 2. Additional description as above. Reading Location: [id number]
[2024-12-03 12:00] LABS: Bedside Glucose 296 mg/dL (74-106)
[2024-12-03] MEDS: Insulin Lispro 100 UNIT/ML INSULN.PEN SC ×2 (12:44→22:08)
[2024-12-03] MEDS: 0.9% Normal Saline (1000mL) 1,000 ML 75 ML IV (12:49)
--- NOTE | 2024-12-03 15:01 | CASEMGMT ---
JOANNA HERNANDEZ Chart Review: DX: SIMA, Hyperkalemia Lace: 2 6 Click: Nursing charted patient is independent. Medical record reviewed and patient evaluated for identification of discharge planning needs. Based on this review, patient does not currently demonstrate a need for discharge planning. CM remains available to assist with discharge planning needs as identified or requested.?
[2024-12-03 16:38] VITALS: BP 138/61; PULSE 99; RESP 16; TEMP 36.4; O2SAT 99
[2024-12-03 16:46] LABS: Bedside Glucose 117 mg/dL (74-106)
--- NOTE | 2024-12-03 18:58 | PN.HOSP_ITS ---
Reason for Visit Reason for Visit: Diagnoses Hyperkalemia (12/02/24) Acute kidney failure, unspecified (12/02/24) Subjective Subjective Patient was seen and examined today, his creatinine is improved, I talked briefly with nephrology about his care. Objective Data Objective Data Vital Signs: Vital Signs Temp Pulse Resp BP Pulse Ox O2 Del Method 97.5 F L 99 16 138/61 H 99 Room Air 12/03/24 16:38 12/03/24 16:38 12/03/24 16:38 12/03/24 16:38 12/03/24 16:38 12/03/24 16:38 Oxygen Delivery Method Room Air Weight: 108.1 kg Body Mass Index (BMI) 33.2 Intake & Output: Intake and Output for Last 24 Hours 12/01/24 12/02/24 12/03/24 23:59 23:59 23:59 Intake Total 1280 / 1680 2781.67 / 2781.67 Output Total 700 / 700 Balance 580 / 980 2781.67 / 2781.67 Lab / Micro Data 12/03/24 06:35 12/03/24 06:35 Labs: Laboratory Results - last 24 hr 12/02/24 16:48: Sodium Cancelled, Potassium Cancelled, Chloride Cancelled, Carbon Dioxide Cancelled, Anion Gap Cancelled, BUN Cancelled, Creatinine Cancelled, Est GFR (MDRD) Non-Af Cancelled, BUN/Creatinine Ratio Cancelled, Glucose Cancelled, Calcium Cancelled, Total Creatine Kinase 185 12/02/24 17:32: Urine RBC 0-5 SEEN, Urine WBC 0-5 SEEN, Ur Squamous Epith Cells 0-5 SEEN, Urine Bacteria 0 SEEN, Urine Mucus 0 SEEN, Urine Osmolality 355 12/02/24 18:45: Sodium 131 L, Potassium 5.7 H, Chloride 95 L, Carbon Dioxide 20.4 L, Anion Gap 16 H, BUN 99 H, Creatinine 4.09 H, Estim Creat Clear Calc 21.75 L, Est GFR (MDRD) Non-Af 15 L, BUN/Creatinine Ratio 24.2 H, Glucose 75, Calcium 9.8, Troponin T Hi Sens 4Hr 22 12/02/24 22:05: POC Glucose 217 H 12/02/24 23:35: Sodium 129 L, Potassium 5.5 H, Chloride 95 L, Carbon Dioxide 17.2 L, Anion Gap 17 H, BUN 97 H, Creatinine 3.77 H, Estim Creat Clear Calc 23.59 L, Est GFR (MDRD) Non-Af 17 L, BUN/Creatinine Ratio 25.6 H, Glucose 271 H, Calcium 9.1 12/03/24 03:15: Sodium 130 L, Potassium 4.9, Chloride 95 L, Carbon Dioxide 20.0 L, Anion Gap 15, BUN 91 H, Creatinine 3.39 H, Estim Creat Clear Calc 26.24 L, E st GFR (MDRD) Non-Af 19 L, BUN/Creatinine Ratio 27.0 H, Glucose 179 H, Calcium 9.1 12/03/24 06:30: POC Glucose 143 H 12/03/24 06:35: WBC 12.4 H, RBC 3.51 L, Hgb 11.0 L, Hct 32.1 L, MCV 91.5, MCH 31.3, MCHC 34.3, RDW Std Deviation 47.4 H, RDW Coeff of Deep 14.0, Plt Count 202, MPV 11.3, Immature Gran % (Auto) 0.600, Neut % (Auto) 56.5, Lymph % (Auto) 24.2, [place] % (Auto) 11.2 H, Eos % (Auto) 7.1 H, Baso % (Auto) 0.4, Absolute Neuts (auto) 7.0, Absolute Lymphs (auto) 2.99, Nucleated RBC % 0, Sodium 133, Potassium 5.1, Chloride 97 L, Carbon Dioxide 21.3, Anion Gap 14, BUN 87 H, C reatinine 3.12 H, Estim Creat Clear Calc 28.73 L, Est GFR (MDRD) Non-Af 21 L, B UN/Creatinine Ratio 28.0 H, Glucose 152 H, Calcium 9.1, Magnesium 2.3 H 12/03/24 11:32: POC Glucose 296 H 12/03/24 16:19: POC Glucose 117 H Physical Exam Const alert, oriented x3, no apparent distress and healthy appearing General Appearance: cooperative, well kempt and well developed Orientation / Consciousness: awake, oriented to person, oriented to place and oriented to time HEENT normocephalic, head/scalp atraumatic and moist oral mucous membranes Eyes PERRL, EOMs intact bilaterally and conjunctivae normal Neck supple, no JVD, thyroid normal and no carotid bruits General: trachea midline Resp normal respiratory effort, no retractions, no use of accessory muscles and clear to auscultation bilaterally Auscultation: Negative for rales, rhonchi or wheezes Cardio regular rate, regular rhythm, S1 normal heart sound, S2 normal heart sound, no murmurs, no rub and no gallops GI normal to inspection, nondistended, normoactive bowel sounds, soft to palpation, non-tender and non-distended Extremity no clubbing, cyanosis or edema Skin no rashes or lesions noted General Skin Exam: no breakdown Neuro oriented x3, CN's II-XII intact bilaterally, no focal motor deficits and no sensory deficits noted Sensorium / Orientation: awake and alert Speech: speech normal Psych affect normal Assessment & Plan Assessment/Plan (1) Acute renal failure: PLAN: Plan 1. Hyperkalemia-resolved at this time, patient will have a renal profile drawn in the morning #2 acute renal failure-according to documentation by nephrology, patient's creatinine a month ago was 3.9. Nephrology is going to administer fluids and repeat his renal panel tomorrow #3 type 2 diabetes-blood sugars will be monitored and sliding scale insulin will be administered as needed #4 essential hypertension-patient's Micardis is being held due to his hyperkalemia, blood pressure will be monitored #5 hyperlipidemia-patient is on Lipitor Total clinical time spent by myself addressing the patient's medical issues, reviewing all of his data, and collaborating with patient's care team: 35-minute Charges/Coding Visit Charges Inpatient E&M: 70276 Subs Hosp L2
[2024-12-03 21:56] VITALS: BP 154/66; PULSE 71; RESP 18; TEMP 36.4; O2SAT 96
[2024-12-03] MEDS: Atorvastatin Calcium 80 MG Tablet PO (22:10)
[2024-12-03 22:32] LABS: Bedside Glucose 234 mg/dL (74-106)
[2024-12-03 23:20] LABS: Protein, Urine (Random) 30.1 mg/dL (0.0-12.0); Protein:Creat Ratio 561 mg/g CRE (0-200)
[2024-12-04] MEDS: 0.9% Normal Saline (1000mL) 1,000 ML 75 ML IV (02:03)
[2024-12-04 04:00] VITALS: BP 126/51; PULSE 72; RESP 16; TEMP 36.7; O2SAT 97
[2024-12-04 04:53] VITALS: BMI 33.7
[2024-12-04] MEDS: Insulin Lispro 100 UNIT/ML INSULN.PEN SC ×2 (06:23→11:58)
[2024-12-04 06:43] LABS: Bedside Glucose 151 mg/dL (74-106)
[2024-12-04 06:58] LABS: Albumin, Serum 3.6 g/dL (3.4-4.8); Anion Gap 12 (5-15); BUN 67 mg/dL (4-19); BUN/Creat Ratio 30.4 RATIO (10-20); Calcium,Total 8.9 mg/dL (7.6-11.0); Carbon Dioxide 22.5 mmol/L (21.0-32.0); Chloride 104 mmol/L (98-108); Creatinine, Serum 2.19 mg/dL (0.70-1.20); EST Glomerular Filtration Rate 32 (>60); Estimated Creatinine Clearance 41.21 ml/min (50-250); Glucose 176 mg/dL (70-99); Phosphorus 3.6 mg/dL (2.7-4.5); Potassium 4.7 mmol/L (3.3-5.1); Sodium Level 138 mmol/L (133-145)
[2024-12-04 09:37] VITALS: BP 130/65; PULSE 79; RESP 16; TEMP 36.4; O2SAT 96
[2024-12-04] MEDS: Aspirin 81 MG TAB.CHEW PO (09:41)
[2024-12-04] MEDS: Carvedilol 6.25 MG Tablet PO (09:42)
[2024-12-04] MEDS: Allopurinol 300 MG Tablet PO (09:42)
--- NOTE | 2024-12-04 12:02 | PCM.DC ---
Discharge Instructions Diet Discharge Diet: 1800 Calorie Control Diet DC O2, CPAP, BIPAP needs Home O2 Discharge instructions: No Dressing / Incision Discharge Activity: Return to Normal Activity Weight Bearing Status: Full weight bearing Follow Up Care Test Results: Test results from this visit will be discussed in further detail at your follow-up appointment, if applicable. Discharge Plan Admission Admit Date/Time: 12/02/24 18:26 Primary Reason for Your Visit: renal failure, hyperkalemia Attending Provider: Librado Silva Primary Care Provider: Gumaro Menjivar Consulting Providers: Aguilar Marte; Reanna Ridley Discharge Orders/Prescriptions Prescriptions: Continued Humira 40 MG/0.8 ML syringe kit 40 mg SQ Q14D aspirin 81 MG tablet 81 mg PO .COMPLEX Rx Instructions: 81 mg orally; metformin 1,000 MG tablet 1,000 mg PO .COMPLEX Rx Instructions: 1,000 mg orally; allopurinol 300 MG tablet 300 mg PO .COMPLEX Rx Instructions: 300 mg orally; glipizide 5 MG tablet 5 mg PO .COMPLEX Rx Instructions: 5 mg orally; carvedilol 12.5 mg tablet 12.5 mg PO .COMPLEX Rx Instructions: 12.5 mg orally; must administer with a meal/food pioglitazone [Actos] 30 mg tablet 30 mg PO .COMPLEX Rx Instructions: 30 mg orally; Januvia 100 mg tablet 100 mg PO .COMPLEX Rx Instructions: 100 mg orally; atorvastatin [Lipitor] 80 mg tablet 80 mg PO .COMPLEX Rx Instructions: 80 mg orally; prednisone 10 mg tablet 20 mg PO DAILY PRN (Reason: RA) Rx Instructions: 10 mg orally; tramadol 50 mg tablet 50 mg PO .COMPLEX Rx Instructions: 50 mg orally; naproxen sodium [Aleve] 220 mg capsule 220 mg PO .COMPLEX Rx Instructions: 220 mg orally; Discontinued telmisartan [Micardis] 40 mg tablet 40 mg PO .COMPLEX Rx Instructions: 40 mg orally; omega-3 fatty acids 1,000 mg capsule 1,000 mg PO .COMPLEX Rx Instructions: 1,000 mg orally; Referrals / Follow Up: Aguilar Marte MD [Med Staff - Consulting] - See Referral Note (The doctor's office will contact you for an appointment to take place in approximately 2 weeks) uGmaro Menjivar, [Primary Care Provider] - See Referral Note (Go by his office to have a BMP (lab test) drawn next or Friday) Disposition Disposition (needs filled in before D/C Order can be placed): Home, Self Care
--- NOTE | 2024-12-04 12:09 | DS.PCM_ITS ---
Providers Date of Admission: 12/02/24 Date of Discharge: 12/04/24 Primary Care Physician: Dr. Gumaro Menjivar, Consultations 12/02/24 19:23 Consult: Nephrology Routine Consulting Provider: Aguilar Marte Reason for Consult: Severe Hyperkalemia EMERGENT Consult: Yes MD Notified: Yes Date Notified: 12/02/24 Time Notified: 19:12 Method of Notification: Verbal Reason For Visit: HYPERKALEMIA, ACUTE RENAL FAILURE Diagnosis Discharge Diagnosis (1) Acute renal failure: Status: Acute Code(s): N17.9 - Acute kidney failure, unspecified Plan 1. Hyperkalemia-resolved at this time, patient will have a renal profile drawn in the morning #2 acute renal failure-according to documentation by nephrology, patient's creatinine a month ago was 3.9. Nephrology is going to administer fluids and repeat his renal panel tomorrow #3 type 2 diabetes-blood sugars will be monitored and sliding scale insulin will be administered as needed #4 essential hypertension-patient's Micardis is being held due to his hyperkalemia, blood pressure will be monitored #5 hyperlipidemia-patient is on Lipitor #6 chronic kidney disease stage IIIb Total clinical time spent by myself addressing the patient's medical issues, reviewing all of his data, and collaborating with patient's care team: 35-minute Medications at Discharge Home Medications adalimumab 40 mg/0.8 mL subcutaneous syringe kit (Humira) 40 mg SQ Q14D RA 05/26/18 allopurinol 300 mg tablet 300 mg PO .COMPLEX GOUT 05/26/18 aspirin 81 mg tablet,delayed release 81 mg PO .COMPLEX HEART HEALTH 05/26/18 glipizide 5 mg tablet 5 mg PO .COMPLEX DIABETES 05/26/18 metformin 1,000 mg tablet 1,000 mg PO .COMPLEX DIABETES 05/26/18 atorvastatin 80 mg tablet (Lipitor) 80 mg PO .COMPLEX cholesterol 12/02/24 carvedilol 12.5 mg tablet 12.5 mg PO .COMPLEX bp 12/02/24 naproxen sodium 220 mg capsule (Aleve) 220 mg PO .COMPLEX pain 12/02/24 pioglitazone 30 mg tablet (Actos) 30 mg PO .COMPLEX dm 12/02/24 prednisone 10 mg tablet 20 mg PO DAILY PRN RA 12/02/24 sitagliptin phosphate 100 mg tablet (Januvia) 100 mg PO .COMPLEX dm 12/02/24 tramadol 50 mg tablet 50 mg PO .COMPLEX pain 12/02/24 Hospital Course Operations None Procedures None Summary of Care Provided Minutes Spent on Discharge: 31 Hospital Course: 69-year-old white male was seen in the emergency room at [facility] due to outpatient blood work which was abnormal which showed a potassium of 6.5. He was instructed to go to the emergency room. Labs in the ER showed an elevated white blood cell count at 13.1, hemoglobin was 11.7, sodium was 127, potassium was 6.6, creatinine was 4.61 and BUN was 105. Patient was admitted to PCU, he was given Kayexalate and his labs were repeated, he was given IV fluids, patient's potassium normalized, and he was seen in consultation by nephrology. Patient's renal functions improved during his hospitalization. On 12/04/2024, patient was seen and examined: On examination he appeared in good health and spirits. Vital signs as documented. Skin warm and dry and without overt rashes. Neck without JVD, neck was supple, trachea midline, thyroid was normal. Lungs clear bilaterally, normal air movement was noted. Heart exam notable for regular rhythm, normal sounds and absence of murmurs, rubs or gallops. Abdomen unremarkable and without evidence of organomegaly, masses, or abdominal aortic enlargement. Bowel sounds are present, abdomen is not distended. Extremities nonedematous, no cyanosis was noted, no clubbing was noted. Neuro: Cranial nerves II through XII are grossly intact, no focal motor deficits were noted, sensation to light touch and pinprick intact, motor exam 5/5 throughout. Psych: Patient is alert and oriented x3, he does not appear anxious or depressed, he does not appear agitated. Patient was felt to be stable for discharge home on 12/04/2024, he was to follow- up with nephrology as an outpatient. Etiology of the patient's acute kidney injury was not known. It was felt that his use of Micardis for his blood pressure played a part in why his potassium was elevated. Weight / BMI Weight Weight: 109.6 kg Body Mass Index (BMI) 33.7 ABG / Lab / Microbiology Data 12/03/24 06:35 12/04/24 06:12 Laboratory: Laboratory Results - last 24 hr 12/03/24 16:19: POC Glucose 117 H 12/03/24 21:50: U Random Total Protein 30.1 H, Urine Creatinine 53.70, P rotein/Creatinin Ratio 561 H 12/03/24 22:08: POC Glucose 234 H 12/04/24 06:12: Sodium 138, Potassium 4.7, Chloride 104, Carbon Dioxide 22.5, Anion Gap 12, BUN 67 H, Creatinine 2.19 H, Estim Creat Clear Calc 41.21 L, Est GFR (MDRD) Non-Af 32 L, BUN/Creatinine Ratio 30.4 H, Glucose 176 H, Calcium 8.9, Phosphorus 3.6, Albumin 3.6 12/04/24 06:20: POC Glucose 151 H Microbiology: Microbiology 12/02/24 17:32 Urine, Clean Catch Urine Culture - Final Culture exhibits no growth. D/C Instructions Discharge Diet: 1800 Calorie Control Diet Weight Bearing Status: Full weight bearing DC O2, CPAP, BIPAP Needs Home O2 Discharge instructions: No Meaningful Use Info Meaningful Use Meaningful Use Diagnoses (Choose all that apply): None applicable Ischemic Stroke Statin Dosing Therapy Reference: STATIN DOSE THERAPY REFERENCE: * Patients > 75 years receive moderate or high dose statin therapy. * Patients 75 years or YOUNGER should receive HIGH intensity statin dose unless contraindicated. You will be required to document reason for non-treatment if statin daily dose does not meet guidelines. HIGH DOSE STATIN THERAPY DAILY Atorvastatin > than or = to 40 mg Rosuvastatin > than or = to 20 mg Amlodipine + Atorvastatin > than or = to 2.5/40 mg Ezetimibe + Simvastatin 10/80 mg Simvastatin 80mg Discharge Plan Admission Admit Date/Time: 12/02/24 18:26 Primary Reason for Your Visit: renal failure, hyperkalemia Attending Provider: Librado Silva Primary Care Provider: Gumaro Menjivar Consulting Providers: Aguilar Marte; Reanna Ridley Discharge Orders/Prescriptions Prescriptions: Continued Humira 40 MG/0.8 ML syringe kit 40 mg SQ Q14D aspirin 81 MG tablet 81 mg PO .COMPLEX Rx Instructions: 81 mg orally; metformin 1,000 MG tablet 1,000 mg PO .COMPLEX Rx Instructions: 1,000 mg orally; allopurinol 300 MG tablet 300 mg PO .COMPLEX Rx Instructions: 300 mg orally; glipizide 5 MG tablet 5 mg PO .COMPLEX Rx Instructions: 5 mg orally; carvedilol 12.5 mg tablet 12.5 mg PO .COMPLEX Rx Instructions: 12.5 mg orally; must administer with a meal/food pioglitazone [Actos] 30 mg tablet 30 mg PO .COMPLEX Rx Instructions: 30 mg orally; Januvia 100 mg tablet 100 mg PO .COMPLEX Rx Instructions: 100 mg orally; atorvastatin [Lipitor] 80 mg tablet 80 mg PO .COMPLEX Rx Instructions: 80 mg orally; prednisone 10 mg tablet 20 mg PO DAILY PRN (Reason: RA) Rx Instructions: 10 mg orally; tramadol 50 mg tablet 50 mg PO .COMPLEX Rx Instructions: 50 mg orally; naproxen sodium [Aleve] 220 mg capsule 220 mg PO .COMPLEX Rx Instructions: 220 mg orally; Discontinued telmisartan [Micardis] 40 mg tablet 40 mg PO .COMPLEX Rx Instructions: 40 mg orally; omega-3 fatty acids 1,000 mg capsule 1,000 mg PO .COMPLEX Rx Instructions: 1,000 mg orally; Referrals / Follow Up: Aguilar Marte MD [Med Staff - Consulting] - See Referral Note (The doctor's office will contact you for an appointment to take place in approximately 2 weeks) Gumaro Menjivar DO [Primary Care Provider] - See Referral Note (Go by his office to have a BMP (lab test) drawn next or Friday) Disposition Disposition (needs filled in before D/C Order can be placed): Home, Self Care Charges/Coding Visit Charges Inpatient E&M: 57602 Disch Hosp >30min
[2024-12-04 12:19] LABS: Bedside Glucose 278 mg/dL (74-106)
[2024-12-04 13:33] VITALS: BP 117/60; PULSE 64; RESP 16; TEMP 36.5; O2SAT 99
== END 2024-12-04 14:05 | disposition home or self-care (01) | DRG 683 ==
LOC: ED 17:40 → PCU 18:32
PROVIDERS: Nurse Practitioner Adult Health; Admitting Provider Internal Medicine; Emergency Provider Emergency Medicine; PCP Family Medicine; Visit Provider Internal Medicine
DX: N17.9 Acute kidney failure, unspecified (principal); E87.1 Hypo-osmolality and hyponatremia; E11.22 Type 2 diabetes mellitus with diabetic chronic kidney disease; N18.32 Chronic kidney disease, stage 3b; M06.9 Rheumatoid arthritis, unspecified; I12.9 Hypertensive chronic kidney disease with stage 1 through stage 4 chronic kidney disease, or unspecified chronic kidney disease; E78.00 Pure hypercholesterolemia, unspecified; M10.9 Gout, unspecified; E87.5 Hyperkalemia; Z87.891 Personal history of nicotine dependence; Z85.038 Personal history of other malignant neoplasm of large intestine; Z79.82 Long term (current) use of aspirin; Z79.84 Long term (current) use of oral hypoglycemic drugs; Z79.899 Other long term (current) drug therapy; Z79.52 Long term (current) use of systemic steroids
CPT/HCPCS: 36415; 71046; 76770; 80048; 80069; 81001; 82436; 82550; 82570; 82962; 83735; 83935; 84133; 84156; 84300; 84484; 84540; 85025; 87086; 93005; 99285; A4216; J0612